=== PATIENT | male | born 1930 | race Caucasian/White ===

== ENCOUNTER 2018-09-08 15:08 | Inpatient (IN) | payer MEDICARE ==
[~2018-09-08] VITALS: Ht 170.2 cm; Wt 74.7 kg
[~2018-09-08 15:08] MED LIST: AC500T PO; BACL10TA PO; CALC-682 PO; DIPH25TA82 PO; DOXY100C2 PO; FLUT12AE4 IH; FLUT1AER IH; GABA100C PO; GLUC500C2 PO; HYDR1CAP2 PO; INDA1.25 PO; LEVO137T6 PO; NAPR-243 PO; OMEP20CA6 PO; RANI150T90 PO; TAMS0.4C98 PO; [UNRECOGNIZED DRUG - CODE] PO
[2018-09-10] MEDS ORDERED: LOPERAMIDE 2 MG (IMODIUM) CAP PO PRN (08:45)
[2018-09-10] MEDS ORDERED: MELATONIN 3 MG TABLET PO PRN (08:45)
[2018-09-10] MEDS ORDERED: diphenhydrAMINE 25 MG TAB (BENADRYL) PO PRN (08:45)
[2018-09-10] MEDS ORDERED: DOCUSATE SODIUM 100 MG (COLACE) CAP PO PRN (08:45)
[2018-09-10] MEDS ORDERED: POLYETHYLENE GLYCOL 17 GM (MIRALAX) PACK PO PRN (08:45)
[2018-09-10] MEDS ORDERED: CALCIUM CARBONATE 500 MG (TUMS) TAB.CHEW PO PRN (08:45)
[2018-09-10] MEDS ORDERED: ONDANSETRON 4 MG (ZOFRAN) ORAL DISSOLVE TAB PO PRN (08:45)
[2018-09-10] MEDS ORDERED: ACETAMINOPHEN 500 MG TAB (TYLENOL) PO PRN (08:45)
--- NOTE | 2018-09-10 18:49 | NUR ---
Pt admitted to room 222, with an admitting diagnosis of S/P Rt Total shoulder revision from [facility] via w/c, accompanied by , & friend. Nitish LUCIA III introduced to surroundings, call light, bed controls, phone, TV, temperature control, lights, meal times, smoking policy, visitor policy, side rail policy, bathrooms and showers. Patient Rights given to patient in the handbook. Nitish LUCIA III verbalizes understanding that [facility] is not responsible for the loss or damage to any personal effects or valuables that are kept in the patients posession during their hospitalization. The following Patient Care Plans were discussed with the pt: Discharge Planning, Self Care Deficit, Impaired Mobility, Potential for fall/injury. Nitish LUCIA III verbalizes understanding of Interdisciplinary Patient Education. Patient and/or family were informed about the Rapid Response Team and its purpose. Patient received Patient Rights Booklet, which includes Privacy Act Statement and Data Collection Information Summary.
--- OUTSIDE RECORDS SUMMARY | 2018-09-10 18:54 | XMS REPORT | Continuity of Care Document ---
Author Organization Unknown Address Unknown Allergies Active Description Code Type Severity Reaction Onset Reported/Identified Relationship to Patient Clinical Status Yes Cephalosporins [id number] Drug Allergy Severe RASH, DYSPNEA 11/16/2011 Yes HYDROCARBON HYDROCARBON Moderate RASH 11/16/2011 Yes Pentazocine Lactate [id number] Drug Allergy Moderate PSYCH 11/16/2011 Yes atorvastatin calcium [id number] Drug Allergy Mild MUSCLE SPASMS 11/16/2011 Yes ciprofloxacin [id number] Drug Allergy Severe HALLUCINATIONS. 06/15/2015 Medications There is no data. Problems Date Dx Coded Attending Type Code Diagnosis Diagnosed By 11/16/2011 Ot 682.3 11/16/2011 Ot 709.9 06/15/2015 MASTER GRACIA MD Ot R00.1 BRADYCARDIA, UNSPECIFIED 06/15/2015 MASTER GRACIA MD Ot R55 SYNCOPE AND COLLAPSE 06/15/2015 DEEPTHI ARMENDARIZ, MARIAA Alvarez Ot 786.2 08/14/2017 DEEPTHI ARMENDARIZ, MARIAA Alvarez Ot 786.2 COUGH 08/15/2017 CORAL MUNOZ DO Ot E03.9 HYPOTHYROIDISM, UNSPECIFIED 08/15/2017 FATOU MUNOZ DOA K Ot I10 ESSENTIAL (PRIMARY) HYPERTENSION 08/15/2017 CORAL MUNOZ DO Ot K21.9 GASTRO-ESOPHAGEAL REFLUX DISEASE WITHOUT 08/15/2017 CORAL MUNOZ DO Ot K59.00 CONSTIPATION, UNSPECIFIED 08/15/2017 CORAL MUNOZ DO Ot R10.9 UNSPECIFIED ABDOMINAL PAIN 08/15/2017 CORAL MUNOZ DO Ot Z79.51 HALFWAY (CURRENT) USE OF INHALED STERO 08/15/2017 CORAL MUNOZ DO Ot Z85.828 PERSONAL HISTORY OF OTHER MALIGNANT NEOP 08/15/2017 CORAL MUNOZ DO Ot Z88.1 ALLERGY STATUS TO OTHER ANTIBIOTIC AGENT 08/15/2017 CORAL MUNOZ DO Ot Z88.8 ALLERGY STATUS TO OTH DRUG/MEDS/BIOL SUB 08/15/2017 DEEPTHI ARMENDARIZ, MARIAA Alvarez Ot 786.2 COUGH 08/16/2017 CORAL MUNOZ DO Ot E03.9 HYPOTHYROIDISM, UNSPECIFIED 08/16/2017 CORAL MNUOZ DO Ot I10 ESSENTIAL (PRIMARY) HYPERTENSION 08/16/2017 CORAL MUNOZ DO Ot K21.9 GASTRO-ESOPHAGEAL REFLUX DISEASE WITHOUT 08/16/2017 CORAL MUNOZ DO Ot K59.00 CONSTIPATION, UNSPECIFIED 08/16/2017 CORAL MUNOZ DO Ot R10.9 UNSPECIFIED ABDOMINAL PAIN 08/16/2017 CORAL MUNOZ DO Ot Z79.51 HALFWAY (CURRENT) USE OF INHALED STERO 08/16/2017 CORAL MUNOZ DO Ot Z85.828 PERSONAL HISTORY OF OTHER MALIGNANT NEOP 08/16/2017 CORAL MUNOZ DO Ot Z88.1 ALLERGY STATUS TO OTHER ANTIBIOTIC AGENT 08/16/2017 CORAL MUNOZ DO Ot Z88.8 ALLERGY STATUS TO OT DRUG/MEDS/BIOL SUB Procedures There is no data. Results Test Result Range Complete blood count (CBC) with automated white blood cell (WBC) differential - 08/14/17 22:55 Blood leukocytes automated count (number/volume) 6.1 10*3/uL 4.3-11.0 Blood erythrocytes automated count (number/volume) 3.70 10*6/uL 4.35-5.85 Venous blood hemoglobin measurement (mass/volume) 11.7 g/dL 13.3-17.7 Blood hematocrit (volume fraction) 35 % 40-54 Automated erythrocyte mean corpuscular volume 94 [foz_us] 80-99 Automated erythrocyte mean corpuscular hemoglobin (mass per erythrocyte) 32 pg 25-34 Automated erythrocyte mean corpuscular hemoglobin concentration measurement (mass/volume) 34 g/dL 32-36 Automated erythrocyte distribution width ratio 13.3 % 10.0- 14.5 Automated blood platelet count (count/volume) 196 10*3/uL 130-400 Automated blood platelet mean volume measurement 8.4 [foz_us] 7.4-10.4 Automated blood neutrophils/100 leukocytes 54 % 42-75 Automated blood lymphocytes/100 leukocytes 26 % 12-44 Blood monocytes/100 leukocytes 17 % 0-12 Automated blood eosinophils/100 leukocytes 3 % 0-10 Automated blood basophils/100 leukocytes 0 % 0-10 Blood neutrophils automated count (number/volume) 3.3 10*3 1.8-7.8 Blood lymphocytes automated count (number/volume) 1.6 10*3 1.0-4.0 Blood monocytes automated count (number/volume) 1.1 10*3 0.0- 1.0 Automated eosinophil count 0.2 10*3/uL 0.0-0.3 Automated blood basophil count (count/volume) 0.0 10*3/uL 0.0-0.1 PT panel in platelet poor plasma by coagulation assay - 08/14/17 22:55 Prothrombin time (PT) in platelet poor plasma by coagulation assay 13.0 s 12.2-14.7 INR in platelet poor plasma or blood by coagulation assay 1.0 0.8-1.4 Activated partial thromboplastin time (aPTT) in platelet poor plasma bycoagulation assay - 08/14/17 22:55 Activated partial thromboplastin time (aPTT) in platelet poor plasma bycoagulation assay 36 s 24-35 Comprehensive metabolic panel - 08/14/17 22:55 Serum or plasma sodium measurement (moles/volume) 137 mmol/L 135-145 Serum or plasma potassium measurement (moles/volume) 4.4 mmol/L 3.6-5.0 Serum or plasma chloride measurement (moles/volume) 101 mmol/L 98-107 Carbon dioxide 26 mmol/L 21-32 Serum or plasma anion gap determination (moles/volume) 10 mmol/L 5-14 Serum or plasma urea nitrogen measurement (mass/volume) 21 mg/dL 7-18 Serum or plasma creatinine measurement (mass/volume) 1.09 mg/dL 0.60-1.30 Serum or plasma urea nitrogen/creatinine mass ratio 19 NRG Serum or plasma creatinine measurement with calculation of estimated glomerular filtration rate > NRG Serum or plasma glucose measurement (mass/volume) 119 mg/dL 70-105 Serum or plasma calcium measurement (mass/volume) 9.8 mg/dL 8.5-10.1 Serum or plasma total bilirubin measurement (mass/volume) 0.5 mg/dL 0.1-1.0 Serum or plasma alkaline phosphatase measurement (enzymatic activity/volume) 128 U/L 40-136 Serum or plasma aspartate aminotransferase measurement (enzymatic activity/volume) 54 U/L 5-34 Serum or plasma alanine aminotransferase measurement (enzymatic activity/volume) 35 U/L 0-55 Serum or plasma protein measurement (mass/volume) 6.3 g/dL 6.4-8.2 Serum or plasma albumin measurement (mass/volume) 4.0 g/dL 3.2-4.5 Magnesium - 08/14/17 22:55 Magnesium 2.1 mg/dL 1.8-2.4 Serum or plasma troponin i.cardiac measurement (mass/volume) - 08/14/17 22:55 Serum or plasma troponin i.cardiac measurement (mass/volume) < ng/mL <0.30 Serum or plasma amylase measurement (enzymatic activity/volume) - 08/14/17 22:55 Serum or plasma amylase measurement (enzymatic activity/volume) 22 U/L 25-125 Lipase - 08/14/17 22:55 Lipase 20 U/L 8-78 Complete urinalysis with reflex to culture - 08/14/17 23:45 Urine color determination YELLOW NRG Urine clarity determination VERY CLOUDY NRG Urine pH measurement by test strip 7 5-9 Specific gravity of urine by test strip 1.010 1.016-1.022 Urine protein assay by test strip, semi-quantitative NEGATIVE NEGATIVE Urine glucose detection by automated test strip NEGATIVE NEGATIVE Erythrocytes detection in urine sediment by light microscopy NEGATIVE NEGATIVE Urine ketones detection by automated test strip NEGATIVE NEGATIVE Urine nitrite detection by test strip NEGATIVE NEGATIVE Urine total bilirubin detection by test strip NEGATIVE NEGATIVE Urine urobilinogen measurement by automated test strip (mass/volume) NORMAL NORMAL Urine leukocyte esterase detection by dipstick NEGATIVE NEGATIVE Automated urine sediment erythrocyte count by microscopy (number/high power field) NONE NRG Automated urine sediment leukocyte count by microscopy (number/high power field) NONE NRG Bacteria detection in urine sediment by light microscopy NEGATIVE NRG Squamous epithelial cells detection in urine sediment by light microscopy 0-2 NRG Crystals detection in urine sediment by light microscopy PRESENT NRG Casts detection in urine sediment by light microscopy NONE NRG Mucus detection in urine sediment by light microscopy NEGATIVE NRG Complete urinalysis with reflex to culture NO NRG Amorphous sediment detection in urine sediment by light microscopy LARGE SCOTT URATES NRG Encounters ACCT No. Visit Date/Time Discharge Status Pt. Type Provider Facility Loc./Unit Complaint [id number] 08/14/2017 22:46:00 08/15/2017 01:20:00 DIS Emergency CORAL MUNOZ DO [facility] ER SIDE PAIN [id number] 06/15/2015 11:11:00 06/15/2015 12:58:00 DIS Emergency MASTER GRACIA MD [facility] ER DIZZINESS/WEAKNESS [id number] 05/01/2014 11:39:00 05/01/2014 23:59:59 CLS Outpatient DEEPTHI ARMENDARIZ, MARIAA Alvarez [facility] RAD COUGH [id number] 09/10/2018 18:50:00 ACT Inpatient RICO LANCE DO [facility] IRF R TOTAL SHOULDER REPLACEMENT [id number] 11/16/2011 20:26:00 Document Registration
[2018-09-10 18:55] VITALS: BP 123/62
--- NOTE | 2018-09-10 19:49 | NUR ---
Pt states that he had a baker catheter when at [facility]; was removed yesterday morning. Pt states that he has been voiding ok; but, "not a lot at a time." Denied burning or pain w voiding. states that pt wears diapers at night. Pt has not voided since he arrived on unit. Pt sat up in bed, ate sandwich & chocolate milk shake. Pt required max assist of 2 to transfer from w/c to bed upon arrival. Pt had Lt TKR done years ago, which pt was not able to bend his Lt knee after that, limiting ROM greatly. Pt arrived to unit w immobilizer on Rt arm.
[2018-09-10] MEDS ORDERED: Biotin PO (20:33)
[2018-09-10] MEDS ORDERED: SENN-40 PO (20:33)
[2018-09-10] MEDS ORDERED: LEVO125T6 PO (20:33)
[2018-09-10] MEDS ORDERED: MULT-1061 PO (20:33)
[2018-09-10] MEDS ORDERED: ASCO10006 PO (20:33)
[2018-09-10] MEDS ORDERED: DILT60TA PO (20:33)
[2018-09-10] MEDS ORDERED: INDA1.25 PO (20:33)
[2018-09-10] MEDS: HYDROcodone/APAP 5 MG/325 MG (LORTAB) TAB PO PRN (22:11)
[2018-09-10] MEDS: GABAPENTIN 100 MG (NEURONTIN) CAP PO SCH (22:11)
[2018-09-11 05:03] VITALS: BP 124/74
[2018-09-11 05:12] LABS: BASOPHILS % (AUTO) 0 % (0-10); EOSINOPHILS # (AUTO) 0.2 10^3/uL (0.0-0.3); EOSINOPHILS % (AUTO) 4 % (0-10); HEMATOCRIT 29 % (40-54); HEMOGLOBIN 10.1 G/DL (13.3-17.7); LYMPHOCYTES # (AUTO) 0.9 X 10^3 (1.0-4.0); LYMPHOCYTES % (AUTO) 17 % (12-44); MEAN CORPUSCULAR HEMOGLOBIN 32 PG (25-34); MEAN CORPUSCULAR HGB CONC 35 G/DL (32-36); MEAN CORPUSCULAR VOLUME 92 FL (80-99); MEAN PLATELET VOLUME 9.6 FL (7.4-10.4); MONOCYTES # (AUTO) 0.9 X 10^3 (0.0-1.0); MONOCYTES % (AUTO) 16 % (0-12); NEUTROPHILS # (AUTO) 3.5 X 10^3 (1.8-7.8); NEUTROPHILS % (AUTO) 63 % (42-75); PLATELET COUNT 124 10^3/uL (130-400); RED CELL DISTRIBUTION WIDTH 12.8 % (10.0-14.5); WHITE BLOOD COUNT 5.5 10^3/uL (4.3-11.0)
[2018-09-11 05:37] LABS: ALANINE AMINOTRANSFERASE 37 U/L (0-55); ALBUMIN 2.7 GM/DL (3.2-4.5); ALKALINE PHOSPHATASE 88 U/L (40-136); BILIRUBIN,TOTAL 0.9 MG/DL (0.1-1.0); BUN/CREATININE RATIO 20; CALCIUM 8.6 MG/DL (8.5-10.1); CARBON DIOXIDE 25 MMOL/L (21-32); CHLORIDE 101 MMOL/L (98-107); CREATININE SERUM 0.71 MG/DL (0.60-1.30); GFR ESTIMATED > 60; GLUCOSE 131 MG/DL (70-105); SODIUM 134 MMOL/L (135-145); TOTAL PROTEIN 4.7 GM/DL (6.4-8.2)
--- NOTE | 2018-09-11 08:37 | PM&R H&P / Post Admit Assess ---
History of Present Illness HPI/Chief Complaint CC: Right shoulder replacement with severe limitation of activities with debility HPI: This is an 88yoWM clinic patient of Dr Pimentel who presents to IRF after an uncomplicated right shoulder replacement by Dr Tobar at [facility] Tuesday but required IRF stay due to advanced age and frailty requiring 2 person assist in addition to left knee fusion due to replacements that have failed x 2 in the past further limiting his ability to ambulate and take care of himself at home. Patient finally arrived at 700pm last night and has settled in and doing well. BM this morning after laxatives given at [facility]. Pain is well controlled currently. Dr Pimentel has been notified of the consultation for his PCP needs. Right sling will stay in place during activity. His is at home in frail health also. I have reviewed his home meds and restarted all. PLOF was independent with ADL's. Source: patient, old records Exam Limitations: no limitations Date Seen 09/11/18 Time Seen by a Provider: 08:45 Attending Physician Mary Lance DO PCP Quincy Pimentel MD Referring Physician Date of Admission September 10, 2018 at 18:50 Home Medications & Allergies Home Medications Reviewed patient Home Medication Reconciliation performed by pharmacy medication reconciliations injection maintenance technician and/or nursing. Patients Allergies have been reviewed. Allergies Allergies Coded Allergies ciprofloxacin (Verified Allergy, Severe, HALLUCINATIONS. , 06/15/15) Cephalosporins (Verified Adverse Reaction, Severe, RASH, DYSPNEA, 11/16/11) Pentazocine Lactate (Unverified Adverse Reaction, Intermediate, PSYCH, 11/16/11) atorvastatin calcium (Unverified Adverse Reaction, Mild, MUSCLE SPASMS, 11/16/11) Uncoded Allergies HYDROCARBON ( Adverse Reaction, Intermediate, RASH, 11/16/11) Past Kaxbnpo-Khytbw-Bcuutt Hx Past Med/Social Hx: Reviewed Nursing Past Med/Soc Hx, Reviewed and Corrections made Patient Social History Marrital Status: Employed/Student: retired ([employer]) Alcohol Use: Denies Use Recreational Drug Use: No Smoking Status: Never a Smoker 2nd Hand Smoke Exposure: No Physical Abuse Screen: No Sexual Abuse: No Recent Foreign Travel: No Contact w/other who traveled: No Recent Hopitalizations: No Recent Infectious Disease Expo: No Immunizations Up To Date Date of Pneumonia Vaccine: Oct 23, 2009 Date of Influenza Vaccine: Mar 25, 2015 Seasonal Allergies Seasonal Allergies: Yes Past Medical History Surgeries: Orthopedic Currently Using CPAP: No Currently Using BIPAP: No Cardiac: Hypertension Genitourinary: Benign Prostatic Hyperpl Gastrointestinal: Gastroesophageal Reflux Musculoskeletal: Degenerate Disk Disease, Arthritis, Back Injury, Chronic Back Pain Endocrine: Hypothyroidsim Cancer: Skin Did You Recieve Any Treatments: Yes What Type of Treatment Did You: Surgical Intervention History of Blood Disorders: No Adverse Reaction to Blood Alex: No Family History Cardiovascular disease 19 MOTHER Completed stroke 19 MOTHER Diabetes mellitus 19 FATHER Hypertension 19 FATHER 19 MOTHER Review of Systems Constitutional: see HPI, malaise, weakness EENTM: no symptoms reported Respiratory: no symptoms reported Cardiovascular: no symptoms reported Gastrointestinal: no symptoms reported Genitourinary: no symptoms reported Musculoskeletal: joint pain, other (right shoulder pain) Skin: no symptoms reported Psychiatric/Neurological: No Symptoms Reported All Other Systems Reviewed Negative Unless Noted: Yes Physical Exam Exam Vital Signs Vital Signs Date Time Temp Pulse Resp B/P (MAP) Pulse Ox O2 Delivery O2 Flow Rate FiO2 09/11/18 05:03 98.9 81 20 124/74 (91) 97 Room Air Capillary Refill : General Appearance: No Apparent Distress, WD/WN, Chronically ill, Thin HEENT: PERRL/EOMI, TMs Normal, Normal ENT Inspection, Pharynx Normal, Moist Muc ous Membranes Neck: Full Range of Motion, Normal Inspection, Non Tender, Supple Respiratory: Chest Non Tender, Lungs Clear, Normal Breath Sounds, No Accessory Muscle Use, No Respiratory Distress Cardiovascular: Regular Rate, Rhythm, No Edema, No Gallop, No JVD, No Murmur Gastrointestinal: Normal Bowel Sounds, No Organomegaly, No Pulsatile Mass, Non Tender, Soft Back: Normal Inspection, No CVA Tenderness, No Vertebral Tenderness Extremity: Normal Capillary Refill, Normal Inspection, Normal Range of Motion (except right shoulder and chronic fusion left knee), Non Tender, No Calf Tenderness, No Pedal Edema Neurologic/Psychiatric: Alert, Oriented x3, No Motor/Sensory Deficits, Normal Mood/Affect Skin: Normal Color, Warm/Dry Lymphatic: No Adenopathy Results Results/Procedures Labs Laboratory Tests 09/11/18 04:35 Patient resulted labs reviewed. Assessment/Plan Assessment and Plan Assess & Plan/Chief Complaint Assessment: s/p right shoulder replacement uncomplicated POD # 5 at [facility] Post op urinary retention requiring Ferrell cath but now resolved since cath removed Chronic left knee fusion HTN Allergic rhinitis Anemia Hypothyroidism Neuropathy BPH GERD Plan: Pain control IRF protocols Fall risk PCP consulted (1) Urinary retention (2) Constipation (3) BPH (benign prostatic hyperplasia) (4) Anemia (5) Hypertension (6) Allergic rhinitis (7) GERD (gastroesophageal reflux disease) (8) Hypothyroidism (9) Limitation of joint motion of left knee (10) Status post replacement of right shoulder joint Post Admission Physician Asses Date seen by provider: September 11, 2018 Time seen by provider: 08:45 Admisison Dx: (1) Status post replacement of right shoulder joint The preadmission screen agrees with the post admission assessment that the patient is a good candidate for inpatient rehabilitation. The patient will have a comprehensive program of inpatient rehabilitation with a goal of maximizing level of functional independence prior to discharge home with . The patient will have PT/OT ninety minutes per day, each discipline, five days a week for gait, strengthening, conditioning, balance, ADLs, any patient/family/caregiver training as necessary. Speech therapy to do cognitive assessment and treat as indicated. Rehabilitation nursing to assist with bowel, bladder, skin, wound care, medication administration, pain management. Pocket Assembler to assist with discharge planning, community reentry. SCD's for DVT prophylaxis. He appears to be well motivated to participate in three hours of therapy a day. He should be able to tolerate three hours of therapy a day from a medical standpoint. He should benefit from the three hours of therapy a day. He has a reasonable discharge plan, reasonable discharge rehabilitation goals and a supportive family. He has various comorbidities that need to be closely monitored with medications and treatments adjusted on a daily basis as needed. These include: see list Barriers to discharge for this patient who had been independent prior to this are for him to be modified independent to supervision for ADLs and mobility skil ls prior to discharge home with , so as to lessen the burden of the caregivers. Risks for this patient include: 1. Fall 2. Fracture 3. DVT 4. Pulmonary embolism 5. Wound infection 6. Skin breakdown 7. Contractures 8. Poorly controlled pain 9. Urinary retention 10. UTI 11. Respiratory infection 12. Aspiration Estimated Length of Stay: 10 days Prognosis: Rehab prognosis appears good for goal of discharge home with modified independent to supervision for ADLs and mobility skills. MARY LANCE DO September 11, 2018 08:37
--- NOTE | 2018-09-11 09:30 | Occupational Therapy Eval ---
OT Evaluation-General/PLF Medical Diagnosis Admission Date September 10, 2018 at 18:50 Medical Diagnosis: right total shoulder Onset Date: September 11, 2018 Therapy Diagnosis Therapy Diagnosis: impaired ADLs and mobilty Height/Weight Height (Feet): 5 Height (Inches): 7.00 Weight (Pounds): 167 Weight (Ounces): 1.0 Precautions Precautions/Isolations: Fall Prevention, Standard Precautions Weight Bear Status Weight Bearing Restriction: Non Weight Bearing Location Restriction: R UE Referral Referral Reason: Activity Tolerance, Self Care, Evaluation/Treatment, Strengthening/ROM Medical History Additional Medical History Hypertension, benign Prostatic Hyperpl, Gastroesophageal Reflux, Degenerate Disk Disease, Arthritis, Back Injury, Chronic Back Pain, hypothyroidsim Cancer: Skin Reviewed History: Yes Social History Home: Single Level (underground home ) Current Living Status: Spouse Entry Into Home: Stairs Without Railing Steps Into Home: 1 ADL-Prior Level of Function Therapy Code Descriptions/Definitions Functional [place] Measure: 0=Not Assessed/NA 4=Minimal Assistance 1=Total Assistance 5=Supervision or Setup 2=Maximal Assistance 6=Modified [place] 3=Moderate Assistance 7=Complete [place] Therapy Quality Codes: 6 Independent with activity with or without an assistive device 5 Patient requires set up or clean up by helper. Patient completes activity by themselves 4 Supervision or touching assist (CGA). [place] provide cues , steadying assist 3 The helper provides less than half the effort to complete the activity 2 The helper provides more than half the effort to complete the activity 1 Dependent. The helper does all the effort to complete an activity 7 Patient refused to complete or attempt activity 9 The patient did not perform the activity before the current illness or injury 88 Not attempted due to Medical conditions or safety concerns Functional Abilities and Goals: Independent: Patient completed the activities by him/herself, with or without an assistive device, with no assistance from a helper. Needed Some Help: Patient needed partial assistance from another person to complete activities. Dependent: A helper completed the activities for the patient. Unknown: Not Applicable: Self Care: Independent (independent with ADLS use of rollater for functional t ransfers) Functional Cognition: Independent DME/Equipment: Bath Chair, Bedside Commode, Grab Bars, Shower, Tall Toilet, Toilet/Riser Drive Self: Yes OT Current Status Subjective pt layign supine in bed upon OT arrival in no apparent distress. pt complaints of no pain. pt agreed to OT evaluation/ treatment session. 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 Mental Status/Objective Patient Orientation: Person, Place, Time, Eyes Open, Situation, Normal For Age Attachments: Other-See Comments Current Glasses/Contacts: Yes Hearing Aids: Yes Dentures/Partials: No Hand Dominance: Right Upper Extremity ROM R shoulder/ elbow NT secondary to precautions. L UE WFL Upper Extremity Coordination R shoulder/ elbow NT secondary to precautions. noted decrease FMC L UE WFL Upper Extremity Sensation WFL. pt c/o of slight tingle in R UE Upper Extremity Strength R shoulder/ elbow NT secondary to precautions. L UE WFL Edema: noted edema in R UE ADL-Treatment Eating (FIM): 4 (required assist to stir food items and required assist with set up) Eating (QC): 3 Grooming (FIM): 4 (CGA fro safety/ balance while brushing teeth at sink) Oral Hygiene (QC): 4 Bathing (FIM): 3 Bathing Location: R Arm, L Upper Leg, R Upper Leg, Chest, Abdomen, Perineal Area Shower/Bathe Self (QC): 3 Upper Body Dressing (FIM): 1 (button up shirt. pt reqwuired assist with all of UB dressing ) Upper Body Dressing (QC): 1 Lower Body Dressing (FIM): 1 (pt required TA for underpants, pants, and [place]. socks) Lower Body Dressing (QC): 1 On/Off Footwear (QC): 1 Toileting (FIM): 1 (pt required assist with 3/3 toileting tasks ) Toileting Hygiene (QC): 1 Transfers (B, C, W/C) (FIM): 2 (MAX A from bed to w/c ) Toilet/Commode Transfer (FIM): 1 (2 person assist MOD A X 2 person w/c to high raised toilet) Toilet Transfer (QC): 1 Shower Transfer (FIM): 0 (NT secondary to safety) pt education on one handed dressing techniques for increase independence. pt attempt to demo but required TA. additional education to follow. pt education on role Of OT/ purpose, goals and rehab process. pt verbalized understanding. Other Treatments pt education on donning/ doffing sling. pt required TA,.additional education required. Education OT Patient Education: Energy conservation, Modified ADL techniques, Progress toward Goal/Update tx plan, Purpose of tx/functional activities, Reviewed precautions, Rehab process, Safety issues, Transfer techniques Teaching Recipient: Patient Teaching Methods: Demonstration, Discussion Response to Teaching: Verbalize Understanding, Return Demonstration, Reinforcement Needed OT Short Term Goals Short Term Goals Eating(FIM): 5 Grooming(FIM): 5 Bathing(FIM): 5 Bathing Location: L Arm, R Arm, L Upper Leg, R Upper Leg, L Lower Leg (including foot), R Lower Leg (including foot), Chest, Abdomen, Buttocks, Perineal Area Upper Body Dressing(FIM): 5 Lower Body Dressing(FIM): 5 Toileting(FIM): 5 Transfers (B,C,W/C) (FIM): 5 Toilet/Commode Transfer(FIM): 5 Shower Transfer(FIM): 5 (5) Additional Short Term Goals: 1-Demonstrate ADL Tasks, 2-Verbalize Understanding, 3-ImproveStrength/Joel 1=Demonstrate adherence to instructed precautions during ADL tasks. 2=Patient will verbalize/demonstrate understanding of assistive devices/modifications for ADL. 3=Patient will improve strength/tolerance for activity to enable patient to perform ADL's. OT Personnel Counselor Goals Residential Goals Eating (FIM): 7 Eating (QC): 6 Groomin Oral Hygiene (QC): 6 Bathing(FIM): 6 Bathing Location: L Arm, R Arm, L Upper Leg, R Upper Leg, L Lower Leg (including foot), R Lower Leg (including foot), Chest, Abdomen, Buttocks, Perineal Area Shower/Bathe Self (QC): 6 Upper Body Dressing(FIM): 6 Upper Body Dressing (QC): 6 Lower Body Dressing(FIM): 6 Lower Body Dressing (QC): 6 On/Off Footwear (QC): 6 Toileting(FIM): 6 Toileting Hygiene (QC): 6 Transfers (B,C,W/C) (FIM): 6 Toilet/Commode Transfer(FIM): 6 Toilet/Commode Transfer (QC): 6 Shower Transfer(FIM): 6 1=Demonstrate adherence to instructed precautions during ADL tasks. 2=Patient will verbalize/demonstrate understanding of assistive devices/modifications for ADL. 3=Patient will improve strength/tolerance for activity to enable patient to perform ADL's. OT Education/Plan Problem List/Assessment Assessment: Decreased Activ Tolerance, Decreased Safety Aware, Decreased UE Strength, Dependent Transfers, Impaired Bed Mobility, Impaired Cognition, Impaired Coordination, Impaired Funct Balance, Impaired I ADL's, Impaired Self- Care Skills, Restricted Funct UE ROM pt presents with functional limitations affecting areas of ADLS/ functional transfers. pt protocol for R shoulder can be found in chart. pt would benefit from OT services to increase independence with ADLS/ functional transfers and for safe transition to home. Discharge Recommendations Plan/Recommendations: Continue POC Target Placement home with family Treatment Plan/Plan of Care Treatment,Training & Education: Yes Patient would benefit from OT for education, treatment and training to promote independence in ADL's, mobility, safety and/or upper extremity function for ADL's. Plan of Care: ADL Retraining, Caregiver Training, Concurrent Therapy, Functional Mobility, Group Exercise/Act as Ind, Orthotic Fitting/Training, UE Funct Exercise/Act Treatment Duration: Oct 09, 2018 Frequency: At least 5 of 7 days/Wk (IRF) Estimated Hrs Per Day: 1.5 hours per day (60-90 minutes per day) Rehab Potential: Fair Time/GCodes Start Time: 08:05 Stop Time: 09:20 Billed Treatment Time EVM 15 minutes ADL 60 minutes, 4 units JETHRO POLLACK OT September 11, 2018 09:29
[2018-09-11] MEDS ORDERED: IRBE150T26 PO (10:04)
[2018-09-11] MEDS ORDERED: GABA-486 PO (10:04)
[2018-09-11] MEDS ORDERED: BACL10TA PO (10:04)
[2018-09-11] MEDS ORDERED: ACET-168 PO (10:04)
[2018-09-11] MEDS ORDERED: CALC-927 PO (10:04)
[2018-09-11] MEDS ORDERED: FLUT16SP22 NS (10:04)
[2018-09-11] MEDS ORDERED: NFBIOT1000 PO (10:04)
[2018-09-11] MEDS ORDERED: HYDR-3812 PO (10:09)
--- NOTE | 2018-09-11 10:10 | NUR ---
HAD A LIST OF 15 MEDICATIONS FROM BRITTNEY TO CONTINUE TAKING, IT APPEARS NO CHANGES WERE MADE FROM HIS HOME MED LIST. I CALLED [facility] FOR A LIST OF RECENTLY FILLED MEDICATIONS. [facility] FILLED: 08-26-18 FLOMAX 0.4MG HS #90 08-05-18 DILTIAZEM 60MG DAILY 07-29-18 HYDROCODONE 5-325MG 1-2 Q6H PRN 07-20-18 LEVOTHYROXINE 125MCG DAILY #90 07-07-18 IRBESARTAN 150MG #90 07-05-18 GABAPENTIN 100MG TAKE 2 HS #180 06-20-18 FLONASE 2 SPRAYS HS #3 06-16-18 LOSARTAN 100MG DAILY #90 (CHANGED TO IRBESARTAN) BRITTNEY HAD INDAPAMIDE 1.25MG DAILY HOWEVER [facility] HAS NOT FILLED THIS, AFTER SPEAKING WITH THE PATIENT HE STATES HE IS NO CURRENTLY TAKING IT, HE IS NOW TAKING DILTIAZEM AND IRBESARTAN. NOT ON FILE WITH [facility] IS BACLOFEN, PATIENT STATES HE TAKES THIS RARELY AND ONLY WHEN HES GOING ON A LONG CAR RIDE, HE HAS NOT FILLED IT RECENTLY BECAUSE HE DOES NOT USE IT OFTEN. I LEFT IT ON THE MED REC. OTC MEDS: SENNA BID TYLENOL 1-2 PRN RANITIDINE 150MG BID BIOTIN DAILY CALCIUM MAGNESIUM ZINC DAILY VITAMIN C 1800 MTV DAILY
--- NOTE | 2018-09-11 10:41 | Physical Therapy Evaluation ---
PT Evaluation-General Medical Diagnosis Admission Date September 10, 2018 at 18:50 Medical Diagnosis: right total shoulder Onset Date: September 07, 2018 Therapy Diagnosis Therapy Diagnosis: impaired mobility, strength, endurance, balance, ROM Height/Weight Height (Feet): 5 Height (Inches): 7.00 Weight (Pounds): 167 Weight (Ounces): 1.0 Precautions Precautions/Isolations: Fall Prevention, Standard Precautions Weight Bear Status total shoulder protocol on right side Referral Physician: Mary Francis DO Reason for Referral: Evaluation/Treatment Medical History Additional Medical History Past Medical History Surgeries: Orthopedic Currently Using CPAP: No Currently Using BIPAP: No Cardiac: Hypertension Genitourinary: Benign Prostatic Hyperpl Gastrointestinal: Gastroesophageal Reflux Musculoskeletal: Degenerate Disk Disease, Arthritis, Back Injury, Chronic Back Pain Endocrine: Hypothyroidsim Cancer: Skin Did You Recieve Any Treatments: Yes What Type of Treatment Did You: Surgical Intervention History of Blood Disorders: No Adverse Reaction to Blood Alex: No Reviewed History: Yes Social History Home: Single Level (underground home ) Current Living Status: Spouse Entry Into Home: Stairs Without Railing PT Steps Into Home: 1 Prior/Core FIM Prior Level of Function Therapy Code Descriptions/Definitions Functional [place] Measure: 0=Not Assessed/NA 4=Minimal Assistance 1=Total Assistance 5=Supervision or Setup 2=Maximal Assistance 6=Modified [place] 3=Moderate Assistance 7=Complete [place] Therapy Quality Codes: 6 Independent with activity with or without an assistive device 5 Patient requires set up or clean up by helper. Patient completes activity by themselves 4 Supervision or touching assist (CGA). [place] provide cues , steadying assist 3 The helper provides less than half the effort to complete the activity 2 The helper provides more than half the effort to complete the activity 1 Dependent. The helper does all the effort to complete an activity 7 Patient refused to complete or attempt activity 9 The patient did not perform the activity before the current illness or injury 88 Not attempted due to Medical conditions or safety concerns Functional Abilities and Goals: Independent: Patient completed the activities by him/herself, with or without an assistive device, with no assistance from a helper. Needed Some Help: Patient needed partial assistance from another person to complete activities. Dependent: A helper completed the activities for the patient. Unknown: Not Applicable: Bed Mobility: 6 Transfers (B,C,W/C) (FIM): 6 Gait: 6 Indoor Mobility (Ambulation): Independent Patient was using a 4-wheeled walker previously. PT Evaluation-Current Subjective Patient in wheelchair at bedside pre tx, agrees to PT, has no complaints of pain at rest. Patient has an arm immobilizer on the right side and states that he has had issues with a left total knee and only has about 20 degrees of flexion in it. Pt/Family Goals to be independent at home Objective Patient Orientation: Person, Place, Situation arm immobilizer ROM/Strength ROM Lower Extremities left knee flexion 35 degrees, patient has decreased dorsiflexion bilaterally and cannot achieve neutral Strenght Lower Extremities 4+/5 gross bilateral lower extremities except for dorsiflexion which is 3/5 bilaterally Neuromuscular (Tone, Coordination, Reflexes) NT Sensory Hearing: Functional Hand Dominance: Right Sensation Right Lower Extremit: Intact Sensation Left Lower Extremity: Intact Transfers Therapy Code Descriptions/Definitions Functional [place] Measure: 0=Not Assessed/NA 4=Minimal Assistance 1=Total Assistance 5=Supervision or Setup 2=Maximal Assistance 6=Modified [place] 3=Moderate Assistance 7=Complete [place] Therapy Quality Codes: 6 Independent with activity with or without an assistive device 5 Patient requires set up or clean up by helper. Patient completes activity by themselves 4 Supervision or touching assist (CGA). [place] provide cues , steadying assist 3 The helper provides less than half the effort to complete the activity 2 The helper provides more than half the effort to complete the activity 1 Dependent. The helper does all the effort to complete an activity 7 Patient refused to complete or attempt activity 9 The patient did not perform the activity before the current illness or injury 88 Not attempted due to Medical conditions or safety concerns Transfers (B, C, W/C) (FIM): 3 Scootin Rollin Roll Left to Right (QC): 4 Supine to/from Sit: 4 Sit to/from Stand: 3 Sit to Lying (QC): 3 Lying to Sitting/Side of Bed(Q: 3 Sit to Stand (QC): 2 Chair/Pep-bi-Htmoc Xfer(QC): 2 Car Transfer (QC): 2 Patient performs bed mobility with SBA, supine <-> sit with min assist, sit <-> stand with mod assist, transfers with mod assist, car transfer max assist. Patient is retropulsive after standing until he has a few moments to adjust, he tends to lean forward at the waist to compensate for having decreased ankle ROM. He can perform a stand pivot transfer with mod assist or a sliding board transfer with min assist. Gait Does the Patient Walk?: Yes Mode of Locomotion: Walk Anticipated Mode of Locomotion: Walk Gait (FIM): 4 Walk 10 feet (QC): 3 Walk 50 ft with 2 Turns(QC): 3 Walking 10ft/uneven surface-QC: 3 Distance: 70'x2 Gait Level of Assist: 4 Gait Persons Needed: 1 Gait Assistive Device: Handheld Assist Comments/Gait Description Patient can ambulate 70' with PLATE STACKER and min assist (including 50' with at least 2 turns of 90 degrees and 10' over an uneven surface). Patient has difficulty with ambulation due to decreased ankle ROM bilaterally. He cannot use a walker or platform walker due to right total shoulder and is not steady enough to use a cane on the left side. Patient needs min assist to ambulate but it is a hard min assist and almost mod assist. Stairs If not tested on admit;explain Patient is not safe to perform stairs at this time due to level of assist needed just to ambulate. Balance Sitting Static: Good Sitting Dynamic: Good Standing Static: Poor Standing Dynamic: Poor Treatment LAQ alternating for 5 min Assessment/Needs Patient has impaired mobility, strength, endurance, balance, ROM. He cannot ambulate with an assistive device at this time and needs PLATE STACKER. Total shoulder protocol on the right side. Rehab Potential: Fair PT Short Term Goals Short Term Goals Time Frame: September 18, 2018 Transfers (B,C,W/C) (FIM): 4 Gait (FIM): 2 Gait Distance Comment: 100' Gait Level of Assist: 4 Gait Assistive Device: Handheld Assist PT Prison Goals Prison Goals PT Automation Qa Tester Goals Time Frame: Oct 02, 2018 Transfers (B,C,W/C) (FIM): 5 Sit to Lying (QC): 6 Lying-Sitting on Side/Bed(QC): 6 Sit to Stand (QC): 4 Rollin Roll Left to Right (QC): 6 Chair/Hpd-dj-Uacfq Xfer(QC): 4 Car Transfer (QC): 4 Gait (FIM): 4 Distance: 150' Walk 10 feet (QC): 4 Walk 10ft-Uneven Surface(QC): 4 Walk 50ft with 2 Turns (QC): 4 Walk 150 ft (QC): 4 Gait Level of Assist: 4 (CGA) Gait Assistive Device: Handheld Assist Stairs (FIM): 1 # of Steps: 1 1 Step (curb) (QC): 3 Stairs Level Of Assist: 4 PT Plan Problem List Problem List: Activity Tolerance, Functional Strength, Safety, Balance, Gait, Transfer, Bed Mobility, ROM Treatment/Plan Treatment Plan: Continue Plan of Care Treatment Plan: Bed Mobility, Concurrent Therapy, Education, Functional Activity Joel, Functional Strength, Group Therapy, Gait, Safety, Therapeutic Exercise, Transfers Treatment Duration: Oct 02, 2018 Frequency: At least 5 of 7 days/Wk (IRF) Estimated Hrs Per Day: 1.5 hours per day Patient and/or Family Agrees t: Yes Safety Risks/Education Patient Education: Gait Training, Transfer Techniques, Reviewed Precautions, Correct Positioning, Safety Issues Teaching Recipient: Patient Teaching Methods: Demonstration, Discussion Response to Teaching: Reinforcement Needed Discharge Recommendations Plan Patient will perform bed mobility and transfer training, balance and endurance training, functional strengthening, stair training, gait training, and education, to improve functional mobility and independence at home. Therapy D/C Recommendations: Home w/ Family Support, [facility] (TCU/NH) Time/GCodes Time In: 0930 Time Out: 1030 Total Billed Treatment Time: 60 Total Billed Treatment 1 visit EVM 30' GT 20' FA 10' NAGA JACOBS PT September 11, 2018 10:41
[2018-09-11] MEDS ORDERED: BACLOFEN 10 MG (LIORESAL) TAB PO PRN (11:00)
[2018-09-11] MEDS: ENOXAPARIN 40 MG/0.4 ML (LOVENOX) SYR SC SCH (11:58)
[2018-09-11] MEDS ORDERED: ACETAMINOPHEN 500 MG TAB (TYLENOL) PO PRN (12:00)
[2018-09-11] MEDS ORDERED: HYDROcodone/APAP 5 MG/325 MG (LORTAB) TAB PO PRN (12:00)
--- NOTE | 2018-09-11 12:13 | NUR ---
SUBSTATION SUPERINTENDENT met with patient and family to come complete initial assessment. Patient was alert and oriented and agreeable to assessment. Patient admitted to ARU from [place] following a right total shoulder replacement by Dr. Tobar . Prior to surgery patient and spouse reside in a one level, entry level programmer home in [place], [place]. The home is handicap accessible. He was very active prior to surgery including woodworking hobby. Patient reports independence with ADLs and ambulation with use of Rollator walker. Patient also possesses a lift chair and newly obtained luxury upright walker. Primary contact identified as spouse, Scarlet at [phone] and grandson, Siddhartha at [phone]. Secondary contact identified as patient's son-in-law Daniel at [phone]. PCP identified as Dr. Quincy Pimentel. Insurance verified as Medicare and [employer] [place] with [employer] prescription coverage and preferred pharmacy as [facility]. SUBSTATION SUPERINTENDENT reviewed typical ARU length of stay and weekly team conferences, patient expresses no concerns at this time. SUBSTATION SUPERINTENDENT continue to follow for additional needs.
--- NOTE | 2018-09-11 13:08 | ST Cognitive Linguistic Eval ---
Speech Evaluation-General Medical Diagnosis right total shoulder Onset Date: September 07, 2018 Therapy Diagnosis Therapy Diagnosis: Cognitive communication Precautions Precautions/Isolations: Fall Prevention, Standard Precautions Medical History Reviewed History: Yes Social History Current Living Status: Spouse Speech PLF-Current Status Prior Level of Function The patient lives at home with his . Prior to surgery he was independent with most of his daily needs. Subjective The patient was very pleasant and cooperative with the cognitive evaluation. Language Eval: Auditory Comprehends Simple Yes/No Ques: Functional Indent/Objects Multiple Paige: Functional Ident/Pics in Multiple Paige: Functional Follows 1-Step Commands: Functional Follows Complex Directions: Functional Follows General Conversations: Functional Language Eval: Verbal Language Completes Spontaneous Greeting: Functional Produces Auto, Serial Info: Functional Imitates Simple Words/Phrases: Functional Word Finding: Functional Requests Basic Needs: Functional States Basic Personal Info: Functional Expresses Complex Ideas: Functional Objective Cognitive Domain Attention: WNL Memory: WNL Problem Solving: Functional Executive Functions: WNL Visuospatial Skills: WNL Composite Severity Rating: WNL Objective Formal/Standardized Tests [facility] Status ([facility]) Results The patient scored 30/30, with no noted deficits in the areas assessed. Oral Motor/Speech Production Within Functional Limits Impression The patient is a very pleasant 88 year old gentleman who was admitted to the ARU s/p total shoulder surgery. He was referred to ST for completion of a cognitive assessment to determine if a need for skilled services was recommended. He completed the SLUMS without any areas of weakness noted that would require skilled ST services. He will not be receiving skilled ST at this time. Communication/Social Cognition Comprehension: 7 Expression: 7 Social Interaction: 7 Problem Solvin Memory: 7 Speech Patient Assess Expression of Ideas/Wants: Expression (4) Understanding Verbal Content: Understands (4) Brief Interview-Mental Status: Yes Repetition of Three Words: Three (3) Temporal Orientation: Year: Correct (3) Temporal Orientation: Month: Accurate within 5 days(2) Temporal Orientation: Day: Correct (1) Recall : Wear to say "Sock": Yes, no cue required (2) Recall : Color: Yes, no cue required (2) Recall : Bed: Yes, no cue required (2) Memory/Recall Ability: Current season, Location of own room, Staff names and faces, That he or she is in a hsp/hsp unit Speech-Plan Patient/Family Goals Patient/Family Goals: The patient plans on returning home with his status post rehab. Treatment Plan Speech Therapy Treatment Plan: Discontinue ST The patient does not require ST at this time. Treatment Duration: September 11, 2018 Frequency: 1 time per week Estimated Hrs Per Day: .25 hour per day Rehab Potential: Fair Barriers to Learning: Age, s/p surgery Pt/Family Agrees to Plan: Yes Safety Risks/Education Teaching Recipient: Patient Teaching Methods: Discussion Response to Teaching: Verbalize Understanding Education Topics Provided: Safety within his room and utilization of the call light as needed Time Speech Therapy Time In: 10:30 Speech Therapy Time Out: 11:00 Total Billed Time: 30 Billed Treatment Time 1, SPSNDCOMP No AHSAN PURCELL September 11, 2018 13:08
--- NOTE | 2018-09-11 15:00 | Therapy Group Daily Note ---
Therapy Daily Group Note Patient Education Topic Other List Below (Pain, ARU description/expectations) Exercises Stretching Session Ratio (pt:therapist): 4:1 Goal of Session: Education on ARU Expectations, Other (list) (Pain management) Goal Met for this Session: Yes Pt Benefit of Group: Contributions to Others, F/U Use of Strategies @Home, Improved Cognition, Recognition of Peers, Socialization Other/Notes Pt transported via w/c to [facility] for OT/PT group. Group consisted of introductions (name, place living, storm memories), socialization, ARU description/expectations, stretching and pain management education. Pt introduced self appropriately and actively listened to peers. Pt demonstrated understanding of using stretch for pain management by using gait belt as stretching device. Pt then verbalized own strategies for pain management and understanding of drug-free options for management. Pt acknowledged understanding of ARU description/expectations and asked pertinent questions. After group, pt in room with visitors present. All needs met in room. Call light/phone in reach. Start Time: 13:00 Stop Time: 14:30 Total Billed Treatment Time: 90 Total Billed Treatment 1-GRP PAZ SHIPAMN September 11, 2018 15:00
[2018-09-11] MEDS: HYDROcodone/APAP 5 MG/325 MG (LORTAB) TAB PO PRN (17:45)
[2018-09-11] MEDS: ASCORBIC ACID (VIT C) 500 MG TABLET PO SCH (17:46)
[2018-09-11 18:00] VITALS: BP 114/72
--- NOTE | 2018-09-11 19:08 | NUR ---
bedside report received from ARYA BOWDEN, assume care of pt
[2018-09-11] MEDS: GABAPENTIN 100 MG (NEURONTIN) CAP PO SCH ×2 (20:51→20:54)
[2018-09-11] MEDS: FLUTICASONE NASAL SPRAY (FLONASE) 16 GM BTL NS SCH (20:53)
[2018-09-11] MEDS: TAMSULOSIN 0.4 MG (FLOMAX) CAP PO SCH (20:53)
[2018-09-11] MEDS: IRBESARTAN 150 MG (AVAPRO) TAB PO SCH (20:53)
[2018-09-11] MEDS: SENNA W/DOCUSATE (SENOKOT S) TABLET PO SCH (20:54)
--- NOTE | 2018-09-11 21:00 | NUR ---
assessments & interventions completed, see assessments & interventions, pt uses urinal at night, up with 2 people assist to commode for stools, rt shoulder in sling & elevated on pillows, able to move fingers & warm to touch
[2018-09-12 05:30] VITALS: BP 119/78
[2018-09-12] MEDS: MULTIVIT W/MINERALS TAB (THERAGRAN M) PO SCH (06:56)
[2018-09-12] MEDS: LEVOTHYROXINE 125 MCG (LEVOTHROID) TABLET PO SCH (06:56)
--- NOTE | 2018-09-12 07:12 | NUR ---
bedside report given to ARYA BOWDEN
--- NOTE | 2018-09-12 08:10 | Individualized Plan of Care ---
Individualized Plan of Care Rehab Nursing IPOC Order Admission Date September 10, 2018 at 18:50 Current Orders Orders Admission Order(Inpt,Obs,Sdc) (09/10/18 08:44) Vital Signs: Per Unit Policy ( 08,16,00 (09/10/18 08:44) Shift Engineer-Inpt Rehab Con (09/10/18 08:44) Rehab Nursing Orders-Ipoc (09/10/18 08:44) Physical Therapy Rehab Orders (09/10/18 08:44) Occupational Therapy Rehab Ord (09/10/18 08:44) Speech Therapy Rehab Orders (09/10/18 08:44) General/Regular (09/10/18 Lunch) Intake & Output 06,14,22 (09/10/18 08:44) Precautions (Aru) (09/10/18 08:44) Weekly Weight (Lbs) WEEK (09/10/18 08:44) Rehab-Intensity Of Therapy (09/10/18 08:44) Initiate Admission Nursing Pro .admission (09/10/18 08:44) Nursing Communication (Order) (09/10/18 08:44) Acetaminophen Tablet (Tylenol Tablet) (09/10/18 08:45) Calcium Carbonate Chew Tablet (Antacid C (09/10/18 08:45) Diphenhydramine Tablet (Benadryl Tablet) (09/10/18 08:45) Docusate Sodium Capsule (Colace Capsule) (09/10/18 08:45) Loperamide Capsule (Imodium Capsule) (09/10/18 08:45) Melatonin Tablet (Melatonin Tablet) (09/10/18 08:45) Polyethylene Glycol Powder Pkt (Miralax (09/10/18 08:45) Ondansetron Oral Dissolve Tab (Zofran (09/10/18 08:45) Cbc With Automated Diff (09/11/18 06:00) Comprehensive Metabolic Panel (09/11/18 06:00) Admission Arrival Bed Request (09/10/18 18:47) Hydrocodone/Apap 5/325 Tablet (Lortab 5 (09/10/18 22:00) Gabapentin Capsule/Tablet (Neurontin Cap (09/10/18 21:00) Ambulate 08,12,20 (09/11/18 08:00) Sequential Compression Device 08, (09/11/18 08:00) Dvt/Vte Risk - Notifiy Physici 08 (09/11/18 08:00) Code/Resuscitation (09/10/18 23:35) Enoxaparin Injection (Lovenox Injection) (09/11/18 09:45) Consult Physician (09/11/18 10:46) Baclofen Tablet (Lioresal Tablet) (09/11/18 11:00) Diltiazem Tablet (Cardizem Tablet) (09/12/18 09:00) Fluticasone Nasal [place] (Flonase Nasal S (09/11/18 21:00) Gabapentin Capsule/Tablet (Neurontin Cap (09/11/18 21:00) Levothyroxine Tablet (Synthroid Tablet) (09/12/18 06:30) Tamsulosin Capsule (Flomax Capsule) (09/11/18 21:00) Acetaminophen Tablet (Tylenol Tablet) (09/11/18 12:00) Ascorbic Acid Tablet (Vitamin C Tablet) (09/11/18 18:00) (Nf) Biotin (09/12/18 09:00) (Nf) Calcium Carb/Mag Ox/Zinc Sulf (Calc (09/12/18 09:00) Hydrocodone/Apap 5/325 Tablet (Lortab 5 (09/11/18 12:00) Irbesartan Tablet (Avapro Tablet) (09/11/18 21:00) Therapeutic Multivitamin Tab (Vitamins, (09/12/18 07:00) Senna S Tablet (Senokot S Tablet) (09/11/18 21:00) Famotidine Tablet (Pepcid Tablet) (09/12/18 09:00) Patient Visit (09/11/18 ) Pt Eval Moderate Complexity (09/11/18 ) Gait Training, Ea 15 Min (09/11/18 ) Functional Activities, Ea 15 (09/11/18 ) Patient Visit (09/11/18 ) Patient Visit (09/11/18 ) Speech Sound Lang Comp (09/11/18 ) Patient Visit (09/12/18 ) Gait Training, Ea 15 Min (09/12/18 ) Exercise Therap, Ea 15 Min (09/12/18 ) Functional Activities, Ea 15 (09/12/18 ) Ua Culture If Indicated (09/12/18 13:40) Cbc And Manual Diff (09/13/18 07:00) Rehab Nursing Orders: Ongoing Assess. of Function Status, Bladder Management, Bladder Scan, Bladder Training, Bowel Management, Disease Management & Educaiton, DVT Prophylaxis, Fall Prevention, Fluid/Electrolyte/Nutrition Mgmt, Medication Management & Education, Management of Risks & Complications, Management of Skin Intergrity, Nutrition Management, Pain Management, Patient/Family Support, Safety Management Intensity of Therapy to be met Patient to be seen: Min.3h per day/5 of 7d PT IPOC Problem List: Activity Tolerance, Functional Strength, Safety, Balance, Gait, Transfer, Bed Mobility, ROM Treatment Plan: Continue Plan of Care Bed Mobility, Concurrent Therapy, Education, Functional Activity Joel, Functional Strength, Group Therapy, Gait, Safety, Therapeutic Exercise, Transfers Treatment Duration: Oct 02, 2018 Frequency: At least 5 of 7 days/Wk (IRF) Estimated Hrs Per Day: 1.5 hours per day OT IPOC Problems: Decreased Activ Tolerance, Decreased Safety Aware, Decreased UE Strength, Dependent Transfers, Impaired Bed Mobility, Impaired Cognition, Impaired Coordination, Impaired Funct Balance, Impaired I ADL's, Impaired Self- Care Skills, Restricted Funct UE ROM OT Treatment, Training and Edu: Yes OT Problems pt presents with functional limitations affecting areas of ADLS/ functional transfers. pt protocol for R shoulder can be found in chart. pt would benefit from OT services to increase independence with ADLS/ functional transfers and for safe transition to home. Plan of Care: ADL Retraining, Caregiver Training, Concurrent Therapy, Functional Mobility, Group Exercise/Act as Ind, Orthotic Fitting/Training, UE Funct Exercise/Act Treatment Duration: Oct 09, 2018 Frequency: At least 5 of 7 days/Wk (IRF) Estimated Hrs Per Day: 1.5 hours per day (60-90 minutes per day) ST IPOC Speech Therapy Treatment Plan: Discontinue ST Treatment Duration: September 11, 2018 Frequency: 1 time per week Estimated Hrs Per Day: .25 hour per day Shift Engineer/Case Mgmt Shift Engineer/Case Managemen: Discharge Planning Dietitian/Regulatory Assistant Dietitian/Regulatory Assistant to monitor nutritional status and make changes and/or recommendations as needed and work with speech pathology on dietary upgrades as the occur. Physician IPOC Medical Issues being managed closely and that require the 24 hour availability of a physician: Limitation of right arm and chronic left knee fusion requires close monitoring for falls and safety and pain management in advanced age patient Brief Synthesis of Preadmission Screen, Post-Admission Evaluation, and Therapy Evaluations: PT will work on transfers and safety precautions for fall prevention OT will focus on ADL's independence Medical Prognosis: Good Anticipated Length of Stay: 10 days RICO LANCE DO September 12, 2018 08:10
--- NOTE | 2018-09-12 08:10 | PM&R Progress Note ---
Subjective HPI/CC On Admission Date Seen by Provider: September 12, 2018 Time Seen by Provider: 08:15 CC: Right shoulder replacement with severe limitation of activities with debility HPI: This is an 88yoWM clinic patient of Dr Pimentel who presents to IRF after an uncomplicated right shoulder replacement by Dr Tobar at [facility] Tuesday but required IRF stay due to advanced age and frailty requiring 2 person assist in addition to left knee fusion due to replacements that have failed x 2 in the past further limiting his ability to ambulate and take care of himself at home. Patient finally arrived at 700pm last night and has settled in and doing well. BM this morning after laxatives given at [facility]. Pain is well controlled currently. Dr Pimentel has been notified of the consultation for his PCP needs. Right sling will stay in place during activity. His is at home in frail health also. I have reviewed his home meds and restarted all. PLOF was independent with ADL's. Subjective/Events-last exam Transfers are a challenge and takes a great deal of effort Lovenox on board for DVt PPx Dr Pimentel PCP is consulted Pain is controlled BM regimen maintained and last was 09/10 so given Senna this morning Participating in all therapies as required Conferred with RN Reviewed therapy notes Review of Systems General: Fatigue Gastrointestinal: Constipation Musculoskeletal: arm pain Objective Exam Vital Signs Vital Signs Date Time Temp Pulse Resp B/P (MAP) Pulse Ox O2 Delivery O2 Flow Rate FiO2 09/12/18 18:26 98.8 78 18 114/67 (83) 98 Room Air Capillary Refill : Less Than 3 Seconds General Appearance: No Apparent Distress, WD/WN, Chronically ill, Thin HEENT: PERRL/EOMI, TMs Normal, Normal ENT Inspection, Pharynx Normal, Moist Mucous Membranes Neck: Full Range of Motion, Normal Inspection, Non Tender, Supple Respiratory: Chest Non Tender, Lungs Clear, Normal Breath Sounds, No Accessory Muscle Use, No Respiratory Distress Cardiovascular: Regular Rate, Rhythm, No Edema, No Gallop, No JVD, No Murmur Gastrointestinal: Normal Bowel Sounds, No Organomegaly, No Pulsatile Mass, Non Tender, Soft Back: Normal Inspection, No CVA Tenderness, No Vertebral Tenderness Extremity: Normal Capillary Refill, Normal Inspection, Normal Range of Motion (except right shoulder and chronic fusion left knee), Non Tender, No Calf Tenderness, No Pedal Edema Neurologic/Psychiatric: Alert, Oriented x3, No Motor/Sensory Deficits, Normal Mood/Affect Skin: Normal Color, Warm/Dry Lymphatic: No Adenopathy Results/Procedures Lab Patient resulted labs reviewed. FIM Transfers Therapy Code Descriptions/Definitions Functional [place] Measure: 0=Not Assessed/NA 4=Minimal Assistance 1=Total Assistance 5=Supervision or Setup 2=Maximal Assistance 6=Modified [place] 3=Moderate Assistance 7=Complete [place] Therapy Quality Codes: 6 Independent with activity with or without an assistive device 5 Patient requires set up or clean up by helper. Patient completes activity by themselves 4 Supervision or touching assist (CGA). [place] provide cues , steadying assist 3 The helper provides less than half the effort to complete the activity 2 The helper provides more than half the effort to complete the activity 1 Dependent. The helper does all the effort to complete an activity 7 Patient refused to complete or attempt activity 9 The patient did not perform the activity before the current illness or injury 88 Not attempted due to Medical conditions or safety concerns Transfers (B, C, W/C) (FIM): 3 Scootin Rollin Roll Left to Right (QC): 4 Supine to/from Sit: 4 Sit to/from Stand: 3 Sit to Lying (QC): 3 Sit to Stand (QC): 2 Chair/Ikc-xo-Sgzyv Xfer(QC): 2 Car Transfer (QC): 2 Gait Training Does the Patient Walk?: Yes Gait (FIM): 4 Walk 10 feet (QC): 3 Walk 50 ft with 2 Turns(QC): 3 Walking 10ft/uneven surface-QC: 3 Gait Level of Assist: 4 Gait Persons Needed: 1 Gait Assistive Device: Handheld Assist Mental Status/Objective Comprehension: 7 Expression: 7 Social Interaction: 7 Problem Solvin Memory: 7 ADL-Treatment Feedin (required assist to stir food items and required assist with set up) Eating (QC): 3 Groomin (CGA fro safety/ balance while brushing teeth at sink) Oral Hygiene (QC): 4 Bathin Bathing Location: R Arm, L Upper Leg, R Upper Leg, Chest, Abdomen, Perineal Area Shower/Bathe Self (QC): 3 Upper Extremity Dressin (button up shirt. pt reqwuired assist with all of UB dressing ) Upper Body Dressing (QC): 1 Lower Extremity Dressin (pt required TA for underpants, pants, and [place]. socks) Lower Body Dressing (QC): 1 On/Off Footwear (QC): 1 Toiletin (pt required assist with 3/3 toileting tasks ) Toileting Hygiene (QC): 1 Toilet/Commode Transfer: 1 (2 person assist MOD A X 2 person w/c to high raised toilet) Toilet Transfer (QC): 1 Shower: 0 (NT secondary to safety) Assessment/Plan Assessment and Plan Assess & Plan/Chief Complaint Assessment: s/p right shoulder replacement uncomplicated POD # 6 at [facility] Post op urinary retention requiring Ferrell cath but now resolved since cath removed Chronic left knee fusion HTN Allergic rhinitis Anemia Hypothyroidism Neuropathy BPH GERD Plan: Pain control IRF protocols Fall risk PCP consulted BM regimen Lovenox PPx (1) Status post replacement of right shoulder joint (2) Constipation (3) Urinary retention (4) Anemia (5) Hypothyroidism (6) GERD (gastroesophageal reflux disease) (7) Allergic rhinitis (8) Hypertension (9) BPH (benign prostatic hyperplasia) (10) Limitation of joint motion of left knee RICO LNACE DO September 12, 2018 08:10
[2018-09-12 08:47] VITALS: BP 94/64
[2018-09-12] MEDS: ENOXAPARIN 40 MG/0.4 ML (LOVENOX) SYR SC SCH (08:50)
[2018-09-12] MEDS: FAMOTIDINE 20 MG (PEPCID) TABLET PO SCH (08:50)
[2018-09-12] MEDS: SENNA W/DOCUSATE (SENOKOT S) TABLET PO SCH ×2 (08:50→21:22)
[2018-09-12] MEDS: HYDROcodone/APAP 5 MG/325 MG (LORTAB) TAB PO PRN ×2 (08:50→21:25)
[2018-09-12] MEDS: DILTIAZEM 60 MG (CARDIZEM) TAB PO SCH (08:51)
[2018-09-12] MEDS ORDERED: NON-FORMULARY MEDICATION 1 EA EA (Biotin 1,000 MCG) PO SCH (09:00)
--- NOTE | 2018-09-12 11:13 | Occupational Ther Daily Note ---
OT Current Status-Daily Note Subjective pt agreed to skilled OT TX session with focus on increasing independence with ADLS./ functional transfers and increase activity tolerance for Daily activities. Pain Numeric Pain Scale: 0-No Pain Mental Status/Objective Patient Orientation: Normal For Age Therapy Code Descriptions/Definitions Functional [place] Measure: 0=Not Assessed/NA 4=Minimal Assistance 1=Total Assistance 5=Supervision or Setup 2=Maximal Assistance 6=Modified [place] 3=Moderate Assistance 7=Complete [place] ADL-Treatment Therapy Code Descriptions/Definitions Functional [place] Measure: 0=Not Assessed/NA 4=Minimal Assistance 1=Total Assistance 5=Supervision or Setup 2=Maximal Assistance 6=Modified [place] 3=Moderate Assistance 7=Complete [place] Therapy Quality Codes: 6 Independent with activity with or without an assistive device 5 Patient requires set up or clean up by helper. Patient completes activity by themselves 4 Supervision or touching assist (CGA). [place] provide cues , steadying assist 3 The helper provides less than half the effort to complete the activity 2 The helper provides more than half the effort to complete the activity 1 Dependent. The helper does all the effort to complete an activity 7 Patient refused to complete or attempt activity 9 The patient did not perform the activity before the current illness or injury 88 Not attempted due to Medical conditions or safety concerns Grooming (FIM): 5 (set up sitting in w/c. unable to complete standing secondary to decrease static standing balance. ) Oral Hygiene (QC): 4 Bathing (FIM): 3 Bathing Location: R Arm, L Upper Leg, R Upper Leg, Chest, Abdomen, Perineal Area Shower/Bathe Self (QC): 2 Upper Body (FIM): 2 (pt educaiton on proper one handed dressing techniques while obeying shoulder precuations. pt demo abilty to thread R UE but required sandrine tto complete task) Upper Body Dressing (QC): 2 Lower Body Dressing (FIM): 1 (requried assist with all LB dressing. pt education on use of it telecom technician/ dressing stick, and sock aid to increase independnece with ADLs. pt demo ability to issac/ doff zay socks using equipment one handedly 5 times with set up of sock on aid. additional education will be required ) Lower Body Dressing (QC): 1 On/Off Footwear (QC): 1 Toileting (FIM): 1 (pt requred assist to complete 3/3 toilet task s) Toileting Hygiene (QC): 1 Transfers (B, C, W/C) (FIM): 1 (2 person assist required. pt required MOD A X2 person) Toilet/Commode Transfer (FIM): 1 (pt required MOD A X2 person) Toilet Transfer (QC): 1 (pt required MOD A X2 person) Shower Transfer(FIM): 1 (pt required MOD A X2 person with use of GB ) Other Treatment post ADLS pt completed UBE 5minutes forward with MOD resistance using Left UE only to increase activity tolerance/ LUE strength for daily activities. post OT session pt transported back to room. pt sitting in w/c. aura light within reach. all needs met. Education OT Patient Education: Energy conservation, Modified ADL techniques, Progress toward Goal/Update tx plan, Purpose of tx/functional activities, Reviewed precautions, Rehab process, Safety issues, Transfer techniques, Use of adapted equipment Teaching Recipient: Patient Teaching Methods: Demonstration, Discussion Response to Teaching: Verbalize Understanding, Return Demonstration OT Short Term Goals Short Term Goals Eating(FIM): 5 Grooming(FIM): 5 Bathing(FIM): 5 Bathing Location: L Arm, R Arm, L Upper Leg, R Upper Leg, L Lower Leg (including foot), R Lower Leg (including foot), Chest, Abdomen, Buttocks, Perineal Area Upper Body Dressing(FIM): 5 Lower Body Dressing(FIM): 5 Toileting(FIM): 5 Transfers (B,C,W/C) (FIM): 4 Toilet/Commode Transfer(FIM): 5 Shower Transfer(FIM): 5 (5) Additional Short Term Goals: 1-Demonstrate ADL Tasks, 2-Verbalize Understanding, 3-ImproveStrength/Joel 1=Demonstrate adherence to instructed precautions during ADL tasks. 2=Patient will verbalize/demonstrate understanding of assistive devices/modifications for ADL. 3=Patient will improve strength/tolerance for activity to enable patient to perform ADL's. OT Direct Support Staff Goals Direct Support Staff Goals Eating (FIM): 7 Eating (QC): 6 Groomin Oral Hygiene (QC): 6 Bathing(FIM): 6 Bathing Location: L Arm, R Arm, L Upper Leg, R Upper Leg, L Lower Leg (including foot), R Lower Leg (including foot), Chest, Abdomen, Buttocks, Perineal Area Shower/Bathe Self (QC): 6 Upper Body Dressing(FIM): 6 Upper Body Dressing (QC): 6 Lower Body Dressing(FIM): 6 Lower Body Dressing (QC): 6 On/Off Footwear (QC): 6 Toileting(FIM): 6 Toileting Hygiene (QC): 6 Transfers (B,C,W/C) (FIM): 6 Toilet/Commode Transfer(FIM): 6 Toilet/Commode Transfer (QC): 6 Shower Transfer(FIM): 6 1=Demonstrate adherence to instructed precautions during ADL tasks. 2=Patient will verbalize/demonstrate understanding of assistive devices/modifications for ADL. 3=Patient will improve strength/tolerance for activity to enable patient to perform ADL's. OT Education/Plan Problem List/Assessment pt presents with functional limitations affecting areas of ADLS/ functional transfers. pt protocol for R shoulder can be found in chart. pt would benefit from OT services to increase independence with ADLS/ functional transfers and for safe transition to home. Discharge Recommendations Plan/Recommendations: Continue POC Treatment Plan/Plan of Care Treatment,Training & Education: Yes Patient would benefit from OT for education, treatment and training to promote independence in ADL's, mobility, safety and/or upper extremity function for ADL's. Plan of Care: ADL Retraining, Caregiver Training, Concurrent Therapy, Functional Mobility, Group Exercise/Act as Ind, Orthotic Fitting/Training, UE Funct Exercise/Act Treatment Duration: Oct 09, 2018 Frequency: At least 5 of 7 days/Wk (IRF) Estimated Hrs Per Day: 1.5 hours per day (60-90 minutes per day) Rehab Potential: Fair Time/GCodes Start Time: 09:15 Stop Time: 10:55 Billed Treatment Time ADL 90 minutes, 6 units FA 10 minutes, 1 unit JETHRO POLLACK OT September 12, 2018 11:13
--- NOTE | 2018-09-12 12:29 | Physical Therapy Daily Note ---
PT Daily Note-Current Subjective Pt sitting in W/C in room upon arrival. Pt agrees to PT and Sp asks to watch to learn how she can help at home after D/C. Pain Numeric Pain Scale: 3 Location: Right Location Body Site: Shoulder Pain Description: Ache Mental Status Patient Orientation: Person, Place, Time, Situation Attachments: Other-See Comments (Immobilizer for R UE) Transfers Therapy Code Descriptions/Definitions Functional [place] Measure: 0=Not Assessed/NA 4=Minimal Assistance 1=Total Assistance 5=Supervision or Setup 2=Maximal Assistance 6=Modified [place] 3=Moderate Assistance 7=Complete [place] Therapy Quality Codes: 6 Independent with activity with or without an assistive device 5 Patient requires set up or clean up by helper. Patient completes activity by themselves 4 Supervision or touching assist (CGA). [place] provide cues , steadying assist 3 The helper provides less than half the effort to complete the activity 2 The helper provides more than half the effort to complete the activity 1 Dependent. The helper does all the effort to complete an activity 7 Patient refused to complete or attempt activity 9 The patient did not perform the activity before the current illness or injury 88 Not attempted due to Medical conditions or safety concerns Scootin Sit to/from Stand: 2 Sit to Stand (QC): 2 Pt has difficulty transferring with NWB on R UE. Weight Bearing Weight Bearing/Tolerated Weight Bearing/Tolerated total shoulder protocol on right side Gait Training Does the Patient Walk?: Yes Gait (FIM): 3 Distance: 75', 75' Walk 10 feet (QC): 3 Walk 50 ft with 2 Turns(QC): 3 Gait Level of Assist: 3 Gait Persons Needed: 1 Gait Assistive Device: Handheld Assist Pt is retropulsive and requires assistance to ambulate. Exercises Seated Therapy Exercises: Ankle pumps, Long arc quads, Hip flexion, Kicking activity Seated Reps: 20 Treatments Pt practices sit to stand transfers with education to Sp about how to make it easier at home for Sp. Pt then ambulates to Therapy Gym with assistance from AUTHORIZATION NURSE. Pt completes Seated EX with training to Sp. Pt ambulates back to room then rests in recliner at end of tx. Pt has all needs met. Assessment Current Status: Good Progress Pt is improving with transfers with instruction from AUTHORIZATION NURSE. PT Short Term Goals Short Term Goals Time Frame: September 18, 2018 Transfers (B,C,W/C) (FIM): 4 Gait (FIM): 2 Gait Distance Comment: 100' Gait Level of Assist: 4 Gait Assistive Device: Handheld Assist PT Mcc Goals Fleet Service Clerk Goals PT Fleet Service Clerk Goals Time Frame: Oct 02, 2018 Transfers (B,C,W/C) (FIM): 5 Sit to Lying (QC): 6 Lying-Sitting on Side/Bed(QC): 6 Sit to Stand (QC): 4 Rollin Roll Left to Right (QC): 6 Chair/Ave-gq-Hyyyt Xfer(QC): 4 Car Transfer (QC): 4 Gait (FIM): 4 Distance: 150' Walk 10 feet (QC): 4 Walk 10ft-Uneven Surface(QC): 4 Walk 50ft with 2 Turns (QC): 4 Walk 150 ft (QC): 4 Gait Level of Assist: 4 (CGA) Gait Assistive Device: Handheld Assist Stairs (FIM): 1 # of Steps: 1 1 Step (curb) (QC): 3 Stairs Level Of Assist: 4 PT Plan Problem List Problem List: Activity Tolerance, Functional Strength, Safety, Balance, Gait, Transfer, Bed Mobility, ROM Treatment/Plan Treatment Plan: Continue Plan of Care Treatment Plan: Bed Mobility, Concurrent Therapy, Education, Functional Activity Joel, Functional Strength, Group Therapy, Gait, Safety, Therapeutic Exercise, Transfers Treatment Duration: Oct 02, 2018 Frequency: At least 5 of 7 days/Wk (IRF) Estimated Hrs Per Day: 1.5 hours per day Patient and/or Family Agrees t: Yes Safety Risks/Education Patient Education: Gait Training, Transfer Techniques, Correct Positioning, Safety Issues Teaching Recipient: Patient, Significant Other Teaching Methods: Discussion Response to Teaching: Verbalize Understanding Time/GCodes Time In: 1100 Time Out: 1220 Total Billed Treatment Time: 80 Total Billed Treatment 1, GT x2 (30m), EX x2 (30m) & FA (20m) G Codes Necessary: LAURA Aguiar AUTHORIZATION NURSE September 12, 2018 12:29
--- NOTE | 2018-09-12 13:37 | Consultation-Hospitalist ---
HPI History of Present Illness: HPI/Chief Complaint CC: Right shoulder replacement with severe limitation of activities with debility HPI: This is an 88yoWM clinic patient of Dr Lacey who presents to IRF after an uncomplicated right shoulder replacement by Dr Tobar at [facility] Tuesday but required IRF stay due to advanced age and frailty requiring 2 person assist in addition to left knee fusion due to replacements that have failed x 2 in the past further limiting his ability to ambulate and take care of himself at home. Patient finally arrived at 700pm last night and has settled in and doing well. BM this morning after laxatives given at [facility]. Pain is well controlled currently. Dr Lacey has been notified of the consultation for his PCP needs. Right sling will stay in place during activity. His is at home in frail health also. I have reviewed his home meds and restarted all. PLOF was independent with ADL's. Patient seen for evaluation of chronic hypertension as well as new onset thrombocytopenia mild after the above. He is still on prophylactic Lovenox reporting no bleeding problems. He states that he has felt well in the shoulder pain is been under good control. He's had no evidence for bright red blood per rectum or melena in his appetite is back to normal. He had some postop constipation as well as urinary retention requiring short-term catheter placement. Catheter was removed before discharge and he reports urination is been smaller volume but he does feel as though he is emptying. His usual nocturia is 1 here in the hospital he reports nocturia 2 it is been darker in color without dysuria he's not aware of any change in odor and denies flank pain chills or fever. Date Seen 09/12/18 Attending Physician Mariaa Lacey DO PCP Mariaa Lacey MD Referring Physician Date of Admission September 10, 2018 at 18:50 Home Medications & Allergies Home Medications Reviewed patient Home Medication Reconciliation performed by pharmacy medication reconciliations aviation technician and/or nursing. Patients Allergies have been reviewed. Allergies Allergies Coded Allergies ciprofloxacin (Verified Allergy, Severe, HALLUCINATIONS. , 06/15/15) Cephalosporins (Verified Adverse Reaction, Severe, RASH, DYSPNEA, 11/16/11) Pentazocine Lactate (Unverified Adverse Reaction, Intermediate, PSYCH, 11/16/11) atorvastatin calcium (Unverified Adverse Reaction, Mild, MUSCLE SPASMS, 11/16/11) Uncoded Allergies HYDROCARBON ( Adverse Reaction, Intermediate, RASH, 11/16/11) Past Prlykhk-Lzspmv-Aoaczi Hx Past Med/Social Hx: Reviewed Nursing Past Med/Soc Hx, Reviewed and Corrections made Patient Social History Marrital Status: Employed/Student: retired ([employer]) Alcohol Use: Denies Use Recreational Drug Use: No Smoking Status: Never a Smoker 2nd Hand Smoke Exposure: No Physical Abuse Screen: No Sexual Abuse: No Recent Foreign Travel: No Contact w/other who traveled: No Recent Hopitalizations: No Recent Infectious Disease Expo: No Immunizations Up To Date Date of Pneumonia Vaccine: Oct 23, 2009 Date of Influenza Vaccine: Mar 25, 2015 Seasonal Allergies Seasonal Allergies: Yes Past Medical History Surgeries: Orthopedic Currently Using CPAP: No Currently Using BIPAP: No Cardiac: Hypertension Genitourinary: Benign Prostatic Hyperpl Gastrointestinal: Gastroesophageal Reflux Musculoskeletal: Degenerate Disk Disease, Arthritis, Back Injury, Chronic Back Pain Endocrine: Hypothyroidsim Cancer: Skin Did You Recieve Any Treatments: Yes What Type of Treatment Did You: Surgical Intervention History of Blood Disorders: No Adverse Reaction to Blood Alex: No Family History Cardiovascular disease 19 MOTHER Completed stroke 19 MOTHER Diabetes mellitus 19 FATHER Hypertension 19 FATHER 19 MOTHER Review of Systems Constitutional: no symptoms reported, see HPI Respiratory: cough (Chronic and mild he normally takes 1 hydrocodone daily for this reason only if he doesn't he reports he has return of cough and he has done this for the past several years. Outpatient workup has been negative) Cardiovascular: see HPI; No chest pain, No edema, No Hx of Intervention, No palpitations, No syncope, No vascular heart diseas, No other Genitourinary: see HPI Physical Exam Physical Exam Vital Signs Vital Signs - First Documented 09/10/18 18:55 Temp 98.1 Pulse 88 Resp 20 B/P (MAP) 123/62 (82) Pulse Ox 97 O2 Delivery Room Air Capillary Refill : Less Than 3 Seconds Height, Weight, BMI Height: 5'7.00" Weight: 167lbs. 1.0oz. [id number]; 26.2 BMI Method:Stated General Appearance: No Apparent Distress, WD/WN, Chronically ill, Thin HEENT: PERRL/EOMI, TMs Normal, Normal ENT Inspection, Pharynx Normal, Moist M ucous Membranes Neck: Full Range of Motion, Normal Inspection, Non Tender, Supple Respiratory: Chest Non Tender, Lungs Clear, Normal Breath Sounds, No Accessory Muscle Use, No Respiratory Distress Cardiovascular: Regular Rate, Rhythm, No Gallop, No JVD, No Murmur, Other ('s edema of the lower extremities to the mid tibia with chronic venous insufficiency change no ulceration noted.) Gastrointestinal: Normal Bowel Sounds, No Organomegaly, No Pulsatile Mass, Non Tender, Soft Back: Normal Inspection, No CVA Tenderness, No Vertebral Tenderness Extremity: Normal Capillary Refill, Normal Inspection, Normal Range of Motion (except right shoulder and chronic fusion left knee), Non Tender, No Calf Tenderness, No Pedal Edema Neurologic/Psychiatric: Alert, Oriented x3, No Motor/Sensory Deficits, Normal Mood/Affect Skin: Normal Color, Warm/Dry Lymphatic: No Adenopathy Results Results/Procedures Labs Laboratory Tests 09/11/18 04:35 Patient resulted labs reviewed. Assessment/Plan Assessment and Plan Assess & Plan/Chief Complaint A/P 1. 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 2. Chronic hypertension under good control. 3. Mild thrombocytopenia we will repeat CBC in the morning if count is lower will discontinue prophylactic Lovenox. 4. Some increase in urinary frequency likely BPH related with recent cayla terization will obtain repeat UA. Clinical Quality Measures DVT/VTE Risk/Contraindication: Risk Factor Score Per Nursin RFS Level Per Nursing on Admit: 4+=Very High MARIAA LACEY MD September 12, 2018 13:37
[2018-09-12] MEDS: ASCORBIC ACID (VIT C) 500 MG TABLET PO SCH (18:07)
[2018-09-12 18:26] VITALS: BP 114/67
--- NOTE | 2018-09-12 19:04 | NUR ---
bedside report received from ARYA BOWDEN, assume care of pt
--- NOTE | 2018-09-12 21:00 | NUR ---
assessments & interventions completed, see assessments & interventions up in chair visiting with family with rt arm sling on
--- NOTE | 2018-09-12 21:15 | NUR ---
back to bed with 2 person assist requested sling off while in bed, rt arm elevated on 2 pillows
[2018-09-12] MEDS: GABAPENTIN 100 MG (NEURONTIN) CAP PO SCH ×2 (21:22→21:26)
[2018-09-12] MEDS: IRBESARTAN 150 MG (AVAPRO) TAB PO SCH (21:22)
[2018-09-12] MEDS: TAMSULOSIN 0.4 MG (FLOMAX) CAP PO SCH (21:22)
[2018-09-12] MEDS: FLUTICASONE NASAL SPRAY (FLONASE) 16 GM BTL NS SCH (21:23)
--- NOTE | 2018-09-12 21:25 | NUR ---
requested pain pill pain level 4/10 on numeric scale to rt shoulder given Lortab 5 1 tab po given
--- NOTE | 2018-09-12 22:06 | NUR ---
pain level 2/10 on numeric scale
[2018-09-13 05:39] VITALS: BP 107/64
[2018-09-13 06:11] LABS: BILIRUBIN,URINE NEGATIVE (NEGATIVE); CLARITY,URINE CLEAR; COLOR,URINE YELLOW; GLUCOSE, URINE (UA) NEGATIVE (NEGATIVE); KETONES,URINE NEGATIVE (NEGATIVE); LEUKOCYTE ESTERASE ,URINE NEGATIVE (NEGATIVE); NITRITE,URINE NEGATIVE (NEGATIVE); PH,URINE 6.5 (5-9); PROTEIN,URINE NEGATIVE (NEGATIVE); UROBILINOGEN,URINE NORMAL (NORMAL)
[2018-09-13 06:34] LABS: BACTERIA,URINE NEGATIVE /HPF; SQUAMOUS EPITHELIAL CELL,UR 0-2 /HPF
[2018-09-13] MEDS: LEVOTHYROXINE 125 MCG (LEVOTHROID) TABLET PO SCH (06:43)
[2018-09-13] MEDS: MULTIVIT W/MINERALS TAB (THERAGRAN M) PO SCH (06:43)
--- NOTE | 2018-09-13 07:08 | NUR ---
bedside report given to BELINDA BOWDEN
[2018-09-13 07:09] LABS: BASOPHILS % (AUTO) 0 % (0-10); EOSINOPHILS # (AUTO) 0.3 10^3/uL (0.0-0.3); EOSINOPHILS % (AUTO) 5 % (0-10); HEMATOCRIT 32 % (40-54); HEMOGLOBIN 10.9 G/DL (13.3-17.7); LYMPHOCYTES # (AUTO) 0.8 X 10^3 (1.0-4.0); LYMPHOCYTES % (AUTO) 15 % (12-44); MEAN CORPUSCULAR HEMOGLOBIN 32 PG (25-34); MEAN CORPUSCULAR HGB CONC 34 G/DL (32-36); MEAN CORPUSCULAR VOLUME 93 FL (80-99); MEAN PLATELET VOLUME 8.8 FL (7.4-10.4); MONOCYTES # (AUTO) 0.8 X 10^3 (0.0-1.0); MONOCYTES % (AUTO) 15 % (0-12); NEUTROPHILS # (AUTO) 3.5 X 10^3 (1.8-7.8); NEUTROPHILS % (AUTO) 65 % (42-75); PLATELET COUNT 182 10^3/uL (130-400); RED CELL DISTRIBUTION WIDTH 12.8 % (10.0-14.5); WHITE BLOOD COUNT 5.4 10^3/uL (4.3-11.0)
[2018-09-13 07:48] LABS: BASOPHILS % (MANUAL) 1 %; ELLIPT/OVALOCYTES SLIGHT; EOSINOPHILS % (MANUAL) 7 %; LYMPHOCYTES % (MANUAL) 14 %; MONOCYTES % (MANUAL) 15 %; NEUTROPHILS % (MANUAL) 63 %
--- NOTE | 2018-09-13 08:28 | PM&R Progress Note ---
Subjective HPI/CC On Admission Date Seen by Provider: September 13, 2018 Time Seen by Provider: 08:30 CC: Right shoulder replacement with severe limitation of activities with debility HPI: This is an 88yoWM clinic patient of Dr Pimentel who presents to IRF after an uncomplicated right shoulder replacement by Dr Tobar at [facility] Tuesday but required IRF stay due to advanced age and frailty requiring 2 person assist in addition to left knee fusion due to replacements that have failed x 2 in the past further limiting his ability to ambulate and take care of himself at home. Patient finally arrived at 700pm last night and has settled in and doing well. BM this morning after laxatives given at [facility]. Pain is well controlled currently. Dr Pimentel has been notified of the consultation for his PCP needs. Right sling will stay in place during activity. His is at home in frail health also. I have reviewed his home meds and restarted all. PLOF was independent with ADL's. Patient seen for evaluation of chronic hypertension as well as new onset thrombocytopenia mild after the above. He is still on prophylactic Lovenox reporting no bleeding problems. He states that he has felt well in the shoulder pain is been under good control. He's had no evidence for bright red blood per rectum or melena in his appetite is back to normal. He had some postop constipation as well as urinary retention requiring short-term catheter placement. Catheter was removed before discharge and he reports urination is been smaller volume but he does feel as though he is emptying. His usual nocturia is 1 here in the hospital he reports nocturia 2 it is been darker in color without dysuria he's not aware of any change in odor and denies flank pain chills or fever. Subjective/Events-last exam Pt doing well. BM yesterday. Two person assist. UA and CBC okay. Lovenox maintained after approval by PCP Dr. Pimentel due to platelet count. Low blood pressure, holding Cardizem per Dr. Pimentel's recommendation. Swelling in the right arm from surgery. Remains max assist and transfers in lower body. He was able to ambulate 75 feet with moderate assist. He is retropulsive in movements sometimes. Conferred with RN. Reviewed therapy notes. Review of Systems Musculoskeletal: arm pain, leg pain Objective Exam Vital Signs Vital Signs Date Time Temp Pulse Resp B/P (MAP) Pulse Ox O2 Delivery O2 Flow Rate FiO2 09/13/18 17:00 99.0 85 18 114/72 (86) 97 Room Air Capillary Refill : Less Than 3 Seconds General Appearance: No Apparent Distress, WD/WN, Chronically ill, Thin HEENT: PERRL/EOMI, TMs Normal, Normal ENT Inspection, Pharynx Normal, Moist Mucous Membranes Neck: Full Range of Motion, Normal Inspection, Non Tender, Supple Respiratory: Chest Non Tender, Lungs Clear, Normal Breath Sounds, No Accessory Muscle Use, No Respiratory Distress Cardiovascular: Regular Rate, Rhythm, No Edema, No Gallop, No JVD, No Murmur Gastrointestinal: Normal Bowel Sounds, No Organomegaly, No Pulsatile Mass, Non Tender, Soft Back: Normal Inspection, No CVA Tenderness, No Vertebral Tenderness Extremity: Normal Capillary Refill, Normal Inspection, Normal Range of Motion (except right shoulder and chronic fusion left knee), Non Tender, No Calf Tenderness, No Pedal Edema Neurologic/Psychiatric: Alert, Oriented x3, No Motor/Sensory Deficits, Normal Mood/Affect Skin: Normal Color, Warm/Dry Lymphatic: No Adenopathy Results/Procedures Lab Laboratory Tests 09/13/18 07:01 Patient resulted labs reviewed. FIM Transfers Therapy Code Descriptions/Definitions Functional [place] Measure: 0=Not Assessed/NA 4=Minimal Assistance 1=Total Assistance 5=Supervision or Setup 2=Maximal Assistance 6=Modified [place] 3=Moderate Assistance 7=Complete [place] Therapy Quality Codes: 6 Independent with activity with or without an assistive device 5 Patient requires set up or clean up by helper. Patient completes activity by themselves 4 Supervision or touching assist (CGA). [place] provide cues , steadying assist 3 The helper provides less than half the effort to complete the activity 2 The helper provides more than half the effort to complete the activity 1 Dependent. The helper does all the effort to complete an activity 7 Patient refused to complete or attempt activity 9 The patient did not perform the activity before the current illness or inj ury 88 Not attempted due to Medical conditions or safety concerns Transfers (B, C, W/C) (FIM): 1 (2 person assist required. pt required MOD A X2 person) Scootin Rollin Roll Left to Right (QC): 4 Supine to/from Sit: 4 Sit to/from Stand: 2 Sit to Lying (QC): 3 Sit to Stand (QC): 2 Chair/Lld-bk-Iozhn Xfer(QC): 2 Car Transfer (QC): 2 Gait Training Does the Patient Walk?: Yes Gait (FIM): 3 Distance: 75', 75' Walk 10 feet (QC): 3 Walk 50 ft with 2 Turns(QC): 3 Walking 10ft/uneven surface-QC: 3 Gait Level of Assist: 3 Gait Persons Needed: 1 Gait Assistive Device: Handheld Assist Wheelchair Training Does the Pt Use a Wheelchair?: No Mental Status/Objective Comprehension: 7 Expression: 7 Social Interaction: 7 Problem Solvin Memory: 7 ADL-Treatment Feedin (required assist to stir food items and required assist with set up) Eating (QC): 3 Groomin (set up sitting in w/c. unable to complete standing secondary to de crease static standing balance. ) Oral Hygiene (QC): 4 Bathin Bathing Location: R Arm, L Upper Leg, R Upper Leg, Chest, Abdomen, Perineal Area Shower/Bathe Self (QC): 2 Upper Extremity Dressin (pt educaiton on proper one handed dressing techniques while obeying shoulder precuations. pt demo abilty to thread R UE but required sandrine tto complete task) Upper Body Dressing (QC): 2 Lower Extremity Dressin (requried assist with all LB dressing. pt education on use of landscape architecture teacher/ dressing stick, and sock aid to increase independnece with ADLs. pt demo ability to issac/ doff zay socks using equipment one handedly 5 times with set up of sock on aid. additional education will be required ) Lower Body Dressing (QC): 1 On/Off Footwear (QC): 1 Toiletin (pt requred assist to complete 3/3 toilet task s) Toileting Hygiene (QC): 1 Toilet/Commode Transfer: 1 (pt required MOD A X2 person) Toilet Transfer (QC): 1 (pt required MOD A X2 person) Shower: 1 (pt required MOD A X2 person with use of GB ) Assessment/Plan Assessment and Plan Assess & Plan/Chief Complaint Assessment: s/p right shoulder replacement uncomplicated POD # 7 at [facility] Post op urinary retention requiring Ferrell cath but now resolved since cath removed Chronic left knee fusion HTN Allergic rhinitis Anemia Hypothyroidism Neuropathy BPH GERD Plan: Pain control IRF protocols Fall risk PCP consulted BM regimen Lovenox PPx (1) Status post replacement of right shoulder joint (2) Constipation (3) Urinary retention (4) Anemia (5) Hypothyroidism (6) GERD (gastroesophageal reflux disease) (7) Allergic rhinitis (8) Hypertension (9) BPH (benign prostatic hyperplasia) (10) Limitation of joint motion of left knee RICO LANCE DO September 13, 2018 08:28
--- NOTE | 2018-09-13 08:46 | Occupational Ther Daily Note ---
OT Current Status-Daily Note Subjective Pt alert, lying in bed. Pt agrees to therapy. No c/o pain at this time. Mental Status/Objective Patient Orientation: Person, Place, Time, Situation Therapy Code Descriptions/Definitions Functional [place] Measure: 0=Not Assessed/NA 4=Minimal Assistance 1=Total Assistance 5=Supervision or Setup 2=Maximal Assistance 6=Modified [place] 3=Moderate Assistance 7=Complete [place] Attachments: Other-See Comments (shldr brace/splint) ADL-Treatment Pt takes increased time to complete tasks due to using one handing techniques f or all ADLs and pt processing each step needed. Pt completed иван area cleansing lying in bed. Pt able to go from supine to EOB with HOB raised, SBA. Sitting EOB pt able to don pants over feet with reach with min A then assist x2 to stand and hike pants over hips. Assist x2 to SPT from w/c to toilet and manipulate clothing. Pt sitting in front of sink to complete grooming and upper body bathing/dressing. Mod A to don/doff shirt due to R shldr precautions. After therapy, pt sitting in recliner with call light/phone in reach. All needs met in room. Therapy Code Descriptions/Definitions Functional [place] Measure: 0=Not Assessed/NA 4=Minimal Assistance 1=Total Assistance 5=Supervision or Setup 2=Maximal Assistance 6=Modified [place] 3=Moderate Assistance 7=Complete [place] Therapy Quality Codes: 6 Independent with activity with or without an assistive device 5 Patient requires set up or clean up by helper. Patient completes activity by themselves 4 Supervision or touching assist (CGA). [place] provide cues , steadying assist 3 The helper provides less than half the effort to complete the activity 2 The helper provides more than half the effort to complete the activity 1 Dependent. The helper does all the effort to complete an activity 7 Patient refused to complete or attempt activity 9 The patient did not perform the activity before the current illness or injury 88 Not attempted due to Medical conditions or safety concerns Grooming (FIM): 6 Oral Hygiene (QC): 6 Upper Body (FIM): 3 Upper Body Dressing (QC): 3 Lower Body Dressing (FIM): 1 Lower Body Dressing (QC): 1 Toileting (FIM): 1 Toileting Hygiene (QC): 1 Transfers (B, C, W/C) (FIM): 1 Toilet/Commode Transfer (FIM): 1 Toilet Transfer (QC): 1 OT Short Term Goals Short Term Goals Eating(FIM): 5 Grooming(FIM): 5 Bathing(FIM): 5 Bathing Location: L Arm, R Arm, L Upper Leg, R Upper Leg, L Lower Leg (including foot), R Lower Leg (including foot), Chest, Abdomen, Buttocks, Perineal Area Upper Body Dressing(FIM): 5 Lower Body Dressing(FIM): 5 Toileting(FIM): 5 Transfers (B,C,W/C) (FIM): 4 Toilet/Commode Transfer(FIM): 5 Shower Transfer(FIM): 5 (5) Additional Short Term Goals: 1-Demonstrate ADL Tasks, 2-Verbalize Understanding, 3-ImproveStrength/Joel 1=Demonstrate adherence to instructed precautions during ADL tasks. 2=Patient will verbalize/demonstrate understanding of assistive devices/modifications for ADL. 3=Patient will improve strength/tolerance for activity to enable patient to perform ADL's. OT Detention Goals Detention Goals Eating (FIM): 7 Eating (QC): 6 Groomin Oral Hygiene (QC): 6 Bathing(FIM): 6 Bathing Location: L Arm, R Arm, L Upper Leg, R Upper Leg, L Lower Leg (including foot), R Lower Leg (including foot), Chest, Abdomen, Buttocks, P erineal Area Shower/Bathe Self (QC): 6 Upper Body Dressing(FIM): 6 Upper Body Dressing (QC): 6 Lower Body Dressing(FIM): 6 Lower Body Dressing (QC): 6 On/Off Footwear (QC): 6 Toileting(FIM): 6 Toileting Hygiene (QC): 6 Transfers (B,C,W/C) (FIM): 6 Toilet/Commode Transfer(FIM): 6 Toilet/Commode Transfer (QC): 6 Shower Transfer(FIM): 6 1=Demonstrate adherence to instructed precautions during ADL tasks. 2=Patient will verbalize/demonstrate understanding of assistive devices/modifications for ADL. 3=Patient will improve strength/tolerance for activity to enable patient to perform ADL's. OT Education/Plan Problem List/Assessment Assessment: Impaired Self-Care Skills, Restricted Funct UE ROM pt presents with functional limitations affecting areas of ADLS/ functional transfers. pt protocol for R shoulder can be found in chart. pt would benefit from OT services to increase independence with ADLS/ functional transfers and for safe transition to home. Discharge Recommendations Plan/Recommendations: Continue POC Treatment Plan/Plan of Care Patient would benefit from OT for education, treatment and training to promote independence in ADL's, mobility, safety and/or upper extremity function for ADL's. Plan of Care: ADL Retraining, Caregiver Training, Concurrent Therapy, Functional Mobility, Group Exercise/Act as Ind, Orthotic Fitting/Training, UE Funct Exercise/Act Treatment Duration: Oct 09, 2018 Frequency: At least 5 of 7 days/Wk (IRF) Estimated Hrs Per Day: 1.5 hours per day (60-90 minutes per day) Rehab Potential: Fair Time/GCodes Start Time: 08:00 Stop Time: 09:25 Total Time Billed (hr/min): 85 Billed Treatment Time 1 visit-ADL 6 (85 min) PAZ SHIPMAN September 13, 2018 08:46
[2018-09-13] MEDS: FAMOTIDINE 20 MG (PEPCID) TABLET PO SCH (08:58)
[2018-09-13] MEDS: SENNA W/DOCUSATE (SENOKOT S) TABLET PO SCH ×2 (08:59→20:38)
[2018-09-13] MEDS: HYDROcodone/APAP 5 MG/325 MG (LORTAB) TAB PO PRN (08:59)
[2018-09-13] MEDS: ENOXAPARIN 40 MG/0.4 ML (LOVENOX) SYR SC SCH ×2 (09:00→09:28)
[2018-09-13] MEDS: DILTIAZEM 60 MG (CARDIZEM) TAB PO SCH (09:24)
--- NOTE | 2018-09-13 09:24 | NUR ---
BP is 104/63, HR 98. Dr. Pimentel notified. Orders to hold Cardizem for SBP less than 110.
--- NOTE | 2018-09-13 10:34 | NUR ---
Platelets up from 124 (09/11/18) to 182 (09/13/18). Dr. Pimentel notified. Orders to continue Lovenox- 40 MG SC daily.
--- NOTE | 2018-09-13 10:38 | NUR ---
Patient states that he has not been taking Biotin at home. Did not have bring from home.
[2018-09-13] MEDS: MAGNESIUM PO SCH (10:53)
[2018-09-13] MEDS: CALCIUM PO SCH (10:53)
[2018-09-13] MEDS: ZINC PO SCH (10:53)
--- NOTE | 2018-09-13 11:04 | Physical Therapy Daily Note ---
PT Daily Note-Current Subjective Pt sitting in recliner upon arrival. Pt agrees to PT. Pt reports knowing he needs to trust staff more with transfers but still finds it difficult and he is anxious. Pain Numeric Pain Scale: 5-Moderate Pain Location: Right Location Body Site: Shoulder Pain Description: Ache Mental Status Patient Orientation: Person, Place, Time, Situation Attachments: Other-See Comments (Immobilizer for R shoulder) Transfers Therapy Code Descriptions/Definitions Functional [place] Measure: 0=Not Assessed/NA 4=Minimal Assistance 1=Total Assistance 5=Supervision or Setup 2=Maximal Assistance 6=Modified [place] 3=Moderate Assistance 7=Complete [place] Therapy Quality Codes: 6 Independent with activity with or without an assistive device 5 Patient requires set up or clean up by helper. Patient completes activity by themselves 4 Supervision or touching assist (CGA). [place] provide cues , steadying assist 3 The helper provides less than half the effort to complete the activity 2 The helper provides more than half the effort to complete the activity 1 Dependent. The helper does all the effort to complete an activity 7 Patient refused to complete or attempt activity 9 The patient did not perform the activity before the current illness or injury 88 Not attempted due to Medical conditions or safety concerns Scootin Sit to/from Stand: 2 Sit to Stand (QC): 2 Weight Bearing Weight Bearing/Tolerated Weight Bearing/Tolerated total shoulder protocol on right side Gait Training Does the Patient Walk?: Yes Gait (FIM): 3 Distance (FIM): 3=150 ft Distance: 75', 75' Walk 10 feet (QC): 3 Walk 50 ft with 2 Turns(QC): 3 Walk 150 ft (QC): 3 Gait Level of Assist: 3 Gait Persons Needed: 1 Gait Assistive Device: Handheld Assist Pt is retropulsive and is encouraged to stand up taller, guided forward with [facility]. Exercises Seated Therapy Exercises: Ankle pumps, Long arc quads, Hip flexion, Kicking activity, Hip abd/add Seated Reps: 20 Treatments Pt transfers from recliner to standing with AIRPORT UTILITY WORKER's assistance. Pt ambulates with AIRPORT UTILITY WORKER at [facility] in hallway before taking RB. Pt completes Seated Ex before transferring back to Standing. Pt ambulates back to room and rests in recliner. Pt has all needs met at end of tx. Assessment Current Status: Fair Progress Pt is retropulsive during transfers, somewhat for lack of trust with staff per pt. Pt is encouraged that AIRPORT UTILITY WORKER will support pt and it is harder for pt & AIRPORT UTILITY WORKER when pt leans back for transfers and ambulation. Pt moves very slowly, taking extended time to complete tasks. PT Short Term Goals Short Term Goals Time Frame: September 18, 2018 Transfers (B,C,W/C) (FIM): 4 Gait (FIM): 2 Gait Distance Comment: 100' Gait Level of Assist: 4 Gait Assistive Device: Handheld Assist PT Lead Game Designer Goals Lead Game Designer Goals PT Lead Game Designer Goals Time Frame: Oct 02, 2018 Transfers (B,C,W/C) (FIM): 5 Sit to Lying (QC): 6 Lying-Sitting on Side/Bed(QC): 6 Sit to Stand (QC): 4 Rollin Roll Left to Right (QC): 6 Chair/Sts-mx-Nfxsn Xfer(QC): 4 Car Transfer (QC): 4 Gait (FIM): 4 Distance: 150' Walk 10 feet (QC): 4 Walk 10ft-Uneven Surface(QC): 4 Walk 50ft with 2 Turns (QC): 4 Walk 150 ft (QC): 4 Gait Level of Assist: 4 (CGA) Gait Assistive Device: Handheld Assist Stairs (FIM): 1 # of Steps: 1 1 Step (curb) (QC): 3 Stairs Level Of Assist: 4 PT Plan Problem List Problem List: Activity Tolerance, Functional Strength, Safety, Balance, Gait, Transfer, Bed Mobility, ROM Treatment/Plan Treatment Plan: Continue Plan of Care Treatment Plan: Bed Mobility, Concurrent Therapy, Education, Functional Activ ity Joel, Functional Strength, Group Therapy, Gait, Safety, Therapeutic Exercise, Transfers Treatment Duration: Oct 02, 2018 Frequency: At least 5 of 7 days/Wk (IRF) Estimated Hrs Per Day: 1.5 hours per day Patient and/or Family Agrees t: Yes Safety Risks/Education Patient Education: Gait Training, Transfer Techniques, Correct Positioning, Safety Issues Teaching Recipient: Patient Teaching Methods: Discussion Response to Teaching: Verbalize Understanding, Reinforcement Needed Time/GCodes Time In: 1000 Time Out: 1100 Total Billed Treatment Time: 60 Total Billed Treatment 1, GT x2 (25m), FA (15m) & EX (20m) G Codes Necessary: LAURA Aguiar AIRPORT UTILITY WORKER September 13, 2018 11:04
--- NOTE | 2018-09-13 14:42 | Therapy Group Daily Note ---
Therapy Daily Group Note Patient Education Topic Other List Below (TRF skills: bed, chair, car, tub) Session Ratio (pt:therapist): 3:1 Goal of Session: Safety with Transfers Goal Met for this Session: Yes Pt Benefit of Group: Contributions to Others, F/U Use of Strategies @Home, Increased Functional Safety, Recognition of Peers, Socialization Other/Notes Pt. participated group PT OT session. Pt. came went utilizing w/c and assist. Pt. shared his name and home town and what he is most proud of ( group magic question). Education and demonstration of bed TRFs: pushing up in bed, rolling, supine to side to sit to stand to SPT to chair all demonstrated step by step. TRF disc as well as slide board were demonstrated as well. CAR simulator was used to demonstrate car TRFs with safe technique . TUB bench TRFs also demonstrated and all bathing safety techniques discussed. Pts were all friendly,open and shared their personal experiences on all topics. Pt. to room after, assisted to bed with assist of 2 and call cota insitu. Start Time: 13:00 Stop Time: 14:10 Total Billed Treatment Time: 70 Total Billed Treatment 1,GRP LATASHA MERCADO SECURITY SYSTEMS ADMINISTRATOR September 13, 2018 14:42
--- NOTE | 2018-09-13 15:35 | NUR ---
THERMOFORMING MACHINE OPERATOR met with patient and to review team conference summary. As patient just recently admitted, requires max assist 2 for transfers and lower body ADLs, mod assist for upper body dressing and for ambulation and retropulsive tendencies, team has recommended patient be reevaluated at next team conference on 529. Patient and spouse are agreeable to this.
[2018-09-13] MEDS: ASCORBIC ACID (VIT C) 500 MG TABLET PO SCH (16:53)
[2018-09-13 17:00] VITALS: BP 114/72
--- NOTE | 2018-09-13 19:05 | NUR ---
bedside report received from BELINDA BOWDEN
--- NOTE | 2018-09-13 20:15 | NUR ---
back to bed from sherwindo warning cleared, 2 people assist back to bed, gowm on & request rt arm sling off, rt arm elevated on pillows
[2018-09-13] MEDS: GABAPENTIN 100 MG (NEURONTIN) CAP PO SCH (20:38)
[2018-09-13] MEDS: IRBESARTAN 150 MG (AVAPRO) TAB PO SCH (20:38)
[2018-09-13] MEDS: TAMSULOSIN 0.4 MG (FLOMAX) CAP PO SCH (20:38)
[2018-09-13] MEDS: FLUTICASONE NASAL SPRAY (FLONASE) 16 GM BTL NS SCH (20:39)
--- NOTE | 2018-09-13 21:00 | NUR ---
assessments & interventions completed, see assessments & interventions
[2018-09-14 06:27] VITALS: BP 103/59
[2018-09-14] MEDS: LEVOTHYROXINE 125 MCG (LEVOTHROID) TABLET PO SCH (06:47)
[2018-09-14] MEDS: MULTIVIT W/MINERALS TAB (THERAGRAN M) PO SCH (06:47)
[2018-09-14] MEDS: MAGNESIUM PO SCH (06:48)
[2018-09-14] MEDS: CALCIUM PO SCH (06:48)
[2018-09-14] MEDS: ZINC PO SCH (06:48)
--- NOTE | 2018-09-14 07:04 | NUR ---
bedside report given to ARYA BOWDEN
--- NOTE | 2018-09-14 08:14 | PM&R Progress Note ---
Subjective HPI/CC On Admission Date Seen by Provider: September 14, 2018 Time Seen by Provider: 08:00 CC: Right shoulder replacement with severe limitation of activities with debility HPI: This is an 88yoWM clinic patient of Dr Pimentel who presents to IRF after an uncomplicated right shoulder replacement by Dr Tobar at [facility] Tuesday but required IRF stay due to advanced age and frailty requiring 2 person assist in addition to left knee fusion due to replacements that have failed x 2 in the past further limiting his ability to ambulate and take care of himself at home. Patient finally arrived at 700pm last night and has settled in and doing well. BM this morning after laxatives given at [facility]. Pain is well controlled currently. Dr Pimentel has been notified of the consultation for his PCP needs. Right sling will stay in place during activity. His is at home in frail health also. I have reviewed his home meds and restarted all. PLOF was independent with ADL's. Patient seen for evaluation of chronic hypertension as well as new onset thrombocytopenia mild after the above. He is still on prophylactic Lovenox reporting no bleeding problems. He states that he has felt well in the shoulder pain is been under good control. He's had no evidence for bright red blood per rectum or melena in his appetite is back to normal. He had some postop constipation as well as urinary retention requiring short-term catheter placement. Catheter was removed before discharge and he reports urination is been smaller volume but he does feel as though he is emptying. His usual nocturia is 1 here in the hospital he reports nocturia 2 it is been darker in color without dysuria he's not aware of any change in odor and denies flank pain chills or fever. Subjective/Events-last exam Cardizem parameters are being followed. Pain is controlled with the use of minimal narcotic medication. Transfers still require intensive help with two person assist. Feels better today and wants to work with therapy. Bowels are moving Conferred with RN. Reviewed therapy notes. Appreciate Dr. Pimentel's input. Review of Systems General: Fatigue Musculoskeletal: leg pain Objective Exam Vital Signs Vital Signs Date Time Temp Pulse Resp B/P (MAP) Pulse Ox O2 Delivery O2 Flow Rate FiO2 09/14/18 17:28 99.0 73 18 104/63 (77) 99 Room Air Capillary Refill : Less Than 3 Seconds General Appearance: No Apparent Distress, WD/WN, Chronically ill, Thin HEENT: PERRL/EOMI, TMs Normal, Normal ENT Inspection, Pharynx Normal, Moist Mucous Membranes Neck: Full Range of Motion, Normal Inspection, Non Tender, Supple Respiratory: Chest Non Tender, Lungs Clear, Normal Breath Sounds, No Accessory Muscle Use, No Respiratory Distress Cardiovascular: Regular Rate, Rhythm, No Edema, No Gallop, No JVD, No Murmur Gastrointestinal: Normal Bowel Sounds, No Organomegaly, No Pulsatile Mass, Non Tender, Soft Back: Normal Inspection, No CVA Tenderness, No Vertebral Tenderness Extremity: Normal Capillary Refill, Normal Inspection, Normal Range of Motion (except right shoulder and chronic fusion left knee), Non Tender, No Calf Tenderness, No Pedal Edema Neurologic/Psychiatric: Alert, Oriented x3, No Motor/Sensory Deficits, Normal Mood/Affect Skin: Normal Color, Warm/Dry Lymphatic: No Adenopathy Results/Procedures Lab Patient resulted labs reviewed. FIM Transfers Therapy Code Descriptions/Definitions Functional [place] Measure: 0=Not Assessed/NA 4=Minimal Assistance 1=Total Assistance 5=Supervision or Setup 2=Maximal Assistance 6=Modified [place] 3=Moderate Assistance 7=Complete [place] Therapy Quality Codes: 6 Independent with activity with or without an assistive device 5 Patient requires set up or clean up by helper. Patient completes activity by themselves 4 Supervision or touching assist (CGA). [place] provide cues , steadying assist 3 The helper provides less than half the effort to complete the activity 2 The helper provides more than half the effort to complete the activity 1 Dependent. The helper does all the effort to complete an activity 7 Patient refused to complete or attempt activity 9 The patient did not perform the activity before the current illness or injury 88 Not attempted due to Medical conditions or safety concerns Transfers (B, C, W/C) (FIM): 1 Scootin Rollin Roll Left to Right (QC): 4 Supine to/from Sit: 4 Sit to/from Stand: 2 Sit to Lying (QC): 3 Sit to Stand (QC): 2 Chair/Brg-kt-Nuywl Xfer(QC): 2 Car Transfer (QC): 2 Gait Training Does the Patient Walk?: Yes Gait (FIM): 3 Distance (FIM): 3=150 ft Distance: 75', 75' Walk 10 feet (QC): 3 Walk 50 ft with 2 Turns(QC): 3 Walk 150 ft (QC): 3 Walking 10ft/uneven surface-QC: 3 Gait Level of Assist: 3 Gait Persons Needed: 1 Gait Assistive Device: Handheld Assist Wheelchair Training Does the Pt Use a Wheelchair?: No Mental Status/Objective Comprehension: 7 Expression: 7 Social Interaction: 7 Problem Solvin Memory: 7 ADL-Treatment Feedin (required assist to stir food items and required assist with set up) Eating (QC): 3 Groomin Oral Hygiene (QC): 6 Bathin Bathing Location: R Arm, L Upper Leg, R Upper Leg, Chest, Abdomen, Perineal Area Shower/Bathe Self (QC): 2 Upper Extremity Dressin Upper Body Dressing (QC): 3 Lower Extremity Dressin Lower Body Dressing (QC): 1 On/Off Footwear (QC): 1 Toiletin Toileting Hygiene (QC): 1 Toilet/Commode Transfer: 1 Toilet Transfer (QC): 1 Shower: 1 (pt required MOD A X2 person with use of GB ) Assessment/Plan Assessment and Plan Assess & Plan/Chief Complaint Assessment: s/p right shoulder replacement uncomplicated POD # 8 at [facility] Post op urinary retention requiring Ferrell cath but now resolved since cath r emoved Chronic left knee fusion HTN Allergic rhinitis Anemia Hypothyroidism Neuropathy BPH GERD Plan: Pain control IRF protocols Fall risk PCP consulted BM regimen Lovenox PPx (1) Status post replacement of right shoulder joint (2) Constipation (3) Urinary retention (4) Anemia (5) Hypothyroidism (6) GERD (gastroesophageal reflux disease) (7) Allergic rhinitis (8) Hypertension (9) BPH (benign prostatic hyperplasia) (10) 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
[2018-09-14 08:46] VITALS: BP 108/68
[2018-09-14] MEDS: PATIENT MAY USE OWN MED,SINGLE MED PO SCH (08:47)
[2018-09-14] MEDS: FAMOTIDINE 20 MG (PEPCID) TABLET PO SCH (08:48)
[2018-09-14] MEDS: SENNA W/DOCUSATE (SENOKOT S) TABLET PO SCH ×2 (08:48→21:52)
[2018-09-14] MEDS: HYDROcodone/APAP 5 MG/325 MG (LORTAB) TAB PO PRN ×2 (08:48→21:52)
[2018-09-14] MEDS: ENOXAPARIN 40 MG/0.4 ML (LOVENOX) SYR SC SCH (08:49)
[2018-09-14] MEDS: DILTIAZEM 60 MG (CARDIZEM) TAB PO SCH (09:00)
--- NOTE | 2018-09-14 09:27 | Occupational Ther Daily Note ---
OT Current Status-Daily Note Subjective Pt alert, lying in bed. Pt agrees to therapy. No c/o pain at this time. Mental Status/Objective Patient Orientation: Person, Place, Time, Situation Therapy Code Descriptions/Definitions Functional [place] Measure: 0=Not Assessed/NA 4=Minimal Assistance 1=Total Assistance 5=Supervision or Setup 2=Maximal Assistance 6=Modified [place] 3=Moderate Assistance 7=Complete [place] ADL-Treatment Pt declines shower. SBA with HOB raised for pt to go from supine to EOB. Max A x1 for SPT from EOB to w/c. Pt did not have briefs/underwear on to manipulate when completing toilet transfer, max A x1. Pt able to cleanse self sitting on toilet after BM. Mod I sitting at sink to complete own grooming. Pt used bank runner to don lower body over feet with min A then max A x2 to hike pants over hips. Pt took increased time to complete tasks due to slow movement and decreased R UE ROM. After therapy, pt sitting in recliner with call light/phone in reach. All needs met in room. Therapy Code Descriptions/Definitions Functional [place] Measure: 0=Not Assessed/NA 4=Minimal Assistance 1=Total Assistance 5=Supervision or Setup 2=Maximal Assistance 6=Modified [place] 3=Moderate Assistance 7=Complete [place] Therapy Quality Codes: 6 Independent with activity with or without an assistive device 5 Patient requires set up or clean up by helper. Patient completes activity by themselves 4 Supervision or touching assist (CGA). [place] provide cues , steadying assist 3 The helper provides less than half the effort to complete the activity 2 The helper provides more than half the effort to complete the activity 1 Dependent. The helper does all the effort to complete an activity 7 Patient refused to complete or attempt activity 9 The patient did not perform the activity before the current illness or injury 88 Not attempted due to Medical conditions or safety concerns Grooming (FIM): 6 Oral Hygiene (QC): 6 Upper Body (FIM): 4 (Min A. Pt able to thread R UE through sleeve assist to thread head then pt able to thread L UE.) Upper Body Dressing (QC): 3 Lower Body Dressing (FIM): 1 Lower Body Dressing (QC): 1 OT Short Term Goals Short Term Goals Eating(FIM): 5 Grooming(FIM): 5 Bathing(FIM): 5 Bathing Location: L Arm, R Arm, L Upper Leg, R Upper Leg, L Lower Leg (including foot), R Lower Leg (including foot), Chest, Abdomen, Buttocks, Perineal Area Upper Body Dressing(FIM): 5 Lower Body Dressing(FIM): 5 Toileting(FIM): 5 Transfers (B,C,W/C) (FIM): 4 Toilet/Commode Transfer(FIM): 5 Shower Transfer(FIM): 5 (5) Additional Short Term Goals: 1-Demonstrate ADL Tasks, 2-Verbalize Understanding, 3-ImproveStrength/Joel 1=Demonstrate adherence to instructed precautions during ADL tasks. 2=Patient will verbalize/demonstrate understanding of assistive devices/modifications for ADL. 3=Patient will improve strength/tolerance for activity to enable patient to perform ADL's. OT Long-Term Goals Hat Brim And Crown Laminating Operator Goals Eating (FIM): 7 Eating (QC): 6 Groomin Oral Hygiene (QC): 6 Bathing(FIM): 6 Bathing Location: L Arm, R Arm, L Upper Leg, R Upper Leg, L Lower Leg (including foot), R Lower Leg (including foot), Chest, Abdomen, Buttocks, Perineal Area Shower/Bathe Self (QC): 6 Upper Body Dressing(FIM): 6 Upper Body Dressing (QC): 6 Lower Body Dressing(FIM): 6 Lower Body Dressing (QC): 6 On/Off Footwear (QC): 6 Toileting(FIM): 6 Toileting Hygiene (QC): 6 Transfers (B,C,W/C) (FIM): 6 Toilet/Commode Transfer(FIM): 6 Toilet/Commode Transfer (QC): 6 Shower Transfer(FIM): 6 1=Demonstrate adherence to instructed precautions during ADL tasks. 2=Patient will verbalize/demonstrate understanding of assistive devices/modifications for ADL. 3=Patient will improve strength/tolerance for activity to enable patient to perform ADL's. OT Education/Plan Problem List/Assessment Assessment: Decreased UE Strength, Dependent Transfers, Impaired Coordination, Impaired Funct Balance, Impaired Self-Care Skills, Restricted Funct UE ROM pt presents with functional limitations affecting areas of ADLS/ functional t ransfers. pt protocol for R shoulder can be found in chart. pt would benefit from OT services to increase independence with ADLS/ functional transfers and for safe transition to home. Discharge Recommendations Plan/Recommendations: Continue POC Treatment Plan/Plan of Care Patient would benefit from OT for education, treatment and training to promote independence in ADL's, mobility, safety and/or upper extremity function for ADL's. Plan of Care: ADL Retraining, Caregiver Training, Concurrent Therapy, Functional Mobility, Group Exercise/Act as Ind, Orthotic Fitting/Training, UE Funct Exercise/Act Treatment Duration: Oct 09, 2018 Frequency: At least 5 of 7 days/Wk (IRF) Estimated Hrs Per Day: 1.5 hours per day (60-90 minutes per day) Rehab Potential: Fair Time/GCodes Start Time: 08:00 Stop Time: 09:30 Total Time Billed (hr/min): 90 Billed Treatment Time 1 visit-ADL 6 (90 min) PAZ SHIPMAN September 14, 2018 09:27
--- NOTE | 2018-09-14 11:02 | Physical Therapy Daily Note ---
PT Daily Note-Current Subjective Pt sitting in recliner upon arrival. Pt agrees to PT, report a little less anxiety today. Pain Numeric Pain Scale: 4 Location: Right Location Body Site: Shoulder Pain Description: Ache Mental Status Patient Orientation: Person, Place, Time, Situation Attachments: Other-See Comments (Immobilizer for R shoulder) Transfers Therapy Code Descriptions/Definitions Functional [place] Measure: 0=Not Assessed/NA 4=Minimal Assistance 1=Total Assistance 5=Supervision or Setup 2=Maximal Assistance 6=Modified [place] 3=Moderate Assistance 7=Complete [place] Therapy Quality Codes: 6 Independent with activity with or without an assistive device 5 Patient requires set up or clean up by helper. Patient completes activity by themselves 4 Supervision or touching assist (CGA). [place] provide cues , steadying assist 3 The helper provides less than half the effort to complete the activity 2 The helper provides more than half the effort to complete the activity 1 Dependent. The helper does all the effort to complete an activity 7 Patient refused to complete or attempt activity 9 The patient did not perform the activity before the current illness or injury 88 Not attempted due to Medical conditions or safety concerns Scootin Sit to/from Stand: 2 Sit to Stand (QC): 2 Weight Bearing Weight Bearing/Tolerated Weight Bearing/Tolerated total shoulder protocol on right side Gait Training Does the Patient Walk?: Yes Gait (FIM): 2 Distance (FIM): 0=995-58 ft Distance: 75', 75' Walk 10 feet (QC): 2 Walk 50 ft with 2 Turns(QC): 2 Gait Level of Assist: 2 Gait Persons Needed: 1 Gait Assistive Device: Handheld Assist Pt continues to ambulate retropulsively. TENON MACHINE OPERATOR encourages pt to stand up taller although pt is limited by previous bk surgeries. Exercises Seated Therapy Exercises: Ankle pumps, Long arc quads, Hip flexion, Kicking activity Seated Reps: 20 Treatments Nurse puts ERIKA hoses on pt and pt gives description of home set up for hoisting devices to aid Sp with transfers at home. Pt completes Seated EX in recliner. Pt transfers from recliner to standing at Mod A with VC for sequencing. Pt ambulates in hallway at Mod A using DRUM CLEANER. Pt practices sit to stand transfers before ambulating back to room. Pt rests in recliner at end of tx with all needs met. Assessment Current Status: Fair Progress Pt continues to demonstrate anxiety during tx & likes reassurance and VC for sequencing for less anxiety. PT Short Term Goals Short Term Goals Time Frame: September 18, 2018 Transfers (B,C,W/C) (FIM): 4 Gait (FIM): 2 Gait Distance Comment: 100' Gait Level of Assist: 4 Gait Assistive Device: Handheld Assist PT Alf Goals Alf Goals PT Day Care Teacher Goals Time Frame: Oct 02, 2018 Transfers (B,C,W/C) (FIM): 5 Sit to Lying (QC): 6 Lying-Sitting on Side/Bed(QC): 6 Sit to Stand (QC): 4 Rollin Roll Left to Right (QC): 6 Chair/Jgy-sx-Pqizm Xfer(QC): 4 Car Transfer (QC): 4 Gait (FIM): 4 Distance: 150' Walk 10 feet (QC): 4 Walk 10ft-Uneven Surface(QC): 4 Walk 50ft with 2 Turns (QC): 4 Walk 150 ft (QC): 4 Gait Level of Assist: 4 (CGA) Gait Assistive Device: Handheld Assist Stairs (FIM): 1 # of Steps: 1 1 Step (curb) (QC): 3 Stairs Level Of Assist: 4 PT Plan Problem List Problem List: Activity Tolerance, Functional Strength, Safety, Balance, Gait, Transfer, Bed Mobility, ROM Treatment/Plan Treatment Plan: Continue Plan of Care Treatment Plan: Bed Mobility, Concurrent Therapy, Education, Functional Act ivity Joel, Functional Strength, Group Therapy, Gait, Safety, Therapeutic Exercise, Transfers Treatment Duration: Oct 02, 2018 Frequency: At least 5 of 7 days/Wk (IRF) Estimated Hrs Per Day: 1.5 hours per day Patient and/or Family Agrees t: Yes Safety Risks/Education Patient Education: Gait Training, Transfer Techniques, Correct Positioning, Safety Issues Teaching Recipient: Patient Teaching Methods: Discussion Response to Teaching: Verbalize Understanding, Reinforcement Needed Time/GCodes Time In: 1000 Time Out: 1100 Total Billed Treatment Time: 60 Total Billed Treatment 1, FA x2 (35m) & GT x2 (25m) G Codes Necessary: LAURA Aguiar TENON MACHINE OPERATOR September 14, 2018 11:02
--- NOTE | 2018-09-14 15:44 | Physical Therapy Daily Note ---
PT Daily Note-Current Subjective Pt sitting in recliner upon arrival. Pt agrees to PT. Pain Numeric Pain Scale: 4 Location: Right Location Body Site: Shoulder Pain Description: Ache Mental Status Patient Orientation: Person, Place, Time, Situation Attachments: Other-See Comments (Immobilizer for R shoulder) Transfers Therapy Code Descriptions/Definitions Functional [place] Measure: 0=Not Assessed/NA 4=Minimal Assistance 1=Total Assistance 5=Supervision or Setup 2=Maximal Assistance 6=Modified [place] 3=Moderate Assistance 7=Complete [place] Therapy Quality Codes: 6 Independent with activity with or without an assistive device 5 Patient requires set up or clean up by helper. Patient completes activity by themselves 4 Supervision or touching assist (CGA). [place] provide cues , steadying assist 3 The helper provides less than half the effort to complete the activity 2 The helper provides more than half the effort to complete the activity 1 Dependent. The helper does all the effort to complete an activity 7 Patient refused to complete or attempt activity 9 The patient did not perform the activity before the current illness or injury 88 Not attempted due to Medical conditions or safety concerns Scootin Weight Bearing Weight Bearing/Tolerated Weight Bearing/Tolerated total shoulder protocol on right side Exercises Seated Therapy Exercises: Ankle pumps, Long arc quads, Hip flexion, Kicking activity, Glut set Seated Reps: 20 Treatments Pt completes Seated Ex in chair as well as scooting for mobility purposes. FLOW SPECIALIST assisted pt with donning lymphedema glove to help with R hand swelling. Assessment Current Status: Good Progress Pt tolerated tx well. PT Short Term Goals Short Term Goals Time Frame: September 18, 2018 Transfers (B,C,W/C) (FIM): 4 Gait (FIM): 2 Gait Distance Comment: 100' Gait Level of Assist: 4 Gait Assistive Device: Handheld Assist PT Pizza Baker Goals Pizza Baker Goals PT Pizza Baker Goals Time Frame: Oct 02, 2018 Transfers (B,C,W/C) (FIM): 5 Sit to Lying (QC): 6 Lying-Sitting on Side/Bed(QC): 6 Sit to Stand (QC): 4 Rollin Roll Left to Right (QC): 6 Chair/Xyk-mq-Rpurx Xfer(QC): 4 Car Transfer (QC): 4 Gait (FIM): 4 Distance: 150' Walk 10 feet (QC): 4 Walk 10ft-Uneven Surface(QC): 4 Walk 50ft with 2 Turns (QC): 4 Walk 150 ft (QC): 4 Gait Level of Assist: 4 (CGA) Gait Assistive Device: Handheld Assist Stairs (FIM): 1 # of Steps: 1 1 Step (curb) (QC): 3 Stairs Level Of Assist: 4 PT Plan Problem List Problem List: Activity Tolerance, Functional Strength, Safety, ROM Treatment/Plan Treatment Plan: Continue Plan of Care Treatment Plan: Bed Mobility, Concurrent Therapy, Education, Functional Activity Joel, Functional Strength, Group Therapy, Gait, Safety, Therapeutic Exercise, Transfers Treatment Duration: Oct 02, 2018 Frequency: At least 5 of 7 days/Wk (IRF) Estimated Hrs Per Day: 1.5 hours per day Patient and/or Family Agrees t: Yes Safety Risks/Education Patient Education: Transfer Techniques, Correct Positioning, Safety Issues Teaching Recipient: Patient Teaching Methods: Discussion Response to Teaching: Verbalize Understanding Time/GCodes Time In: 1415 Time Out: 1445 Total Billed Treatment Time: 30 Total Billed Treatment 1, FA (10m) & EX (20m) G Codes Necessary: LAURA Aguiar FLOW SPECIALIST September 14, 2018 15:44
[2018-09-14 17:28] VITALS: BP 104/63
[2018-09-14] MEDS: ASCORBIC ACID (VIT C) 500 MG TABLET PO SCH (17:57)
[2018-09-14] MEDS: FLUTICASONE NASAL SPRAY (FLONASE) 16 GM BTL NS SCH (21:52)
[2018-09-14] MEDS: TAMSULOSIN 0.4 MG (FLOMAX) CAP PO SCH (21:52)
[2018-09-14] MEDS: IRBESARTAN 150 MG (AVAPRO) TAB PO SCH (21:52)
[2018-09-14] MEDS: GABAPENTIN 100 MG (NEURONTIN) CAP PO SCH (21:52)
[2018-09-15 05:33] VITALS: BP 119/72
[2018-09-15] MEDS: LEVOTHYROXINE 125 MCG (LEVOTHROID) TABLET PO SCH (06:49)
[2018-09-15] MEDS: MULTIVIT W/MINERALS TAB (THERAGRAN M) PO SCH (06:50)
[2018-09-15] MEDS: ZINC PO SCH (06:50)
[2018-09-15] MEDS: MAGNESIUM PO SCH (06:50)
[2018-09-15] MEDS: CALCIUM PO SCH (06:50)
--- NOTE | 2018-09-15 08:17 | PM&R Progress Note ---
Subjective HPI/CC On Admission Date Seen by Provider: September 15, 2018 Time Seen by Provider: 08:15 CC: Right shoulder replacement with severe limitation of activities with debility HPI: This is an 88yoWM clinic patient of Dr Pimentel who presents to IRF after an uncomplicated right shoulder replacement by Dr Tobar at [facility] Tuesday but required IRF stay due to advanced age and frailty requiring 2 person assist in addition to left knee fusion due to replacements that have failed x 2 in the past further limiting his ability to ambulate and take care of himself at home. Patient finally arrived at 700pm last night and has settled in and doing well. BM this morning after laxatives given at [facility]. Pain is well controlled currently. Dr Pimentel has been notified of the consultation for his PCP needs. Right sling will stay in place during activity. His is at home in frail health also. I have reviewed his home meds and restarted all. PLOF was independent with ADL's. Patient seen for evaluation of chronic hypertension as well as new onset thrombocytopenia mild after the above. He is still on prophylactic Lovenox reporting no bleeding problems. He states that he has felt well in the shoulder pain is been under good control. He's had no evidence for bright red blood per rectum or melena in his appetite is back to normal. He had some postop constipation as well as urinary retention requiring short-term catheter placement. Catheter was removed before discharge and he reports urination is been smaller volume but he does feel as though he is emptying. His usual nocturia is 1 here in the hospital he reports nocturia 2 it is been darker in color without dysuria he's not aware of any change in odor and denies flank pain chills or fever. Subjective/Events-last exam Pt wondering why PT will not give him ROM exercises so we are checking in to that. BMs are regular. No bleeding problems. No urinary problems. Overall pain is well controlled. Slept well lastnight. Conferred with RN. Reviewed therapy notes. Review of Systems General: Fatigue Musculoskeletal: arm pain Objective Exam Vital Signs Vital Signs Date Time Temp Pulse Resp B/P (MAP) Pulse Ox O2 Delivery O2 Flow Rate FiO2 09/15/18 21:08 Room Air 09/15/18 20:40 83 125/66 (85) 09/15/18 18:00 99.6 18 96 Capillary Refill : Less Than 3 Seconds General Appearance: No Apparent Distress, WD/WN, Chronically ill, Thin HEENT: PERRL/EOMI, TMs Normal, Normal ENT Inspection, Pharynx Normal, Moist Mucous Membranes Neck: Full Range of Motion, Normal Inspection, Non Tender, Supple Respiratory: Chest Non Tender, Lungs Clear, Normal Breath Sounds, No Accessory Muscle Use, No Respiratory Distress Cardiovascular: Regular Rate, Rhythm, No Edema, No Gallop, No JVD, No Murmur Gastrointestinal: Normal Bowel Sounds, No Organomegaly, No Pulsatile Mass, Non Tender, Soft Back: Normal Inspection, No CVA Tenderness, No Vertebral Tenderness Extremity: Normal Capillary Refill, Normal Inspection, Normal Range of Motion (except right shoulder and chronic fusion left knee), Non Tender, No Calf Tenderness, No Pedal Edema Neurologic/Psychiatric: Alert, Oriented x3, No Motor/Sensory Deficits, Normal Mood/Affect Skin: Normal Color, Warm/Dry Lymphatic: No Adenopathy Results/Procedures Lab Patient resulted labs reviewed. FIM Transfers Therapy Code Descriptions/Definitions Functional [place] Measure: 0=Not Assessed/NA 4=Minimal Assistance 1=Total Assistance 5=Supervision or Setup 2=Maximal Assistance 6=Modified [place] 3=Moderate Assistance 7=Complete [place] Therapy Quality Codes: 6 Independent with activity with or without an assistive device 5 Patient requires set up or clean up by helper. Patient completes activity by themselves 4 Supervision or touching assist (CGA). [place] provide cues , steadying ass ist 3 The helper provides less than half the effort to complete the activity 2 The helper provides more than half the effort to complete the activity 1 Dependent. The helper does all the effort to complete an activity 7 Patient refused to complete or attempt activity 9 The patient did not perform the activity before the current illness or injury 88 Not attempted due to Medical conditions or safety concerns Transfers (B, C, W/C) (FIM): 1 Scootin Rollin Roll Left to Right (QC): 4 Supine to/from Sit: 4 Sit to/from Stand: 2 Sit to Lying (QC): 3 Sit to Stand (QC): 2 Chair/Iwt-oc-Fmgsi Xfer(QC): 2 Car Transfer (QC): 2 Gait Training Does the Patient Walk?: Yes Gait (FIM): 2 Distance (FIM): 3=818-63 ft Distance: 75', 75' Walk 10 feet (QC): 2 Walk 50 ft with 2 Turns(QC): 2 Walk 150 ft (QC): 3 Walking 10ft/uneven surface-QC: 3 Gait Level of Assist: 2 Gait Persons Needed: 1 Gait Assistive Device: Handheld Assist Wheelchair Training Does the Pt Use a Wheelchair?: No Mental Status/Objective Comprehension: 7 Expression: 7 Social Interaction: 7 Problem Solvin Memory: 7 ADL-Treatment Feedin (required assist to stir food items and required assist with set up) Eating (QC): 3 Groomin Oral Hygiene (QC): 6 Bathin Bathing Location: R Arm, L Upper Leg, R Upper Leg, Chest, Abdomen, Perineal Area Shower/Bathe Self (QC): 2 Upper Extremity Dressin (Min A. Pt able to thread R UE through sleeve assist to thread head then pt able to thread L UE.) Upper Body Dressing (QC): 3 Lower Extremity Dressin Lower Body Dressing (QC): 1 On/Off Footwear (QC): 1 Toiletin Toileting Hygiene (QC): 1 Toilet/Commode Transfer: 1 Toilet Transfer (QC): 1 Shower: 1 (pt required MOD A X2 person with use of GB ) Assessment/Plan Assessment and Plan Assess & Plan/Chief Complaint Assessment: s/p right shoulder replacement uncomplicated POD # 9 at [facility] Post op urinary retention requiring Ferrell cath but now resolved since cath removed Chronic left knee fusion HTN Allergic rhinitis Anemia Hypothyroidism Neuropathy BPH GERD Plan: Pain control IRF protocols Fall risk PCP consulted and input is appreciated BM regimen Lovenox PPx (1) Status post replacement of right shoulder joint (2) Constipation (3) Urinary retention (4) Anemia (5) Hypothyroidism (6) GERD (gastroesophageal reflux disease) (7) Allergic rhinitis (8) Hypertension (9) BPH (benign prostatic hyperplasia) (10) Limitation of joint motion of left knee RICO LANCE DO September 15, 2018 08:17
[2018-09-15] MEDS: FAMOTIDINE 20 MG (PEPCID) TABLET PO SCH (09:25)
[2018-09-15] MEDS: SENNA W/DOCUSATE (SENOKOT S) TABLET PO SCH ×2 (09:25→20:35)
[2018-09-15] MEDS: DILTIAZEM 60 MG (CARDIZEM) TAB PO SCH (09:25)
[2018-09-15] MEDS: ENOXAPARIN 40 MG/0.4 ML (LOVENOX) SYR SC SCH (09:25)
[2018-09-15] MEDS: PATIENT MAY USE OWN MED,SINGLE MED PO SCH (09:26)
--- NOTE | 2018-09-15 09:34 | Occupational Ther Daily Note ---
OT Current Status-Daily Note Subjective Pt alert, lying in bed. Pt agrees to therapy. Pt asking about his R UE, no protocol in chart, nrsg/physician is reaching out to surgeon. No c/o pain. Mental Status/Objective Patient Orientation: Person, Place, Time, Situation Therapy Code Descriptions/Definitions Functional [place] Measure: 0=Not Assessed/NA 4=Minimal Assistance 1=Total Assistance 5=Supervision or Setup 2=Maximal Assistance 6=Modified [place] 3=Moderate Assistance 7=Complete [place] ADL-Treatment Pt agrees to shower. Supine to EOB using HOB elevated and bed rails. Mod A with SPT with bed elevated for easier sit to stand. Mod A using grabbar and BSC for toilet transfer. Pt does better with pull to stand instead of push to stand. Transfer to rolling shower chair mod A, using so that surface is elevated for easier transfers. Pt completed bathing using grabbar, hand held shower, long handle sponge and shower chair with cutout so that pt doesn't have to stand to cleanse buttocks. Mod A for lower body dressing-pt used metal furniture glazier to don clothing over feet and CGA to manipulate clothing to correct location to thread R foot in then pt pulled to stand with grabbar and was able to stand while assist to hike pants over hips. Mod I for grooming sitting at sink. Assist to don ERIKA hose and shoes. After therapy, pt sitting in recliner with call light/phone in reach. Nrsg in room. All needs met in room. Therapy Code Descriptions/Definitions Functional [place] Measure: 0=Not Assessed/NA 4=Minimal Assistance 1=Total Assistance 5=Supervision or Setup 2=Maximal Assistance 6=Modified [place] 3=Moderate Assistance 7=Complete [place] Therapy Quality Codes: 6 Independent with activity with or without an assistive device 5 Patient requires set up or clean up by helper. Patient completes activity by themselves 4 Supervision or touching assist (CGA). [place] provide cues , steadying assist 3 The helper provides less than half the effort to complete the activity 2 The helper provides more than half the effort to complete the activity 1 Dependent. The helper does all the effort to complete an activity 7 Patient refused to complete or attempt activity 9 The patient did not perform the activity before the current illness or injury 88 Not attempted due to Medical conditions or safety concerns Grooming (FIM): 6 Oral Hygiene (QC): 6 Bathing (FIM): 5 (SBA for safety.) Bathing Location: L Arm, R Arm, L Upper Leg, R Upper Leg, L Lower Leg (including foot), R Lower Leg (including foot), Chest, Abdomen, Buttocks, Perineal Area Shower/Bathe Self (QC): 4 Upper Body (FIM): 3 (Mod A to manipulate clothing to thread arms and head into correct holes.) Upper Body Dressing (QC): 3 Lower Body Dressing (FIM): 3 Lower Body Dressing (QC): 3 On/Off Footwear (QC): 2 Toileting (FIM): 2 (Assist for clothing manipulation, pt cleansed while sitting on toilet.) Toileting Hygiene (QC): 2 Transfers (B, C, W/C) (FIM): 3 Toilet/Commode Transfer (FIM): 3 Toilet Transfer (QC): 3 OT Short Term Goals Short Term Goals Eating(FIM): 5 Grooming(FIM): 5 Bathing(FIM): 5 Bathing Location: L Arm, R Arm, L Upper Leg, R Upper Leg, L Lower Leg (including foot), R Lower Leg (including foot), Chest, Abdomen, Buttocks, Perineal Area Upper Body Dressing(FIM): 5 Lower Body Dressing(FIM): 5 Toileting(FIM): 5 Transfers (B,C,W/C) (FIM): 4 Toilet/Commode Transfer(FIM): 5 Shower Transfer(FIM): 5 (5) Additional Short Term Goals: 1-Demonstrate ADL Tasks, 2-Verbalize Understanding, 3-ImproveStrength/Joel 1=Demonstrate adherence to instructed precautions during ADL tasks. 2=Patient will verbalize/demonstrate understanding of assistive devices/modifications for ADL. 3=Patient will improve strength/tolerance for activity to enable patient to perform ADL's. OT Dynamicist Goals Dynamicist Goals Eating (FIM): 7 Eating (QC): 6 Groomin Oral Hygiene (QC): 6 Bathing(FIM): 6 Bathing Location: L Arm, R Arm, L Upper Leg, R Upper Leg, L Lower Leg (including foot), R Lower Leg (including foot), Chest, Abdomen, Buttocks, Perineal Area Shower/Bathe Self (QC): 6 Upper Body Dressing(FIM): 6 Upper Body Dressing (QC): 6 Lower Body Dressing(FIM): 6 Lower Body Dressing (QC): 6 On/Off Footwear (QC): 6 Toileting(FIM): 6 Toileting Hygiene (QC): 6 Transfers (B,C,W/C) (FIM): 6 Toilet/Commode Transfer(FIM): 6 Toilet/Commode Transfer (QC): 6 Shower Transfer(FIM): 6 1=Demonstrate adherence to instructed precautions during ADL tasks. 2=Patient will verbalize/demonstrate understanding of assistive devices/modifications for ADL. 3=Patient will improve strength/tolerance for activity to enable patient to perform ADL's. OT Education/Plan Problem List/Assessment Assessment: Decreased Activ Tolerance, Dependent Transfers, Impaired Funct Balance, Impaired Self-Care Skills, Restricted Funct UE ROM pt presents with functional limitations affecting areas of ADLS/ functional transfers. pt protocol for R shoulder can be found in chart. pt would benefit from OT services to increase independence with ADLS/ functional transfers and for safe transition to home. Discharge Recommendations Plan/Recommendations: Continue POC Treatment Plan/Plan of Care Patient would benefit from OT for education, treatment and training to promote independence in ADL's, mobility, safety and/or upper extremity function for ADL's. Plan of Care: ADL Retraining, Caregiver Training, Concurrent Therapy, Functional Mobility, Group Exercise/Act as Ind, Orthotic Fitting/Training, UE Funct Exercise/Act Treatment Duration: Oct 09, 2018 Frequency: At least 5 of 7 days/Wk (IRF) Estimated Hrs Per Day: 1.5 hours per day (60-90 minutes per day) Rehab Potential: Fair Time/GCodes Start Time: 08:00 Stop Time: 09:30 Total Time Billed (hr/min): 90 Billed Treatment Time 1 visit-ADL 6 (90 min) PAZ SHIPMAN September 15, 2018 09:34
--- NOTE | 2018-09-15 11:03 | Physical Therapy Daily Note ---
PT Daily Note-Current Subjective Pt. states he has ordered a type of walking device he thought he could use in his shop at home that would not require him to have his hands on it but has a seat and he could sit if he lost balance etc. states she will have this device brought to the hospital tomorrow. Pt. sleeps in bed at home but utilizes a lift recline chair at home. Pt. and both state she will not be able to lift him for TRFs at home Pain Location: No Pain Reported Mental Status Patient Orientation: Person, Place, Time, Situation Attachments: Other-See Comments (RUE sling abd) Transfers Therapy Code Descriptions/Definitions Functional [place] Measure: 0=Not Assessed/NA 4=Minimal Assistance 1=Total Assistance 5=Supervision or Setup 2=Maximal Assistance 6=Modified [place] 3=Moderate Assistance 7=Complete [place] Therapy Quality Codes: 6 Independent with activity with or without an assistive device 5 Patient requires set up or clean up by helper. Patient completes activity by themselves 4 Supervision or touching assist (CGA). [place] provide cues , steadying assist 3 The helper provides less than half the effort to complete the activity 2 The helper provides more than half the effort to complete the activity 1 Dependent. The helper does all the effort to complete an activity 7 Patient refused to complete or attempt activity 9 The patient did not perform the activity before the current illness or injury 88 Not attempted due to Medical conditions or safety concerns Transfers (B, C, W/C) (FIM): 3 Scootin Rollin Supine to/from Sit: 5 Sit to/from Stand: 3 standard recliner was removed from pts room and replaced with lift recliner as this is what pt. uses at home. Pt. 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 Pt. needs to protect joints and is good candidate for use of lift chair. This as well as pillows or cushions in sitting surface improves sit to stand TRF to min to mod and occas CGA assist Weight Bearing Weight Bearing/Tolerated Weight Bearing/Tolerated total shoulder protocol on right side Gait Training Does the Patient Walk?: Yes Gait (FIM): 2 Distance (FIM): 7=722-12 ft (60ftx2,40ft) Gait Level of Assist: 3 Gait Persons Needed: 1 Gait Assistive Device: Walker [place] pt. educated in use and sequence of leodan walker for gait. Pt. ambulated 60 ft x 2 40 ft x 1 with min to mod assist and w/c to f/u as well as much education and demonstration for use of leodan walker. This seemed to provide pt. some stability and good wt bearing through LUE Exercises Supine Ex: Ankle pumps, Quad Set, Rolling, Glut sets, Heel Slides (R only), Short Arc Quads (R only), Straight leg raise, Hip abd/add Supine Reps: 15 Assessment Current Status: Good Progress improved sit to stand via raised heights, improved gait with leodan walker PT Short Term Goals Short Term Goals Time Frame: September 18, 2018 Transfers (B,C,W/C) (FIM): 4 Gait (FIM): 2 Gait Distance Comment: 100' Gait Level of Assist: 4 Gait Assistive Device: Handheld Assist PT Assisted Goals Assisted Goals PT Assisted Goals Time Frame: Oct 02, 2018 Transfers (B,C,W/C) (FIM): 5 Sit to Lying (QC): 6 Lying-Sitting on Side/Bed(QC): 6 Sit to Stand (QC): 4 Rollin Roll Left to Right (QC): 6 Chair/Pgt-xp-Rgwce Xfer(QC): 4 Car Transfer (QC): 4 Gait (FIM): 4 Distance: 150' Walk 10 feet (QC): 4 Walk 10ft-Uneven Surface(QC): 4 Walk 50ft with 2 Turns (QC): 4 Walk 150 ft (QC): 4 Gait Level of Assist: 4 (CGA) Gait Assistive Device: Handheld Assist Stairs (FIM): 1 # of Steps: 1 1 Step (curb) (QC): 3 Stairs Level Of Assist: 4 PT Plan Treatment/Plan Treatment Plan: Continue Plan of Care Treatment Plan: Bed Mobility, Concurrent Therapy, Education, Functional Activity Joel, Functional Strength, Group Therapy, Gait, Safety, Therapeutic Exercise, Transfers Treatment Duration: Oct 02, 2018 Frequency: At least 5 of 7 days/Wk (IRF) Estimated Hrs Per Day: 1.5 hours per day Patient and/or Family Agrees t: Yes Safety Risks/Education Patient Education: Gait Training, Transfer Techniques, Correct Positioning, Disease Process, Safety Issues Teaching Recipient: Patient Teaching Methods: Demonstration, Discussion Response to Teaching: Verbalize Understanding, Return Demonstration, Reinforcement Needed Time/GCodes Time In: 1000 Time Out: 1100 Total Billed Treatment Time: 60 Total Billed Treatment 1,FA20m,EX15m,GT25m G Codes Necessary: LATASHA Coyle SKIAGRAPHER September 15, 2018 11:03
--- NOTE | 2018-09-15 14:16 | NUR ---
Initial visit: Engaged in rapport building. Pt is [place].
--- NOTE | 2018-09-15 14:55 | Therapy Group Daily Note ---
Therapy Daily Group Note Patient Education Topic Other List Below (memory/ARU description) Exercises LE Seated Exercise, Balance, UE Exercise Session Ratio (pt:therapist): 4:1 Goal of Session: Education on ARU Expectations, Memory Strategies Goal Met for this Session: Yes Pt Benefit of Group: Contributions to Others, Increased Functional Strength, Improved Cognition, Recognition of Peers, Socialization Other/Notes Pt transported using via w/c to [facility] area for OT/PT group. Group consisted of introductions (name, place born, if life was a movie what genre would it be and who would play you), socialization, ARU description, UE/LE strengthening, dynamic sitting, core stability, memory strategies and activi ties. Pt introduced self appropriately and actively listened to peers. Pt acknowledged understanding of ARU description. Pt was able to give description of personal memory strategies and contribute to discussion. Pt demonstrated good balance, UE/LE AROM and strength, core stability during balloon activity. After therapy, pt sitting in recliner with call light/phone in reach. All needs met in room. Start Time: 13:00 Stop Time: 14:40 Total Billed Treatment Time: 100 Total Billed Treatment 1-GRP PAZ SHIPMAN September 15, 2018 14:55
[2018-09-15] MEDS: ASCORBIC ACID (VIT C) 500 MG TABLET PO SCH (17:12)
[2018-09-15 18:00] VITALS: BP 104/62
[2018-09-15] MEDS: IRBESARTAN 150 MG (AVAPRO) TAB PO SCH (20:34)
[2018-09-15] MEDS: TAMSULOSIN 0.4 MG (FLOMAX) CAP PO SCH (20:34)
[2018-09-15] MEDS: GABAPENTIN 100 MG (NEURONTIN) CAP PO SCH (20:35)
[2018-09-15] MEDS: FLUTICASONE NASAL SPRAY (FLONASE) 16 GM BTL NS SCH (20:36)
[2018-09-15 20:40] VITALS: BP 125/66
[2018-09-15] MEDS: HYDROcodone/APAP 5 MG/325 MG (LORTAB) TAB PO PRN (22:54)
[2018-09-16] MEDS: LEVOTHYROXINE 125 MCG (LEVOTHROID) TABLET PO SCH (05:40)
[2018-09-16 06:00] VITALS: BP 112/65
[2018-09-16] MEDS: ZINC PO SCH (06:16)
[2018-09-16] MEDS: MAGNESIUM PO SCH (06:16)
[2018-09-16] MEDS: CALCIUM PO SCH (06:16)
[2018-09-16] MEDS: MULTIVIT W/MINERALS TAB (THERAGRAN M) PO SCH (06:16)
[2018-09-16 09:12] VITALS: BP 128/49
[2018-09-16] MEDS: FAMOTIDINE 20 MG (PEPCID) TABLET PO SCH (09:13)
[2018-09-16] MEDS: ENOXAPARIN 40 MG/0.4 ML (LOVENOX) SYR SC SCH (09:13)
[2018-09-16] MEDS: HYDROcodone/APAP 5 MG/325 MG (LORTAB) TAB PO PRN ×2 (09:14→21:47)
--- NOTE | 2018-09-16 09:36 | Physical Therapy Daily Note ---
PT Daily Note-Current Subjective Agreeable to PT session. Requests to get dressed before walking. Pain Numeric Pain Scale: 0-No Pain Appearance Pt in bed upon arrival, awake and alert Pt requesting and assisted in dressing, donning and adjusting shoulder immobilizer and use of urinal Tech present during part of session At end of session, pt sitting up in recliner, call light, phone and bedside table within reach Mental Status Patient Orientation: Person, Place, Time, Eyes Open, Situation shoulder immobilizer Transfers Therapy Code Descriptions/Definitions Functional [place] Measure: 0=Not Assessed/NA 4=Minimal Assistance 1=Total Assistance 5=Supervision or Setup 2=Maximal Assistance 6=Modified [place] 3=Moderate Assistance 7=Complete [place] Therapy Quality Codes: 6 Independent with activity with or without an assistive device 5 Patient requires set up or clean up by helper. Patient completes activity by themselves 4 Supervision or touching assist (CGA). [place] provide cues , steadying assist 3 The helper provides less than half the effort to complete the activity 2 The helper provides more than half the effort to complete the activity 1 Dependent. The helper does all the effort to complete an activity 7 Patient refused to complete or attempt activity 9 The patient did not perform the activity before the current illness or inju ry 88 Not attempted due to Medical conditions or safety concerns Transfers (B, C, W/C) (FIM): 4 Scootin Rollin Supine to/from Sit: 5 (supine to sit HOB elevated) Sit to/from Stand: 4 (sit to and from stand EOB, bed height elevated, min A required to initiate. Sit to and from stand recliner, min A required to initiate and regain balance) Pt performs all transitions without use of RUE and R shoulder immobilizer in place Weight Bearing Weight Bearing/Tolerated Weight Bearing/Tolerated total shoulder protocol on right side Gait Training Does the Patient Walk?: Yes Gait (FIM): 4 Distance (FIM): 3=150 ft Distance: 160 x2 Gait Level of Assist: 4 (LOB x3, unsteady) Gait Persons Needed: 1 (plus 1 to follow with w/c due to LOB and unsteadiness) Gait Assistive Device: Walker Leodan forward flex and kyphotic, decreased step length and height, decreased knee flex, unsteady, LOB x3 requiring physical assist to correct and regain balance, assist of extra person to follow with w/c Treatments bed mobility, dressing, donning R shoulder immobilizer, bathroom, transfers, safety, gait, activity tolerance, functional mobility, balance, education Assessment Current Status: Good Progress increased gait distance although with unsteadiness and LOB x3 PT Short Term Goals Short Term Goals Time Frame: September 18, 2018 Transfers (B,C,W/C) (FIM): 4 Gait (FIM): 2 Gait Distance Comment: 100' Gait Level of Assist: 4 Gait Assistive Device: Handheld Assist PT Chcf Goals Chcf Goals PT Chcf Goals Time Frame: Oct 02, 2018 Transfers (B,C,W/C) (FIM): 5 Sit to Lying (QC): 6 Lying-Sitting on Side/Bed(QC): 6 Sit to Stand (QC): 4 Rollin Roll Left to Right (QC): 6 Chair/Ukg-vu-Bkcfa Xfer(QC): 4 Car Transfer (QC): 4 Gait (FIM): 4 Distance: 150' Walk 10 feet (QC): 4 Walk 10ft-Uneven Surface(QC): 4 Walk 50ft with 2 Turns (QC): 4 Walk 150 ft (QC): 4 Gait Level of Assist: 4 (CGA) Gait Assistive Device: Handheld Assist Stairs (FIM): 1 # of Steps: 1 1 Step (curb) (QC): 3 Stairs Level Of Assist: 4 PT Plan Treatment/Plan Treatment Plan: Continue Plan of Care Treatment Plan: Bed Mobility, Concurrent Therapy, Education, Functional A ctivity Joel, Functional Strength, Group Therapy, Gait, Safety, Therapeutic Exercise, Transfers Treatment Duration: Oct 02, 2018 Frequency: At least 5 of 7 days/Wk (IRF) Estimated Hrs Per Day: 1.5 hours per day Patient and/or Family Agrees t: Yes Safety Risks/Education Patient Education: Gait Training, Transfer Techniques, Reviewed Precautions, Reviewed Don/Doff Brace, Safety Issues Teaching Recipient: Patient Teaching Methods: Demonstration, Discussion Response to Teaching: Verbalize Understanding, Return Demonstration, Reinforcement Needed Time/GCodes Time In: 820 Time Out: 858 Total Billed Treatment Time: 38 Total Billed Treatment 1 visit, FA x 2 units, GT x 1 unit FRANCISCO TRINH PTA September 16, 2018 09:36
--- NOTE | 2018-09-16 11:40 | PM&R Progress Note ---
Subjective HPI/CC On Admission Date Seen by Provider: September 16, 2018 Time Seen by Provider: 11:45 CC: Right shoulder replacement with severe limitation of activities with debility HPI: This is an 88yoWM clinic patient of Dr Pimentel who presents to IRF after an uncomplicated right shoulder replacement by Dr Tobar at [facility] Tuesday but required IRF stay due to advanced age and frailty requiring 2 person assist in addition to left knee fusion due to replacements that have failed x 2 in the past further limiting his ability to ambulate and take care of himself at home. Patient finally arrived at 700pm last night and has settled in and doing well. BM this morning after laxatives given at [facility]. Pain is well controlled currently. Dr Pimentel has been notified of the consultation for his PCP needs. Right sling will stay in place during activity. His is at home in frail health also. I have reviewed his home meds and restarted all. PLOF was independent with ADL's. Patient seen for evaluation of chronic hypertension as well as new onset thrombocytopenia mild after the above. He is still on prophylactic Lovenox reporting no bleeding problems. He states that he has felt well in the shoulder pain is been under good control. He's had no evidence for bright red blood per rectum or melena in his appetite is back to normal. He had some postop constipation as well as urinary retention requiring short-term catheter placement. Catheter was removed before discharge and he reports urination is been smaller volume but he does feel as though he is emptying. His usual nocturia is 1 here in the hospital he reports nocturia 2 it is been darker in color without dysuria he's not aware of any change in odor and denies flank pain chills or fever. Subjective/Events-last exam at bedside and I met her and she has no concerns. 20 years. Slightly low DBP so Cardizem was held Walked was bought for $700 so will see if PT thinks it is an ok walker or not BM+ Urinating well Using IS Slept well last night. Conferred with RN. Reviewed therapy notes. Review of Systems General: Fatigue Musculoskeletal: arm pain Objective Exam Vital Signs Vital Signs Date Time Temp Pulse Resp B/P (MAP) Pulse Ox O2 Delivery O2 Flow Rate FiO2 09/16/18 09:12 82 128/49 (75) 09/16/18 09:00 Room Air 09/16/18 06:00 97.3 16 95 Capillary Refill : Less Than 3 Seconds General Appearance: No Apparent Distress, WD/WN, Chronically ill, Thin HEENT: PERRL/EOMI, TMs Normal, Normal ENT Inspection, Pharynx Normal, Moist Mucous Membranes Neck: Full Range of Motion, Normal Inspection, Non Tender, Supple Respiratory: Chest Non Tender, Lungs Clear, Normal Breath Sounds, No Accessory Muscle Use, No Respiratory Distress Cardiovascular: Regular Rate, Rhythm, No Edema, No Gallop, No JVD, No Murmur Gastrointestinal: Normal Bowel Sounds, No Organomegaly, No Pulsatile Mass, Non Tender, Soft Back: Normal Inspection, No CVA Tenderness, No Vertebral Tenderness Extremity: Normal Capillary Refill, Normal Inspection, Normal Range of Motion (except right shoulder and chronic fusion left knee), Non Tender, No Calf Tenderness, No Pedal Edema Neurologic/Psychiatric: Alert, Oriented x3, No Motor/Sensory Deficits, Normal Mood/Affect Skin: Normal Color, Warm/Dry Lymphatic: No Adenopathy Results/Procedures Lab Patient resulted labs reviewed. FIM Transfers Therapy Code Descriptions/Definitions Functional [place] Measure: 0=Not Assessed/NA 4=Minimal Assistance 1=Total Assistance 5=Supervision or Setup 2=Maximal Assistance 6=Modified [place] 3=Moderate Assistance 7=Complete [place] Therapy Quality Codes: 6 Independent with activity with or without an assistive device 5 Patient requires set up or clean up by helper. Patient completes activity by themselves 4 Supervision or touching assist (CGA). [place] provide cues , steadying assist 3 The helper provides less than half the effort to complete the activity 2 The helper provides more than half the effort to complete the activity 1 Dependent. The helper does all the effort to complete an activity 7 Patient refused to complete or attempt activity 9 The patient did not perform the activity before the current illness or injury 88 Not attempted due to Medical conditions or safety concerns Transfers (B, C, W/C) (FIM): 3 Scootin Rollin Roll Left to Right (QC): 4 Supine to/from Sit: 5 Sit to/from Stand: 3 Sit to Lying (QC): 3 Sit to Stand (QC): 2 Chair/Jvf-um-Ciyum Xfer(QC): 2 Car Transfer (QC): 2 Gait Training Does the Patient Walk?: Yes Gait (FIM): 2 Distance (FIM): 6=108-10 ft (60ftx2,40ft) Distance: 75', 75' Walk 10 feet (QC): 2 Walk 50 ft with 2 Turns(QC): 2 Walk 150 ft (QC): 3 Walking 10ft/uneven surface-QC: 3 Gait Level of Assist: 3 Gait Persons Needed: 1 Gait Assistive Device: Walker Leodan Wheelchair Training Does the Pt Use a Wheelchair?: No Mental Status/Objective Comprehension: 7 Expression: 7 Social Interaction: 7 Problem Solvin Memory: 7 ADL-Treatment Feedin (required assist to stir food items and required assist with set up) Eating (QC): 3 Groomin Oral Hygiene (QC): 6 Bathin (SBA for safety.) Bathing Location: L Arm, R Arm, L Upper Leg, R Upper Leg, L Lower Leg (including foot), R Lower Leg (including foot), Chest, Abdomen, Buttocks, Perineal Area Shower/Bathe Self (QC): 4 Upper Extremity Dressin (Mod A to manipulate clothing to thread arms and head into correct holes.) Upper Body Dressing (QC): 3 Lower Extremity Dressin Lower Body Dressing (QC): 3 On/Off Footwear (QC): 2 Toiletin (Assist for clothing manipulation, pt cleansed while sitting on toilet.) Toileting Hygiene (QC): 2 Toilet/Commode Transfer: 3 Toilet Transfer (QC): 3 Shower: 1 (pt required MOD A X2 person with use of GB ) Assessment/Plan Assessment and Plan Assess & Plan/Chief Complaint Assessment: s/p right shoulder replacement uncomplicated POD # 10 at [facility] Post op urinary retention requiring Ferrell cath but now resolved since cath removed Chronic left knee fusion HTN Allergic rhinitis Anemia Hypothyroidism Neuropathy BPH GERD Plan: Pain control IRF protocols Fall risk PCP consulted and input is appreciated BM regimen Lovenox PPx Monitor BP and abide by parameters (1) Status post replacement of right shoulder joint (2) Constipation (3) Urinary retention (4) Anemia (5) Hypothyroidism (6) GERD (gastroesophageal reflux disease) (7) Allergic rhinitis (8) Hypertension (9) BPH (benign prostatic hyperplasia) (10) 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
[2018-09-16] MEDS: ASCORBIC ACID (VIT C) 500 MG TABLET PO SCH (16:30)
[2018-09-16 17:39] VITALS: BP 103/60
[2018-09-16 20:34] VITALS: BP 98/57
[2018-09-16] MEDS: GABAPENTIN 100 MG (NEURONTIN) CAP PO SCH (20:46)
[2018-09-16] MEDS: SENNA W/DOCUSATE (SENOKOT S) TABLET PO SCH (20:46)
[2018-09-16] MEDS: TAMSULOSIN 0.4 MG (FLOMAX) CAP PO SCH (20:46)
[2018-09-16] MEDS: FLUTICASONE NASAL SPRAY (FLONASE) 16 GM BTL NS SCH (20:47)
[2018-09-16] MEDS: IRBESARTAN 150 MG (AVAPRO) TAB PO SCH (20:47)
[2018-09-17 05:02] VITALS: BP 113/68
[2018-09-17] MEDS: MAGNESIUM PO SCH (05:59)
[2018-09-17] MEDS: ZINC PO SCH (05:59)
[2018-09-17] MEDS: MULTIVIT W/MINERALS TAB (THERAGRAN M) PO SCH (05:59)
[2018-09-17] MEDS: LEVOTHYROXINE 125 MCG (LEVOTHROID) TABLET PO SCH (05:59)
[2018-09-17] MEDS: CALCIUM PO SCH (05:59)
[2018-09-17 06:22] LABS: BASOPHILS % (AUTO) 1 % (0-10); EOSINOPHILS # (AUTO) 0.2 10^3/uL (0.0-0.3); EOSINOPHILS % (AUTO) 6 % (0-10); HEMATOCRIT 28 % (40-54); HEMOGLOBIN 9.4 G/DL (13.3-17.7); LYMPHOCYTES # (AUTO) 0.9 X 10^3 (1.0-4.0); LYMPHOCYTES % (AUTO) 22 % (12-44); MEAN CORPUSCULAR HEMOGLOBIN 32 PG (25-34); MEAN CORPUSCULAR HGB CONC 34 G/DL (32-36); MEAN CORPUSCULAR VOLUME 94 FL (80-99); MEAN PLATELET VOLUME 8.2 FL (7.4-10.4); MONOCYTES # (AUTO) 0.6 X 10^3 (0.0-1.0); MONOCYTES % (AUTO) 13 % (0-12); NEUTROPHILS # (AUTO) 2.5 X 10^3 (1.8-7.8); NEUTROPHILS % (AUTO) 59 % (42-75); PLATELET COUNT 285 10^3/uL (130-400); WHITE BLOOD COUNT 4.2 10^3/uL (4.3-11.0)
[2018-09-17 06:48] LABS: ALANINE AMINOTRANSFERASE 49 U/L (0-55); ALBUMIN 2.8 GM/DL (3.2-4.5); ALKALINE PHOSPHATASE 102 U/L (40-136); BILIRUBIN,TOTAL 0.8 MG/DL (0.1-1.0); BUN/CREATININE RATIO 15; CALCIUM 8.5 MG/DL (8.5-10.1); CARBON DIOXIDE 26 MMOL/L (21-32); CHLORIDE 98 MMOL/L (98-107); CREATININE SERUM 0.68 MG/DL (0.60-1.30); GFR ESTIMATED > 60; GLUCOSE 101 MG/DL (70-105); POTASSIUM 4.4 MMOL/L (3.6-5.0); SODIUM 130 MMOL/L (135-145)
[2018-09-17] MEDS: PATIENT MAY USE OWN MED,SINGLE MED PO SCH ×2 (08:48→09:00)
[2018-09-17] MEDS: FAMOTIDINE 20 MG (PEPCID) TABLET PO SCH (08:48)
[2018-09-17] MEDS: HYDROcodone/APAP 5 MG/325 MG (LORTAB) TAB PO PRN ×2 (08:48→23:45)
[2018-09-17] MEDS: ENOXAPARIN 40 MG/0.4 ML (LOVENOX) SYR SC SCH (08:48)
[2018-09-17] MEDS: SENNA W/DOCUSATE (SENOKOT S) TABLET PO SCH ×2 (09:00→20:06)
[2018-09-17] MEDS: DILTIAZEM 60 MG (CARDIZEM) TAB PO SCH (09:00)
--- NOTE | 2018-09-17 10:45 | PM&R Progress Note ---
Subjective HPI/CC On Admission Date Seen by Provider: September 17, 2018 Time Seen by Provider: 10:45 CC: Right shoulder replacement with severe limitation of activities with debility HPI: This is an 88yoWM clinic patient of Dr Pimentel who presents to IRF after an uncomplicated right shoulder replacement by Dr Tobar at [facility] Tuesday but required IRF stay due to advanced age and frailty requiring 2 person assist in addition to left knee fusion due to replacements that have failed x 2 in the past further limiting his ability to ambulate and take care of himself at home. Patient finally arrived at 700pm last night and has settled in and doing well. BM this morning after laxatives given at [facility]. Pain is well controlled currently. Dr Pimentel has been notified of the consultation for his PCP needs. Right sling will stay in place during activity. His is at home in [facility] also. I have reviewed his home meds and restarted all. PLOF was independent with ADL's. Patient seen for evaluation of chronic hypertension as well as new onset thrombocytopenia mild after the above. He is still on prophylactic Lovenox reporting no bleeding problems. He states that he has felt well in the shoulder pain is been under good control. He's had no evidence for bright red blood per rectum or melena in his appetite is back to normal. He had some postop constipation as well as urinary retention requiring short-term catheter placement. Catheter was removed before discharge and he reports urination is been smaller volume but he does feel as though he is emptying. His usual nocturia is 1 here in the hospital he reports nocturia 2 it is been darker in color without dysuria he's not aware of any change in odor and denies flank pain chills or fever. Subjective/Events-last exam Monitoring for low BP and holding Cardizem per PCP parameters Walked was bought for $700 so will see if PT thinks it is an ok walker or not and they will be in tomorrow to evaluate if that will work BM+ Urinating well Using IS Slept well last night. Checked meds and labs Wearing right glove for edema Conferred with RN. Reviewed therapy notes. Review of Systems Musculoskeletal: arm pain, leg pain Objective Exam Vital Signs Vital Signs Date Time Temp Pulse Resp B/P (MAP) Pulse Ox O2 Delivery O2 Flow Rate FiO2 09/17/18 09:00 Room Air 09/17/18 05:02 97.5 83 16 113/68 (92) 94 Capillary Refill : Less Than 3 Seconds General Appearance: No Apparent Distress, WD/WN, Chronically ill, Thin HEENT: PERRL/EOMI, TMs Normal, Normal ENT Inspection, Pharynx Normal, Moist Mucous Membranes Neck: Full Range of Motion, Normal Inspection, Non Tender, Supple Respiratory: Chest Non Tender, Lungs Clear, Normal Breath Sounds, No Accessory Muscle Use, No Respiratory Distress Cardiovascular: Regular Rate, Rhythm, No Edema, No Gallop, No JVD, No Murmur Gastrointestinal: Normal Bowel Sounds, No Organomegaly, No Pulsatile Mass, Non Tender, Soft Back: Normal Inspection, No CVA Tenderness, No Vertebral Tenderness Extremity: Normal Capillary Refill, Normal Inspection, Normal Range of Motion (except right shoulder and chronic fusion left knee), Non Tender, No Calf Tenderness, No Pedal Edema Neurologic/Psychiatric: Alert, Oriented x3, No Motor/Sensory Deficits, Normal Mood/Affect Skin: Normal Color, Warm/Dry Lymphatic: No Adenopathy Results/Procedures Lab Laboratory Tests 09/17/18 05:47 Patient resulted labs reviewed. FIM Transfers Therapy Code Descriptions/Definitions Functional [place] Measure: 0=Not Assessed/NA 4=Minimal Assistance 1=Total Assistance 5=Supervision or Setup 2=Maximal Assistance 6=Modified [place] 3=Moderate Assistance 7=Complete [place] Therapy Quality Codes: 6 Independent with activity with or without an assistive device 5 Patient requires set up or clean up by helper. Patient completes activity by themselves 4 Supervision or touching assist (CGA). [place] provide cues , steadying assist 3 The helper provides less than half the effort to complete the activity 2 The helper provides more than half the effort to complete the activity 1 Dependent. The helper does all the effort to complete an activity 7 Patient refused to complete or attempt activity 9 The patient did not perform the activity before the current illness or injury 88 Not attempted due to Medical conditions or safety concerns Transfers (B, C, W/C) (FIM): 4 Scootin Rollin Roll Left to Right (QC): 4 Supine to/from Sit: 5 (supine to sit HOB elevated) Sit to/from Stand: 4 (sit to and from stand EOB, bed height elevated, min A required to initiate. Sit to and from stand recliner, min A required to initiate and regain balance) Sit to Lying (QC): 3 Sit to Stand (QC): 2 Chair/Heg-oe-Inotr Xfer(QC): 2 Car Transfer (QC): 2 Gait Training Does the Patient Walk?: Yes Gait (FIM): 4 Distance (FIM): 3=150 ft Distance: 160 x2 Walk 10 feet (QC): 2 Walk 50 ft with 2 Turns(QC): 2 Walk 150 ft (QC): 3 Walking 10ft/uneven surface-QC: 3 Gait Level of Assist: 4 (LOB x3, unsteady) Gait Persons Needed: 1 (plus 1 to follow with w/c due to LOB and unsteadiness) Gait Assistive Device: Walker Leodan Wheelchair Training Does the Pt Use a Wheelchair?: No Mental Status/Objective Comprehension: 7 Expression: 7 Social Interaction: 7 Problem Solvin Memory: 7 ADL-Treatment Feedin (required assist to stir food items and required assist with set up) Eating (QC): 3 Groomin Oral Hygiene (QC): 6 Bathin (SBA for safety.) Bathing Location: L Arm, R Arm, L Upper Leg, R Upper Leg, L Lower Leg (including foot), R Lower Leg (including foot), Chest, Abdomen, Buttocks, Perineal Area Shower/Bathe Self (QC): 4 Upper Extremity Dressin (Mod A to manipulate clothing to thread arms and head into correct holes.) Upper Body Dressing (QC): 3 Lower Extremity Dressin Lower Body Dressing (QC): 3 On/Off Footwear (QC): 2 Toiletin (Assist for clothing manipulation, pt cleansed while sitting on toilet.) Toileting Hygiene (QC): 2 Toilet/Commode Transfer: 3 Toilet Transfer (QC): 3 Shower: 1 (pt required MOD A X2 person with use of GB ) Assessment/Plan Assessment and Plan Assess & Plan/Chief Complaint Assessment: s/p right shoulder replacement uncomplicated POD # 11 at [facility] Post op urinary retention requiring Ferrell cath but now resolved since cath removed Chronic left knee fusion HTN Allergic rhinitis Anemia Hypothyroidism Neuropathy BPH GERD Anemia Hyponatremia Low albumin Plan: Pain control IRF protocols Fall risk PCP consulted and input is appreciated BM regimen Lovenox PPx Monitor BP and abide by parameters Monitor sodium level (1) Status post replacement of right shoulder joint (2) Constipation (3) Urinary retention (4) Anemia (5) Hypothyroidism (6) GERD (gastroesophageal reflux disease) (7) Allergic rhinitis (8) Hypertension (9) BPH (benign prostatic hyperplasia) (10) 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
[2018-09-17] MEDS: ASCORBIC ACID (VIT C) 500 MG TABLET PO SCH (17:53)
[2018-09-17 17:59] VITALS: BP 115/68
[2018-09-17] MEDS: TAMSULOSIN 0.4 MG (FLOMAX) CAP PO SCH (20:06)
[2018-09-17] MEDS: IRBESARTAN 150 MG (AVAPRO) TAB PO SCH (20:06)
[2018-09-17] MEDS: FLUTICASONE NASAL SPRAY (FLONASE) 16 GM BTL NS SCH (20:06)
[2018-09-17] MEDS: GABAPENTIN 100 MG (NEURONTIN) CAP PO SCH (20:06)
[2018-09-17 20:30] VITALS: BP 114/63
[2018-09-18 05:48] VITALS: BP 122/64
[2018-09-18] MEDS: MULTIVIT W/MINERALS TAB (THERAGRAN M) PO SCH (06:20)
[2018-09-18] MEDS: LEVOTHYROXINE 125 MCG (LEVOTHROID) TABLET PO SCH (06:20)
[2018-09-18] MEDS: CALCIUM PO SCH (06:21)
[2018-09-18] MEDS: ZINC PO SCH (06:21)
[2018-09-18] MEDS: MAGNESIUM PO SCH (06:21)
[2018-09-18 08:00] VITALS: BP 110/66
--- NOTE | 2018-09-18 08:00 | NUR ---
PLEASANT AND COOPERATIVE. HAS BEEN REFUSING BP MEDS FREQUENTLY. WILL LET DR. LANCE KNOW. STATES IS USING RIGHT ARM MORE AND FEELS PAIN IS CONTROLLED. SLING ON RIGHT ARM.
[2018-09-18] MEDS: DILTIAZEM 60 MG (CARDIZEM) TAB PO SCH (09:00)
[2018-09-18] MEDS: FAMOTIDINE 20 MG (PEPCID) TABLET PO SCH (09:29)
[2018-09-18 09:30] VITALS: BP 124/66
[2018-09-18] MEDS: ENOXAPARIN 40 MG/0.4 ML (LOVENOX) SYR SC SCH (09:32)
[2018-09-18] MEDS: SENNA W/DOCUSATE (SENOKOT S) TABLET PO SCH ×2 (09:32→20:42)
[2018-09-18] MEDS: PATIENT MAY USE OWN MED,SINGLE MED PO SCH (09:33)
--- NOTE | 2018-09-18 11:17 | PM&R Progress Note ---
Subjective HPI/CC On Admission Date Seen by Provider: September 18, 2018 Time Seen by Provider: 11:30 CC: Right shoulder replacement with severe limitation of activities with debility HPI: This is an 88yoWM clinic patient of Dr Pimentel who presents to IRF after an uncomplicated right shoulder replacement by Dr Tobar at [facility] Tuesday but required IRF stay due to advanced age and frailty requiring 2 person assist in addition to left knee fusion due to replacements that have failed x 2 in the past further limiting his ability to ambulate and take care of himself at home. Patient finally arrived at 700pm last night and has settled in and doing well. BM this morning after laxatives given at [facility]. Pain is well controlled currently. Dr Pimentel has been notified of the consultation for his PCP needs. Right sling will stay in place during activity. His is at home in frail health also. I have reviewed his home meds and restarted all. PLOF was independent with ADL's. Patient seen for evaluation of chronic hypertension as well as new onset thrombocytopenia mild after the above. He is still on prophylactic Lovenox reporting no bleeding problems. He states that he has felt well in the shoulder pain is been under good control. He's had no evidence for bright red blood per rectum or melena in his appetite is back to normal. He had some postop constipation as well as urinary retention requiring short-term catheter placement. Catheter was removed before discharge and he reports urination is been smaller volume but he does feel as though he is emptying. His usual nocturia is 1 here in the hospital he reports nocturia 2 it is been darker in color without dysuria he's not aware of any change in odor and denies flank pain chills or fever. Subjective/Events-last exam Monitoring for low BP and holding Cardizem per PCP parameters and I spoke to Dr Pimentel and subtly labile BP levels are fine with him Walked was bought for $700 so will see if PT thinks it is an ok walker or not and will await their opinion BM+ Urinating well Pain is controlled on Hydrocodone Using IS Slept well last night. Checked meds and labs Wearing right glove for edema Conferred with RN. Reviewed therapy notes. Review of Systems Musculoskeletal: arm pain Objective Exam Vital Signs Vital Signs Date Time Temp Pulse Resp B/P (MAP) Pulse Ox O2 Delivery O2 Flow Rate FiO2 09/18/18 17:06 97.8 75 18 116/63 (80) 95 Room Air Capillary Refill : Less Than 3 Seconds General Appearance: No Apparent Distress, WD/WN, Chronically ill, Thin HEENT: PERRL/EOMI, TMs Normal, Normal ENT Inspection, Pharynx Normal, Moist Mucous Membranes Neck: Full Range of Motion, Normal Inspection, Non Tender, Supple Respiratory: Chest Non Tender, Lungs Clear, Normal Breath Sounds, No Accessory Muscle Use, No Respiratory Distress Cardiovascular: Regular Rate, Rhythm, No Edema, No Gallop, No JVD, No Murmur Gastrointestinal: Normal Bowel Sounds, No Organomegaly, No Pulsatile Mass, Non Tender, Soft Back: Normal Inspection, No CVA Tenderness, No Vertebral Tenderness Extremity: Normal Capillary Refill, Normal Inspection, Normal Range of Motion (except right shoulder and chronic fusion left knee), Non Tender, No Calf Tenderness, No Pedal Edema Neurologic/Psychiatric: Alert, Oriented x3, No Motor/Sensory Deficits, Normal Mood/Affect Skin: Normal Color, Warm/Dry Lymphatic: No Adenopathy Results/Procedures Lab Patient resulted labs reviewed. FIM Transfers Therapy Code Descriptions/Definitions Functional [place] Measure: 0=Not Assessed/NA 4=Minimal Assistance 1=Total Assistance 5=Supervision or Setup 2=Maximal Assistance 6=Modified [place] 3=Moderate Assistance 7=Complete [place] Therapy Quality Codes: 6 Independent with activity with or without an assistive device 5 Patient requires set up or clean up by helper. Patient completes activity by themselves 4 Supervision or touching assist (CGA). [place] provide cues , steadying assist 3 The helper provides less than half the effort to complete the activity 2 The helper provides more than half the effort to complete the activity 1 Dependent. The helper does all the effort to complete an activity 7 Patient refused to complete or attempt activity 9 The patient did not perform the activity before the current illness or injury 88 Not attempted due to Medical conditions or safety concerns Transfers (B, C, W/C) (FIM): 4 Scootin Rollin Roll Left to Right (QC): 4 Supine to/from Sit: 5 (supine to sit HOB elevated) Sit to/from Stand: 4 (sit to and from stand EOB, bed height elevated, min A required to initiate. Sit to and from stand recliner, min A required to initiate and regain balance) Sit to Lying (QC): 3 Sit to Stand (QC): 2 Chair/Vpk-ts-Ptalz Xfer(QC): 2 Car Transfer (QC): 2 Gait Training Does the Patient Walk?: Yes Gait (FIM): 4 Distance (FIM): 3=150 ft Distance: 160 x2 Walk 10 feet (QC): 2 Walk 50 ft with 2 Turns(QC): 2 Walk 150 ft (QC): 3 Walking 10ft/uneven surface-QC: 3 Gait Level of Assist: 4 (LOB x3, unsteady) Gait Persons Needed: 1 (plus 1 to follow with w/c due to LOB and unsteadiness) Gait Assistive Device: Walker Leodan Wheelchair Training Does the Pt Use a Wheelchair?: No Mental Status/Objective Comprehension: 7 Expression: 7 Social Interaction: 7 Problem Solvin Memory: 7 ADL-Treatment Feedin (required assist to stir food items and required assist with set up) Eating (QC): 3 Groomin Oral Hygiene (QC): 6 Bathin (SBA for safety.) Bathing Location: L Arm, R Arm, L Upper Leg, R Upper Leg, L Lower Leg (including foot), R Lower Leg (including foot), Chest, Abdomen, Buttocks, Perineal Area Shower/Bathe Self (QC): 4 Upper Extremity Dressin (Mod A to manipulate clothing to thread arms and head into correct holes.) Upper Body Dressing (QC): 3 Lower Extremity Dressin Lower Body Dressing (QC): 3 On/Off Footwear (QC): 2 Toiletin (Assist for clothing manipulation, pt cleansed while sitting on toilet.) Toileting Hygiene (QC): 2 Toilet/Commode Transfer: 3 Toilet Transfer (QC): 3 Shower: 1 (pt required MOD A X2 person with use of GB ) Assessment/Plan Assessment and Plan Assess & Plan/Chief Complaint Assessment: s/p right shoulder replacement uncomplicated POD # 12 at [facility] Post op urinary retention requiring Ferrell cath but now resolved since cath removed Chronic left knee fusion HTN Allergic rhinitis Anemia Hypothyroidism Neuropathy BPH GERD Anemia Hyponatremia Low albumin Plan: Pain control IRF protocols Fall risk PCP consulted and input is appreciated BM regimen Lovenox PPx Monitor BP and abide by parameters Monitor sodium level Work on transfers since they are full assistance required (1) Status post replacement of right shoulder joint (2) Constipation (3) Urinary retention (4) Anemia (5) Hypothyroidism (6) GERD (gastroesophageal reflux disease) (7) Allergic rhinitis (8) Hypertension (9) BPH (benign prostatic hyperplasia) (10) 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
--- NOTE | 2018-09-18 11:45 | NUR ---
DR. LACEY NOTIFIED THAT PATIENT IS FREQUENTLY REFUSING CARDIZEM AND AVAPRO. ORDER RECEIVED THAT IT IS OKAY FOR PATIENT TO REFUSE THEM LONG VITAL SIGNS ARE STABLE.
--- NOTE | 2018-09-18 11:58 | Physical Therapy Daily Note ---
PT Daily Note-Current Subjective Patient in recliner pre tx, agrees to PT, has no complaints of pain. Appearance Patient in recliner post tx with nurse call, phone, tray, all needs met. Mental Status Patient Orientation: Person, Place, Situation right arm immobilizer Transfers Therapy Code Descriptions/Definitions Functional [place] Measure: 0=Not Assessed/NA 4=Minimal Assistance 1=Total Assistance 5=Supervision or Setup 2=Maximal Assistance 6=Modified [place] 3=Moderate Assistance 7=Complete [place] Therapy Quality Codes: 6 Independent with activity with or without an assistive device 5 Patient requires set up or clean up by helper. Patient completes activity by themselves 4 Supervision or touching assist (CGA). [place] provide cues , steadying assist 3 The helper provides less than half the effort to complete the activity 2 The helper provides more than half the effort to complete the activity 1 Dependent. The helper does all the effort to complete an activity 7 Patient refused to complete or attempt activity 9 The patient did not perform the activity before the current illness or injury 88 Not attempted due to Medical conditions or safety concerns Transfers (B, C, W/C) (FIM): 3 Sit to/from Stand: 3 Bed to/from Chair: 4 Patient needs mod assist to stand from a lot chair. He cannot bend his left knee enough to use his left leg to stand. Weight Bearing Weight Bearing/Tolerated Weight Bearing/Tolerated total shoulder protocol on right side Gait Training Gait (FIM): 2 Distance: 80'x2 Gait Level of Assist: 4 Gait Persons Needed: 1 Gait Assistive Device: Walker Leodan CGA, patient had moments of unsteadiness but no LOB, no assist needed from therapist to help him regain his balance. Steps are uncoordinated , poor clearance. Exercises Standing: Hip Abduction, Heel/toe raises, Marching, Mini squats Standing Reps: 15 LAQ alternating for 5 min NuStep Minutes: 15 NuStep Workload: 5 Treatments transfers, ambulation, LE strengthening Assessment Current Status: Fair Progress improving ambulation, better balance during ambulation PT Short Term Goals Short Term Goals Time Frame: September 18, 2018 Transfers (B,C,W/C) (FIM): 4 Gait (FIM): 2 Gait Distance Comment: 100' Gait Level of Assist: 4 Gait Assistive Device: Handheld Assist PT Medical Billing Supervisor Goals Medical Billing Supervisor Goals PT Long-Term Goals Time Frame: Oct 02, 2018 Transfers (B,C,W/C) (FIM): 5 Sit to Lying (QC): 6 Lying-Sitting on Side/Bed(QC): 6 Sit to Stand (QC): 4 Rollin Roll Left to Right (QC): 6 Chair/Xzr-wu-Lishr Xfer(QC): 4 Car Transfer (QC): 4 Gait (FIM): 4 Distance: 150' Walk 10 feet (QC): 4 Walk 10ft-Uneven Surface(QC): 4 Walk 50ft with 2 Turns (QC): 4 Walk 150 ft (QC): 4 Gait Level of Assist: 4 (CGA) Gait Assistive Device: Handheld Assist Stairs (FIM): 1 # of Steps: 1 1 Step (curb) (QC): 3 Stairs Level Of Assist: 4 PT Plan Problem List Problem List: Activity Tolerance, Functional Strength, Safety, Balance, Gait, Transfer, Bed Mobility, ROM Treatment/Plan Treatment Plan: Continue Plan of Care Treatment Plan: Bed Mobility, Concurrent Therapy, Education, Functional Activity Joel, Functional Strength, Group Therapy, Gait, Safety, Therapeutic Exercise, Transfers Treatment Duration: Oct 02, 2018 Frequency: At least 5 of 7 days/Wk (IRF) Estimated Hrs Per Day: 1.5 hours per day Patient and/or Family Agrees t: Yes Safety Risks/Education Patient Education: Gait Training, Transfer Techniques, Reviewed Precautions, Correct Positioning, Safety Issues Teaching Recipient: Patient Teaching Methods: Demonstration, Discussion Response to Teaching: Reinforcement Needed Time/GCodes Time In: 1015 Time Out: 1115 Total Billed Treatment Time: 60 Total Billed Treatment 1 visit GT 25' EX 35' NAGA JACOBS PT September 18, 2018 11:58
--- NOTE | 2018-09-18 12:00 | Occupational Ther Daily Note ---
OT Current Status-Daily Note Subjective No pain reported. Appearance Pt. is in bed. Agrees to work with OT. Mental Status/Objective Patient Orientation: Person, Place, Time, Situation Therapy Code Descriptions/Definitions Functional [place] Measure: 0=Not Assessed/NA 4=Minimal Assistance 1=Total Assistance 5=Supervision or Setup 2=Maximal Assistance 6=Modified [place] 3=Moderate Assistance 7=Complete [place] ADL-Treatment Therapy Code Descriptions/Definitions Functional [place] Measure: 0=Not Assessed/NA 4=Minimal Assistance 1=Total Assistance 5=Supervision or Setup 2=Maximal Assistance 6=Modified [place] 3=Moderate Assistance 7=Complete [place] Therapy Quality Codes: 6 Independent with activity with or without an assistive device 5 Patient requires set up or clean up by helper. Patient completes activity by themselves 4 Supervision or touching assist (CGA). [place] provide cues , steadying assist 3 The helper provides less than half the effort to complete the activity 2 The helper provides more than half the effort to complete the activity 1 Dependent. The helper does all the effort to complete an activity 7 Patient refused to complete or attempt activity 9 The patient did not perform the activity before the current illness or injury 88 Not attempted due to Medical conditions or safety concerns Bathing (FIM): 5 (SBA in shower seated on rolling shower chair. Pt. uses LH sponge to wash LE and back.) Shower/Bathe Self (QC): 4 Upper Body (FIM): 4 (Pt. is able to doff t-shirt, but requires min assist to thread over head for clean t-shirt.) Upper Body Dressing (QC): 4 Lower Body Dressing (FIM): 1 (pt. required max assist overall today with LE clothing. Pt. able to thread brief with min assist over feet using physician representative, but required assist to thread pants and don slipper socks/shoes/TEDs due to time constraint. Max assist x 2 in stance to pull pants up over hips.) Lower Body Dressing (QC): 1 On/Off Footwear (QC): 2 Toileting (FIM): 5 (Set up on rolling shower chair over toilet.) Toileting Hygiene (QC): 5 Transfers (B, C, W/C) (FIM): 2 (Max assist ins stanc to pivot to other s urfaces.) Toilet/Commode Transfer (FIM): 2 Toilet Transfer (QC): 2 Shower Transfer(FIM): 1 Other Treatment OT assisted pt. with shoulder brace after ADL tasks. Pt transferred to reclining chair after ADLs. All needs met. Education OT Patient Education: Correct positioning, Modified ADL techniques, Progress toward Goal/Update tx plan, Purpose of tx/functional activities, Reviewed precau tions, Rehab process, Transfer techniques, Use of adapted equipment Teaching Recipient: Patient Teaching Methods: Demonstration, Discussion Response to Teaching: Verbalize Understanding, Return Demonstration OT Short Term Goals Short Term Goals Eating(FIM): 5 Grooming(FIM): 5 Bathing(FIM): 5 Bathing Location: L Arm, R Arm, L Upper Leg, R Upper Leg, L Lower Leg (including foot), R Lower Leg (including foot), Chest, Abdomen, Buttocks, Perineal Area Upper Body Dressing(FIM): 5 Lower Body Dressing(FIM): 5 Toileting(FIM): 5 Transfers (B,C,W/C) (FIM): 4 Toilet/Commode Transfer(FIM): 5 Shower Transfer(FIM): 5 (5) Additional Short Term Goals: 1-Demonstrate ADL Tasks, 2-Verbalize Understandin g, 3-ImproveStrength/Joel 1=Demonstrate adherence to instructed precautions during ADL tasks. 2=Patient will verbalize/demonstrate understanding of assistive devices/modifications for ADL. 3=Patient will improve strength/tolerance for activity to enable patient to perform ADL's. OT Director Search Goals Director Search Goals Eating (FIM): 7 Eating (QC): 6 Groomin Oral Hygiene (QC): 6 Bathing(FIM): 6 Bathing Location: L Arm, R Arm, L Upper Leg, R Upper Leg, L Lower Leg (including foot), R Lower Leg (including foot), Chest, Abdomen, Buttocks, Perineal Area Shower/Bathe Self (QC): 6 Upper Body Dressing(FIM): 6 Upper Body Dressing (QC): 6 Lower Body Dressing(FIM): 6 Lower Body Dressing (QC): 6 On/Off Footwear (QC): 6 Toileting(FIM): 6 Toileting Hygiene (QC): 6 Transfers (B,C,W/C) (FIM): 6 Toilet/Commode Transfer(FIM): 6 Toilet/Commode Transfer (QC): 6 Shower Transfer(FIM): 6 1=Demonstrate adherence to instructed precautions during ADL tasks. 2=Patient will verbalize/demonstrate understanding of assistive devices/modifications for ADL. 3=Patient will improve strength/tolerance for activity to enable patient to perform ADL's. OT Education/Plan Problem List/Assessment Assessment: Decreased Activ Tolerance, Decreased UE Strength, Dependent Transfers, Impaired Bed Mobility, Impaired Funct Balance, Impaired I ADL's, Impaired Self-Care Skills, Restricted Funct UE ROM pt presents with functional limitations affecting areas of ADLS/ functional transfers. pt protocol for R shoulder can be found in chart. pt would benefit from OT services to increase independence with ADLS/ functional transfers and for safe transition to home. Discharge Recommendations Plan/Recommendations: Continue POC Treatment Plan/Plan of Care Treatment,Training & Education: Yes Patient would benefit from OT for education, treatment and training to promote independence in ADL's, mobility, safety and/or upper extremity function for ADL's. Plan of Care: ADL Retraining, Caregiver Training, Concurrent Therapy, Functional Mobility, Group Exercise/Act as Ind, Orthotic Fitting/Training, UE Funct Exercise/Act Treatment Duration: Oct 09, 2018 Frequency: At least 5 of 7 days/Wk (IRF) Estimated Hrs Per Day: 1.5 hours per day (60-90 minutes per day) Agreement: Yes Rehab Potential: Fair Time/GCodes Start Time: 08:20 Stop Time: 09:25 Total Time Billed (hr/min): 65 Billed Treatment Time 1, ADL x 4 SAHRA HOLBROOK OT September 18, 2018 12:00
--- NOTE | 2018-09-18 14:00 | Therapy Group Daily Note ---
Therapy Daily Group Note Patient Education Topic Home Safety, Home Safety, Energy Cons, Exercises Exercises LE Seated Exercise, LE Standing Exercise, ROM, Stretching, UE Exercise Session Ratio (pt:therapist): 4:1 Goal of Session: Education on ARU Expectations, Energy Conservation Tech., UE/LE Strengthing Goal Met for this Session: Yes Pt Benefit of Group: Contributions to Others, Increased Functional Safety, Increased Functional Strength, Recognition of Peers, Socialization Other/Notes Pt transported via w/c to [facility] for OT/PT group. Group consisted of introductions (name, what traditions do you do for Memorable day), socialization, ARU description, energy conservation techniques, and UE/ LE strengthening ex. Pt introduced self appropriately and actively listened to peers. Pt acknowledged understanding of ARU description. Pt was able to give description of personal memory and contribute to discussion. pt given 2 handouts on energy conservation. One handout consist of the "4P's" of energy conservation, and second handout is examples of energy conservation within ADLs. pt was able to give examples of how to use these learn techniques within his everyday life. pt then demo ability to roll dice and complete exercises to increase activity tolerance and UE/ LE strength with peer. pt perform against gravity: Hip ADD/ABD, toe raises, elbow flex/ EXT, wrist Flex/ ext, hip flex/ EXt, shoulder flex/ ext, and cervical rotation. pt demo ability to utilized trained energy conservation techniques within task. After therapy, pt request to use rest room. pt transfer onto toilet. pt instructed to pull nursing pull nursing light when finish. pt verbalized understanding. Start Time: 12:30 Stop Time: 13:45 Total Billed Treatment GRP 75 minutes JETHRO POLLACK OT September 18, 2018 14:00 PAZ PRUITT PT September 18, 2018 14:05
[2018-09-18 17:06] VITALS: BP 116/63
[2018-09-18] MEDS: ASCORBIC ACID (VIT C) 500 MG TABLET PO SCH (18:04)
--- NOTE | 2018-09-18 19:08 | NUR ---
bedside report received from KORY BOWDEN, assume care of pt
[2018-09-18] MEDS: FLUTICASONE NASAL SPRAY (FLONASE) 16 GM BTL NS SCH (20:38)
--- NOTE | 2018-09-18 20:38 | NUR ---
pt refused Avapro & Senokot, remains up in the chair
[2018-09-18] MEDS: GABAPENTIN 100 MG (NEURONTIN) CAP PO SCH (20:39)
[2018-09-18] MEDS: TAMSULOSIN 0.4 MG (FLOMAX) CAP PO SCH (20:39)
[2018-09-18] MEDS: IRBESARTAN 150 MG (AVAPRO) TAB PO SCH (20:42)
--- NOTE | 2018-09-18 21:00 | NUR ---
assessments & interventions completed, see assessments & interventions
[2018-09-19 05:20] VITALS: BP 122/72
[2018-09-19] MEDS: MULTIVIT W/MINERALS TAB (THERAGRAN M) PO SCH (06:32)
[2018-09-19] MEDS: LEVOTHYROXINE 125 MCG (LEVOTHROID) TABLET PO SCH (06:32)
[2018-09-19] MEDS: ZINC PO SCH (06:33)
[2018-09-19] MEDS: CALCIUM PO SCH (06:33)
[2018-09-19] MEDS: MAGNESIUM PO SCH (06:33)
--- NOTE | 2018-09-19 07:22 | NUR ---
bedside report given to SILAS BOWDEN
--- NOTE | 2018-09-19 07:33 | Occupational Ther Daily Note ---
OT Current Status-Daily Note Subjective Pt alert, lying in bed. Pt agrees to therapy. No c/o pain. Edema of R hand significantly decreased. Mental Status/Objective Patient Orientation: Person, Place, Time, Situation Therapy Code Descriptions/Definitions Functional [place] Measure: 0=Not Assessed/NA 4=Minimal Assistance 1=Total Assistance 5=Supervision or Setup 2=Maximal Assistance 6=Modified [place] 3=Moderate Assistance 7=Complete [place] ADL-Treatment Pt declined showering today. With HOB raised pt able to go from supine to EOB. Mod A x1 with bed surface elevated for SPT. Completed toilet transfer with mod A, pulling to stand with grabbars Pt able to cleanse self on toilet, did not have lower body clothing on to manipulate. Therapy Code Descriptions/Definitions Functional [place] Measure: 0=Not Assessed/NA 4=Minimal Assistance 1=Total Assistance 5=Supervision or Setup 2=Maximal Assistance 6=Modified [place] 3=Moderate Assistance 7=Complete [place] Therapy Quality Codes: 6 Independent with activity with or without an assistive device 5 Patient requires set up or clean up by helper. Patient completes activity by themselves 4 Supervision or touching assist (CGA). Humphreys provide cues , steadying assist 3 The helper provides less than half the effort to complete the activity 2 The helper provides more than half the effort to complete the activity 1 Dependent. The helper does all the effort to complete an activity 7 Patient refused to complete or attempt activity 9 The patient did not perform the activity before the current illness or injury 88 Not attempted due to Medical conditions or safety concerns Eating (FIM): 5 (Pt does demonstrate ability to open packages though requests assist with difficult items. Uses regular utensils to eat.) Eating (QC): 5 Grooming (FIM): 6 (Sitting in w/c, pt able to complete by self.) Oral Hygiene (QC): 6 Upper Body (FIM): 5 (After setup, pt completed upper body dressing. Assist to don/doff brace.) Upper Body Dressing (QC): 5 Lower Body Dressing (FIM): 3 (Using AE for dressing, pt is able to don/doff pants over feet. Pull to stand then assist to hike over hips. Assist to don/doff ERIKA hose and shoes.) Lower Body Dressing (QC): 3 On/Off Footwear (QC): 2 Transfers (B, C, W/C) (FIM): 3 (Mod to min A depending on height of surface for transfer.) Toilet/Commode Transfer (FIM): 3 (Min A using grabbar for pull to stand then SPT using BSC and grabbars.) Toilet Transfer (QC): 3 Other Treatment Per protocol from surgeon completed R shldr flexion (PROM) 10x, int/ext shldr rotation (AAROM) 10x, finger walks up wall 15* 5x. Pt requires physical and verbal cue to keep elbow at side while completing ROM exercises. Medium resistance therapy foam given to strengthen groover runner/pinch to work with in room. After therapy, pt sitting in recliner with call light/phone in reach. All needs met in room. Education OT Patient Education: Exercise program Teaching Recipient: Patient Teaching Methods: Demonstration, Handout Response to Teaching: Verbalize Understanding, Reinforcement Needed OT Short Term Goals Short Term Goals Eating(FIM): 5 Grooming(FIM): 5 Bathing(FIM): 5 Bathing Location: L Arm, R Arm, L Upper Leg, R Upper Leg, L Lower Leg (including foot), R Lower Leg (including foot), Chest, Abdomen, Buttocks, Perineal Area Upper Body Dressing(FIM): 5 Lower Body Dressing(FIM): 5 Toileting(FIM): 5 Transfers (B,C,W/C) (FIM): 4 Toilet/Commode Transfer(FIM): 5 Shower Transfer(FIM): 5 (5) Additional Short Term Goals: 1-Demonstrate ADL Tasks, 2-Verbalize Understanding, 3-ImproveStrength/Joel 1=Demonstrate adherence to instructed precautions during ADL tasks. 2=Patient will verbalize/demonstrate understanding of assistive devices/modifications for ADL. 3=Patient will improve strength/tolerance for activity to enable patient to perform ADL's. OT Defense Analyst Goals Defense Analyst Goals Eating (FIM): 7 Eating (QC): 6 Groomin Oral Hygiene (QC): 6 Bathing(FIM): 6 Bathing Location: L Arm, R Arm, L Upper Leg, R Upper Leg, L Lower Leg (including foot), R Lower Leg (including foot), Chest, Abdomen, Buttocks, Perineal Area Shower/Bathe Self (QC): 6 Upper Body Dressing(FIM): 6 Upper Body Dressing (QC): 6 Lower Body Dressing(FIM): 6 Lower Body Dressing (QC): 6 On/Off Footwear (QC): 6 Toileting(FIM): 6 Toileting Hygiene (QC): 6 Transfers (B,C,W/C) (FIM): 6 Toilet/Commode Transfer(FIM): 6 Toilet/Commode Transfer (QC): 6 Shower Transfer(FIM): 6 1=Demonstrate adherence to instructed precautions during ADL tasks. 2=Patient will verbalize/demonstrate understanding of assistive devices/modifications for ADL. 3=Patient will improve strength/tolerance for activity to enable patient to perform ADL's. OT Education/Plan Problem List/Assessment Assessment: Impaired Funct Balance, Impaired Self-Care Skills, Restricted Funct UE ROM pt presents with functional limitations affecting areas of ADLS/ functional transfers. pt protocol for R shoulder can be found in chart. pt would benefit from OT services to increase independence with ADLS/ functional transfers and for safe transition to home. Discharge Recommendations Plan/Recommendations: Continue POC Treatment Plan/Plan of Care Patient would benefit from OT for education, treatment and training to promote independence in ADL's, mobility, safety and/or upper extremity function for ADL's. Plan of Care: ADL Retraining, Caregiver Training, Concurrent Therapy, Functional Mobility, Group Exercise/Act as Ind, Orthotic Fitting/Training, UE Funct Exercise/Act Treatment Duration: Oct 09, 2018 Frequency: At least 5 of 7 days/Wk (IRF) Estimated Hrs Per Day: 1.5 hours per day (60-90 minutes per day) Agreement: Yes Rehab Potential: Fair Time/GCodes Start Time: 07:20 Stop Time: 09:00 Total Time Billed (hr/min): 100 Billed Treatment Time 1 visit-ADL 6 (80 min) EX 1 (20 min) PAZ SHIPMAN September 19, 2018 07:33
[2018-09-19] MEDS: FAMOTIDINE 20 MG (PEPCID) TABLET PO SCH (08:32)
[2018-09-19] MEDS: SENNA W/DOCUSATE (SENOKOT S) TABLET PO SCH ×2 (08:32→20:12)
[2018-09-19] MEDS: ENOXAPARIN 40 MG/0.4 ML (LOVENOX) SYR SC SCH (08:33)
[2018-09-19] MEDS: DILTIAZEM 60 MG (CARDIZEM) TAB PO SCH (08:33)
[2018-09-19] MEDS: HYDROcodone/APAP 5 MG/325 MG (LORTAB) TAB PO PRN ×2 (08:35→22:31)
--- NOTE | 2018-09-19 08:57 | PM&R Progress Note ---
Subjective HPI/CC On Admission Date Seen by Provider: September 19, 2018 Time Seen by Provider: 09:00 CC: Right shoulder replacement with severe limitation of activities with debility HPI: This is an 88yoWM clinic patient of Dr Pimentel who presents to IRF after an uncomplicated right shoulder replacement by Dr Tobar at [facility] Tuesday but required IRF stay due to advanced age and frailty requiring 2 person assist in addition to left knee fusion due to replacements that have failed x 2 in the past further limiting his ability to ambulate and take care of himself at home. Patient finally arrived at 700pm last night and has settled in and doing well. BM this morning after laxatives given at [facility]. Pain is well controlled currently. Dr Pimentel has been notified of the consultation for his PCP needs. Right sling will stay in place during activity. His is at home in frail health also. I have reviewed his home meds and restarted all. PLOF was independent with ADL's. Patient seen for evaluation of chronic hypertension as well as new onset thrombocytopenia mild after the above. He is still on prophylactic Lovenox reporting no bleeding problems. He states that he has felt well in the shoulder pain is been under good control. He's had no evidence for bright red blood per rectum or melena in his appetite is back to normal. He had some postop constipation as well as urinary retention requiring short-term catheter placement. Catheter was removed before discharge and he reports urination is been smaller volume but he does feel as though he is emptying. His usual nocturia is 1 here in the hospital he reports nocturia 2 it is been darker in color without dysuria he's not aware of any change in odor and denies flank pain chills or fever. Subjective/Events-last exam Pt having no new issues today. Hydrocodone given for chronic cough and the right arm pain. Bowels are moving. Denied any significant problems. Erika hose on for slight lower extremity edema. Checking labs periodically. Lovenox is tolerated. Conferred with RN. Reviewed therapy notes. Review of Systems Musculoskeletal: arm pain Objective Exam Vital Signs Vital Signs Date Time Temp Pulse Resp B/P (MAP) Pulse Ox O2 Delivery O2 Flow Rate FiO2 09/19/18 15:37 97.7 57 14 93/46 (62) 94 Room Air Capillary Refill : Less Than 3 Seconds General Appearance: No Apparent Distress, WD/WN, Chronically ill, Thin HEENT: PERRL/EOMI, TMs Normal, Normal ENT Inspection, Pharynx Normal, Moist Mucous Membranes Neck: Full Range of Motion, Normal Inspection, Non Tender, Supple Respiratory: Chest Non Tender, Lungs Clear, Normal Breath Sounds, No Accessory Muscle Use, No Respiratory Distress Cardiovascular: Regular Rate, Rhythm, No Gallop, No JVD, No Murmur Gastrointestinal: Normal Bowel Sounds, No Organomegaly, No Pulsatile Mass, Non Tender, Soft Back: Normal Inspection, No CVA Tenderness, No Vertebral Tenderness Extremity: Normal Capillary Refill, Normal Inspection, Normal Range of Motion (except right shoulder and chronic fusion left knee), Non Tender, No Calf Tenderness, Pedal Edema (ERIKA hose intact) Neurologic/Psychiatric: Alert, Oriented x3, No Motor/Sensory Deficits, Normal Mood/Affect Skin: Normal Color, Warm/Dry Lymphatic: No Adenopathy Results/Procedures Lab Patient resulted labs reviewed. FIM Transfers Therapy Code Descriptions/Definitions Functional [place] Measure: 0=Not Assessed/NA 4=Minimal Assistance 1=Total Assistance 5=Supervision or Setup 2=Maximal Assistance 6=Modified [place] 3=Moderate Assistance 7=Complete [place] Therapy Quality Codes: 6 Independent with activity with or without an assistive device 5 Patient requires set up or clean up by helper. Patient completes activity by themselves 4 Supervision or touching assist (CGA). Christiana provide cues , steadying assist 3 The helper provides less than half the effort to complete the activity 2 The helper provides more than half the effort to complete the activity 1 Dependent. The helper does all the effort to complete an activity 7 Patient refused to complete or attempt activity 9 The patient did not perform the activity before the current illness or injury 88 Not attempted due to Medical conditions or safety concerns Transfers (B, C, W/C) (FIM): 2 (Max assist ins stanc to pivot to other surfaces.) Scootin Rollin Roll Left to Right (QC): 4 Supine to/from Sit: 5 (supine to sit HOB elevated) Sit to/from Stand: 3 Sit to Lying (QC): 3 Sit to Stand (QC): 2 Chair/Hcn-lf-Uemxx Xfer(QC): 2 Bed to/from Chair: 4 Car Transfer (QC): 2 Gait Training Does the Patient Walk?: Yes Gait (FIM): 2 Distance (FIM): 3=150 ft Distance: 80'x2 Walk 10 feet (QC): 2 Walk 50 ft with 2 Turns(QC): 2 Walk 150 ft (QC): 3 Walking 10ft/uneven surface-QC: 3 Gait Level of Assist: 4 Gait Persons Needed: 1 Gait Assistive Device: Walker Leod[place] Wheelchair Training Does the Pt Use a Wheelchair?: No Mental Status/Objective Comprehension: 7 Expression: 7 Social Interaction: 7 Problem Solvin Memory: 7 ADL-Treatment Feedin (Pt does demonstrate ability to open packages though requests assist with difficult items. Uses regular utensils to eat.) Eating (QC): 5 Groomin (Sitting in w/c, pt able to complete by self.) Oral Hygiene (QC): 6 Bathin (SBA in shower seated on rolling shower chair. Pt. uses LH sponge to wash LE and back.) Bathing Location: L Arm, R Arm, L Upper Leg, R Upper Leg, L Lower Leg (including foot), R Lower Leg (including foot), Chest, Abdomen, Buttocks, Perineal Area Shower/Bathe Self (QC): 4 Upper Extremity Dressin (Pt. is able to doff t-shirt, but requires min assist to thread over head for clean t-shirt.) Upper Body Dressing (QC): 4 Lower Extremity Dressin (pt. required max assist overall today with LE clothing. Pt. able to thread brief with min assist over feet using top cleaner, but required assist to thread pants and don slipper socks/shoes/TEDs due to time constraint. Max assist x 2 in stance to pull pants up over hips.) Lower Body Dressing (QC): 1 On/Off Footwear (QC): 2 Toiletin (Set up on rolling shower chair over toilet.) Toileting Hygiene (QC): 5 Toilet/Commode Transfer: 2 Toilet Transfer (QC): 2 Shower: 1 Assessment/Plan Assessment and Plan Assess & Plan/Chief Complaint Assessment: s/p right shoulder replacement uncomplicated POD # 13 at [facility] Post op urinary retention requiring Ferrell cath but now resolved since cath removed Chronic left knee fusion HTN Allergic rhinitis Anemia Hypothyroidism Neuropathy BPH GERD Anemia Hyponatremia Low albumin Plan: Pain control IRF protocols Fall risk PCP consulted and input is appreciated BM regimen Lovenox PPx Monitor BP and abide by parameters Monitor sodium level Work on transfers since they are full assistance required ERIKA hose intact (1) Status post replacement of right shoulder joint (2) Constipation (3) Urinary retention (4) Anemia (5) Hypothyroidism (6) GERD (gastroesophageal reflux disease) (7) Allergic rhinitis (8) Hypertension (9) BPH (benign prostatic hyperplasia) (10) Limitation of joint motion of left knee (11) Hyponatremia (12) Serum albumin decreased RICO LANCE DO September 19, 2018 08:57
[2018-09-19] MEDS: PATIENT MAY USE OWN MED,SINGLE MED PO SCH (09:46)
--- NOTE | 2018-09-19 11:18 | Physical Therapy Daily Note ---
PT Daily Note-Current Subjective Pt sitting in recliner upon arrival. Pt agrees to PT. Pain Location: No Pain Reported Mental Status Patient Orientation: Person, Place, Situation Attachments: Other-See Comments (Immobilizer for R UE) Transfers Therapy Code Descriptions/Definitions Functional [place] Measure: 0=Not Assessed/NA 4=Minimal Assistance 1=Total Assistance 5=Supervision or Setup 2=Maximal Assistance 6=Modified [place] 3=Moderate Assistance 7=Complete [place] Therapy Quality Codes: 6 Independent with activity with or without an assistive device 5 Patient requires set up or clean up by helper. Patient completes activity by themselves 4 Supervision or touching assist (CGA). Carrier provide cues , steadying assi st 3 The helper provides less than half the effort to complete the activity 2 The helper provides more than half the effort to complete the activity 1 Dependent. The helper does all the effort to complete an activity 7 Patient refused to complete or attempt activity 9 The patient did not perform the activity before the current illness or injury 88 Not attempted due to Medical conditions or safety concerns Scootin Supine to/from Sit: 5 Sit to/from Stand: 3 Sit to Lying (QC): 5 Sit to Stand (QC): 3 Weight Bearing Weight Bearing/Tolerated Weight Bearing/Tolerated total shoulder protocol on right side Gait Training Does the Patient Walk?: Yes Gait (FIM): 2 Distance (FIM): 3=150 ft Distance: 75', 75' Walk 10 feet (QC): 2 Walk 50 ft with 2 Turns(QC): 2 Walk 150 ft (QC): 2 Gait Level of Assist: 2 Gait Persons Needed: 1 Gait Assistive Device: Handheld Assist Pt continues to walk in retropulsive manner although picking up BLE to advance has become easier for pt due to increase in strength. Wheelchair Training Does the Pt Use a Wheelchair?: No Exercises Supine Ex: Ankle pumps, Short Arc Quads, Straight leg raise, Hip abd/add Supine Reps: 15 Seated Therapy Exercises: Ankle pumps, Long arc quads, Hip flexion, Kicking activity Seated Reps: 15 (2 sets) Treatments Pt completes Seated Ex in recliner to regain ROM since seated for extended time. Pt uses urinal before leaving room for tx. Pt transfers from recliner and ambulates in hallway at [facility]. Pt completes second round of Seated Ex then leon sfers to EOM and lays Supine. Pt completes Supine Ex before transferring and ambulating back to room. Pt rests in recliner with all needs met. Assessment Current Status: Good Progress Pt's balance limits ambulation. PT Short Term Goals Short Term Goals Time Frame: September 18, 2018 Transfers (B,C,W/C) (FIM): 4 Gait (FIM): 2 Gait Distance Comment: 100' Gait Level of Assist: 4 Gait Assistive Device: Handheld Assist PT Scrub Woman Goals Scrub Woman Goals PT Scrub Woman Goals Time Frame: Oct 02, 2018 Transfers (B,C,W/C) (FIM): 5 Sit to Lying (QC): 6 Lying-Sitting on Side/Bed(QC): 6 Sit to Stand (QC): 4 Rollin Roll Left to Right (QC): 6 Chair/Qvw-ox-Fomgg Xfer(QC): 4 Car Transfer (QC): 4 Gait (FIM): 4 Distance: 150' Walk 10 feet (QC): 4 Walk 10ft-Uneven Surface(QC): 4 Walk 50ft with 2 Turns (QC): 4 Walk 150 ft (QC): 4 Gait Level of Assist: 4 (CGA) Gait Assistive Device: Handheld Assist Stairs (FIM): 1 # of Steps: 1 1 Step (curb) (QC): 3 Stairs Level Of Assist: 4 PT Plan Problem List Problem List: Activity Tolerance, Functional Strength, Safety, Balance, Gait, Transfer Treatment/Plan Treatment Plan: Continue Plan of Care Treatment Plan: Bed Mobility, Concurrent Therapy, Education, Functional Activity Joel, Functional Strength, Group Therapy, Gait, Safety, Therapeutic Exercise, Transfers Treatment Duration: Oct 02, 2018 Frequency: At least 5 of 7 days/Wk (IRF) Estimated Hrs Per Day: 1.5 hours per day Patient and/or Family Agrees t: Yes Safety Risks/Education Patient Education: Gait Training, Transfer Techniques, Correct Positioning, Safety Issues Teaching Recipient: Patient Teaching Methods: Discussion Response to Teaching: Verbalize Understanding Time/GCodes Time In: 900 Time Out: 1000 Total Billed Treatment Time: 60 Total Billed Treatment 1, GT (15m), FA (15m) & EX x2 (30m) G Codes Necessary: LAURA Aguiar INCINERATOR ATTENDANT September 19, 2018 11:18
--- NOTE | 2018-09-19 13:28 | NUR ---
LAMP DECORATOR received notification from patient and spouse of scheduled follow up with Dr. Amadou jones for tomorrow at 9am. LAMP DECORATOR contacted office to inquire about the urgency of this appt vs the ability to reschedule post discharge. Office in agreement with rescheduling. New appt will be on 10/03 at 10am. Discharge instructions, patient and spouse updated. If tentative discharge date is determined tomorrow in team conference, LAMP DECORATOR will make modifications to appt as needed.
--- NOTE | 2018-09-19 14:24 | Physical Therapy Daily Note ---
PT Daily Note-Current Subjective Pt sitting in recliner visiting with SP upon arrival. Pt agrees to PT. Pain Location: No Pain Reported Mental Status Patient Orientation: Person, Place, Situation Attachments: Other-See Comments (Immobilizer for R UE) Transfers Therapy Code Descriptions/Definitions Functional [place] Measure: 0=Not Assessed/NA 4=Minimal Assistance 1=Total Assistance 5=Supervision or Setup 2=Maximal Assistance 6=Modified [place] 3=Moderate Assistance 7=Complete [place] Therapy Quality Codes: 6 Independent with activity with or without an assistive device 5 Patient requires set up or clean up by helper. Patient completes activity by themselves 4 Supervision or touching assist (CGA). [place] provide cues , steadying assist 3 The helper provides less than half the effort to complete the activity 2 The helper provides more than half the effort to complete the activity 1 Dependent. The helper does all the effort to complete an activity 7 Patient refused to complete or attempt activity 9 The patient did not perform the activity before the current illness or injury 88 Not attempted due to Medical conditions or safety concerns Scootin Sit to/from Stand: 2 Sit to Stand (QC): 2 Car Transfer (QC): 2 Weight Bearing Weight Bearing/Tolerated Weight Bearing/Tolerated total shoulder protocol on right side Gait Training Does the Patient Walk?: Yes Gait (FIM): 2 Distance (FIM): 3=091-68 ft Distance: 100' Walk 10 feet (QC): 2 Walk 50 ft with 2 Turns(QC): 2 Gait Level of Assist: 2 Gait Persons Needed: 1 Gait Assistive Device: Handheld Assist Exercises Seated Therapy Exercises: Ankle pumps, Long arc quads, Hip flexion, Kicking activity, Glut set Seated Reps: 15 Treatments Pt uses urinal at beginning of tx. Pt practices transfer from recliner with SP viewing. After a couple of transfers, pt ambulates in hallway to car simulation. Pt attempts car transfer but unable to get L LE into car due to inability to bend L knee enough to get it into the car. This has been a chronic issue. Pt returns to room to rest in recliner then completes Seated EX. Pt has all needs met at end of tx. Assessment Current Status: Good Progress Pt is limited by his bending of L knee as well as activity tolerance and retropulsion with upright activities. PT Short Term Goals Short Term Goals Time Frame: September 18, 2018 Transfers (B,C,W/C) (FIM): 4 Gait (FIM): 2 Gait Distance Comment: 100' Gait Level of Assist: 4 Gait Assistive Device: Handheld Assist PT Mill Roll Operator Goals Mill Roll Operator Goals PT Mill Roll Operator Goals Time Frame: Oct 02, 2018 Transfers (B,C,W/C) (FIM): 5 Sit to Lying (QC): 6 Lying-Sitting on Side/Bed(QC): 6 Sit to Stand (QC): 4 Rollin Roll Left to Right (QC): 6 Chair/Jbp-xu-Adbqm Xfer(QC): 4 Car Transfer (QC): 4 Gait (FIM): 4 Distance: 150' Walk 10 feet (QC): 4 Walk 10ft-Uneven Surface(QC): 4 Walk 50ft with 2 Turns (QC): 4 Walk 150 ft (QC): 4 Gait Level of Assist: 4 (CGA) Gait Assistive Device: Handheld Assist Stairs (FIM): 1 # of Steps: 1 1 Step (curb) (QC): 3 Stairs Level Of Assist: 4 PT Plan Problem List Problem List: Activity Tolerance, Functional Strength, Safety, Balance, Gait, Transfer Treatment/Plan Treatment Plan: Continue Plan of Care Treatment Plan: Bed Mobility, Concurrent Therapy, Education, Functional Activity Joel, Functional Strength, Group Therapy, Gait, Safety, Therapeutic Exercise, Transfers Treatment Duration: Oct 02, 2018 Frequency: At least 5 of 7 days/Wk (IRF) Estimated Hrs Per Day: 1.5 hours per day Patient and/or Family Agrees t: Yes Safety Risks/Education Patient Education: Gait Training, Transfer Techniques, Correct Positioning, Safety Issues Teaching Recipient: Patient Teaching Methods: Discussion Response to Teaching: Verbalize Understanding Time/GCodes Time In: 1300 Time Out: 1330 Total Billed Treatment Time: 30 Total Billed Treatment 1, FA (15m) & EX (15m) G Codes Necessary: LAURA Aguiar BROADLOOM WEAVER September 19, 2018 14:24
[2018-09-19 15:37] VITALS: BP 93/46
[2018-09-19] MEDS: ASCORBIC ACID (VIT C) 500 MG TABLET PO SCH (17:55)
[2018-09-19] MEDS: IRBESARTAN 150 MG (AVAPRO) TAB PO SCH (20:10)
--- NOTE | 2018-09-19 20:11 | NUR ---
patient refused irbesartan, bp 93/46, hr 57. patient asymptomatic. up in chair at this time. denies neds or c/o. cont to monitor.
[2018-09-19] MEDS: GABAPENTIN 100 MG (NEURONTIN) CAP PO SCH (20:12)
[2018-09-19] MEDS: FLUTICASONE NASAL SPRAY (FLONASE) 16 GM BTL NS SCH (20:13)
[2018-09-19] MEDS: TAMSULOSIN 0.4 MG (FLOMAX) CAP PO SCH (20:30)
[2018-09-20] MEDS: MULTIVIT W/MINERALS TAB (THERAGRAN M) PO SCH (05:33)
[2018-09-20] MEDS: LEVOTHYROXINE 125 MCG (LEVOTHROID) TABLET PO SCH (05:33)
[2018-09-20] MEDS: MAGNESIUM PO SCH (05:34)
[2018-09-20] MEDS: CALCIUM PO SCH (05:34)
[2018-09-20] MEDS: ZINC PO SCH (05:34)
[2018-09-20 05:38] VITALS: BP 146/62
--- NOTE | 2018-09-20 07:14 | Occupational Ther Daily Note ---
OT Current Status-Daily Note Subjective Pt alert, lying in bed. Pt agrees to therapy. No c/o pain at this time. Mental Status/Objective Patient Orientation: Person, Place, Time, Situation Therapy Code Descriptions/Definitions Functional [place] Measure: 0=Not Assessed/NA 4=Minimal Assistance 1=Total Assistance 5=Supervision or Setup 2=Maximal Assistance 6=Modified [place] 3=Moderate Assistance 7=Complete [place] ADL-Treatment Pt declined shower. Therapy Code Descriptions/Definitions Functional [place] Measure: 0=Not Assessed/NA 4=Minimal Assistance 1=Total Assistance 5=Supervision or Setup 2=Maximal Assistance 6=Modified [place] 3=Moderate Assistance 7=Complete [place] Therapy Quality Codes: 6 Independent with activity with or without an assistive device 5 Patient requires set up or clean up by helper. Patient completes activity by themselves 4 Supervision or touching assist (CGA). [place] provide cues , steadying assist 3 The helper provides less than half the effort to complete the activity 2 The helper provides more than half the effort to complete the activity 1 Dependent. The helper does all the effort to complete an activity 7 Patient refused to complete or attempt activity 9 The patient did not perform the activity before the current illness or injury 88 Not attempted due to Medical conditions or safety concerns Grooming (FIM): 6 (Sitting at sink, pt able to complete by self.) Oral Hygiene (QC): 6 Upper Body (FIM): 5 (After set up, pt able to complete by self.) Upper Body Dressing (QC): 5 Lower Body Dressing (FIM): 3 (Using x ray service technician and dressing stick to don/doff lower body clothing over feet. Pt pulls to stand then assist to hike pants over hips. Assist to don/doff ERIKA hose. Pt donned/doffed shoes assist to tie shoes.) Lower Body Dressing (QC): 3 On/Off Footwear (QC): 3 Toileting (FIM): 4 (Assist to manipulate clothing, cleansing self sitting on toilet.) Toileting Hygiene (QC): 3 Transfers (B, C, W/C) (FIM): 3 (Depending on height of surface, min A-mod A) Toilet/Commode Transfer (FIM): 4 (Pull to stand with grabbars, min A.) Toilet Transfer (QC): 3 Other Treatment Pt takes increased time to complete tasks due to slow movements and increased communications throughout therapy. Completed protocol exercises per surgeon. Pt required verbal and physical cues for correct techniques and to decrease compensatory movements. Pt tolerates well. Tightness at end ROM's. After therapy, pt sitting in recliner with call light/phone in reach. All needs met in room. OT Short Term Goals Short Term Goals Eating(FIM): 5 Grooming(FIM): 5 Bathing(FIM): 5 Bathing Location: L Arm, R Arm, L Upper Leg, R Upper Leg, L Lower Leg (including foot), R Lower Leg (including foot), Chest, Abdomen, Buttocks, Perineal Area Upper Body Dressing(FIM): 5 Lower Body Dressing(FIM): 5 Toileting(FIM): 5 Transfers (B,C,W/C) (FIM): 4 Toilet/Commode Transfer(FIM): 5 Shower Transfer(FIM): 5 (5) Additional Short Term Goals: 1-Demonstrate ADL Tasks, 2-Verbalize Understanding, 3-ImproveStrength/Joel 1=Demonstrate adherence to instructed precautions during ADL tasks. 2=Patient will verbalize/demonstrate understanding of assistive devices/modifications for ADL. 3=Patient will improve strength/tolerance for activity to enable patient to perform ADL's. OT Fdc Goals Private Duty Lpn Goals Eating (FIM): 7 Eating (QC): 6 Groomin Oral Hygiene (QC): 6 Bathing(FIM): 6 Bathing Location: L Arm, R Arm, L Upper Leg, R Upper Leg, L Lower Leg (including foot), R Lower Leg (including foot), Chest, Abdomen, Buttocks, Perineal Area Shower/Bathe Self (QC): 6 Upper Body Dressing(FIM): 6 Upper Body Dressing (QC): 6 Lower Body Dressing(FIM): 6 Lower Body Dressing (QC): 6 On/Off Footwear (QC): 6 Toileting(FIM): 6 Toileting Hygiene (QC): 6 Transfers (B,C,W/C) (FIM): 6 Toilet/Commode Transfer(FIM): 6 Toilet/Commode Transfer (QC): 6 Shower Transfer(FIM): 6 1=Demonstrate adherence to instructed precautions during ADL tasks. 2=Patient will verbalize/demonstrate understanding of assistive devices/modifications for ADL. 3=Patient will improve strength/tolerance for activity to enable patient to perform ADL's. OT Education/Plan Problem List/Assessment Assessment: Impaired Funct Balance, Impaired Self-Care Skills, Restricted Funct UE ROM pt presents with functional limitations affecting areas of ADLS/ functional transfers. pt protocol for R shoulder can be found in chart. pt would benefit from OT services to increase independence with ADLS/ functional transfers and for safe transition to home. Discharge Recommendations Plan/Recommendations: Continue POC Treatment Plan/Plan of Care Patient would benefit from OT for education, treatment and training to promote independence in ADL's, mobility, safety and/or upper extremity function for ADL's. Plan of Care: ADL Retraining, Caregiver Training, Concurrent Therapy, Functional Mobility, Group Exercise/Act as Ind, Orthotic Fitting/Training, UE Funct Exercise/Act Treatment Duration: Oct 09, 2018 Frequency: At least 5 of 7 days/Wk (IRF) Estimated Hrs Per Day: 1.5 hours per day (60-90 minutes per day) Agreement: Yes Rehab Potential: Fair Time/GCodes Start Time: 07:00 Stop Time: 08:30 Total Time Billed (hr/min): 90 Billed Treatment Time 1 visit-ADL 5 (70 min) EX 1 (20 min) PAZ SHIPMAN September 20, 2018 07:14
[2018-09-20] MEDS: DILTIAZEM 60 MG (CARDIZEM) TAB PO SCH (08:48)
[2018-09-20] MEDS: FAMOTIDINE 20 MG (PEPCID) TABLET PO SCH (08:48)
[2018-09-20] MEDS: ENOXAPARIN 40 MG/0.4 ML (LOVENOX) SYR SC SCH (08:49)
[2018-09-20] MEDS: SENNA W/DOCUSATE (SENOKOT S) TABLET PO SCH ×2 (08:49→20:15)
--- NOTE | 2018-09-20 08:52 | PM&R Progress Note ---
Subjective HPI/CC On Admission Date Seen by Provider: September 20, 2018 Time Seen by Provider: 08:45 CC: Right shoulder replacement with severe limitation of activities with debility HPI: This is an 88yoWM clinic patient of Dr Pimentel who presents to IRF after an uncomplicated right shoulder replacement by Dr Tobar at [facility] Tuesday but required IRF stay due to advanced age and frailty requiring 2 person assist in addition to left knee fusion due to replacements that have failed x 2 in the past further limiting his ability to ambulate and take care of himself at home. Patient finally arrived at 700pm last night and has settled in and doing well. BM this morning after laxatives given at [facility]. Pain is well controlled currently. Dr Pimentel has been notified of the consultation for his PCP needs. Right sling will stay in place during activity. His is at home in frail health also. I have reviewed his home meds and restarted all. PLOF was independent with ADL's. Patient seen for evaluation of chronic hypertension as well as new onset thrombocytopenia mild after the above. He is still on prophylactic Lovenox reporting no bleeding problems. He states that he has felt well in the shoulder pain is been under good control. He's had no evidence for bright red blood per rectum or melena in his appetite is back to normal. He had some postop constipation as well as urinary retention requiring short-term catheter placement. Catheter was removed before discharge and he reports urination is been smaller volume but he does feel as though he is emptying. His usual nocturia is 1 here in the hospital he reports nocturia 2 it is been darker in color without dysuria he's not aware of any change in odor and denies flank pain chills or fever. Subjective/Events-last exam We rescheduled his orthopedic appointment for following DC. Overall pt doing well Requested Senna to be taken at night rather than the morning Buttocks slightly red so will watch that closely and apply carmen for protection and consulting Dr Kike Gold discussed and he just holds it when the BP is low which is fine with Dr. Pimentel PT reports moderate assistance but balance is very off and high risk for falls OT reported minimal ADL assistance and he does well overall They do have a homemaker assistance that comes in to help with the house keeping Lovenox is tolerated. Conferred with RN. Reviewed therapy notes. Review of Systems Musculoskeletal: arm pain, leg pain Objective Exam Vital Signs Vital Signs Date Time Temp Pulse Resp B/P (MAP) Pulse Ox O2 Delivery O2 Flow Rate FiO2 09/20/18 17:11 99.6 74 18 126/65 (85) 94 Room Air Capillary Refill : Less Than 3 Seconds General Appearance: No Apparent Distress, WD/WN, Chronically ill, Thin HEENT: PERRL/EOMI, TMs Normal, Normal ENT Inspection, Pharynx Normal, Moist M ucous Membranes Neck: Full Range of Motion, Normal Inspection, Non Tender, Supple Respiratory: Chest Non Tender, Lungs Clear, Normal Breath Sounds, No Accessory Muscle Use, No Respiratory Distress Cardiovascular: Regular Rate, Rhythm, No Gallop, No JVD, No Murmur Gastrointestinal: Normal Bowel Sounds, No Organomegaly, No Pulsatile Mass, Non Tender, Soft Back: Normal Inspection, No CVA Tenderness, No Vertebral Tenderness Extremity: Normal Capillary Refill, Normal Inspection, Normal Range of Motion (except right shoulder and chronic fusion left knee), Non Tender, No Calf Tenderness, Pedal Edema (ERIKA hose intact) Neurologic/Psychiatric: Alert, Oriented x3, No Motor/Sensory Deficits, Normal Mood/Affect Skin: Normal Color, Warm/Dry Lymphatic: No Adenopathy Results/Procedures Lab Patient resulted labs reviewed. FIM Transfers Therapy Code Descriptions/Definitions Functional [place] Measure: 0=Not Assessed/NA 4=Minimal Assistance 1=Total Assistance 5=Supervision or Setup 2=Maximal Assistance 6=Modified [place] 3=Moderate Assistance 7=Complete [place] Therapy Quality Codes: 6 Independent with activity with or without an assistive device 5 Patient requires set up or clean up by helper. Patient completes activity by themselves 4 Supervision or touching assist (CGA). [place] provide cues , steadying assist 3 The helper provides less than half the effort to complete the activity 2 The helper provides more than half the effort to complete the activity 1 Dependent. The helper does all the effort to complete an activity 7 Patient refused to complete or attempt activity 9 The patient did not perform the activity before the current illness or injury 88 Not attempted due to Medical conditions or safety concerns Transfers (B, C, W/C) (FIM): 3 (Mod to min A depending on height of surface for transfer.) Scootin Rollin Roll Left to Right (QC): 4 Supine to/from Sit: 5 Sit to/from Stand: 2 Sit to Lying (QC): 5 Sit to Stand (QC): 2 Chair/Vbs-sm-Oqrfm Xfer(QC): 2 Bed to/from Chair: 4 Car Transfer (QC): 2 Gait Training Does the Patient Walk?: Yes Gait (FIM): 2 Distance (FIM): 6=987-52 ft Distance: 100' Walk 10 feet (QC): 2 Walk 50 ft with 2 Turns(QC): 2 Walk 150 ft (QC): 2 Walking 10ft/uneven surface-QC: 3 Gait Level of Assist: 2 Gait Persons Needed: 1 Gait Assistive Device: Handheld Assist Wheelchair Training Does the Pt Use a Wheelchair?: No Mental Status/Objective Comprehension: 7 Expression: 7 Social Interaction: 7 Problem Solvin Memory: 7 ADL-Treatment Feedin (Pt does demonstrate ability to open packages though requests assist with difficult items. Uses regular utensils to eat.) Eating (QC): 5 Groomin Oral Hygiene (QC): 6 Bathin (SBA in shower seated on rolling shower chair. Pt. uses LH sponge to wash LE and back.) Bathing Location: L Arm, R Arm, L Upper Leg, R Upper Leg, L Lower Leg (including foot), R Lower Leg (including foot), Chest, Abdomen, Buttocks, Perineal Area Shower/Bathe Self (QC): 4 Upper Extremity Dressin (After setup, pt completed upper body dressing. Assist to don/doff brace.) Upper Body Dressing (QC): 5 Lower Extremity Dressin (Using AE for dressing, pt is able to don/doff pants over feet. Pull to stand then assist to hike over hips. Assist to don/doff ERIKA hose and shoes.) Lower Body Dressing (QC): 3 On/Off Footwear (QC): 2 Toiletin (Set up on rolling shower chair over toilet.) Toileting Hygiene (QC): 5 Toilet/Commode Transfer: 3 (Min A using grabbar for pull to stand then SPT using BSC and grabbars.) Toilet Transfer (QC): 3 Shower: 1 Assessment/Plan Assessment and Plan Assess & Plan/Chief Complaint Assessment: s/p right shoulder replacement uncomplicated POD # 14 at [facility] Post op urinary retention requiring Ferrell cath but now resolved since cath removed Chronic left knee fusion HTN Allergic rhinitis Anemia Hypothyroidism Neuropathy BPH GERD Anemia Hyponatremia Low albumin Plan: Pain control IRF protocols Fall risk PCP consulted and input is appreciated BM regimen Lovenox PPx Monitor BP and abide by parameters Monitor sodium level Work on transfers since they are full assistance required ERIKA hose intact (1) Status post replacement of right shoulder joint (2) Constipation (3) Urinary retention (4) Anemia (5) Hypothyroidism (6) GERD (gastroesophageal reflux disease) (7) Allergic rhinitis (8) Hypertension (9) BPH (benign prostatic hyperplasia) (10) Limitation of joint motion of left knee (11) Hyponatremia (12) Serum albumin decreased RICO LANCE DO September 20, 2018 08:52
--- NOTE | 2018-09-20 11:02 | Physical Therapy Daily Note ---
PT Daily Note-Current Subjective Pt sitting in recliner upon arrival. Pt agrees to PT. Pain Location: No Pain Reported Mental Status Patient Orientation: Person, Place, Time, Situation Attachments: Other-See Comments (Immobilizer for R UE) Transfers Therapy Code Descriptions/Definitions Functional [place] Measure: 0=Not Assessed/NA 4=Minimal Assistance 1=Total Assistance 5=Supervision or Setup 2=Maximal Assistance 6=Modified [place] 3=Moderate Assistance 7=Complete [place] Therapy Quality Codes: 6 Independent with activity with or without an assistive device 5 Patient requires set up or clean up by helper. Patient completes activity by themselves 4 Supervision or touching assist (CGA). [place] provide cues , steadying assist 3 The helper provides less than half the effort to complete the activity 2 The helper provides more than half the effort to complete the activity 1 Dependent. The helper does all the effort to complete an activity 7 Patient refused to complete or attempt activity 9 The patient did not perform the activity before the current illness or injury 88 Not attempted due to Medical conditions or safety concerns Scootin Supine to/from Sit: 5 Sit to/from Stand: 3 Sit to Lying (QC): 5 Sit to Stand (QC): 3 Weight Bearing Weight Bearing/Tolerated Weight Bearing/Tolerated total shoulder protocol on right side Gait Training Does the Patient Walk?: Yes Gait (FIM): 3 Distance (FIM): 3=150 ft Distance: 80', 80' Walk 10 feet (QC): 3 Walk 50 ft with 2 Turns(QC): 3 Walk 150 ft (QC): 3 Gait Level of Assist: 3 Gait Persons Needed: 1 Gait Assistive Device: Handheld Assist Exercises Supine Ex: Ankle pumps, Quad Set, Glut sets, Short Arc Quads, Straight leg raise, Hip abd/add Supine Reps: 20 Seated Therapy Exercises: Ankle pumps, Long arc quads, Hip flexion, Kicking activity, Hip abd/add Seated Reps: 20 NuStep Minutes: 15 NuStep Workload: 3 Treatments Pt transfers from recliner to standing to use restroom. Pt returns to recliner so Dr Francis can check pt. Pt completes Seated Ex in recliner. Pt transfers from recliner at Mod A and ambulates in hallway. Pt uses NuStep for 15m at WL 3 followed by short rest. Pt ambulates to EOM then transfers to Supine for Supine EX with bolster under knees. Pt returns to room to rest at end of tx with all needs met. Assessment Current Status: Good Progress Pt continues to remain retropulsive but has gained strength in transfers and mobility. Pt is gaining speed with activities. PT Short Term Goals Short Term Goals Time Frame: September 18, 2018 Transfers (B,C,W/C) (FIM): 4 Gait (FIM): 2 Gait Distance Comment: 100' Gait Level of Assist: 4 Gait Assistive Device: Handheld Assist PT Clinical Resource Coordinator Goals Clinical Resource Coordinator Goals PT Clinical Resource Coordinator Goals Time Frame: Oct 02, 2018 Transfers (B,C,W/C) (FIM): 5 Sit to Lying (QC): 6 Lying-Sitting on Side/Bed(QC): 6 Sit to Stand (QC): 4 Rollin Roll Left to Right (QC): 6 Chair/Xdm-wt-Hxowo Xfer(QC): 4 Car Transfer (QC): 4 Gait (FIM): 4 Distance: 150' Walk 10 feet (QC): 4 Walk 10ft-Uneven Surface(QC): 4 Walk 50ft with 2 Turns (QC): 4 Walk 150 ft (QC): 4 Gait Level of Assist: 4 (CGA) Gait Assistive Device: Handheld Assist Stairs (FIM): 1 # of Steps: 1 1 Step (curb) (QC): 3 Stairs Level Of Assist: 4 PT Plan Problem List Problem List: Activity Tolerance, Functional Strength, Safety, Balance, Gait, Transfer Treatment/Plan Treatment Plan: Continue Plan of Care Treatment Plan: Bed Mobility, Concurrent Therapy, Education, Functional Activity Joel, Functional Strength, Group Therapy, Gait, Safety, Therapeutic Exercise, Transfers Treatment Duration: Oct 02, 2018 Frequency: At least 5 of 7 days/Wk (IRF) Estimated Hrs Per Day: 1.5 hours per day Patient and/or Family Agrees t: Yes Safety Risks/Education Patient Education: Gait Training, Transfer Techniques, Correct Positioning, Safety Issues Teaching Recipient: Patient Teaching Methods: Discussion Response to Teaching: Verbalize Understanding Time/GCodes Time In: 915 Time Out: 1015 Total Billed Treatment Time: 60 Total Billed Treatment 1, FA (10m), GT (15m) & EX x2 (35m) G Codes Necessary: LAURA Aguiar PIT AND AUXILIARIES SUPERVISOR September 20, 2018 11:02
--- NOTE | 2018-09-20 14:56 | Occupational Ther Daily Note ---
OT Current Status-Daily Note Subjective Pt alert, sitting in recliner. Pt agrees to therapy. No c/o pain. Mental Status/Objective Patient Orientation: Person, Place, Time, Situation Therapy Code Descriptions/Definitions Functional [place] Measure: 0=Not Assessed/NA 4=Minimal Assistance 1=Total Assistance 5=Supervision or Setup 2=Maximal Assistance 6=Modified [place] 3=Moderate Assistance 7=Complete [place] ADL-Treatment Therapy Code Descriptions/Definitions Functional [place] Measure: 0=Not Assessed/NA 4=Minimal Assistance 1=Total Assistance 5=Supervision or Setup 2=Maximal Assistance 6=Modified [place] 3=Moderate Assistance 7=Complete [place] Therapy Quality Codes: 6 Independent with activity with or without an assistive device 5 Patient requires set up or clean up by helper. Patient completes activity by themselves 4 Supervision or touching assist (CGA). [place] provide cues , steadying assist 3 The helper provides less than half the effort to complete the activity 2 The helper provides more than half the effort to complete the activity 1 Dependent. The helper does all the effort to complete an activity 7 Patient refused to complete or attempt activity 9 The patient did not perform the activity before the current illness or injury 88 Not attempted due to Medical conditions or safety concerns Other Treatment Completed PROM and AAROM per rotator cuff protocol given by surgeon. Pt requires skilled instruction for correct techniques. Pt tends to abduct elbow prior to R arm movement. Pt is progressing with ROM of R shldr. Pt requested to use toilet. Pt ambulated to toilet and stood to urinate with CGA-min A. Pt able to manipulate clothing. After therapy, pt sitting in recliner with call light/phone in reach. All needs met in room. OT Short Term Goals Short Term Goals Eating(FIM): 5 Grooming(FIM): 5 Bathing(FIM): 5 Bathing Location: L Arm, R Arm, L Upper Leg, R Upper Leg, L Lower Leg (including foot), R Lower Leg (including foot), Chest, Abdomen, Buttocks, Perineal Area Upper Body Dressing(FIM): 5 Lower Body Dressing(FIM): 5 Toileting(FIM): 5 Transfers (B,C,W/C) (FIM): 4 Toilet/Commode Transfer(FIM): 5 Shower Transfer(FIM): 5 (5) Additional Short Term Goals: 1-Demonstrate ADL Tasks, 2-Verbalize Understanding, 3-ImproveStrength/Joel 1=Demonstrate adherence to instructed precautions during ADL tasks. 2=Patient will verbalize/demonstrate understanding of assistive devices/modifications for ADL. 3=Patient will improve strength/tolerance for activity to enable patient to perform ADL's. OT Preforming Machine Operator Goals Preforming Machine Operator Goals Eating (FIM): 7 Eating (QC): 6 Groomin Oral Hygiene (QC): 6 Bathing(FIM): 6 Bathing Location: L Arm, R Arm, L Upper Leg, R Upper Leg, L Lower Leg (including foot), R Lower Leg (including foot), Chest, Abdomen, Buttocks, Perineal Area Shower/Bathe Self (QC): 6 Upper Body Dressing(FIM): 6 Upper Body Dressing (QC): 6 Lower Body Dressing(FIM): 6 Lower Body Dressing (QC): 6 On/Off Footwear (QC): 6 Toileting(FIM): 6 Toileting Hygiene (QC): 6 Transfers (B,C,W/C) (FIM): 6 Toilet/Commode Transfer(FIM): 6 Toilet/Commode Transfer (QC): 6 Shower Transfer(FIM): 6 1=Demonstrate adherence to instructed precautions during ADL tasks. 2=Patient will verbalize/demonstrate understanding of assistive devices/modifications for ADL. 3=Patient will improve strength/tolerance for activity to enable patient to perform ADL's. OT Education/Plan Problem List/Assessment pt presents with functional limitations affecting areas of ADLS/ functional transfers. pt protocol for R shoulder can be found in chart. pt would benefit from OT services to increase independence with ADLS/ functional transfers and for safe transition to home. Discharge Recommendations Plan/Recommendations: Continue POC Treatment Plan/Plan of Care Patient would benefit from OT for education, treatment and training to promote independence in ADL's, mobility, safety and/or upper extremity function for ADL's. Plan of Care: ADL Retraining, Caregiver Training, Concurrent Therapy, Functional Mobility, Group Exercise/Act as Ind, Orthotic Fitting/Training, UE Funct Exercise/Act Treatment Duration: Oct 09, 2018 Frequency: At least 5 of 7 days/Wk (IRF) Estimated Hrs Per Day: 1.5 hours per day (60-90 minutes per day) Agreement: Yes Rehab Potential: Fair Time/GCodes Start Time: 11:30 Stop Time: 12:00 Total Time Billed (hr/min): 30 Billed Treatment Time 1 visit-FA 1 (10 min) EX 1 (20 min) PAZ SHIPMAN September 20, 2018 14:56
--- NOTE | 2018-09-20 15:00 | NUR ---
Per Dr. Francis, wound care consult ordered. Spoke with Dr. Stokes, he will evaluate pt this evening. Patient has allevyn on coccyx covering reddened, blanchable area. Pillows used to keep pt off coccyx.
--- NOTE | 2018-09-20 15:15 | NUR ---
DRILL RIG OPERATOR met with patient and to review team conference summary. As patient continues to require mod assist for gait, min assist for transfers and mod assist for lower body ADLs team is recommended patient be reevaluated at next team conference on 09/27. Patient and spouse are agreeable to this, as neither feel capable of caring for patient at home, at this point. Spouse is hopeful the patient will be independent with transfers as she is restricted on her physical abilities. DRILL RIG OPERATOR will continue to follow for additional needs.
[2018-09-20] MEDS ORDERED: IRBESARTAN 150 MG (AVAPRO) TAB PO PRN (16:15)
[2018-09-20 17:11] VITALS: BP 126/65
[2018-09-20] MEDS: ASCORBIC ACID (VIT C) 500 MG TABLET PO SCH (17:57)
--- NOTE | 2018-09-20 18:46 | NUR ---
Dr. Stokes evaluated pt. Coccyx to be open to air, no tissue injury noted. Pt advised by physician to sit upright in chair, no reclining chair or pillows under bottom unless used to position off coccyx while lying in bed.
--- NOTE | 2018-09-20 19:58 | Wound Care Assessment ---
Wound Care Assessment Date Seen by Provider: September 20, 2018 Time Seen by Provider: 18:30 Chief Complaint Reddened area of sacral area. HPI The patient is an 88 year old male, with diminished mobility due to recent R shoulder operation, limited flexion of L knee (long-standing), and pre-existing unsteadiness of gait. The alert nursing staff noted an area of discoloration overlying the coccyx, began him on improved mobility, and the area appears to be in large part resolving. there are no areas of unblanchable erythema at this time. The area of concern remains, and the patient is instructed to lie only on his side in bed, and when sitting to sit up straight, avoiding slaunching. Hypertension, Degenerative joint disease, Benign prostatic hypertrophy. Smoking Status: Never a Smoker Recreational Drug Use: No Alcohol Use: Denies Use Review of Systems General: No Chills HEENT: No Head Aches, No Visual Changes Pulmonary: No Dyspnea Cardiovascular: No: Chest Pain Gastrointestinal: No: Nausea, Abdominal Pain Genitourinary: No Hematuria Musculoskeletal: shoulder pain, arm pain Neurological: Weakness, Incoordination Other systems Endocrine - No history of diabetes. Integumentary - Denies other skin lesions. Exam Vital Signs Date Time Temp Pulse Resp B/P (MAP) Pulse Ox O2 Delivery O2 Flow Rate FiO2 09/20/18 17:11 99.6 74 18 126/65 (85) 94 Room Air Capillary Refill : Less Than 3 Seconds General Appearance: WD/WN, no apparent distress HEENT: normal ENT inspection Neck: normal inspection Cardiovascular: regular rate, rhythm, no murmur Respiratory: lungs clear, no accessory muscle use Gastrointestinal: normal bowel sounds, non tender Back: normal inspection, other (Small area of discoloration at coccyx, which is blanchable.) Extremities: No normal range of motion (L knee flexes only to 20 degrees.) Neurologic/Psychiatric: parking line painter II-XII nml as tested, normal mood/affect, oriented x 3 Skin: normal color Skin Problem Location: other (cpoccyx area -- No evidence of significant pressure injury at this time.) Assessment/Plan/Dx 1. Diminished mobility, with area of concern at coccyx. 2. Weakness. 3. Unsteady gait. 4. Recent R shoulder operation, with compromise of mobility. Plan: Heightened awareness of pressure risk as we are doing, and increased mobility, as the patient is able. RADHA SEARS MD September 20, 2018 19:58
[2018-09-20] MEDS: TAMSULOSIN 0.4 MG (FLOMAX) CAP PO SCH (20:15)
[2018-09-20] MEDS: GABAPENTIN 100 MG (NEURONTIN) CAP PO SCH (20:15)
[2018-09-20] MEDS: HYDROcodone/APAP 5 MG/325 MG (LORTAB) TAB PO PRN (20:17)
[2018-09-20] MEDS: FLUTICASONE NASAL SPRAY (FLONASE) 16 GM BTL NS SCH (20:17)
[2018-09-21 06:00] VITALS: BP 114/63
[2018-09-21] MEDS: ZINC PO SCH (06:35)
[2018-09-21] MEDS: MULTIVIT W/MINERALS TAB (THERAGRAN M) PO SCH (06:35)
[2018-09-21] MEDS: MAGNESIUM PO SCH (06:35)
[2018-09-21] MEDS: CALCIUM PO SCH (06:35)
[2018-09-21] MEDS: HYDROcodone/APAP 5 MG/325 MG (LORTAB) TAB PO PRN (06:35)
[2018-09-21] MEDS: LEVOTHYROXINE 125 MCG (LEVOTHROID) TABLET PO SCH (06:35)
--- NOTE | 2018-09-21 08:06 | PM&R Progress Note ---
Subjective HPI/CC On Admission Date Seen by Provider: September 21, 2018 Time Seen by Provider: 08:15 CC: Right shoulder replacement with severe limitation of activities with debility HPI: This is an 88yoWM clinic patient of Dr Pimentel who presents to IRF after an uncomplicated right shoulder replacement by Dr Tobar at [facility] Tuesday but required IRF stay due to advanced age and frailty requiring 2 person assist in addition to left knee fusion due to replacements that have failed x 2 in the past further limiting his ability to ambulate and take care of himself at home. Patient finally arrived at 700pm last night and has settled in and doing well. BM this morning after laxatives given at [facility]. Pain is well controlled currently. Dr Pimentel has been notified of the consultation for his PCP needs. Right sling will stay in place during activity. His is at home in [facility] also. I have reviewed his home meds and restarted all. PLOF was independent with ADL's. Patient seen for evaluation of chronic hypertension as well as new onset thrombocytopenia mild after the above. He is still on prophylactic Lovenox reporting no bleeding problems. He states that he has felt well in the shoulder pain is been under good control. He's had no evidence for bright red blood per rectum or melena in his appetite is back to normal. He had some postop constipation as well as urinary retention requiring short-term catheter placement. Catheter was removed before discharge and he reports urination is been smaller volume but he does feel as though he is emptying. His usual nocturia is 1 here in the hospital he reports nocturia 2 it is been darker in color without dysuria he's not aware of any change in odor and denies flank pain chills or fever. Subjective/Events-last exam Dr. Stokes saw the pt for his coccyx and removed the bandage and opened to air to help heal Hydrocodone is used for cough and right shoulder replacement pain Bowels are moving Urinating well Overall feels like he is progressing nicely Transfers are still intensive Lovenox is tolerated. Conferred with RN. Reviewed therapy notes. Review of Systems Musculoskeletal: arm pain Objective Exam Vital Signs Vital Signs Date Time Temp Pulse Resp B/P (MAP) Pulse Ox O2 Delivery O2 Flow Rate FiO2 09/21/18 20:37 Room Air 09/21/18 15:25 96.6 63 14 116/67 (83) 98 Capillary Refill : Less Than 3 Seconds General Appearance: No Apparent Distress, WD/WN, Chronically ill, Thin HEENT: PERRL/EOMI, TMs Normal, Normal ENT Inspection, Pharynx Normal, Moist Mucous Membranes Neck: Full Range of Motion, Normal Inspection, Non Tender, Supple Respiratory: Chest Non Tender, Lungs Clear, Normal Breath Sounds, No Accessory Muscle Use, No Respiratory Distress Cardiovascular: Regular Rate, Rhythm, No Gallop, No JVD, No Murmur Gastrointestinal: Normal Bowel Sounds, No Organomegaly, No Pulsatile Mass, Non Tender, Soft Back: Normal Inspection, No CVA Tenderness, No Vertebral Tenderness Extremity: Normal Capillary Refill, Normal Inspection, Normal Range of Motion (except right shoulder and chronic fusion left knee), Non Tender, No Calf Tenderness, Pedal Edema (ERIKA hose intact) Neurologic/Psychiatric: Alert, Oriented x3, No Motor/Sensory Deficits, Normal Mood/Affect Skin: Normal Color, Warm/Dry Lymphatic: No Adenopathy Results/Procedures Lab Laboratory Tests 09/21/18 08:43 Patient resulted labs reviewed. FIM Transfers Therapy Code Descriptions/Definitions Functional [place] Measure: 0=Not Assessed/NA 4=Minimal Assistance 1=Total Assistance 5=Supervision or Setup 2=Maximal Assistance 6=Modified [place] 3=Moderate Assistance 7=Complete [place] Therapy Quality Codes: 6 Independent with activity with or without an assistive device 5 Patient requires set up or clean up by helper. Patient completes activity by themselves 4 Supervision or touching assist (CGA). [place] provide cues , steadying assist 3 The helper provides less than half the effort to complete the activity 2 The helper provides more than half the effort to complete the activity 1 Dependent. The helper does all the effort to complete an activity 7 Patient refused to complete or attempt activity 9 The patient did not perform the activity before the current illness or injury 88 Not attempted due to Medical conditions or safety concerns Transfers (B, C, W/C) (FIM): 3 (Depending on height of surface, min A-mod A) Scootin Rollin Roll Left to Right (QC): 4 Supine to/from Sit: 5 Sit to/from Stand: 3 Sit to Lying (QC): 5 Sit to Stand (QC): 3 Chair/Var-gq-Qdbfc Xfer(QC): 2 Bed to/from Chair: 4 Car Transfer (QC): 2 Gait Training Does the Patient Walk?: Yes Gait (FIM): 3 Distance (FIM): 3=150 ft Distance: 80', 80' Walk 10 feet (QC): 3 Walk 50 ft with 2 Turns(QC): 3 Walk 150 ft (QC): 3 Walking 10ft/uneven surface-QC: 3 Gait Level of Assist: 3 Gait Persons Needed: 1 Gait Assistive Device: Handheld Assist Wheelchair Training Does the Pt Use a Wheelchair?: No Mental Status/Objective Comprehension: 7 Expression: 7 Social Interaction: 7 Problem Solvin Memory: 7 ADL-Treatment Feedin (Pt does demonstrate ability to open packages though requests assist with difficult items. Uses regular utensils to eat.) Eating (QC): 5 Groomin (Sitting at sink, pt able to complete by self.) Oral Hygiene (QC): 6 Bathin (SBA in shower seated on rolling shower chair. Pt. uses LH sponge to wash LE and back.) Bathing Location: L Arm, R Arm, L Upper Leg, R Upper Leg, L Lower Leg (including foot), R Lower Leg (including foot), Chest, Abdomen, Buttocks, Perineal Area Shower/Bathe Self (QC): 4 Upper Extremity Dressin (After set up, pt able to complete by self.) Upper Body Dressing (QC): 5 Lower Extremity Dressin (Using trimmer loader and dressing stick to don/doff lower body clothing over feet. Pt pulls to stand then assist to hike pants over hips. Assist to don/doff ERIKA hose. Pt donned/doffed shoes assist to tie shoes.) Lower Body Dressing (QC): 3 On/Off Footwear (QC): 3 Toiletin (Assist to manipulate clothing, cleansing self sitting on toilet.) Toileting Hygiene (QC): 3 Toilet/Commode Transfer: 4 (Pull to stand with grabbars, min A.) Toilet Transfer (QC): 3 Shower: 1 Assessment/Plan Assessment and Plan Assess & Plan/Chief Complaint Assessment: s/p right shoulder replacement uncomplicated POD # 15 at [facility] Post op urinary retention requiring Ferrell cath but now resolved since cath removed Chronic left knee fusion HTN Allergic rhinitis Anemia Hypothyroidism Neuropathy BPH GERD Anemia Hyponatremia Low albumin Plan: Pain control IRF protocols Fall risk PCP consulted and input is appreciated BM regimen Lovenox PPx Monitor BP and abide by parameters Monitor sodium level Work on transfers since they are full assistance required ERIKA hose intact (1) Status post replacement of right shoulder joint (2) Constipation (3) Urinary retention (4) Anemia (5) Hypothyroidism (6) GERD (gastroesophageal reflux disease) (7) Allergic rhinitis (8) Hypertension (9) BPH (benign prostatic hyperplasia) (10) Limitation of joint motion of left knee (11) Hyponatremia (12) Serum albumin decreased RICO LANCE DO September 21, 2018 08:06
[2018-09-21 08:47] VITALS: BP 121/66
[2018-09-21] MEDS: FAMOTIDINE 20 MG (PEPCID) TABLET PO SCH (08:53)
[2018-09-21] MEDS: DILTIAZEM 60 MG (CARDIZEM) TAB PO SCH ×2 (08:53→08:54)
[2018-09-21] MEDS: ENOXAPARIN 40 MG/0.4 ML (LOVENOX) SYR SC SCH (08:56)
[2018-09-21 09:20] LABS: BUN/CREATININE RATIO 12; CALCIUM 9.2 MG/DL (8.5-10.1); CARBON DIOXIDE 26 MMOL/L (21-32); CHLORIDE 97 MMOL/L (98-107); CREATININE SERUM 0.73 MG/DL (0.60-1.30); GFR ESTIMATED > 60; GLUCOSE 138 MG/DL (70-105); POTASSIUM 4.3 MMOL/L (3.6-5.0); SODIUM 131 MMOL/L (135-145)
--- NOTE | 2018-09-21 10:29 | Physical Therapy Daily Note ---
PT Daily Note-Current Subjective Pt is using restroom at beginning of tx. Pt agrees to PT. Mental Status Patient Orientation: Person, Place, Time, Situation Attachments: Other-See Comments (Immobilizer for R UE) Transfers Therapy Code Descriptions/Definitions Functional [place] Measure: 0=Not Assessed/NA 4=Minimal Assistance 1=Total Assistance 5=Supervision or Setup 2=Maximal Assistance 6=Modified [place] 3=Moderate Assistance 7=Complete [place] Therapy Quality Codes: 6 Independent with activity with or without an assistive device 5 Patient requires set up or clean up by helper. Patient completes activity by themselves 4 Supervision or touching assist (CGA). [place] provide cues , steadying assist 3 The helper provides less than half the effort to complete the activity 2 The helper provides more than half the effort to complete the activity 1 Dependent. The helper does all the effort to complete an activity 7 Patient refused to complete or attempt activity 9 The patient did not perform the activity before the current illness or injury 88 Not attempted due to Medical conditions or safety concerns Weight Bearing Weight Bearing/Tolerated Weight Bearing/Tolerated total shoulder protocol on right side Gait Training Does the Patient Walk?: Yes Gait (FIM): 3 Distance (FIM): 3=150 ft Distance: 90', 90' Walk 10 feet (QC): 3 Walk 50 ft with 2 Turns(QC): 3 Walk 150 ft (QC): 3 Gait Level of Assist: 3 Gait Persons Needed: 1 Gait Assistive Device: Cane Large Base Quad Pt is less retropulsive and able to walk more normalized with LBQC. Pt has one of these at home and is more comfortable with it as an AD. Pt continues to demonstrate lack of flexion in L knee but this is baseline from previous surgery. Exercises Supine Ex: Ankle pumps, Quad Set, Glut sets, Short Arc Quads, Straight leg raise, Hip abd/add Supine Reps: 20 Seated Therapy Exercises: Ankle pumps, Long arc quads, Hip flexion, Kicking activity Seated Reps: 20 NuStep Minutes: 15 NuStep Workload: 4 Treatments Pt finishes using restroom before resting in recliner at beginning of tx. PRODUCTION CONSULTANT & pt discuss safer options for AD so pt can become more independent for Sp at home. Pt completes Seated EX then transfers from recliner to standing at Mod A and uses LBQC to ambulate in hallway. Pt uses NuStep for 15m at WL 4 then short RB before completing Supine EX. Pt returns to room to rest with all needs met. Assessment Current Status: Good Progress Pt is more independent during ambulation due to change in AD from MEDICAL BILLER/CODER to LBQC. This will assist Sp at home. PT Short Term Goals Short Term Goals Time Frame: September 18, 2018 Transfers (B,C,W/C) (FIM): 4 Gait (FIM): 2 Gait Distance Comment: 100' Gait Level of Assist: 4 Gait Assistive Device: Handheld Assist PT Custodial Goals Book Sewing Machine Operator Goals PT Custodial Goals Time Frame: Oct 02, 2018 Transfers (B,C,W/C) (FIM): 5 Sit to Lying (QC): 6 Lying-Sitting on Side/Bed(QC): 6 Sit to Stand (QC): 4 Rollin Roll Left to Right (QC): 6 Chair/Blv-it-Fylkl Xfer(QC): 4 Car Transfer (QC): 4 Gait (FIM): 4 Distance: 150' Walk 10 feet (QC): 4 Walk 10ft-Uneven Surface(QC): 4 Walk 50ft with 2 Turns (QC): 4 Walk 150 ft (QC): 4 Gait Level of Assist: 4 (CGA) Gait Assistive Device: Handheld Assist Stairs (FIM): 1 # of Steps: 1 1 Step (curb) (QC): 3 Stairs Level Of Assist: 4 PT Plan Problem List Problem List: Activity Tolerance, Functional Strength, Safety, Balance, Gait, Transfer Treatment/Plan Treatment Plan: Continue Plan of Care Treatment Plan: Bed Mobility, Concurrent Therapy, Education, Functional Activi ty Joel, Functional Strength, Group Therapy, Gait, Safety, Therapeutic Exercise, Transfers Treatment Duration: Oct 02, 2018 Frequency: At least 5 of 7 days/Wk (IRF) Estimated Hrs Per Day: 1.5 hours per day Patient and/or Family Agrees t: Yes Safety Risks/Education Patient Education: Gait Training, Transfer Techniques, Correct Positioning, Safety Issues Teaching Recipient: Patient Teaching Methods: Discussion Response to Teaching: Verbalize Understanding Time/GCodes Time In: 915 Time Out: 1015 Total Billed Treatment Time: 60 Total Billed Treatment 1, GT (15m), EX x2 (35m) & FA (10m) G Codes Necessary: No LAURA JORDAN PRODUCTION CONSULTANT September 21, 2018 10:29
--- NOTE | 2018-09-21 11:13 | Occupational Ther Daily Note ---
OT Current Status-Daily Note Subjective Pt alert, lying in bed. Pt agrees to therapy. No c/o pain at this time. Mental Status/Objective Patient Orientation: Person, Place, Time, Situation Therapy Code Descriptions/Definitions Functional [place] Measure: 0=Not Assessed/NA 4=Minimal Assistance 1=Total Assistance 5=Supervision or Setup 2=Maximal Assistance 6=Modified [place] 3=Moderate Assistance 7=Complete [place] ADL-Treatment Pt agrees to shower. With HOB raised and bedrails, pt able go supine <--> EOB by self. With elevated surfaces, pt able to complete sit to stand with min A, mod A with low surfaces. Pt ambulated to toilet and transferred with min A. Completed own hygiene and min A to manipulate clothing. Transferred to shower with min A then SBA for safety when completing shower. Pt leans side to side to cleanse buttocks. Mod I for grooming sitting at sink. Set up upper body dressing. Using manager personnel selection, pt dons/doffs clothing over feet and pulls up LE's. Assist to hike pants while pt stabilizes self in standing. Therapy Code Descriptions/Definitions Functional [place] Measure: 0=Not Assessed/NA 4=Minimal Assistance 1=Total Assistance 5=Supervision or Setup 2=Maximal Assistance 6=Modified [place] 3=Moderate Assistance 7=Complete [place] Therapy Quality Codes: 6 Independent with activity with or without an assistive device 5 Patient requires set up or clean up by helper. Patient completes activity by themselves 4 Supervision or touching assist (CGA). [place] provide cues , steadying assist 3 The helper provides less than half the effort to complete the activity 2 The helper provides more than half the effort to complete the activity 1 Dependent. The helper does all the effort to complete an activity 7 Patient refused to complete or attempt activity 9 The patient did not perform the activity before the current illness or injury 88 Not attempted due to Medical conditions or safety concerns Grooming (FIM): 6 Oral Hygiene (QC): 6 Bathing (FIM): 5 Shower/Bathe Self (QC): 4 Upper Body (FIM): 5 Upper Body Dressing (QC): 5 Lower Body Dressing (FIM): 4 Lower Body Dressing (QC): 3 On/Off Footwear (QC): 4 Toileting (FIM): 4 Toileting Hygiene (QC): 3 Transfers (B, C, W/C) (FIM): 4 Toilet/Commode Transfer (FIM): 4 Toilet Transfer (QC): 3 Shower Transfer(FIM): 4 Other Treatment Completed R rotator cuff protocol exercises per surgeon in sitting. Pt tolerates well. Increase in ROM noted. Pt still continues to need skilled instruction to complete correct technique with R UE movement. After therapy, pt sitting in recliner with call light/phone in reach. All needs met in room. OT Short Term Goals Short Term Goals Eating(FIM): 5 Grooming(FIM): 5 Bathing(FIM): 5 Bathing Location: L Arm, R Arm, L Upper Leg, R Upper Leg, L Lower Leg (including foot), R Lower Leg (including foot), Chest, Abdomen, Buttocks, Perineal Area Upper Body Dressing(FIM): 5 Lower Body Dressing(FIM): 5 Toileting(FIM): 5 Transfers (B,C,W/C) (FIM): 4 Toilet/Commode Transfer(FIM): 5 Shower Transfer(FIM): 5 (5) Additional Short Term Goals: 1-Demonstrate ADL Tasks, 2-Verbalize Understanding, 3-ImproveStrength/Joel 1=Demonstrate adherence to instructed precautions during ADL tasks. 2=Patient will verbalize/demonstrate understanding of assistive devices/modifications for ADL. 3=Patient will improve strength/tolerance for activity to enable patient to perform ADL's. OT Correction Goals Correction Goals Eating (FIM): 7 Eating (QC): 6 Groomin Oral Hygiene (QC): 6 Bathing(FIM): 6 Bathing Location: L Arm, R Arm, L Upper Leg, R Upper Leg, L Lower Leg (including foot), R Lower Leg (including foot), Chest, Abdomen, Buttocks, Perineal Area Shower/Bathe Self (QC): 6 Upper Body Dressing(FIM): 6 Upper Body Dressing (QC): 6 Lower Body Dressing(FIM): 6 Lower Body Dressing (QC): 6 On/Off Footwear (QC): 6 Toileting(FIM): 6 Toileting Hygiene (QC): 6 Transfers (B,C,W/C) (FIM): 6 Toilet/Commode Transfer(FIM): 6 Toilet/Commode Transfer (QC): 6 Shower Transfer(FIM): 6 1=Demonstrate adherence to instructed precautions during ADL tasks. 2=Patient will verbalize/demonstrate understanding of assistive devic es/modifications for ADL. 3=Patient will improve strength/tolerance for activity to enable patient to perform ADL's. OT Education/Plan Problem List/Assessment Assessment: Impaired Funct Balance, Impaired Self-Care Skills, Restricted Funct UE ROM pt presents with functional limitations affecting areas of ADLS/ functional transfers. pt protocol for R shoulder can be found in chart. pt would benefit from OT services to increase independence with ADLS/ functional transfers and for safe transition to home. Discharge Recommendations Plan/Recommendations: Continue POC Treatment Plan/Plan of Care Patient would benefit from OT for education, treatment and training to promote independence in ADL's, mobility, safety and/or upper extremity function for ADL's. Plan of Care: ADL Retraining, Caregiver Training, Concurrent Therapy, Functional Mobility, Group Exercise/Act as Ind, Orthotic Fitting/Training, UE Funct Exercise/Act Treatment Duration: Oct 09, 2018 Frequency: At least 5 of 7 days/Wk (IRF) Estimated Hrs Per Day: 1.5 hours per day (60-90 minutes per day) Agreement: Yes Rehab Potential: Fair Time/GCodes Start Time: 07:00 Stop Time: 08:30 Total Time Billed (hr/min): 90 Billed Treatment Time 1 visit-ADL 5 (75 min) EX 1 (15 min) PAZ SHIPMAN September 21, 2018 11:12
--- NOTE | 2018-09-21 13:35 | Physical Therapy Daily Note ---
PT Daily Note-Current Subjective Pt sitting in recliner visiting with Sp upon arrival. Pt agrees to PT. Mental Status Patient Orientation: Person, Place, Time, Situation Attachments: Other-See Comments (Immobilizer for R UE) Transfers Therapy Code Descriptions/Definitions Functional [place] Measure: 0=Not Assessed/NA 4=Minimal Assistance 1=Total Assistance 5=Supervision or Setup 2=Maximal Assistance 6=Modified [place] 3=Moderate Assistance 7=Complete [place] Therapy Quality Codes: 6 Independent with activity with or without an assistive device 5 Patient requires set up or clean up by helper. Patient completes activity by themselves 4 Supervision or touching assist (CGA). [place] provide cues , steadying assist 3 The helper provides less than half the effort to complete the activity 2 The helper provides more than half the effort to complete the activity 1 Dependent. The helper does all the effort to complete an activity 7 Patient refused to complete or attempt activity 9 The patient did not perform the activity before the current illness or injury 88 Not attempted due to Medical conditions or safety concerns Scootin Sit to/from Stand: 3 Weight Bearing Weight Bearing/Tolerated Weight Bearing/Tolerated total shoulder protocol on right side Gait Training Does the Patient Walk?: Yes Gait (FIM): 4 Distance (FIM): 3=150 ft Distance: 75', 75' Walk 10 feet (QC): 4 Walk 50 ft with 2 Turns(QC): 4 Walk 150 ft (QC): 4 Gait Level of Assist: 4 Gait Persons Needed: 1 Gait Assistive Device: Cane Large Base Quad Wheelchair Training Does the Pt Use a Wheelchair?: No Treatments Pt & Sp wanted to discuss HH PT for D/C and how that works. PROGRAM MANAGEMENT PROFESSIONAL discusses HEP and gives this pt as requested. Pt transfers from recliner to standing using LBQC to show Sp progress then ambulates in hallway before returning to room to rest in recliner. Pt has all needs met. Assessment Current Status: Good Progress Pt continues to make progress with ambulation using LBQC. Pt's transfers are improving with more practice although still requiring Min A at this time. PT Short Term Goals Short Term Goals Time Frame: September 18, 2018 Transfers (B,C,W/C) (FIM): 4 Gait (FIM): 2 Gait Distance Comment: 100' Gait Level of Assist: 4 Gait Assistive Device: Handheld Assist PT [place] Goals Long-Term Goals PT Long-Term Goals Time Frame: Oct 02, 2018 Transfers (B,C,W/C) (FIM): 5 Sit to Lying (QC): 6 Lying-Sitting on Side/Bed(QC): 6 Sit to Stand (QC): 4 Rollin Roll Left to Right (QC): 6 Chair/Tej-xl-Qiolb Xfer(QC): 4 Car Transfer (QC): 4 Gait (FIM): 4 Distance: 150' Walk 10 feet (QC): 4 Walk 10ft-Uneven Surface(QC): 4 Walk 50ft with 2 Turns (QC): 4 Walk 150 ft (QC): 4 Gait Level of Assist: 4 (CGA) Gait Assistive Device: Handheld Assist Stairs (FIM): 1 # of Steps: 1 1 Step (curb) (QC): 3 Stairs Level Of Assist: 4 PT Plan Problem List Problem List: Activity Tolerance, Functional Strength, Balance, Transfer Treatment/Plan Treatment Plan: Continue Plan of Care Treatment Plan: Bed Mobility, Concurrent Therapy, Education, Functional Activity Joel, Functional Strength, Group Therapy, Gait, Safety, Therapeutic Exercise, Transfers Treatment Duration: Oct 02, 2018 Frequency: At least 5 of 7 days/Wk (IRF) Estimated Hrs Per Day: 1.5 hours per day Patient and/or Family Agrees t: Yes Safety Risks/Education Patient Education: Transfer Techniques, Correct Positioning, Safety Issues Teaching Recipient: Patient, Significant Other Teaching Methods: Discussion Response to Teaching: Verbalize Understanding Time/GCodes Time In: 1300 Time Out: 1330 Total Billed Treatment Time: 30 Total Billed Treatment 1, FA (15m) & GT (15m) G Codes Necessary: LAURA Aguiar PROGRAM MANAGEMENT PROFESSIONAL September 21, 2018 13:35
[2018-09-21 15:25] VITALS: BP 116/67
--- NOTE | 2018-09-21 16:10 | NUR ---
genetic counselor applied ALkare to reddened area on bottom prior to pt transferring to toilet
[2018-09-21] MEDS: ASCORBIC ACID (VIT C) 500 MG TABLET PO SCH (18:07)
[2018-09-21] MEDS: GABAPENTIN 100 MG (NEURONTIN) CAP PO SCH (20:34)
[2018-09-21] MEDS: TAMSULOSIN 0.4 MG (FLOMAX) CAP PO SCH (20:35)
[2018-09-21] MEDS: SENNA W/DOCUSATE (SENOKOT S) TABLET PO SCH (20:35)
[2018-09-21] MEDS: FLUTICASONE NASAL SPRAY (FLONASE) 16 GM BTL NS SCH (20:35)
--- NOTE | 2018-09-22 01:15 | NUR ---
THIS RN TO ASSUME PATIENT CARE.
[2018-09-22 06:00] VITALS: BP 109/62
[2018-09-22] MEDS: MULTIVIT W/MINERALS TAB (THERAGRAN M) PO SCH (06:50)
[2018-09-22] MEDS: LEVOTHYROXINE 125 MCG (LEVOTHROID) TABLET PO SCH (06:50)
[2018-09-22] MEDS: ZINC PO SCH (06:51)
[2018-09-22] MEDS: MAGNESIUM PO SCH (06:51)
[2018-09-22] MEDS: CALCIUM PO SCH (06:51)
--- NOTE | 2018-09-22 07:46 | Occupational Ther Daily Note ---
OT Current Status-Daily Note Subjective Pt alert, lying in bed. Pt agrees to therapy. States " I feel better every day." Mental Status/Objective Patient Orientation: Person, Place, Time, Situation Therapy Code Descriptions/Definitions Functional [place] Measure: 0=Not Assessed/NA 4=Minimal Assistance 1=Total Assistance 5=Supervision or Setup 2=Maximal Assistance 6=Modified [place] 3=Moderate Assistance 7=Complete [place] ADL-Treatment Therapy Code Descriptions/Definitions Functional [place] Measure: 0=Not Assessed/NA 4=Minimal Assistance 1=Total Assistance 5=Supervision or Setup 2=Maximal Assistance 6=Modified [place] 3=Moderate Assistance 7=Complete [place] Therapy Quality Codes: 6 Independent with activity with or without an assistive device 5 Patient requires set up or clean up by helper. Patient completes activity by themselves 4 Supervision or touching assist (CGA). [place] provide cues , steadying assist 3 The helper provides less than half the effort to complete the activity 2 The helper provides more than half the effort to complete the activity 1 Dependent. The helper does all the effort to complete an activity 7 Patient refused to complete or attempt activity 9 The patient did not perform the activity before the current illness or injury 88 Not attempted due to Medical conditions or safety concerns Grooming (FIM): 6 (Sitting at sink, pt completes by self.) Oral Hygiene (QC): 6 Bathing (FIM): 6 (Sponge bath. Sitting at sink, pt completes by self.) Bathing Location: L Arm, R Arm, L Upper Leg, R Upper Leg, L Lower Leg (including foot), R Lower Leg (including foot), Chest, Abdomen, Buttocks (Completes with toileting), Perineal Area Shower/Bathe Self (QC): 6 (Sponge bathe) Upper Body (FIM): 5 (After set up, pt completes by self.) Upper Body Dressing (QC): 5 Lower Body Dressing (FIM): 4 (Using AE, pt able to don pants over feet. Assist while pt stabilizes self in standing to hike pants over hips. Assist to don/doff ERIKA hose. Pt dons/doffs shoes by self with AE then assist to tie.) Lower Body Dressing (QC): 3 On/Off Footwear (QC): 3 Toileting (FIM): 4 (Assist to hike over hips, hikes down over hips with CGA. Cleanses self on toilet.) Toileting Hygiene (QC): 3 Transfers (B, C, W/C) (FIM): 4 (Min A from elevated surfaces) Toilet/Commode Transfer (FIM): 4 (Using grabbar, w/c and BSC for transfer.) Toilet Transfer (QC): 3 After therapy, pt sitting in recliner with call light/phone in reach. All needs met in room. OT Short Term Goals Short Term Goals Eating(FIM): 5 Grooming(FIM): 5 Bathing(FIM): 5 Bathing Location: L Arm, R Arm, L Upper Leg, R Upper Leg, L Lower Leg (including foot), R Lower Leg (including foot), Chest, Abdomen, Buttocks, Perineal Area Upper Body Dressing(FIM): 5 Lower Body Dressing(FIM): 5 Toileting(FIM): 5 Transfers (B,C,W/C) (FIM): 4 Toilet/Commode Transfer(FIM): 5 Shower Transfer(FIM): 5 (5) Additional Short Term Goals: 1-Demonstrate ADL Tasks, 2-Verbalize Understanding, 3-ImproveStrength/Joel 1=Demonstrate adherence to instructed precautions during ADL tasks. 2=Patient will verbalize/demonstrate understanding of assistive devices/modifications for ADL. 3=Patient will improve strength/tolerance for activity to enable patient to perform ADL's. OT [place] Goals Farmer [employer] [place] Goals Eating (FIM): 7 Eating (QC): 6 Groomin Oral Hygiene (QC): 6 Bathing(FIM): 6 Bathing Location: L Arm, R Arm, L Upper Leg, R Upper Leg, L Lower Leg (including foot), R Lower Leg (including foot), Chest, Abdomen, Buttocks, Perineal Area Shower/Bathe Self (QC): 6 Upper Body Dressing(FIM): 6 Upper Body Dressing (QC): 6 Lower Body Dressing(FIM): 6 Lower Body Dressing (QC): 6 On/Off Footwear (QC): 6 Toileting(FIM): 6 Toileting Hygiene (QC): 6 Transfers (B,C,W/C) (FIM): 6 Toilet/Commode Transfer(FIM): 6 Toilet/Commode Transfer (QC): 6 Shower Transfer(FIM): 6 1=Demonstrate adherence to instructed precautions during ADL tasks. 2=Patient will verbalize/demonstrate understanding of assistive devices/modifications for ADL. 3=Patient will improve strength/tolerance for activity to enable patient to perform ADL's. OT Education/Plan Problem List/Assessment Assessment: Impaired Funct Balance, Impaired Self-Care Skills, Restricted Funct UE ROM pt presents with functional limitations affecting areas of ADLS/ functional transfers. pt protocol for R shoulder can be found in chart. pt would benefit from OT services to increase independence with ADLS/ functional transfers and for safe transition to home. Discharge Recommendations Plan/Recommendations: Continue POC Treatment Plan/Plan of Care Patient would benefit from OT for education, treatment and training to promote independence in ADL's, mobility, safety and/or upper extremity function for ADL's. Plan of Care: ADL Retraining, Caregiver Training, Concurrent Therapy, Func tional Mobility, Group Exercise/Act as Ind, Orthotic Fitting/Training, UE Funct Exercise/Act Treatment Duration: Oct 09, 2018 Frequency: At least 5 of 7 days/Wk (IRF) Estimated Hrs Per Day: 1.5 hours per day (60-90 minutes per day) Agreement: Yes Rehab Potential: Fair Time/GCodes Start Time: 07:00 Stop Time: 08:15 Total Time Billed (hr/min): 75 Billed Treatment Time 1 visit-ADL 5 (75 min) PAZ SHIPMAN September 22, 2018 07:46
--- NOTE | 2018-09-22 08:30 | PM&R Progress Note ---
Subjective HPI/CC On Admission Date Seen by Provider: September 22, 2018 Time Seen by Provider: 08:30 CC: Right shoulder replacement with severe limitation of activities with debility HPI: This is an 88yoWM clinic patient of Dr Pimentel who presents to IRF after an uncomplicated right shoulder replacement by Dr Tobar at [facility] Tuesday but required IRF stay due to advanced age and frailty requiring 2 person assist in addition to left knee fusion due to replacements that have failed x 2 in the past further limiting his ability to ambulate and take care of himself at home. Patient finally arrived at 700pm last night and has settled in and doing well. BM this morning after laxatives given at [facility]. Pain is well controlled currently. Dr Pimentel has been notified of the consultation for his PCP needs. Right sling will stay in place during activity. His is at home in frail health also. I have reviewed his home meds and restarted all. PLOF was independent with ADL's. Patient seen for evaluation of chronic hypertension as well as new onset thrombocytopenia mild after the above. He is still on prophylactic Lovenox reporting no bleeding problems. He states that he has felt well in the shoulder pain is been under good control. He's had no evidence for bright red blood per rectum or melena in his appetite is back to normal. He had some postop constipation as well as urinary retention requiring short-term catheter placement. Catheter was removed before discharge and he reports urination is been smaller volume but he does feel as though he is emptying. His usual nocturia is 1 here in the hospital he reports nocturia 2 it is been darker in color without dysuria he's not aware of any change in odor and denies flank pain chills or fever. Subjective/Events-last exam Coccyx early pressure ulcer is opened to air to help heal per Dr Stokes Hydrocodone is used for cough and right shoulder replacement pain and does not need to dose adjusted Bowels are moving well, twice yesterday Urinating well Overall feels like he is progressing nicely Transfers are still intensive but getting better each day Lovenox is tolerated. Conferred with RN. Reviewed therapy notes. Sodium level is 131 and stable Using IS Review of Systems General: Fatigue Musculoskeletal: arm pain, leg pain Objective Exam Vital Signs Vital Signs Date Time Temp Pulse Resp B/P (MAP) Pulse Ox O2 Delivery O2 Flow Rate FiO2 09/22/18 08:32 Room Air 09/22/18 06:00 97.8 72 18 109/62 (78) 95 Capillary Refill : Less Than 3 Seconds General Appearance: No Apparent Distress, WD/WN, Chronically ill, Thin HEENT: PERRL/EOMI, TMs Normal, Normal ENT Inspection, Pharynx Normal, Moist Mu cous Membranes Neck: Full Range of Motion, Normal Inspection, Non Tender, Supple Respiratory: Chest Non Tender, Lungs Clear, Normal Breath Sounds, No Accessory Muscle Use, No Respiratory Distress Cardiovascular: Regular Rate, Rhythm, No Gallop, No JVD, No Murmur Gastrointestinal: Normal Bowel Sounds, No Organomegaly, No Pulsatile Mass, Non Tender, Soft Back: Normal Inspection, No CVA Tenderness, No Vertebral Tenderness Extremity: Normal Capillary Refill, Normal Inspection, Normal Range of Motion (except right shoulder and chronic fusion left knee), Non Tender, No Calf Tenderness, Pedal Edema (ERIKA hose intact) Neurologic/Psychiatric: Alert, Oriented x3, No Motor/Sensory Deficits, Normal Mood/Affect Skin: Normal Color, Warm/Dry Lymphatic: No Adenopathy Results/Procedures Lab Patient resulted labs reviewed. FIM Transfers Therapy Code Descriptions/Definitions Functional [place] Measure: 0=Not Assessed/NA 4=Minimal Assistance 1=Total Assistance 5=Supervision or Setup 2=Maximal Assistance 6=Modified Flom 3=Moderate Assistance 7=Complete Flom Therapy Quality Codes: 6 Independent with activity with or without an assistive device 5 Patient requires set up or clean up by helper. Patient completes activity by themselves 4 Supervision or touching assist (CGA). [place] provide cues , steadying assist 3 The helper provides less than half the effort to complete the activity 2 The helper provides more than half the effort to complete the activity 1 Dependent. The helper does all the effort to complete an activity 7 Patient refused to complete or attempt activity 9 The patient did not perform the activity before the current illness or injury 88 Not attempted due to Medical conditions or safety concerns Transfers (B, C, W/C) (FIM): 4 Scootin Rollin Roll Left to Right (QC): 4 Supine to/from Sit: 5 Sit to/from Stand: 3 Sit to Lying (QC): 5 Sit to Stand (QC): 3 Chair/Dcq-vk-Ahemz Xfer(QC): 2 Bed to/from Chair: 4 Car Transfer (QC): 2 Gait Training Does the Patient Walk?: Yes Gait (FIM): 4 Distance (FIM): 3=150 ft Distance: 75', 75' Walk 10 feet (QC): 4 Walk 50 ft with 2 Turns(QC): 4 Walk 150 ft (QC): 4 Walking 10ft/uneven surface-QC: 3 Gait Level of Assist: 4 Gait Persons Needed: 1 Gait Assistive Device: Cane Large Base Quad Wheelchair Training Does the Pt Use a Wheelchair?: No Mental Status/Objective Comprehension: 7 Expression: 7 Social Interaction: 7 Problem Solvin Memory: 7 ADL-Treatment Feedin (Pt does demonstrate ability to open packages though requests assist with difficult items. Uses regular utensils to eat.) Eating (QC): 5 Groomin (Sitting at sink, pt completes by self.) Oral Hygiene (QC): 6 Bathin (Sponge bath. Sitting at sink, pt completes by self.) Bathing Location: L Arm, R Arm, L Upper Leg, R Upper Leg, L Lower Leg (including foot), R Lower Leg (including foot), Chest, Abdomen, Buttocks (Completes with toileting), Perineal Area Shower/Bathe Self (QC): 6 (Sponge bathe) Upper Extremity Dressin (After set up, pt completes by self.) Upper Body Dressing (QC): 5 Lower Extremity Dressin Lower Body Dressing (QC): 3 On/Off Footwear (QC): 4 Toiletin Toileting Hygiene (QC): 3 Toilet/Commode Transfer: 4 Toilet Transfer (QC): 3 Shower: 4 Assessment/Plan Assessment and Plan Assess & Plan/Chief Complaint Assessment: s/p right shoulder replacement uncomplicated POD # 16 at [facility] Post op urinary retention requiring Ferrell cath but now resolved since cath removed Chronic left knee fusion HTN Allergic rhinitis Anemia Hypothyroidism Neuropathy BPH GERD Anemia Hyponatremia Low albumin Plan: Pain control IRF protocols Fall risk PCP consulted and input is appreciated BM regimen Lovenox PPx Monitor BP and abide by parameters Monitor sodium level, 131 on recheck Work on transfers since they are full assistance required ERIAK hose intact (1) Status post replacement of right shoulder joint (2) Constipation (3) Urinary retention (4) Anemia (5) Hypothyroidism (6) GERD (gastroesophageal reflux disease) (7) Allergic rhinitis (8) Hypertension (9) BPH (benign prostatic hyperplasia) (10) Limitation of joint motion of left knee (11) Hyponatremia (12) Serum albumin decreased RICO LANCE DO September 22, 2018 08:30
[2018-09-22] MEDS: FAMOTIDINE 20 MG (PEPCID) TABLET PO SCH (09:59)
[2018-09-22] MEDS: DILTIAZEM 60 MG (CARDIZEM) TAB PO SCH (09:59)
[2018-09-22] MEDS: ENOXAPARIN 40 MG/0.4 ML (LOVENOX) SYR SC SCH (10:00)
--- NOTE | 2018-09-22 11:36 | Progress Note-Hospitalist ---
Subjective HPI/CC On Admission Date Seen by Provider: September 22, 2018 Time Seen by Provider: 11:00 CC: Right shoulder replacement with severe limitation of activities with debility HPI: This is an 88yoWM clinic patient of Dr Lacey who presents to IRF after an uncomplicated right shoulder replacement by Dr Tobar at [facility] Tuesday but required IRF stay due to advanced age and frailty requiring 2 person assist in addition to left knee fusion due to replacements that have failed x 2 in the past further limiting his ability to ambulate and take care of himself at home. Patient finally arrived at 700pm last night and has settled in and doing well. BM this morning after laxatives given at [facility]. Pain is well controlled currently. Dr Lacey has been notified of the consultation for his PCP needs. Right sling will stay in place during activity. His is at home in frail health also. I have reviewed his home meds and restarted all. PLOF was independent with ADL's. Patient seen for evaluation of chronic hypertension as well as new onset thrombocytopenia mild after the above. He is still on prophylactic Lovenox reporting no bleeding problems. He states that he has felt well in the shoulder pain is been under good control. He's had no evidence for bright red blood per rectum or melena in his appetite is back to normal. He had some postop constipation as well as urinary retention requiring short-term catheter placement. Catheter was removed before discharge and he reports urination is been smaller volume but he does feel as though he is emptying. His usual nocturia is 1 here in the hospital he reports nocturia 2 it is been darker in color without dysuria he's not aware of any change in odor and denies flank pain chills or fever. Subjective/Events-last exam Patient reports he is feeling well he did not take a hydrocodone yesterday or last night. At home he takes occasional hydrocodone for cough which is been chronic works well for him with no history of abuse. He has not had any significant coughing attacks in the past 48 hours per his report. He denies any significant discomfort and is happy with his progress with physical and occupational therapy. His blood pressures have been running low normal range and he has been refusing antihypertensive medication intermittently. He had no significant hypertensive readings. Objective Exam Vital Signs Vital Signs Date Time Temp Pulse Resp B/P (MAP) Pulse Ox O2 Delivery O2 Flow Rate FiO2 5/31/19 06:00 97.8 72 18 109/62 (78) 95 Room Air Capillary Refill : Less Than 3 Seconds General Appearance: No Apparent Distress, WD/WN, Chronically ill, Thin HEENT: PERRL/EOMI, TMs Normal, Normal ENT Inspection, Pharynx Normal, Moist Mucous Membranes Neck: Full Range of Motion, Normal Inspection, Non Tender, Supple Respiratory: Chest Non Tender, Lungs Clear, Normal Breath Sounds, No Accessory Muscle Use, No Respiratory Distress Cardiovascular: Regular Rate, Rhythm, No Gallop, No JVD, No Murmur Gastrointestinal: Normal Bowel Sounds, No Organomegaly, No Pulsatile Mass, Non Tender, Soft Back: Normal Inspection, No CVA Tenderness, No Vertebral Tenderness Extremity: Normal Capillary Refill, Normal Inspection, Normal Range of Motion (except right shoulder and chronic fusion left knee), Non Tender, No Calf Tenderness, Pedal Edema (ERIKA hose intact) Neurologic/Psychiatric: Alert, Oriented x3, No Motor/Sensory Deficits, Normal Mood/Affect Skin: Normal Color, Warm/Dry Lymphatic: No Adenopathy Results/Procedures Lab Patient resulted labs reviewed. Assessment/Plan Assessment and Plan Assess & Plan/Chief Complaint A/P 1. 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 2. Chronic hypertension under good control considering low normal blood pressure will DC his morning diltiazem so currently he will only be receiving irbesartan 150 mg if needed for systolic blood pressures 160 or higher Clinical Quality Measures DVT/VTE Risk/Contraindication: Risk Factor Score Per Nursin RFS Level Per Nursing on Admit: 4+=Very High MARIAA LACEY MD September 22, 2018 11:36
--- NOTE | 2018-09-22 12:04 | Physical Therapy Daily Note ---
PT Daily Note-Current Subjective Pt. and present and ready to go trial car TRF in their own vehicle. Pt. states he has gone to coffee at [employer] every morning since it opened it [facility] as well as all over the [place] all his life. Pt. states "they will come out and help me get in and out " I know they will" Pt. shares how he has been accustomed to getting in out his car prior to this with his L knee nearly fused in extension Pain Location: No Pain Reported Mental Status Patient Orientation: Normal For Age Attachments: Other-See Comments (abd immoblizer right UE) Transfers Therapy Code Descriptions/Definitions Functional Bailey Measure: 0=Not Assessed/NA 4=Minimal Assistance 1=Total Assistance 5=Supervision or Setup 2=Maximal Assistance 6=Modified Bailey 3=Moderate Assistance 7=Complete Bailey Therapy Quality Codes: 6 Independent with activity with or without an assistive device 5 Patient requires set up or clean up by helper. Patient completes activity by themselves 4 Supervision or touching assist (CGA). [place] provide cues , steadying assist 3 The helper provides less than half the effort to complete the activity 2 The helper provides more than half the effort to complete the activity 1 Dependent. The helper does all the effort to complete an activity 7 Patient refused to complete or attempt activity 9 The patient did not perform the activity before the current illness or injury 88 Not attempted due to Medical conditions or safety concerns Transfers (B, C, W/C) (FIM): 4 Scootin Sit to/from Stand: 4 sit to stand from w/c requires min assist and raised seat level is helpful, SPT w/c to car was focus this date. After some experimentation and adjusting car TRF went best with pt. brining w/ as close up to passenger side as possible, reaching for door with his left hand which was held and stablilized by this DOG CONTROL OFFICER . Pt. then turned carefully and sat in car . Passenger side seat was in full back and full recline position allowing pt to scoot himself back in far enough to clear LLE ( fused knee) in to the vehicle. This was trialed x 3 with rest breaks in car and w/c between. assisting and taking it all in . 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 , thinks it all through PT Short Term Goals Short Term Goals Time Frame: September 18, 2018 Transfers (B,C,W/C) (FIM): 4 Gait (FIM): 2 Gait Distance Comment: 100' Gait Level of Assist: 4 Gait Assistive Device: Handheld Assist PT Senior Living Goals Senior Living Goals PT Senior Living Goals Time Frame: Oct 02, 2018 Transfers (B,C,W/C) (FIM): 5 Sit to Lying (QC): 6 Lying-Sitting on Side/Bed(QC): 6 Sit to Stand (QC): 4 Rollin Roll Left to Right (QC): 6 Chair/Fdg-td-Yuluy Xfer(QC): 4 Car Transfer (QC): 4 Gait (FIM): 4 Distance: 150' Walk 10 feet (QC): 4 Walk 10ft-Uneven Surface(QC): 4 Walk 50ft with 2 Turns (QC): 4 Walk 150 ft (QC): 4 Gait Level of Assist: 4 (CGA) Gait Assistive Device: Handheld Assist Stairs (FIM): 1 # of Steps: 1 1 Step (curb) (QC): 3 Stairs Level Of Assist: 4 PT Plan Treatment/Plan Treatment Plan: Continue Plan of Care Treatment Plan: Bed Mobility, Concurrent Therapy, Education, Functional Activity Joel, Functional Strength, Group Therapy, Gait, Safety, Therapeutic Exercise, Transfers Treatment Duration: Oct 02, 2018 Frequency: At least 5 of 7 days/Wk (IRF) Estimated Hrs Per Day: 1.5 hours per day Patient and/or Family Agrees t: Yes Safety Risks/Education Patient Education: Gait Training, Transfer Techniques (car), Correct Positioning, Instructions to Caregiver, Safety Issues Teaching Recipient: Patient, Family, Significant Other Teaching Methods: Demonstration, Discussion Response to Teaching: Verbalize Understanding, Return Demonstration, Reinforcement Needed Time/GCodes Time In: 1100 Time Out: 1200 Total Billed Treatment Time: 60 Total Billed Treatment 1,FA40m,GT20m G Codes Necessary: LATASHA Coyle DOG CONTROL OFFICER September 22, 2018 12:04
--- NOTE | 2018-09-22 14:54 | Therapy Group Daily Note ---
Therapy Daily Group Note Patient Education Topic Exercises Exercises LE Seated Exercise, UE Exercise Session Ratio (pt:therapist): 3:1 Goal of Session: Education on ARU Expectations, UE/LE Strengthing Goal Met for this Session: Yes Pt Benefit of Group: Contributions to Others, Increased Functional Strength, Improved Cognition, Recognition of Peers, Socialization Other/Notes Pt transported via w/ to OT/PT group. Group consisted of introductions (name, place living, personal exercises), socialization, ARU description/expectations, pt lead UE/LE seated exercises and education benefits of exercise. Pt introduced self appropriately and actively listened to peers. Pt was able to roll large dice to select amount of reps for chosen exercise then lead group. Pt acknowledge understanding of educational topic by voicing personal exercises. After therapy, pt sitting in recliner with call light/phone in reach. All needs met in room. Start Time: 13:00 Stop Time: 14:05 Total Billed Treatment Time: 65 Total Billed Treatment 1-GRP PAZ SHIPMAN September 22, 2018 14:54
[2018-09-22 15:19] VITALS: BP 113/72
[2018-09-22] MEDS: ASCORBIC ACID (VIT C) 500 MG TABLET PO SCH (17:58)
--- NOTE | 2018-09-22 19:07 | NUR ---
bedside report received from VIOLETA BOWDEN, assume care of pt
[2018-09-22 20:10] VITALS: BP 105/68
[2018-09-22] MEDS: TAMSULOSIN 0.4 MG (FLOMAX) CAP PO SCH (20:47)
[2018-09-22] MEDS: FLUTICASONE NASAL SPRAY (FLONASE) 16 GM BTL NS SCH (20:47)
[2018-09-22] MEDS: GABAPENTIN 100 MG (NEURONTIN) CAP PO SCH (20:47)
--- NOTE | 2018-09-22 20:47 | NUR ---
gil Mcgee stated had 3 BM today, b/p 105/68
[2018-09-22] MEDS: SENNA W/DOCUSATE (SENOKOT S) TABLET PO SCH (20:50)
--- NOTE | 2018-09-22 21:00 | NUR ---
assessments & interventions completed, see assessments & interventions
[2018-09-23 06:05] VITALS: BP 109/62
[2018-09-23] MEDS: MAGNESIUM PO SCH (06:14)
[2018-09-23] MEDS: CALCIUM PO SCH (06:14)
[2018-09-23] MEDS: LEVOTHYROXINE 125 MCG (LEVOTHROID) TABLET PO SCH (06:14)
[2018-09-23] MEDS: ZINC PO SCH (06:14)
[2018-09-23] MEDS: MULTIVIT W/MINERALS TAB (THERAGRAN M) PO SCH (06:14)
--- NOTE | 2018-09-23 07:08 | NUR ---
bedside report given to KORY BOWDEN
[2018-09-23] MEDS: FAMOTIDINE 20 MG (PEPCID) TABLET PO SCH (08:51)
[2018-09-23] MEDS: ENOXAPARIN 40 MG/0.4 ML (LOVENOX) SYR SC SCH (08:53)
--- NOTE | 2018-09-23 10:30 | NUR ---
PLEASANT AND COOPERATIVE. NOTED REDNESS LEFT LOWER LEG. DR. LANCE INFORMED. HAS NOT BEEN NEEDING ANY PAIN MEDS.
--- NOTE | 2018-09-23 11:23 | Physical Therapy Daily Note ---
PT Daily Note-Current Subjective Pt up in chair, agreeable. Denies pain. "It feels good to get out and walk!" Mental Status Patient Orientation: Person, Place, Time, Situation (R) shoulder immobilizer Transfers Therapy Code Descriptions/Definitions Functional [place] Measure: 0=Not Assessed/NA 4=Minimal Assistance 1=Total Assistance 5=Supervision or Setup 2=Maximal Assistance 6=Modified [place] 3=Moderate Assistance 7=Complete [place] Therapy Quality Codes: 6 Independent with activity with or without an assistive device 5 Patient requires set up or clean up by helper. Patient completes activity by themselves 4 Supervision or touching assist (CGA). [place] provide cues , steadying assist 3 The helper provides less than half the effort to complete the activity 2 The helper provides more than half the effort to complete the activity 1 Dependent. The helper does all the effort to complete an activity 7 Patient refused to complete or attempt activity 9 The patient did not perform the activity before the current illness or inj ury 88 Not attempted due to Medical conditions or safety concerns Sit to/from Stand: 4 Sit to Stand (QC): 3 Weight Bearing Right Lower Extremity: Right Weight Bearing/Tolerated Left Lower Extremity: Left Weight Bearing/Tolerated total shoulder protocol on right side Gait Training Does the Patient Walk?: Yes Gait (FIM): 4 Distance (FIM): 7=853-92 ft Distance: 110 Walk 10 feet (QC): 4 Walk 50 ft with 2 Turns(QC): 4 Gait Level of Assist: 4 Gait Persons Needed: 1 Gait Assistive Device: Cane Large Base Quad Pt ambulated with CGA, no LOB, good safety awareness. Utilized toilet with CGA for balance. Treatments Gait training with QC. Pt returned to chair with needs met. Pt reports spouse h as been assisting with PROM (R) shoulder. Assessment Current Status: Good Progress Pt tolerated well. Sit->stand transfer precarious due to (L) knee locked in near full extension. No LOB with gait. PT Short Term Goals Short Term Goals Time Frame: September 18, 2018 Transfers (B,C,W/C) (FIM): 4 Gait (FIM): 2 Gait Distance Comment: 100' Gait Level of Assist: 4 Gait Assistive Device: Handheld Assist PT Snf Goals Snf Goals PT Snf Goals Time Frame: Oct 02, 2018 Transfers (B,C,W/C) (FIM): 5 Sit to Lying (QC): 6 Lying-Sitting on Side/Bed(QC): 6 Sit to Stand (QC): 4 Rollin Roll Left to Right (QC): 6 Chair/Yhb-ug-Tnngg Xfer(QC): 4 Car Transfer (QC): 4 Gait (FIM): 4 Distance: 150' Walk 10 feet (QC): 4 Walk 10ft-Uneven Surface(QC): 4 Walk 50ft with 2 Turns (QC): 4 Walk 150 ft (QC): 4 Gait Level of Assist: 4 (CGA) Gait Assistive Device: Handheld Assist Stairs (FIM): 1 # of Steps: 1 1 Step (curb) (QC): 3 Stairs Level Of Assist: 4 PT Plan Problem List Problem List: Activity Tolerance, Functional Strength, Safety, Balance, Gait, Transfer, Bed Mobility, ROM Treatment/Plan Treatment Plan: Continue Plan of Care Treatment Plan: Bed Mobility, Concurrent Therapy, Education, Functional Activity Joel, Functional Strength, Group Therapy, Gait, Safety, Therapeutic Exercise, Transfers Treatment Duration: Oct 02, 2018 Frequency: At least 5 of 7 days/Wk (IRF) Estimated Hrs Per Day: 1.5 hours per day Patient and/or Family Agrees t: Yes Safety Risks/Education Patient Education: Gait Training Teaching Recipient: Patient Teaching Methods: Discussion Response to Teaching: Verbalize Understanding, Return Demonstration Time/GCodes Time In: 1035 Time Out: 1053 Total Billed Treatment Time: 18 Total Billed Treatment 1, GT x 18' G Codes Necessary: No RAMEZ CASTILLO DPT Sep 23, 2018 11:23
--- NOTE | 2018-09-23 11:37 | PM&R Progress Note ---
Subjective HPI/CC On Admission Date Seen by Provider: Sep 23, 2018 Time Seen by Provider: 11:00 CC: Right shoulder replacement with severe limitation of activities with debility HPI: This is an 88yoWM clinic patient of Dr Pimentel who presents to IRF after an uncomplicated right shoulder replacement by Dr Tobar at [facility] Tuesday but required IRF stay due to advanced age and frailty requiring 2 person assist in addition to left knee fusion due to replacements that have failed x 2 in the past further limiting his ability to ambulate and take care of himself at home. Patient finally arrived at 700pm last night and has settled in and doing well. BM this morning after laxatives given at [facility]. Pain is well controlled currently. Dr Pimentel has been notified of the consultation for his PCP needs. Right sling will stay in place during activity. His is at home in frail health also. I have reviewed his home meds and restarted all. PLOF was independent with ADL's. Patient seen for evaluation of chronic hypertension as well as new onset thrombocytopenia mild after the above. He is still on prophylactic Lovenox reporting no bleeding problems. He states that he has felt well in the shoulder pain is been under good control. He's had no evidence for bright red blood per rectum or melena in his appetite is back to normal. He had some postop constipation as well as urinary retention requiring short-term catheter placement. Catheter was removed before discharge and he reports urination is been smaller volume but he does feel as though he is emptying. His usual nocturia is 1 here in the hospital he reports nocturia 2 it is been darker in color without dysuria he's not aware of any change in odor and denies flank pain chills or fever. Subjective/Events-last exam Left leg reportedly had some redness last evening but now resolved. ERIKA's on. 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 Conferred with RN. Reviewed therapy notes. Sodium level is 131 and stable Using IS Review of Systems General: Fatigue Cardiovascular: Edema Musculoskeletal: arm pain, leg pain Objective Exam Vital Signs Vital Signs Date Time Temp Pulse Resp B/P (MAP) Pulse Ox O2 Delivery O2 Flow Rate FiO2 09/23/18 09:00 Room Air 09/23/18 06:05 97.4 75 18 109/62 (78) 96 Capillary Refill : Less Than 3 Seconds General Appearance: No Apparent Distress, WD/WN, Chronically ill, Thin HEENT: PERRL/EOMI, TMs Normal, Normal ENT Inspection, Pharynx Normal, Moist Mucous Membranes Neck: Full Range of Motion, Normal Inspection, Non Tender, Supple Respiratory: Chest Non Tender, Lungs Clear, Normal Breath Sounds, No Accessory Muscle Use, No Respiratory Distress Cardiovascular: Regular Rate, Rhythm, No Gallop, No JVD, No Murmur Gastrointestinal: Normal Bowel Sounds, No Organomegaly, No Pulsatile Mass, Non Tender, Soft Back: Normal Inspection, No CVA Tenderness, No Vertebral Tenderness Extremity: Normal Capillary Refill, Normal Inspection, Normal Range of Motion (except right shoulder and chronic fusion left knee), Non Tender, No Calf Tenderness, Pedal Edema (ERIKA hose intact) Neurologic/Psychiatric: Alert, Oriented x3, No Motor/Sensory Deficits, Normal Mood/Affect Skin: Normal Color, Warm/Dry, Other (subtle erythema left leg appears venous stasis dermatitis) Lymphatic: No Adenopathy Results/Procedures Lab Patient resulted labs reviewed. FIM Transfers Therapy Code Descriptions/Definitions Functional [place] Measure: 0=Not Assessed/NA 4=Minimal Assistance 1=Total Assistance 5=Supervision or Setup 2=Maximal Assistance 6=Modified [place] 3=Moderate Assistance 7=Complete [place] Therapy Quality Codes: 6 Independent with activity with or without an assistive device 5 Patient requires set up or clean up by helper. Patient completes activity by themselves 4 Supervision or touching assist (CGA). [place] provide cues , steadying assist 3 The helper provides less than half the effort to complete the activity 2 The helper provides more than half the effort to complete the activity 1 Dependent. The helper does all the effort to complete an activity 7 Patient refused to complete or attempt activity 9 The patient did not perform the activity before the current illness or injury 88 Not attempted due to Medical conditions or safety concerns Transfers (B, C, W/C) (FIM): 4 Scootin Rollin Roll Left to Right (QC): 4 Supine to/from Sit: 5 Sit to/from Stand: 4 Sit to Lying (QC): 5 Sit to Stand (QC): 3 Chair/Twf-dx-Tesil Xfer(QC): 2 Bed to/from Chair: 4 Car Transfer (QC): 2 Gait Training Does the Patient Walk?: Yes Gait (FIM): 4 Distance (FIM): 7=923-01 ft Distance: 110 Walk 10 feet (QC): 4 Walk 50 ft with 2 Turns(QC): 4 Walk 150 ft (QC): 4 Walking 10ft/uneven surface-QC: 3 Gait Level of Assist: 4 Gait Persons Needed: 1 Gait Assistive Device: Cane Large Base Quad Wheelchair Training Does the Pt Use a Wheelchair?: No Mental Status/Objective Comprehension: 7 Expression: 7 Social Interaction: 7 Problem Solvin Memory: 7 ADL-Treatment Feedin (Pt does demonstrate ability to open packages though requests assist with difficult items. Uses regular utensils to eat.) Eating (QC): 5 Groomin (Sitting at sink, pt completes by self.) Oral Hygiene (QC): 6 Bathin (Sponge bath. Sitting at sink, pt completes by self.) Bathing Location: L Arm, R Arm, L Upper Leg, R Upper Leg, L Lower Leg (including foot), R Lower Leg (including foot), Chest, Abdomen, Buttocks (Completes with toileting), Perineal Area Shower/Bathe Self (QC): 6 (Sponge bathe) Upper Extremity Dressin (After set up, pt completes by self.) Upper Body Dressing (QC): 5 Lower Extremity Dressin (Using AE, pt able to don pants over feet. Assist while pt stabilizes self in standing to hike pants over hips. Assist to don/doff ERIKA hose. Pt dons/doffs shoes by self with AE then assist to tie.) Lower Body Dressing (QC): 3 On/Off Footwear (QC): 3 Toiletin (Assist to hike over hips, hikes down over hips with CGA. Cleanses self on toilet.) Toileting Hygiene (QC): 3 Toilet/Commode Transfer: 4 (Using grabbar, w/c and BSC for transfer.) Toilet Transfer (QC): 3 Shower: 4 Assessment/Plan Assessment and Plan Assess & Plan/Chief Complaint Assessment: s/p right shoulder replacement uncomplicated POD # 17 at [facility] Post op urinary retention requiring Ferrell cath but now resolved since cath removed Chronic left knee fusion HTN Allergic rhinitis Anemia Hypothyroidism Neuropathy BPH GERD Anemia Hyponatremia Low albumin Left leg subtle redness with h/o cellulitis in the past Edema wearing ERIKA's Plan: Pain control IRF protocols Fall risk PCP consulted and input is appreciated BM regimen Lovenox PPx Monitor BP and abide by parameters Monitor sodium level, 131 on recheck Work on transfers since it is much improved today with 1 person assist ERIKA hose intact Monitor left leg (1) Status post replacement of right shoulder joint (2) Constipation (3) Urinary retention (4) Anemia (5) Hypothyroidism (6) GERD (gastroesophageal reflux disease) (7) Allergic rhinitis (8) Hypertension (9) BPH (benign prostatic hyperplasia) (10) 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
[2018-09-23 17:07] VITALS: BP 123/80
[2018-09-23] MEDS: ASCORBIC ACID (VIT C) 500 MG TABLET PO SCH (18:02)
--- NOTE | 2018-09-23 19:06 | NUR ---
bedside report received from KORY BOWDEN, assume care of pt
[2018-09-23] MEDS: TAMSULOSIN 0.4 MG (FLOMAX) CAP PO SCH (20:05)
[2018-09-23] MEDS: GABAPENTIN 100 MG (NEURONTIN) CAP PO SCH (20:05)
[2018-09-23] MEDS: FLUTICASONE NASAL SPRAY (FLONASE) 16 GM BTL NS SCH (20:05)
--- NOTE | 2018-09-23 20:05 | NUR ---
refused Arely coronel, b/p 109/, remains up in the chair
[2018-09-23] MEDS: SENNA W/DOCUSATE (SENOKOT S) TABLET PO SCH (20:06)
--- NOTE | 2018-09-23 20:14 | NUR ---
assessments & interventions completed, see assessments & interventions.
--- NOTE | 2018-09-23 20:30 | NUR ---
back to bed with 1-2 person assist
[2018-09-23] MEDS: HYDROcodone/APAP 5 MG/325 MG (LORTAB) TAB PO PRN (22:42)
--- NOTE | 2018-09-23 22:42 | NUR ---
c/o neck pain level 4/10 on numeric scale, Lortab 5 1 tab po given
--- NOTE | 2018-09-23 23:20 | NUR ---
resting quietly in bed, pain level 0/10 on flacc scale
[2018-09-24 06:15] VITALS: BP 112/68
[2018-09-24] MEDS: CALCIUM PO SCH (06:34)
[2018-09-24] MEDS: MULTIVIT W/MINERALS TAB (THERAGRAN M) PO SCH (06:34)
[2018-09-24] MEDS: LEVOTHYROXINE 125 MCG (LEVOTHROID) TABLET PO SCH (06:34)
[2018-09-24] MEDS: MAGNESIUM PO SCH (06:34)
[2018-09-24] MEDS: ZINC PO SCH (06:34)
--- NOTE | 2018-09-24 07:10 | NUR ---
bedside report given to KORY BOWDEN
[2018-09-24] MEDS: FAMOTIDINE 20 MG (PEPCID) TABLET PO SCH (08:08)
[2018-09-24] MEDS: ENOXAPARIN 40 MG/0.4 ML (LOVENOX) SYR SC SCH (08:11)
--- NOTE | 2018-09-24 10:30 | NUR ---
REDNESS CONTINUES IN LEFT LOWER LEG AND PATIENT REQUESTED ERIKA HOSE BE LEFT OFF TODAY. DR. NATALIO PHAN'D THIS. STATES OVERDID EXERCISES ON OWN YESTERDAY AND RIGHT NECK SORE THIS AM.
--- NOTE | 2018-09-24 11:18 | PM&R Progress Note ---
Subjective HPI/CC On Admission Date Seen by Provider: Sep 24, 2018 Time Seen by Provider: 11:00 CC: Right shoulder replacement with severe limitation of activities with debility HPI: This is an 88yoWM clinic patient of Dr Pimentel who presents to IRF after an uncomplicated right shoulder replacement by Dr Tobar at [facility] Tuesday but required IRF stay due to advanced age and frailty requiring 2 person assist in addition to left knee fusion due to replacements that have failed x 2 in the past further limiting his ability to ambulate and take care of himself at home. Patient finally arrived at 700pm last night and has settled in and doing well. BM this morning after laxatives given at [facility]. Pain is well controlled currently. Dr Pimentel has been notified of the consultation for his PCP needs. Right sling will stay in place during activity. His is at home in frail health also. I have reviewed his home meds and restarted all. PLOF was independent with ADL's. Patient seen for evaluation of chronic hypertension as well as new onset thrombocytopenia mild after the above. He is still on prophylactic Lovenox reporting no bleeding problems. He states that he has felt well in the shoulder pain is been under good control. He's had no evidence for bright red blood per rectum or melena in his appetite is back to normal. He had some postop constipation as well as urinary retention requiring short-term catheter placement. Catheter was removed before discharge and he reports urination is been smaller volume but he does feel as though he is emptying. His usual nocturia is 1 here in the hospital he reports nocturia 2 it is been darker in color without dysuria he's not aware of any change in odor and denies flank pain chills or fever. 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 Conferred with RN. Reviewed therapy notes. Sodium level is 131 and stable Using IS Checking labs periodically Review of Systems Musculoskeletal: arm pain, leg pain Objective Exam Vital Signs Vital Signs Date Time Temp Pulse Resp B/P (MAP) Pulse Ox O2 Delivery O2 Flow Rate FiO2 09/24/18 17:05 99.2 83 16 128/73 (91) 96 Room Air Capillary Refill : Less Than 3 Seconds General Appearance: No Apparent Distress, WD/WN, Chronically ill, Thin HEENT: PERRL/EOMI, TMs Normal, Normal ENT Inspection, Pharynx Normal, Moist Mucous Membranes Neck: Full Range of Motion, Normal Inspection, Non Tender, Supple Respiratory: Chest Non Tender, Lungs Clear, Normal Breath Sounds, No Accessory Muscle Use, No Respiratory Distress Cardiovascular: Regular Rate, Rhythm, No Gallop, No JVD, No Murmur Gastrointestinal: Normal Bowel Sounds, No Organomegaly, No Pulsatile Mass, Non Tender, Soft Back: Normal Inspection, No CVA Tenderness, No Vertebral Tenderness Extremity: Normal Capillary Refill, Normal Inspection, Normal Range of Motion (except right shoulder and chronic fusion left knee), Non Tender, No Calf Tenderness, Pedal Edema (ERIKA hose intact) Neurologic/Psychiatric: Alert, Oriented x3, No Motor/Sensory Deficits, Normal Mood/Affect Skin: Normal Color, Warm/Dry, Other (subtle erythema left leg appears venous stasis dermatitis) Lymphatic: No Adenopathy Results/Procedures Lab Patient resulted labs reviewed. FIM Transfers Therapy Code Descriptions/Definitions Functional [place] Measure: 0=Not Assessed/NA 4=Minimal Assistance 1=Total Assistance 5=Supervision or Setup 2=Maximal Assistance 6=Modified [place] 3=Moderate Assistance 7=Complete [place] Therapy Quality Codes: 6 Independent with activity with or without an assistive device 5 Patient requires set up or clean up by helper. Patient completes activity by themselves 4 Supervision or touching assist (CGA). [place] provide cues , steadying assist 3 The helper provides less than half the effort to complete the activity 2 The helper provides more than half the effort to complete the activity 1 Dependent. The helper does all the effort to complete an activity 7 Patient refused to complete or attempt activity 9 The patient did not perform the activity before the current illness or injury 88 Not attempted due to Medical conditions or safety concerns Transfers (B, C, W/C) (FIM): 4 Scootin Rollin Roll Left to Right (QC): 4 Supine to/from Sit: 5 Sit to/from Stand: 4 Sit to Lying (QC): 5 Sit to Stand (QC): 3 Chair/Ltf-st-Vjixq Xfer(QC): 2 Bed to/from Chair: 4 Car Transfer (QC): 2 Gait Training Does the Patient Walk?: Yes Gait (FIM): 4 Distance (FIM): 1=566-89 ft Distance: 110 Walk 10 feet (QC): 4 Walk 50 ft with 2 Turns(QC): 4 Walk 150 ft (QC): 4 Walking 10ft/uneven surface-QC: 3 Gait Level of Assist: 4 Gait Persons Needed: 1 Gait Assistive Device: Cane Large Base Quad Wheelchair Training Does the Pt Use a Wheelchair?: No Mental Status/Objective Comprehension: 7 Expression: 7 Social Interaction: 7 Problem Solvin Memory: 7 ADL-Treatment Feedin (Pt does demonstrate ability to open packages though requests assist with difficult items. Uses regular utensils to eat.) Eating (QC): 5 Groomin (Sitting at sink, pt completes by self.) Oral Hygiene (QC): 6 Bathin (Sponge bath. Sitting at sink, pt completes by self.) Bathing Location: L Arm, R Arm, L Upper Leg, R Upper Leg, L Lower Leg (including foot), R Lower Leg (including foot), Chest, Abdomen, Buttocks (Completes with toileting), Perineal Area Shower/Bathe Self (QC): 6 (Sponge bathe) Upper Extremity Dressin (After set up, pt completes by self.) Upper Body Dressing (QC): 5 Lower Extremity Dressin (Using AE, pt able to don pants over feet. Assist while pt stabilizes self in standing to hike pants over hips. Assist to don/doff ERIKA hose. Pt dons/doffs shoes by self with AE then assist to tie.) Lower Body Dressing (QC): 3 On/Off Footwear (QC): 3 Toiletin (Assist to hike over hips, hikes down over hips with CGA. Cleanses self on toilet.) Toileting Hygiene (QC): 3 Toilet/Commode Transfer: 4 (Using grabbar, w/c and BSC for transfer.) Toilet Transfer (QC): 3 Shower: 4 Assessment/Plan Assessment and Plan Assess & Plan/Chief Complaint Assessment: s/p right shoulder replacement uncomplicated POD # 18 at [facility] Post op urinary retention requiring Ferrell cath but now resolved since cath removed Chronic left knee fusion HTN Allergic rhinitis Anemia Hypothyroidism Neuropathy BPH GERD Anemia Hyponatremia Low albumin Left leg subtle redness with h/o cellulitis in the past Edema wearing ERIKA's Plan: Pain control IRF protocols Fall risk PCP consulted and input is appreciated BM regimen Lovenox PPx Monitor BP and abide by parameters Monitor sodium level, 131 on recheck Work on transfers since it is much improved today with 1 person assist ERIKA hose intact Monitor left leg (1) Status post replacement of right shoulder joint (2) Constipation (3) Urinary retention (4) Anemia (5) Hypothyroidism (6) GERD (gastroesophageal reflux disease) (7) Allergic rhinitis (8) Hypertension (9) BPH (benign prostatic hyperplasia) (10) 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
[2018-09-24 17:05] VITALS: BP 128/73
[2018-09-24] MEDS: ASCORBIC ACID (VIT C) 500 MG TABLET PO SCH (17:18)
--- NOTE | 2018-09-24 19:05 | NUR ---
bedside report received from KORY BOWDEN, assume care of pt
--- NOTE | 2018-09-24 20:42 | NUR ---
assessments & interventions completed, see assessments & interventions
[2018-09-24] MEDS: FLUTICASONE NASAL SPRAY (FLONASE) 16 GM BTL NS SCH (20:43)
--- NOTE | 2018-09-24 20:43 | NUR ---
gil Mcgee, b/p 120/, remains up in the chair
[2018-09-24] MEDS: TAMSULOSIN 0.4 MG (FLOMAX) CAP PO SCH (20:44)
[2018-09-24] MEDS: GABAPENTIN 100 MG (NEURONTIN) CAP PO SCH (20:44)
[2018-09-24] MEDS: SENNA W/DOCUSATE (SENOKOT S) TABLET PO SCH (20:46)
--- NOTE | 2018-09-24 21:20 | NUR ---
back to bed with 1-2 person assist
--- NOTE | 2018-09-25 03:51 | NUR ---
c/o rt elbow pain level 5/10 on numeric scale, Tylenol 1000mg po given
--- NOTE | 2018-09-25 04:30 | NUR ---
resting quietly in bed, pain level 0/10 on flacc scale
[2018-09-25 05:37] LABS: BASOPHILS % (AUTO) 1 % (0-10); EOSINOPHILS # (AUTO) 0.1 10^3/uL (0.0-0.3); EOSINOPHILS % (AUTO) 4 % (0-10); HEMATOCRIT 31 % (40-54); HEMOGLOBIN 10.3 G/DL (13.3-17.7); LYMPHOCYTES % (AUTO) 28 % (12-44); MEAN CORPUSCULAR HEMOGLOBIN 32 PG (25-34); MEAN CORPUSCULAR HGB CONC 34 G/DL (32-36); MEAN CORPUSCULAR VOLUME 94 FL (80-99); MEAN PLATELET VOLUME 7.9 FL (7.4-10.4); MONOCYTES # (AUTO) 0.6 X 10^3 (0.0-1.0); MONOCYTES % (AUTO) 16 % (0-12); NEUTROPHILS # (AUTO) 1.9 X 10^3 (1.8-7.8); NEUTROPHILS % (AUTO) 52 % (42-75); PLATELET COUNT 380 10^3/uL (130-400); RED CELL DISTRIBUTION WIDTH 13.7 % (10.0-14.5); WHITE BLOOD COUNT 3.8 10^3/uL (4.3-11.0)
[2018-09-25 05:44] VITALS: BP 124/72
[2018-09-25 05:59] LABS: ALANINE AMINOTRANSFERASE 29 U/L (0-55); ALBUMIN 2.8 GM/DL (3.2-4.5); ALKALINE PHOSPHATASE 128 U/L (40-136); BILIRUBIN,TOTAL 0.5 MG/DL (0.1-1.0); BUN/CREATININE RATIO 18; CALCIUM 8.6 MG/DL (8.5-10.1); CARBON DIOXIDE 25 MMOL/L (21-32); CHLORIDE 101 MMOL/L (98-107); CREATININE SERUM 0.74 MG/DL (0.60-1.30); GFR ESTIMATED > 60; GLUCOSE 112 MG/DL (70-105); POTASSIUM 4.4 MMOL/L (3.6-5.0); SODIUM 132 MMOL/L (135-145); TOTAL PROTEIN 4.8 GM/DL (6.4-8.2)
[2018-09-25] MEDS: CALCIUM PO SCH (06:26)
[2018-09-25] MEDS: MAGNESIUM PO SCH (06:26)
[2018-09-25] MEDS: LEVOTHYROXINE 125 MCG (LEVOTHROID) TABLET PO SCH (06:26)
[2018-09-25] MEDS: ZINC PO SCH (06:26)
[2018-09-25] MEDS: MULTIVIT W/MINERALS TAB (THERAGRAN M) PO SCH (06:26)
--- NOTE | 2018-09-25 07:05 | NUR ---
bedside report given to VIOLETA BOWDEN
--- NOTE | 2018-09-25 07:56 | Occupational Ther Daily Note ---
OT Current Status-Daily Note Subjective Pt alert, lying in bed. Pt agrees to therapy. Pt stated that pain in R elbow, nrsg had given pain meds and pain easing up. Mental Status/Objective Patient Orientation: Person, Place, Time, Situation Therapy Code Descriptions/Definitions Functional [place] Measure: 0=Not Assessed/NA 4=Minimal Assistance 1=Total Assistance 5=Supervision or Setup 2=Maximal Assistance 6=Modified [place] 3=Moderate Assistance 7=Complete [place] ADL-Treatment Supine to EOB with HOB elevated, mod I. CGA with elevated surface for sit to stand, min A from low surface. Pt ambulated with min A to bathroom. Min A to transfer using quadcane, grabbars and elevated surface, toilet and shower. Assist to hike clothing up over hips, hygiene sitting on BSC by self. Bathing sitting on elevated shower seat using grabbars and hand held shower, supervision. Pt leans side to side to cleanse buttocks. After set up, pt able to complete upper body dressing (set up only). Using AE dons/doffs pants, underwear and shoes over feet after set up then min A in standing to hike pants over hips while pt stabilizes self in standing, assist to tie shoes. Mod I for grooming. Therapy Code Descriptions/Definitions Functional [place] Measure: 0=Not Assessed/NA 4=Minimal Assistance 1=Total Assistance 5=Supervision or Setup 2=Maximal Assistance 6=Modified [place] 3=Moderate Assistance 7=Complete [place] Therapy Quality Codes: 6 Independent with activity with or without an assistive device 5 Patient requires set up or clean up by helper. Patient completes activity by themselves 4 Supervision or touching assist (CGA). [place] provide cues , steadying assist 3 The helper provides less than half the effort to complete the activity 2 The helper provides more than half the effort to complete the activity 1 Dependent. The helper does all the effort to complete an activity 7 Patient refused to complete or attempt activity 9 The patient did not perform the activity before the current illness or injury 88 Not attempted due to Medical conditions or safety concerns Grooming (FIM): 6 Oral Hygiene (QC): 6 Bathing (FIM): 5 Bathing Location: L Arm, R Arm, L Upper Leg, R Upper Leg, L Lower Leg (including foot), R Lower Leg (including foot), Chest, Abdomen, Buttocks, Perineal Area Shower/Bathe Self (QC): 4 Upper Body (FIM): 5 Upper Body Dressing (QC): 5 Lower Body Dressing (FIM): 4 Lower Body Dressing (QC): 3 On/Off Footwear (QC): 5 Toileting (FIM): 4 Toileting Hygiene (QC): 3 Transfers (B, C, W/C) (FIM): 4 Toilet/Commode Transfer (FIM): 4 Toilet Transfer (QC): 3 Shower Transfer(FIM): 4 Other Treatment Pt resists PROM with R UE, tenses up UE and is difficult to range UE. Pt stated when elbow is adducted to body a stretch is felt upper posterior shldr. Pt tends to hold R UE abducted from body, GUILLEN repositions brace to keep R UE positioned properly then slides toward R side. After therapy, pt sitting in recliner with call light/phone in reach. All needs met in room. OT Short Term Goals Short Term Goals Eating(FIM): 5 Grooming(FIM): 5 Bathing(FIM): 5 Bathing Location: L Arm, R Arm, L Upper Leg, R Upper Leg, L Lower Leg (including foot), R Lower Leg (including foot), Chest, Abdomen, Buttocks, Perineal Area Upper Body Dressing(FIM): 5 Lower Body Dressing(FIM): 5 Toileting(FIM): 5 Transfers (B,C,W/C) (FIM): 4 Toilet/Commode Transfer(FIM): 5 Shower Transfer(FIM): 5 (5) Additional Short Term Goals: 1-Demonstrate ADL Tasks, 2-Verbalize Understanding, 3-ImproveStrength/Joel 1=Demonstrate adherence to instructed precautions during ADL tasks. 2=Patient will verbalize/demonstrate understanding of assistive devices/modifications for ADL. 3=Patient will improve strength/tolerance for activity to enable patient to pe rform ADL's. OT Custodial Goals Family Psychologist Goals Eating (FIM): 7 Eating (QC): 6 Groomin Oral Hygiene (QC): 6 Bathing(FIM): 6 Bathing Location: L Arm, R Arm, L Upper Leg, R Upper Leg, L Lower Leg (including foot), R Lower Leg (including foot), Chest, Abdomen, Buttocks, Perineal Area Shower/Bathe Self (QC): 6 Upper Body Dressing(FIM): 6 Upper Body Dressing (QC): 6 Lower Body Dressing(FIM): 6 Lower Body Dressing (QC): 6 On/Off Footwear (QC): 6 Toileting(FIM): 6 Toileting Hygiene (QC): 6 Transfers (B,C,W/C) (FIM): 6 Toilet/Commode Transfer(FIM): 6 Toilet/Commode Transfer (QC): 6 Shower Transfer(FIM): 6 1=Demonstrate adherence to instructed precautions during ADL tasks. 2=Patient will verbalize/demonstrate understanding of assistive devices/modifications for ADL. 3=Patient will improve strength/tolerance for activity to enable patient to perform ADL's. OT Education/Plan Problem List/Assessment Assessment: Decreased UE Strength, Impaired Funct Balance, Impaired Self-Care Skills, Restricted Funct UE ROM pt presents with functional limitations affecting areas of ADLS/ functional transfers. pt protocol for R shoulder can be found in chart. pt would benefit from OT services to increase independence with ADLS/ functional transfers and for safe transition to home. Discharge Recommendations Plan/Recommendations: Continue POC Treatment Plan/Plan of Care Patient would benefit from OT for education, treatment and training to promote independence in ADL's, mobility, safety and/or upper extremity function for ADL's. Plan of Care: ADL Retraining, Caregiver Training, Concurrent Therapy, Functional Mobility, Group Exercise/Act as Ind, Orthotic Fitting/Training, UE Funct Exercise/Act Treatment Duration: Oct 09, 2018 Frequency: At least 5 of 7 days/Wk (IRF) Estimated Hrs Per Day: 1.5 hours per day (60-90 minutes per day) Agreement: Yes Rehab Potential: Fair Time/GCodes Start Time: 07:00 Stop Time: 08:30 Total Time Billed (hr/min): 90 Billed Treatment Time 1 visit-ADL 6 (90 min) PAZ SHIPMAN Sep 25, 2018 07:56
--- NOTE | 2018-09-25 08:06 | PM&R Progress Note ---
Subjective HPI/CC On Admission Date Seen by Provider: Sep 25, 2018 Time Seen by Provider: 08:15 CC: Right shoulder replacement with severe limitation of activities with debility HPI: This is an 88yoWM clinic patient of Dr Pimentel who presents to IRF after an uncomplicated right shoulder replacement by Dr Tobar at [facility] but required IRF stay due to advanced age and frailty requiring 2 person assist in addition to left knee fusion due to replacements that have failed x 2 in the past further limiting his ability to ambulate and take care of himself at home. Patient finally arrived at 700pm last night and has settled in and doing well. BM this morning after laxatives given at [facility]. Pain is well controlled currently. Dr Pimentel has been notified of the consultation for his PCP needs. Right sling will stay in place during activity. His is at home in frail health also. I have reviewed his home meds and restarted all. PLOF was independent with ADL's. Patient seen for evaluation of chronic hypertension as well as new onset thrombocytopenia mild after the above. He is still on prophylactic Lovenox reporting no bleeding problems. He states that he has felt well in the shoulder pain is been under good control. He's had no evidence for bright red blood per rectum or melena in his appetite is back to normal. He had some postop constipation as well as urinary retention requiring short-term catheter placement. Catheter was removed before discharge and he reports urination is been smaller volume but he does feel as though he is emptying. His usual nocturia is 1 here in the hospital he reports nocturia 2 it is been darker in color without dysuria he's not aware of any change in odor and denies flank pain chills or fever. Subjective/Events-last exam Doing well today BM yesterday Usually uses a compression stocking on his left leg Redness of the leg is not any worse and appears to be chronic Labs were reviewed that were obtained this morning Working on transfers since he was a 2 person assist and now is a 1 person assist In preparation of going home Conferred with RN. Reviewed therapy notes. Review of Systems General: Fatigue Musculoskeletal: arm pain, leg pain Objective Exam Vital Signs Vital Signs Date Time Temp Pulse Resp B/P (MAP) Pulse Ox O2 Delivery O2 Flow Rate FiO2 09/25/18 15:19 97.4 77 16 108/64 (79) 97 Room Air Capillary Refill : Less Than 3 Seconds General Appearance: No Apparent Distress, WD/WN, Chronically ill, Thin HEENT: PERRL/EOMI, TMs Normal, Normal ENT Inspection, Pharynx Normal, Moist Mucous Membranes Neck: Full Range of Motion, Normal Inspection, Non Tender, Supple Respiratory: Chest Non Tender, Lungs Clear, Normal Breath Sounds, No Accessory Muscle Use, No Respiratory Distress Cardiovascular: Regular Rate, Rhythm, No Gallop, No JVD, No Murmur Gastrointestinal: Normal Bowel Sounds, No Organomegaly, No Pulsatile Mass, Non Tender, Soft Back: Normal Inspection, No CVA Tenderness, No Vertebral Tenderness Extremity: Normal Capillary Refill, Normal Inspection, Normal Range of Motion (except right shoulder and chronic fusion left knee), Non Tender, No Calf Tenderness, Pedal Edema (ERIKA hose intact) Neurologic/Psychiatric: Alert, Oriented x3, No Motor/Sensory Deficits, Normal Mood/Affect Skin: Normal Color, Warm/Dry, Other (subtle erythema left leg appears venous stasis dermatitis) Lymphatic: No Adenopathy Results/Procedures Lab Laboratory Tests 09/25/18 05:08 Patient resulted labs reviewed. FIM Transfers Therapy Code Descriptions/Definitions Functional [place] Measure: 0=Not Assessed/NA 4=Minimal Assistance 1=Total Assistance 5=Supervision or Setup 2=Maximal Assistance 6=Modified [place] 3=Moderate Assistance 7=Complete [place] Therapy Quality Codes: 6 Independent with activity with or without an assistive device 5 Patient requires set up or clean up by helper. Patient completes activity by themselves 4 Supervision or touching assist (CGA). [place] provide cues , steadying assist 3 The helper provides less than half the effort to complete the activity 2 The helper provides more than half the effort to complete the activity 1 Dependent. The helper does all the effort to complete an activity 7 Patient refused to complete or attempt activity 9 The patient did not perform the activity before the current illness or injury 88 Not attempted due to Medical conditions or safety concerns Transfers (B, C, W/C) (FIM): 4 Scootin Rollin Roll Left to Right (QC): 4 Supine to/from Sit: 5 Sit to/from Stand: 4 Sit to Lying (QC): 5 Sit to Stand (QC): 3 Chair/Lto-kn-[place] Xfer(QC): 2 Bed to/from Chair: 4 Car Transfer (QC): 2 Gait Training Does the Patient Walk?: Yes Gait (FIM): 4 Distance (FIM): 9=693-39 ft Distance: 110 Walk 10 feet (QC): 4 Walk 50 ft with 2 Turns(QC): 4 Walk 150 ft (QC): 4 Walking 10ft/uneven surface-QC: 3 Gait Level of Assist: 4 Gait Persons Needed: 1 Gait Assistive Device: Cane Large Base Quad Wheelchair Training Does the Pt Use a Wheelchair?: No Mental Status/Objective Comprehension: 7 Expression: 7 Social Interaction: 7 Problem Solvin Memory: 7 ADL-Treatment Feedin (Pt does demonstrate ability to open packages though requests assist with difficult items. Uses regular utensils to eat.) Eating (QC): 5 Groomin (Sitting at sink, pt completes by self.) Oral Hygiene (QC): 6 Bathin (Sponge bath. Sitting at sink, pt completes by self.) Bathing Location: L Arm, R Arm, L Upper Leg, R Upper Leg, L Lower Leg (including foot), R Lower Leg (including foot), Chest, Abdomen, Buttocks (Completes with toileting), Perineal Area Shower/Bathe Self (QC): 6 (Sponge bathe) Upper Extremity Dressin (After set up, pt completes by self.) Upper Body Dressing (QC): 5 Lower Extremity Dressin (Using AE, pt able to don pants over feet. Assist while pt stabilizes self in standing to hike pants over hips. Assist to don/doff ERIKA hose. Pt dons/doffs shoes by self with AE then assist to tie.) Lower Body Dressing (QC): 3 On/Off Footwear (QC): 3 Toiletin (Assist to hike over hips, hikes down over hips with CGA. C leanses self on toilet.) Toileting Hygiene (QC): 3 Toilet/Commode Transfer: 4 (Using grabbar, w/c and BSC for transfer.) Toilet Transfer (QC): 3 Shower: 4 Assessment/Plan Assessment and Plan Assess & Plan/Chief Complaint Assessment: s/p right shoulder replacement uncomplicated POD # 19 at [facility] Post op urinary retention requiring Ferrell cath but now resolved since cath removed Chronic left knee fusion HTN Allergic rhinitis Anemia Hypothyroidism Neuropathy BPH GERD Anemia Hyponatremia Low albumin Left leg subtle redness with h/o cellulitis in the past Edema wearing ERIKA's Plan: Pain control IRF protocols Fall risk PCP consulted and input is appreciated BM regimen Lovenox PPx Monitor BP and abide by parameters Monitor sodium level, 131 on recheck Work on transfers since it is much improved today with 1 person assist ERIKA hose intact Monitor left leg (1) Status post replacement of right shoulder joint (2) Constipation (3) Urinary retention (4) Anemia (5) Hypothyroidism (6) GERD (gastroesophageal reflux disease) (7) Allergic rhinitis (8) Hypertension (9) BPH (benign prostatic hyperplasia) (10) Limitation of joint motion of left knee (11) Hyponatremia (12) Serum albumin decreased RICO LANCE DO Sep 25, 2018 08:06
[2018-09-25] MEDS: FAMOTIDINE 20 MG (PEPCID) TABLET PO SCH (09:13)
[2018-09-25] MEDS: ENOXAPARIN 40 MG/0.4 ML (LOVENOX) SYR SC SCH (09:13)
--- NOTE | 2018-09-25 11:48 | Physical Therapy Daily Note ---
PT Daily Note-Current Subjective Patient in recliner pre tx, agrees to PT, has no complaints of pain. Appearance Patient in recliner post tx with nurse call, phone, tray, all needs met. Mental Status Patient Orientation: Person, Place, Situation arm immobilizer Transfers Therapy Code Descriptions/Definitions Functional [place] Measure: 0=Not Assessed/NA 4=Minimal Assistance 1=Total Assistance 5=Supervision or Setup 2=Maximal Assistance 6=Modified [place] 3=Moderate Assistance 7=Complete [place] Therapy Quality Codes: 6 Independent with activity with or without an assistive device 5 Patient requires set up or clean up by helper. Patient completes activity by themselves 4 Supervision or touching assist (CGA). [place] provide cues , steadying assist 3 The helper provides less than half the effort to complete the activity 2 The helper provides more than half the effort to complete the activity 1 Dependent. The helper does all the effort to complete an activity 7 Patient refused to complete or attempt activity 9 The patient did not perform the activity before the current illness or injury 88 Not attempted due to Medical conditions or safety concerns Transfers (B, C, W/C) (FIM): 4 Sit to/from Stand: 4 Bed to/from Chair: 4 Min assist to stand from lower surfaces, CGA for transfers, occasional cues for positioning and safety. Weight Bearing Right Lower Extremity: Right Weight Bearing/Tolerated Left Lower Extremity: Left Weight Bearing/Tolerated total shoulder protocol on right side Gait Training Gait (FIM): 4 Distance: 150'x2 Gait Level of Assist: 4 Gait Persons Needed: 1 Gait Assistive Device: Cane Large Base Quad Patient ambulated 150'x2 with a quad cane with min assist. He needs assist with balance on occasion, and had a total LOB once but recovered with therapist katie ssist. He needs occasional assist lightly with balance adjustments. Patient ambulates slowly, short, uncoordinated steps. Exercises Standing: Hip Abduction, Heel/toe raises, Marching, Mini squats Standing Reps: 15 LAQ alternating for 5 min, sit to stand from an elevated surface 3 sets of 10 with CGA. NuStep Minutes: 15 NuStep Workload: 4 Treatments transfers, ambulation, LE strengthening Assessment Current Status: Fair Progress improving endurance but continues to have balance issues PT Short Term Goals Short Term Goals Time Frame: September 18, 2018 Transfers (B,C,W/C) (FIM): 4 Gait (FIM): 2 Gait Distance Comment: 100' Gait Level of Assist: 4 Gait Assistive Device: Handheld Assist PT Clinical Care Leader Goals Clinical Care Leader Goals PT Prison Goals Time Frame: Oct 02, 2018 Transfers (B,C,W/C) (FIM): 5 Sit to Lying (QC): 6 Lying-Sitting on Side/Bed(QC): 6 Sit to Stand (QC): 4 Rollin Roll Left to Right (QC): 6 Chair/Ndq-wj-Tfpwc Xfer(QC): 4 Car Transfer (QC): 4 Gait (FIM): 4 Distance: 150' Walk 10 feet (QC): 4 Walk 10ft-Uneven Surface(QC): 4 Walk 50ft with 2 Turns (QC): 4 Walk 150 ft (QC): 4 Gait Level of Assist: 4 (CGA) Gait Assistive Device: Handheld Assist Stairs (FIM): 1 # of Steps: 1 1 Step (curb) (QC): 3 Stairs Level Of Assist: 4 PT Plan Problem List Problem List: Activity Tolerance, Functional Strength, Safety, Balance, Gait, Transfer, Bed Mobility, ROM Treatment/Plan Treatment Plan: Continue Plan of Care Treatment Plan: Bed Mobility, Concurrent Therapy, Education, Functional Activity Joel, Functional Strength, Group Therapy, Gait, Safety, Therapeutic Exercise, Transfers Treatment Duration: Oct 02, 2018 Frequency: At least 5 of 7 days/Wk (IRF) Estimated Hrs Per Day: 1.5 hours per day Patient and/or Family Agrees t: Yes Safety Risks/Education Patient Education: Gait Training, Transfer Techniques, Reviewed Precautions, Correct Positioning, Safety Issues Teaching Recipient: Patient Teaching Methods: Demonstration, Discussion Response to Teaching: Reinforcement Needed Time/GCodes Time In: 1020 Time Out: 1150 Total Billed Treatment Time: 90 Total Billed Treatment 1 visit GT 30' EX 60' NAGA JACOBS PT Sep 25, 2018 11:47
[2018-09-25 15:19] VITALS: BP 108/64
[2018-09-25] MEDS: ASCORBIC ACID (VIT C) 500 MG TABLET PO SCH (17:19)
--- NOTE | 2018-09-25 19:06 | NUR ---
bedside report received from VIOLETA BOWDEN, assume care of pt
--- NOTE | 2018-09-25 20:45 | NUR ---
assessments & interventions completed, see assessments & interventions, remains up in the chair
[2018-09-25] MEDS: FLUTICASONE NASAL SPRAY (FLONASE) 16 GM BTL NS SCH (20:52)
[2018-09-25] MEDS: GABAPENTIN 100 MG (NEURONTIN) CAP PO SCH (20:52)
[2018-09-25] MEDS: TAMSULOSIN 0.4 MG (FLOMAX) CAP PO SCH (20:52)
--- NOTE | 2018-09-25 20:52 | NUR ---
b/p 104/, refused [place] this pm
[2018-09-25] MEDS: SENNA W/DOCUSATE (SENOKOT S) TABLET PO SCH (20:55)
--- NOTE | 2018-09-25 22:30 | NUR ---
back to bed with 1 person assist & cane
[2018-09-26 05:35] VITALS: BP 108/67
[2018-09-26] MEDS: MULTIVIT W/MINERALS TAB (THERAGRAN M) PO SCH (06:12)
[2018-09-26] MEDS: ZINC PO SCH (06:12)
[2018-09-26] MEDS: MAGNESIUM PO SCH (06:12)
[2018-09-26] MEDS: LEVOTHYROXINE 125 MCG (LEVOTHROID) TABLET PO SCH (06:12)
[2018-09-26] MEDS: CALCIUM PO SCH (06:12)
--- NOTE | 2018-09-26 07:09 | NUR ---
bedside report given to JOSÉ BOWDEN
--- NOTE | 2018-09-26 07:31 | Occupational Ther Daily Note ---
OT Current Status-Daily Note Subjective Pt alert, lying in bed. Pt agrees to therapy. No c/o pain at this time. Mental Status/Objective Patient Orientation: Person, Place, Time, Situation Therapy Code Descriptions/Definitions Functional [place] Measure: 0=Not Assessed/NA 4=Minimal Assistance 1=Total Assistance 5=Supervision or Setup 2=Maximal Assistance 6=Modified [place] 3=Moderate Assistance 7=Complete [place] ADL-Treatment Pt declined shower. Completed sponge bath. Therapy Code Descriptions/Definitions Functional [place] Measure: 0=Not Assessed/NA 4=Minimal Assistance 1=Total Assistance 5=Supervision or Setup 2=Maximal Assistance 6=Modified [place] 3=Moderate Assistance 7=Complete [place] Therapy Quality Codes: 6 Independent with activity with or without an assistive device 5 Patient requires set up or clean up by helper. Patient completes activity by themselves 4 Supervision or touching assist (CGA). [place] provide cues , steadying assist 3 The helper provides less than half the effort to complete the activity 2 The helper provides more than half the effort to complete the activity 1 Dependent. The helper does all the effort to complete an activity 7 Patient refused to complete or attempt activity 9 The patient did not perform the activity before the current illness or injury 88 Not attempted due to Medical conditions or safety concerns Grooming (FIM): 6 (Sitting at sink, pt completes by self.) Oral Hygiene (QC): 6 Bathing (FIM): 5 (After set up for sponge bath, pt completes by self.) Bathing Location: L Arm, R Arm, L Upper Leg, R Upper Leg, L Lower Leg (including foot), R Lower Leg (including foot), Chest, Abdomen, Buttocks, Perineal Area Shower/Bathe Self (QC): 5 Upper Body (FIM): 5 (After set up, pt completes by self. Assist to don brace. Pt able to doff by self.) Upper Body Dressing (QC): 5 Lower Body Dressing (FIM): 4 (Using AE, pt able to complete donning/doffing clothing over feet then up LE's. Assist to tie shoes and CGA to hike pants over hips.) Lower Body Dressing (QC): 3 On/Off Footwear (QC): 3 (Assist to tie shoes. Don/doff by self using AE.) Toileting (FIM): 4 (Using grabbar and BSC, pt able to hike pants down over hips and complete hygiene. Assit to hike pants up over hips.) Toileting Hygiene (QC): 3 Transfers (B, C, W/C) (FIM): 4 (Min A with elevated surface.) Toilet/Commode Transfer (FIM): 4 (Min A using grabbar, quadcane and BSC.) Toilet Transfer (QC): 3 Other Treatment Completed PROM for shldr flexion, 85*-90*. Able to get R elbow WFL extension. Pt able to tolerate ROM for R UE. After therapy, pt sitting in recliner with call light/phone in reach. All needs met in room. OT Short Term Goals Short Term Goals Eating(FIM): 5 Grooming(FIM): 5 Bathing(FIM): 5 Bathing Location: L Arm, R Arm, L Upper Leg, R Upper Leg, L Lower Leg (including foot), R Lower Leg (including foot), Chest, Abdomen, Buttocks, Perineal Area Upper Body Dressing(FIM): 5 Lower Body Dressing(FIM): 5 Toileting(FIM): 5 Transfers (B,C,W/C) (FIM): 4 Toilet/Commode Transfer(FIM): 5 Shower Transfer(FIM): 5 (5) Additional Short Term Goals: 1-Demonstrate ADL Tasks, 2-Verbalize Underst anding, 3-ImproveStrength/Joel 1=Demonstrate adherence to instructed precautions during ADL tasks. 2=Patient will verbalize/demonstrate understanding of assistive devices/modifications for ADL. 3=Patient will improve strength/tolerance for activity to enable patient to perform ADL's. OT Snf Goals Snf Goals Eating (FIM): 7 Eating (QC): 6 Groomin Oral Hygiene (QC): 6 Bathing(FIM): 6 Bathing Location: L Arm, R Arm, L Upper Leg, R Upper Leg, L Lower Leg (including foot), R Lower Leg (including foot), Chest, Abdomen, Buttocks, Perineal Area Shower/Bathe Self (QC): 6 Upper Body Dressing(FIM): 6 Upper Body Dressing (QC): 6 Lower Body Dressing(FIM): 6 Lower Body Dressing (QC): 6 On/Off Footwear (QC): 6 Toileting(FIM): 6 Toileting Hygiene (QC): 6 Transfers (B,C,W/C) (FIM): 6 Toilet/Commode Transfer(FIM): 6 Toilet/Commode Transfer (QC): 6 Shower Transfer(FIM): 6 1=Demonstrate adherence to instructed precautions during ADL tasks. 2=Patient will verbalize/demonstrate understanding of assistive devices/modifications for ADL. 3=Patient will improve strength/tolerance for activity to enable patient to perform ADL's. OT Education/Plan Problem List/Assessment Assessment: Decreased UE Strength, Impaired Funct Balance, Restricted Funct UE ROM pt presents with functional limitations affecting areas of ADLS/ functional transfers. pt protocol for R shoulder can be found in chart. pt would benefit from OT services to increase independence with ADLS/ functional transfers and for safe transition to home. Discharge Recommendations Plan/Recommendations: Continue POC Treatment Plan/Plan of Care Patient would benefit from OT for education, treatment and training to promote independence in ADL's, mobility, safety and/or upper extremity function for ADL's. Plan of Care: ADL Retraining, Caregiver Training, Concurrent Therapy, Functional Mobility, Group Exercise/Act as Ind, Orthotic Fitting/Training, UE Funct Exercise/Act Treatment Duration: Oct 09, 2018 Frequency: At least 5 of 7 days/Wk (IRF) Estimated Hrs Per Day: 1.5 hours per day (60-90 minutes per day) Agreement: Yes Rehab Potential: Fair Time/GCodes Start Time: 07:00 Stop Time: 08:30 Total Time Billed (hr/min): 90 Billed Treatment Time 1 visit-ADL 4 (60 min) EX 2 (30 min) PAZ SHIPMAN Sep 26, 2018 07:31
[2018-09-26] MEDS: ENOXAPARIN 40 MG/0.4 ML (LOVENOX) SYR SC SCH (08:20)
[2018-09-26] MEDS: FAMOTIDINE 20 MG (PEPCID) TABLET PO SCH (08:20)
--- NOTE | 2018-09-26 08:33 | PM&R Progress Note ---
Subjective HPI/CC On Admission Date Seen by Provider: Sep 26, 2018 Time Seen by Provider: 08:45 CC: Right shoulder replacement with severe limitation of activities with debility HPI: This is an 88yoWM clinic patient of Dr Pimentel who presents to IRF after an uncomplicated right shoulder replacement by Dr Tobar at [facility] Tuesday but required IRF stay due to advanced age and frailty requiring 2 person assist in addition to left knee fusion due to replacements that have failed x 2 in the past further limiting his ability to ambulate and take care of himself at home. Patient finally arrived at 700pm last night and has settled in and doing well. BM this morning after laxatives given at [facility]. Pain is well controlled currently. Dr Pimentel has been notified of the consultation for his PCP needs. Right sling will stay in place during activity. His is at home in frail health also. I have reviewed his home meds and restarted all. PLOF was independent with ADL's. Patient seen for evaluation of chronic hypertension as well as new onset thrombocytopenia mild after the above. He is still on prophylactic Lovenox reporting no bleeding problems. He states that he has felt well in the shoulder pain is been under good control. He's had no evidence for bright red blood per rectum or melena in his appetite is back to normal. He had some postop constipation as well as urinary retention requiring short-term catheter placement. Catheter was removed before discharge and he reports urination is been smaller volume but he does feel as though he is emptying. His usual nocturia is 1 here in the hospital he reports nocturia 2 it is been darker in color without dysuria he's not aware of any change in odor and denies flank pain chills or fever. Subjective/Events-last exam Pt is doing well Out of bed already working with physical therapy No pain issues Left leg improved edema No redness in the left leg No pain is reported that is not managed with Tylenol Will discuss disposition at group conference tomorrow Conferred with RN. Reviewed therapy notes. Review of Systems Musculoskeletal: arm pain, leg pain Objective Exam Vital Signs Vital Signs Date Time Temp Pulse Resp B/P (MAP) Pulse Ox O2 Delivery O2 Flow Rate FiO2 09/26/18 19:59 Room Air 09/26/18 15:22 97.0 68 14 122/74 (90) 97 Capillary Refill : Less Than 3 Seconds General Appearance: No Apparent Distress, WD/WN, Chronically ill, Thin HEENT: PERRL/EOMI, TMs Normal, Normal ENT Inspection, Pharynx Normal, Moist Mucous Membranes Neck: Full Range of Motion, Normal Inspection, Non Tender, Supple Respiratory: Chest Non Tender, Lungs Clear, Normal Breath Sounds, No Accessory Muscle Use, No Respiratory Distress Cardiovascular: Regular Rate, Rhythm, No Gallop, No JVD, No Murmur Gastrointestinal: Normal Bowel Sounds, No Organomegaly, No Pulsatile Mass, Non Tender, Soft Back: Normal Inspection, No CVA Tenderness, No Vertebral Tenderness Extremity: Normal Capillary Refill, Normal Inspection, Normal Range of Motion (except right shoulder and chronic fusion left knee), Non Tender, No Calf Tenderness, Pedal Edema (ERIKA hose intact) Neurologic/Psychiatric: Alert, Oriented x3, No Motor/Sensory Deficits, Normal Mood/Affect Skin: Normal Color, Warm/Dry, Other (subtle erythema left leg appears venous stasis dermatitis) Lymphatic: No Adenopathy Results/Procedures Lab Patient resulted labs reviewed. FIM Transfers Therapy Code Descriptions/Definitions Functional [place] Measure: 0=Not Assessed/NA 4=Minimal Assistance 1=Total Assistance 5=Supervision or Setup 2=Maximal Assistance 6=Modified [place] 3=Moderate Assistance 7=Complete [place] Therapy Quality Codes: 6 Independent with activity with or without an assistive device 5 Patient requires set up or clean up by helper. Patient completes activity by themselves 4 Supervision or touching assist (CGA). [place] provide cues , steadying assist 3 The helper provides less than half the effort to complete the activity 2 The helper provides more than half the effort to complete the activity 1 Dependent. The helper does all the effort to complete an activity 7 Patient refused to complete or attempt activity 9 The patient did not perform the activity before the current illness or injury 88 Not attempted due to Medical conditions or safety concerns Transfers (B, C, W/C) (FIM): 4 Scootin Rollin Roll Left to Right (QC): 4 Supine to/from Sit: 5 Sit to/from Stand: 4 Sit to Lying (QC): 5 Sit to Stand (QC): 3 Chair/Rvk-zb-Hvkdz Xfer(QC): 2 Bed to/from Chair: 4 Car Transfer (QC): 2 Gait Training Does the Patient Walk?: Yes Gait (FIM): 4 Distance (FIM): 2=287-21 ft Distance: 150'x2 Walk 10 feet (QC): 4 Walk 50 ft with 2 Turns(QC): 4 Walk 150 ft (QC): 4 Walking 10ft/uneven surface-QC: 3 Gait Level of Assist: 4 Gait Persons Needed: 1 Gait Assistive Device: Cane Large Base Quad Wheelchair Training Does the Pt Use a Wheelchair?: No Mental Status/Objective Comprehension: 7 Expression: 7 Social Interaction: 7 Problem Solvin Memory: 7 ADL-Treatment Feedin (Pt does demonstrate ability to open packages though requests assist with difficult items. Uses regular utensils to eat.) Eating (QC): 5 Groomin (Sitting at sink, pt completes by self.) Oral Hygiene (QC): 6 Bathin (After set up for sponge bath, pt completes by self.) Bathing Location: L Arm, R Arm, L Upper Leg, R Upper Leg, L Lower Leg (including foot), R Lower Leg (including foot), Chest, Abdomen, Buttocks, Perineal Area Shower/Bathe Self (QC): 5 Upper Extremity Dressin (After set up, pt completes by self. Assist to don brace. Pt able to doff by self.) Upper Body Dressing (QC): 5 Lower Extremity Dressin (Using AE, pt able to complete donning/doffing clothing over feet then up LE's. Assist to tie shoes and CGA to hike pants over hips.) Lower Body Dressing (QC): 3 On/Off Footwear (QC): 3 (Assist to tie shoes. Don/doff by self using AE.) Toiletin Toileting Hygiene (QC): 3 Toilet/Commode Transfer: 4 Toilet Transfer (QC): 3 Shower: 4 Assessment/Plan Assessment and Plan Assess & Plan/Chief Complaint Assessment: s/p right shoulder replacement uncomplicated POD # 20 at [facility] Post op urinary retention requiring Ferrell cath but now resolved since cath removed Chronic left knee fusion HTN Allergic rhinitis Anemia Hypothyroidism Neuropathy BPH GERD Anemia Hyponatremia Low albumin Left leg subtle redness with h/o cellulitis in the past Edema wearing ERIKA's Plan: Pain control IRF protocols Fall risk PCP consulted and input is appreciated BM regimen Lovenox PPx to be maintained until DC and ambulatory Monitor BP and abide by parameters Monitor sodium level, 131 on recheck Work on transfers since it is much improved today with 1 person assist ERIKA wallace intact Monitor left leg (1) Status post replacement of right shoulder joint (2) Constipation (3) Urinary retention (4) Anemia (5) Hypothyroidism (6) GERD (gastroesophageal reflux disease) (7) Allergic rhinitis (8) Hypertension (9) BPH (benign prostatic hyperplasia) (10) Limitation of joint motion of left knee (11) Hyponatremia (12) Serum albumin decreased RICO LANCE DO Sep 26, 2018 08:33
--- NOTE | 2018-09-26 09:26 | Physical Therapy Daily Note ---
PT Daily Note-Current Subjective Patient in recliner pre tx, agrees to PT, has no complaints of pain at rest. Appearance Patient in recliner post tx with nurse call, phone, tray, all needs met. Mental Status Patient Orientation: Person, Place, Situation, Normal For Age arm brace Transfers Therapy Code Descriptions/Definitions Functional [place] Measure: 0=Not Assessed/NA 4=Minimal Assistance 1=Total Assistance 5=Supervision or Setup 2=Maximal Assistance 6=Modified [place] 3=Moderate Assistance 7=Complete [place] Therapy Quality Codes: 6 Independent with activity with or without an assistive device 5 Patient requires set up or clean up by helper. Patient completes activity by themselves 4 Supervision or touching assist (CGA). [place] provide cues , steadying assist 3 The helper provides less than half the effort to complete the activity 2 The helper provides more than half the effort to complete the activity 1 Dependent. The helper does all the effort to complete an activity 7 Patient refused to complete or attempt activity 9 The patient did not perform the activity before the current illness or injury 88 Not attempted due to Medical conditions or safety concerns Transfers (B, C, W/C) (FIM): 4 Sit to/from Stand: 4 Bed to/from Chair: 4 Min assist to stand from lower surfaces Weight Bearing Right Lower Extremity: Right Weight Bearing/Tolerated Left Lower Extremity: Left Weight Bearing/Tolerated total shoulder protocol on right side Gait Training Gait (FIM): 4 Distance: 150'x2 Gait Level of Assist: 4 Gait Persons Needed: 1 Gait Assistive Device: Cane Large Base Quad Min assist for balance, short steps, poor foot clearance Exercises sit to stand from elevated surface 3 sets of 10, LAQ alternating for 5 min with 2# ankle weights NuStep Minutes: 15 NuStep Workload: 5 Treatments ambulation, LE strengthening, transfers Assessment Current Status: Fair Progress slow improvement with ambulation and strength PT Short Term Goals Short Term Goals Time Frame: September 18, 2018 Transfers (B,C,W/C) (FIM): 4 Gait (FIM): 2 Gait Distance Comment: 100' Gait Level of Assist: 4 Gait Assistive Device: Handheld Assist PT Group Home Goals Ornamental Plasterer Helper Goals PT Ornamental Plasterer Helper Goals Time Frame: Oct 02, 2018 Transfers (B,C,W/C) (FIM): 5 Sit to Lying (QC): 6 Lying-Sitting on Side/Bed(QC): 6 Sit to Stand (QC): 4 Rollin Roll Left to Right (QC): 6 Chair/Yts-lh-Rjafv Xfer(QC): 4 Car Transfer (QC): 4 Gait (FIM): 4 Distance: 150' Walk 10 feet (QC): 4 Walk 10ft-Uneven Surface(QC): 4 Walk 50ft with 2 Turns (QC): 4 Walk 150 ft (QC): 4 Gait Level of Assist: 4 (CGA) Gait Assistive Device: Handheld Assist Stairs (FIM): 1 # of Steps: 1 1 Step (curb) (QC): 3 Stairs Level Of Assist: 4 PT Plan Problem List Problem List: Activity Tolerance, Functional Strength, Safety, Balance, Gait, Transfer, Bed Mobility, ROM Treatment/Plan Treatment Plan: Continue Plan of Care Treatment Plan: Bed Mobility, Concurrent Therapy, Education, Functional Activity Joel, Functional Strength, Group Therapy, Gait, Safety, Therapeutic Exercise, Transfers Treatment Duration: Oct 02, 2018 Frequency: At least 5 of 7 days/Wk (IRF) Estimated Hrs Per Day: 1.5 hours per day Patient and/or Family Agrees t: Yes Safety Risks/Education Patient Education: Gait Training, Transfer Techniques, Correct Positioning, Safety Issues Teaching Recipient: Patient Teaching Methods: Demonstration, Discussion Response to Teaching: Reinforcement Needed Time/GCodes Time In: 829 Time Out: 929 Total Billed Treatment Time: 60 Total Billed Treatment 1 visit EX 30' GT 30' NAGA JACOBS PT Sep 26, 2018 09:26
--- NOTE | 2018-09-26 13:25 | Physical Therapy Daily Note ---
PT Daily Note-Current Subjective Patient in recliner pre tx, agrees to PT, has no complaints of pain. Appearance Patient in recliner post tx with nurse call, phone, tray, all needs met, family in the room. Mental Status Patient Orientation: Person, Place, Situation, Normal For Age arm brace Transfers Therapy Code Descriptions/Definitions Functional [place] Measure: 0=Not Assessed/NA 4=Minimal Assistance 1=Total Assistance 5=Supervision or Setup 2=Maximal Assistance 6=Modified [place] 3=Moderate Assistance 7=Complete [place] Therapy Quality Codes: 6 Independent with activity with or without an assistive device 5 Patient requires set up or clean up by helper. Patient completes activity by themselves 4 Supervision or touching assist (CGA). [place] provide cues , steadying assist 3 The helper provides less than half the effort to complete the activity 2 The helper provides more than half the effort to complete the activity 1 Dependent. The helper does all the effort to complete an activity 7 Patient refused to complete or attempt activity 9 The patient did not perform the activity before the current illness or injury 88 Not attempted due to Medical conditions or safety concerns Transfers (B, C, W/C) (FIM): 4 Sit to/from Stand: 4 Bed to/from Chair: 4 Min assist to stand from lower surfaces. Weight Bearing Right Lower Extremity: Right Weight Bearing/Tolerated Left Lower Extremity: Left Weight Bearing/Tolerated total shoulder protocol on right side Gait Training Gait (FIM): 4 Distance: 150'x2 Gait Level of Assist: 4 Gait Persons Needed: 1 Gait Assistive Device: Cane Large Base Quad Exercises Standing: Heel/toe raises, 3 way Ex=Flex, Abd, Ext, Marching, Mini squats Standing Reps: 15 Treatments LE exercise, ambulation Assessment Current Status: Fair Progress improving strength PT Short Term Goals Short Term Goals Time Frame: September 18, 2018 Transfers (B,C,W/C) (FIM): 4 Gait (FIM): 2 Gait Distance Comment: 100' Gait Level of Assist: 4 Gait Assistive Device: Handheld Assist PT Structural Shop Helper Goals Nursing Home Goals PT Structural Shop Helper Goals Time Frame: Oct 02, 2018 Transfers (B,C,W/C) (FIM): 5 Sit to Lying (QC): 6 Lying-Sitting on Side/Bed(QC): 6 Sit to Stand (QC): 4 Rollin Roll Left to Right (QC): 6 Chair/Pkp-bz-Kyznk Xfer(QC): 4 Car Transfer (QC): 4 Gait (FIM): 4 Distance: 150' Walk 10 feet (QC): 4 Walk 10ft-Uneven Surface(QC): 4 Walk 50ft with 2 Turns (QC): 4 Walk 150 ft (QC): 4 Gait Level of Assist: 4 (CGA) Gait Assistive Device: Handheld Assist Stairs (FIM): 1 # of Steps: 1 1 Step (curb) (QC): 3 Stairs Level Of Assist: 4 PT Plan Problem List Problem List: Activity Tolerance, Functional Strength, Safety, Balance, Gait, Transfer, Bed Mobility, ROM Treatment/Plan Treatment Plan: Continue Plan of Care Treatment Plan: Bed Mobility, Concurrent Therapy, Education, Functional Activity Joel, Functional Strength, Group Therapy, Gait, Safety, Therapeutic Exercise, Transfers Treatment Duration: Oct 02, 2018 Frequency: At least 5 of 7 days/Wk (IRF) Estimated Hrs Per Day: 1.5 hours per day Patient and/or Family Agrees t: Yes Safety Risks/Education Patient Education: Gait Training, Transfer Techniques, Correct Positioning, Safety Issues Teaching Recipient: Patient Teaching Methods: Demonstration, Discussion Response to Teaching: Reinforcement Needed Time/GCodes Time In: 1300 Time Out: 1330 Total Billed Treatment Time: 30 Total Billed Treatment 1 visit EX 15' GT 15' NAGA JACOBS PT Sep 26, 2018 13:25
[2018-09-26 15:22] VITALS: BP 122/74
[2018-09-26] MEDS: ASCORBIC ACID (VIT C) 500 MG TABLET PO SCH (17:35)
[2018-09-26] MEDS: GABAPENTIN 100 MG (NEURONTIN) CAP PO SCH (19:50)
[2018-09-26] MEDS: FLUTICASONE NASAL SPRAY (FLONASE) 16 GM BTL NS SCH (19:50)
[2018-09-26] MEDS: TAMSULOSIN 0.4 MG (FLOMAX) CAP PO SCH (19:50)
[2018-09-26] MEDS: SENNA W/DOCUSATE (SENOKOT S) TABLET PO SCH (19:54)
[2018-09-27 06:00] VITALS: BP 124/60
[2018-09-27] MEDS: CALCIUM PO SCH (06:34)
[2018-09-27] MEDS: LEVOTHYROXINE 125 MCG (LEVOTHROID) TABLET PO SCH (06:34)
[2018-09-27] MEDS: ZINC PO SCH (06:34)
[2018-09-27] MEDS: MAGNESIUM PO SCH (06:34)
[2018-09-27] MEDS: MULTIVIT W/MINERALS TAB (THERAGRAN M) PO SCH (06:35)
--- NOTE | 2018-09-27 07:27 | Occupational Ther Daily Note ---
OT Current Status-Daily Note Subjective Pt alert, lying in bed. Pt agrees to therapy. No c/o pain at this time. Redness on bilateral big toes noted, start of blister on L big toe. Nrsg notified and Mepilex applied to areas. Mental Status/Objective Patient Orientation: Person, Place, Time, Situation Therapy Code Descriptions/Definitions Functional [place] Measure: 0=Not Assessed/NA 4=Minimal Assistance 1=Total Assistance 5=Supervision or Setup 2=Maximal Assistance 6=Modified [place] 3=Moderate Assistance 7=Complete [place] ADL-Treatment Pt declines shower today, completes sponge bath at sink. After therapy, pt sitting in recliner with call light/phone in reach. All needs met in room. Therapy Code Descriptions/Definitions Functional [place] Measure: 0=Not Assessed/NA 4=Minimal Assistance 1=Total Assistance 5=Supervision or Setup 2=Maximal Assistance 6=Modified [place] 3=Moderate Assistance 7=Complete [place] Therapy Quality Codes: 6 Independent with activity with or without an assistive device 5 Patient requires set up or clean up by helper. Patient completes activity by themselves 4 Supervision or touching assist (CGA). [place] provide cues , steadying assist 3 The helper provides less than half the effort to complete the activity 2 The helper provides more than half the effort to complete the activity 1 Dependent. The helper does all the effort to complete an activity 7 Patient refused to complete or attempt activity 9 The patient did not perform the activity before the current illness or injury 88 Not attempted due to Medical conditions or safety concerns Eating (FIM): 5 (Pt uses scissors at home to open packages, has difficulty here with manipulating to open. Uses regular utensils to eat.) Eating (QC): 5 Grooming (FIM): 6 (Pt completes sitting at sink.) Oral Hygiene (QC): 6 Bathing (FIM): 6 (Sitting at sink, pt completes by self. Leans side to side to cleanse buttocks/иван area.) Shower/Bathe Self (QC): 6 Upper Body (FIM): 5 (After set up, pt completes by self. Assist to don brace.) Upper Body Dressing (QC): 5 Lower Body Dressing (FIM): 4 (After set up, pt completes dressing with AE. CGA in standing while pt hikes pants over hips. Assist to don/doff ERIKA hose and tie shoes. Uses risk control officer to don/doff shoes.) Lower Body Dressing (QC): 3 On/Off Footwear (QC): 3 Toileting (FIM): 4 (CGA to manipulate clothing. Cleanses self on toilet.) Toileting Hygiene (QC): 4 Toilet/Commode Transfer (FIM): 4 (Min A, uses elevated surface, w/c and grabbar.) Toilet Transfer (QC): 3 OT Short Term Goals Short Term Goals Eating(FIM): 5 Grooming(FIM): 5 Bathing(FIM): 5 Bathing Location: L Arm, R Arm, L Upper Leg, R Upper Leg, L Lower Leg (including foot), R Lower Leg (including foot), Chest, Abdomen, Buttocks, Perineal Area Upper Body Dressing(FIM): 5 Lower Body Dressing(FIM): 5 Toileting(FIM): 5 Transfers (B,C,W/C) (FIM): 4 Toilet/Commode Transfer(FIM): 5 Shower Transfer(FIM): 5 (5) Additional Short Term Goals: 1-Demonstrate ADL Tasks, 2-Verbalize Understanding, 3-ImproveStrength/Joel 1=Demonstrate adherence to instructed precautions during ADL tasks. 2=Patient will verbalize/demonstrate understanding of assistive devices/modifications for ADL. 3=Patient will improve strength/tolerance for activity to enable patient to perform ADL's. OT Soccer Coach Goals Jail Goals Eating (FIM): 7 Eating (QC): 6 Groomin Oral Hygiene (QC): 6 Bathing(FIM): 6 Bathing Location: L Arm, R Arm, L Upper Leg, R Upper Leg, L Lower Leg (including foot), R Lower Leg (including foot), Chest, Abdomen, Buttocks, Perineal Area Shower/Bathe Self (QC): 6 Upper Body Dressing(FIM): 6 Upper Body Dressing (QC): 6 Lower Body Dressing(FIM): 6 Lower Body Dressing (QC): 6 On/Off Footwear (QC): 6 Toileting(FIM): 6 Toileting Hygiene (QC): 6 Transfers (B,C,W/C) (FIM): 6 Toilet/Commode Transfer(FIM): 6 Toilet/Commode Transfer (QC): 6 Shower Transfer(FIM): 6 1=Demonstrate adherence to instructed precautions during ADL tasks. 2=Patient will verbalize/demonstrate understanding of assistive d evices/modifications for ADL. 3=Patient will improve strength/tolerance for activity to enable patient to perform ADL's. OT Education/Plan Problem List/Assessment Assessment: Impaired Funct Balance, Impaired Self-Care Skills, Restricted Funct UE ROM pt presents with functional limitations affecting areas of ADLS/ functional transfers. pt protocol for R shoulder can be found in chart. pt would benefit from OT services to increase independence with ADLS/ functional transfers and for safe transition to home. Discharge Recommendations Plan/Recommendations: Continue POC Treatment Plan/Plan of Care Patient would benefit from OT for education, treatment and training to promote independence in ADL's, mobility, safety and/or upper extremity function for ADL's. Plan of Care: ADL Retraining, Caregiver Training, Concurrent Therapy, Functional Mobility, Group Exercise/Act as Ind, Orthotic Fitting/Training, UE Funct Exercise/Act Treatment Duration: Oct 09, 2018 Frequency: At least 5 of 7 days/Wk (IRF) Estimated Hrs Per Day: 1.5 hours per day (60-90 minutes per day) Agreement: Yes Rehab Potential: Fair Time/GCodes Start Time: 07:00 Stop Time: 08:15 Total Time Billed (hr/min): 75 Billed Treatment Time 1 visit-ADL 5 (75 min) PAZ SHIPMAN Sep 27, 2018 07:27
--- NOTE | 2018-09-27 08:00 | NUR ---
EB MULLEN NOTED RED AREAS ON BILATERAL GREAT TOES. PATIENT STATES "TOES HIT THE BOTTOM OF BED FRAME WHEN LYING IN BED". MEPILEX APPLIED ON BOTH TOES. REDNESS AND SWELLING IMPROVED IN LOWER LEGS.
[2018-09-27] MEDS: FAMOTIDINE 20 MG (PEPCID) TABLET PO SCH (08:03)
[2018-09-27] MEDS: ENOXAPARIN 40 MG/0.4 ML (LOVENOX) SYR SC SCH (08:04)
--- NOTE | 2018-09-27 08:13 | PM&R Progress Note ---
Subjective HPI/CC On Admission Date Seen by Provider: Sep 27, 2018 Time Seen by Provider: 08:30 CC: Right shoulder replacement with severe limitation of activities with debility HPI: This is an 88yoWM clinic patient of Dr Pimentel who presents to IRF after an uncomplicated right shoulder replacement by Dr Tobar at [facility] Tuesday but required IRF stay due to advanced age and frailty requiring 2 person assist in addition to left knee fusion due to replacements that have failed x 2 in the past further limiting his ability to ambulate and take care of himself at home. Patient finally arrived at 700pm last night and has settled in and doing well. BM this morning after laxatives given at [facility]. Pain is well controlled currently. Dr Pimentel has been notified of the consultation for his PCP needs. Right sling will stay in place during activity. His is at home in frail health also. I have reviewed his home meds and restarted all. PLOF was independent with ADL's. Patient seen for evaluation of chronic hypertension as well as new onset thrombocytopenia mild after the above. He is still on prophylactic Lovenox reporting no bleeding problems. He states that he has felt well in the shoulder pain is been under good control. He's had no evidence for bright red blood per rectum or melena in his appetite is back to normal. He had some postop constipation as well as urinary retention requiring short-term catheter placement. Catheter was removed before discharge and he reports urination is been smaller volume but he does feel as though he is emptying. His usual nocturia is 1 here in the hospital he reports nocturia 2 it is been darker in color without dysuria he's not aware of any change in odor and denies flank pain chills or fever. Subjective/Events-last exam Redness and edema of the legs are improved BP is doing good without medications Bowels are moving Pain is well controlled on Tylenol DC sometime next week to optimize transfers and Daypass will be offered Periarea buttock not as red and healing well Has caregiver at home Conferred with RN. Reviewed therapy notes. Review of Systems General: Fatigue Musculoskeletal: arm pain, leg pain Objective Exam Vital Signs Vital Signs Date Time Temp Pulse Resp B/P (MAP) Pulse Ox O2 Delivery O2 Flow Rate FiO2 09/27/18 20:00 Room Air 09/27/18 17:12 98.7 74 18 152/76 (101) 97 Capillary Refill : Less Than 3 Seconds General Appearance: No Apparent Distress, WD/WN, Chronically ill, Thin HEENT: PERRL/EOMI, TMs Normal, Normal ENT Inspection, Pharynx Normal, Moist Mucous Membranes Neck: Full Range of Motion, Normal Inspection, Non Tender, Supple Respiratory: Chest Non Tender, Lungs Clear, Normal Breath Sounds, No Accessory Muscle Use, No Respiratory Distress Cardiovascular: Regular Rate, Rhythm, No Gallop, No JVD, No Murmur Gastrointestinal: Normal Bowel Sounds, No Organomegaly, No Pulsatile Mass, Non Tender, Soft Back: Normal Inspection, No CVA Tenderness, No Vertebral Tenderness Extremity: Normal Capillary Refill, Normal Inspection, Normal Range of Motion (except right shoulder and chronic fusion left knee), Non Tender, No Calf Tenderness, Pedal Edema (ERIKA hose intact) Neurologic/Psychiatric: Alert, Oriented x3, No Motor/Sensory Deficits, Normal Mood/Affect Skin: Normal Color, Warm/Dry, Other (subtle erythema left leg appears venous stasis dermatitis) Lymphatic: No Adenopathy Results/Procedures Lab Patient resulted labs reviewed. FIM Transfers Therapy Code Descriptions/Definitions Functional [place] Measure: 0=Not Assessed/NA 4=Minimal Assistance 1=Total Assistance 5=Supervision or Setup 2=Maximal Assistance 6=Modified [place] 3=Moderate Assistance 7=Complete [place] Therapy Quality Codes: 6 Independent with activity with or without an assistive device 5 Patient requires set up or clean up by helper. Patient completes activity by themselves 4 Supervision or touching assist (CGA). [place] provide cues , steadying ass ist 3 The helper provides less than half the effort to complete the activity 2 The helper provides more than half the effort to complete the activity 1 Dependent. The helper does all the effort to complete an activity 7 Patient refused to complete or attempt activity 9 The patient did not perform the activity before the current illness or injury 88 Not attempted due to Medical conditions or safety concerns Transfers (B, C, W/C) (FIM): 4 Scootin Rollin Roll Left to Right (QC): 4 Supine to/from Sit: 5 Sit to/from Stand: 4 Sit to Lying (QC): 5 Sit to Stand (QC): 3 Chair/Ojg-gd-Jwszs Xfer(QC): 2 Bed to/from Chair: 4 Car Transfer (QC): 2 Gait Training Does the Patient Walk?: Yes Gait (FIM): 4 Distance (FIM): 9=829-21 ft Distance: 150'x2 Walk 10 feet (QC): 4 Walk 50 ft with 2 Turns(QC): 4 Walk 150 ft (QC): 4 Walking 10ft/uneven surface-QC: 3 Gait Level of Assist: 4 Gait Persons Needed: 1 Gait Assistive Device: Cane Large Base Quad Wheelchair Training Does the Pt Use a Wheelchair?: No Mental Status/Objective Comprehension: 7 Expression: 7 Social Interaction: 7 Problem Solvin Memory: 7 ADL-Treatment Feedin (Pt does demonstrate ability to open packages though requests assist with difficult items. Uses regular utensils to eat.) Eating (QC): 5 Groomin (Sitting at sink, pt completes by self.) Oral Hygiene (QC): 6 Bathin (After set up for sponge bath, pt completes by self.) Bathing Location: L Arm, R Arm, L Upper Leg, R Upper Leg, L Lower Leg (including foot), R Lower Leg (including foot), Chest, Abdomen, Buttocks, Perineal Area Shower/Bathe Self (QC): 5 Upper Extremity Dressin (After set up, pt completes by self. Assist to don brace. Pt able to doff by self.) Upper Body Dressing (QC): 5 Lower Extremity Dressin (Using AE, pt able to complete donning/doffing clothing over feet then up LE's. Assist to tie shoes and CGA to hike pants over hips.) Lower Body Dressing (QC): 3 On/Off Footwear (QC): 3 (Assist to tie shoes. Don/doff by self using AE.) Toiletin (Using grabbar and BSC, pt able to hike pants down over hips and complete hygiene. Assit to hike pants up over hips.) Toileting Hygiene (QC): 3 Toilet/Commode Transfer: 4 (Min A using grabbar, quadcane and BSC.) Toilet Transfer (QC): 3 Shower: 4 Assessment/Plan Assessment and Plan Assess & Plan/Chief Complaint Assessment: s/p right shoulder replacement uncomplicated POD # 21 at [facility] Post op urinary retention requiring Ferrell cath but now resolved since cath removed Chronic left knee fusion HTN Allergic rhinitis Anemia Hypothyroidism Neuropathy BPH GERD Anemia Hyponatremia Low albumin Left leg subtle redness with h/o cellulitis in the past Edema wearing ERIKA's Plan: Pain control IRF protocols Fall risk PCP consulted and input is appreciated BM regimen Lovenox PPx to be maintained until DC and ambulatory Monitor BP and abide by parameters Monitor sodium level, 131 on recheck Work on transfers since it is much improved today with 1 person assist ERIKA hose intact Monitor left leg Day pass? DC sometime next week (1) Status post replacement of right shoulder joint (2) Constipation (3) Urinary retention (4) Anemia (5) Hypothyroidism (6) GERD (gastroesophageal reflux disease) (7) Allergic rhinitis (8) Hypertension (9) BPH (benign prostatic hyperplasia) (10) Limitation of joint motion of left knee (11) Hyponatremia (12) Serum albumin decreased RICO LANCE DO Sep 27, 2018 08:13
--- NOTE | 2018-09-27 10:12 | Physical Therapy Daily Note ---
PT Daily Note-Current Subjective Pt. feels he is making good progress, wants to look in to a ramp to be built for the 3 inch rise he will have to manuever to get in out his home. Pt. wants to go home end of week Pain Location: No Pain Reported Mental Status Patient Orientation: Normal For Age Attachments: Other-See Comments (DANA franco) Transfers Therapy Code Descriptions/Definitions Functional [place] Measure: 0=Not Assessed/NA 4=Minimal Assistance 1=Total Assistance 5=Supervision or Setup 2=Maximal Assistance 6=Modified [place] 3=Moderate Assistance 7=Complete [place] Therapy Quality Codes: 6 Independent with activity with or without an assistive device 5 Patient requires set up or clean up by helper. Patient completes activity by themselves 4 Supervision or touching assist (CGA). [place] provide cues , steadying assist 3 The helper provides less than half the effort to complete the activity 2 The helper provides more than half the effort to complete the activity 1 Dependent. The helper does all the effort to complete an activity 7 Patient refused to complete or attempt activity 9 The patient did not perform the activity before the current illness or injury 88 Not attempted due to Medical conditions or safety concerns Transfers (B, C, W/C) (FIM): 5 (with seat height proper) Scootin Rollin Supine to/from Sit: 6 Sit to/from Stand: 6 Bed to/from Chair: 5 focused on sit to stand TRFs from w/c to recliner and w/c to bed this date. with seat height of [facility] raised to proper height pt sit to stand superv only, all sup to sit Mod I Weight Bearing Right Lower Extremity: Right Weight Bearing/Tolerated Left Lower Extremity: Left Weight Bearing/Tolerated total shoulder protocol on right side Gait Training Does the Patient Walk?: Yes Gait (FIM): 2 Distance (FIM): 8=639-66 ft (75x2, 40) Gait Level of Assist: 4 Gait Persons Needed: 1 Gait Assistive Device: Cane Large Base Quad pts. gait improved balance and control. pt. hopes to be able to use a platform device after a while Wheelchair Training Does the Pt Use a Wheelchair?: Yes Wheelchair (FIM): 5 Wheelchair Distance: 3=150 ft (x2) Wheelchair Level of Assist: 5 (instruction for tight turns to prep for TRF pos ition) Type of Wheelchair: Manual Exercises Supine Ex: Quad Set, Heel Slides, Short Arc Quads, Scooting, Straight leg raise, Hip abd/add Supine Reps: 12 Assessment Current Status: Good Progress good progress all phases of Rx PT Short Term Goals Short Term Goals Time Frame: September 18, 2018 Transfers (B,C,W/C) (FIM): 4 Gait (FIM): 2 Gait Distance Comment: 100' Gait Level of Assist: 4 Gait Assistive Device: Handheld Assist PT Senior Care Goals Senior Care Goals PT Health And Wellness Manager Goals Time Frame: Oct 02, 2018 Transfers (B,C,W/C) (FIM): 5 Sit to Lying (QC): 6 Lying-Sitting on Side/Bed(QC): 6 Sit to Stand (QC): 4 Rollin Roll Left to Right (QC): 6 Chair/Jvz-kj-Bwtqc Xfer(QC): 4 Car Transfer (QC): 4 Gait (FIM): 4 Distance: 150' Walk 10 feet (QC): 4 Walk 10ft-Uneven Surface(QC): 4 Walk 50ft with 2 Turns (QC): 4 Walk 150 ft (QC): 4 Gait Level of Assist: 4 (CGA) Gait Assistive Device: Handheld Assist Stairs (FIM): 1 # of Steps: 1 1 Step (curb) (QC): 3 Stairs Level Of Assist: 4 PT Plan Treatment/Plan Treatment Plan: Continue Plan of Care Treatment Plan: Bed Mobility, Concurrent Therapy, Education, Functional Activity Joel, Functional Strength, Group Therapy, Gait, Safety, Therapeutic Exercise, Transfers Treatment Duration: Oct 02, 2018 Frequency: At least 5 of 7 days/Wk (IRF) Estimated Hrs Per Day: 1.5 hours per day Patient and/or Family Agrees t: Yes Safety Risks/Education Patient Education: Gait Training, Transfer Techniques, Correct Positioning, W/C Management, Disease Process, Safety Issues Teaching Recipient: Patient Teaching Methods: Demonstration, Discussion Response to Teaching: Verbalize Understanding, Return Demonstration, Reinforcement Needed Time/GCodes Time In: 900 Time Out: 1000 Total Billed Treatment Time: 60 Total Billed Treatment 1,whc15m,GT15m,FA30m G Codes Necessary: LATASHA Coyle IN HOME CAREGIVER Sep 27, 2018 10:12
--- NOTE | 2018-09-27 14:14 | NUR ---
RISK SPECIALIST met with patient and to review team conference summary. As patient is progressing well and completing most therapy activities with contact-guard assistance, team has recommended patient complete a day pass over the weekend to trial home visit and navigation. Patient spouse are agreeable to this if they're able to secure a family member for assistance. Patient mentions the need to attend follow up with Dr. Tobar at [facility] on October 03 at 10 a.m. During team conference, team had recommended reevaluating progress on Tuesday to determine discharge date. In order for patient to keep appointment with Dr. Tobar, patient spouse request discharge on Tuesday. RISK SPECIALIST informed Dr. Francis and therapy of this request. Patient requests RISK SPECIALIST assistance with ordering a roll in shower chair.
--- NOTE | 2018-09-27 14:38 | Therapy Group Daily Note ---
Therapy Daily Group Note Patient Education Topic Home Safety Exercises LE Seated Exercise, UE Exercise Session Ratio (pt:therapist): 3:1 Goal of Session: Home Safety Strategies, UE/LE Strengthing Goal Met for this Session: Yes Pt Benefit of Group: Contributions to Others, F/U Use of Strategies @Home, Increased Functional Safety, Increased Functional Strength, Improved Cognition, Recognition of Peers, Socialization Other/Notes Pt transported via w/c to OT/PT group. Group consisted of introductions (name, place born, unsafe home situations), socialization, seated UE/LE exercises, home safety education and home safety category activity. Pt introduced self appropriately and actively listened to peers. Pt verbalized understanding by name strategies for unsafe situations and how to prevent unsafe situations in the home. Pt able to assist others with coming up with ideas and strategies for home safety. Completed UE/LE seated exercises within pts precautions for R UE. After therapy, pt sitting EOB with call light/phone in reach. All needs met in room. Start Time: 13:00 Stop Time: 14:15 Total Billed Treatment Time: 75 Total Billed Treatment 1-GRP PAZ SHIPMAN Sep 27, 2018 14:38
--- NOTE | 2018-09-27 15:25 | NUR ---
Assumed care of patient. Report rec'd from DENNISE Giron.
[2018-09-27 17:12] VITALS: BP 152/76
[2018-09-27] MEDS: ASCORBIC ACID (VIT C) 500 MG TABLET PO SCH (17:39)
[2018-09-27] MEDS: GABAPENTIN 100 MG (NEURONTIN) CAP PO SCH (20:07)
[2018-09-27] MEDS: FLUTICASONE NASAL SPRAY (FLONASE) 16 GM BTL NS SCH (20:07)
[2018-09-27] MEDS: TAMSULOSIN 0.4 MG (FLOMAX) CAP PO SCH (20:07)
[2018-09-27] MEDS: SENNA W/DOCUSATE (SENOKOT S) TABLET PO SCH (20:07)
[2018-09-28 04:28] VITALS: BP 111/63
[2018-09-28] MEDS: MULTIVIT W/MINERALS TAB (THERAGRAN M) PO SCH (05:23)
[2018-09-28] MEDS: CALCIUM PO SCH (05:24)
[2018-09-28] MEDS: MAGNESIUM PO SCH (05:24)
[2018-09-28] MEDS: ZINC PO SCH (05:24)
[2018-09-28] MEDS: LEVOTHYROXINE 125 MCG (LEVOTHROID) TABLET PO SCH (05:24)
--- NOTE | 2018-09-28 07:45 | Occupational Ther Daily Note ---
OT Current Status-Daily Note Subjective Pt alert, lying in bed. Pt agrees to therapy. No c/o pain. Edema significantly decreased from beginning of ARU stay. Mental Status/Objective Patient Orientation: Person, Place, Time, Situation Therapy Code Descriptions/Definitions Functional [place] Measure: 0=Not Assessed/NA 4=Minimal Assistance 1=Total Assistance 5=Supervision or Setup 2=Maximal Assistance 6=Modified [place] 3=Moderate Assistance 7=Complete [place] ADL-Treatment Pt agrees to shower today. Supine to EOB mod I. Ambulated to toilet with quadcane and transferred onto toilet using quadcane and BSC, min A. Cleansed self in sitting and CGA to manipulate clothing. Ambulated to shower and transferred with quadcane using shower seat and grabbars. Completed bathing by self using shower seat, grabbar and hand held shower. Transferred out of shower to w/c then completed grooming at sink in sitting, mod I. Pt donned/doffed upper body clothing by self after set up. Due to time constraints, assist given to complete lower body dressing. After therapy, pt sitting in recliner with call light/phone in reach. All needs met in room. Therapy Code Descriptions/Definitions Functional [place] Measure: 0=Not Assessed/NA 4=Minimal Assistance 1=Total Assistance 5=Supervision or Setup 2=Maximal Assistance 6=Modified [place] 3=Moderate Assistance 7=Complete [place] Therapy Quality Codes: 6 Independent with activity with or without an assistive device 5 Patient requires set up or clean up by helper. Patient completes activity by themselves 4 Supervision or touching assist (CGA). [place] provide cues , steadying assist 3 The helper provides less than half the effort to complete the activity 2 The helper provides more than half the effort to complete the activity 1 Dependent. The helper does all the effort to complete an activity 7 Patient refused to complete or attempt activity 9 The patient did not perform the activity before the current illness or injury 88 Not attempted due to Medical conditions or safety concerns Grooming (FIM): 6 Oral Hygiene (QC): 6 Bathing (FIM): 5 Shower/Bathe Self (QC): 5 Upper Body (FIM): 5 Upper Body Dressing (QC): 5 Toileting (FIM): 4 Toileting Hygiene (QC): 4 Transfers (B, C, W/C) (FIM): 4 Toilet/Commode Transfer (FIM): 4 Toilet Transfer (QC): 3 Shower Transfer(FIM): 4 OT Short Term Goals Short Term Goals Eating(FIM): 5 Grooming(FIM): 5 Bathing(FIM): 5 Bathing Location: L Arm, R Arm, L Upper Leg, R Upper Leg, L Lower Leg (including foot), R Lower Leg (including foot), Chest, Abdomen, Buttocks, Perineal Area Upper Body Dressing(FIM): 5 Lower Body Dressing(FIM): 5 Toileting(FIM): 5 Transfers (B,C,W/C) (FIM): 4 Toilet/Commode Transfer(FIM): 5 Shower Transfer(FIM): 5 (5) Additional Short Term Goals: 1-Demonstrate ADL Tasks, 2-Verbalize Understanding, 3-ImproveStrength/Joel 1=Demonstrate adherence to instructed precautions during ADL tasks. 2=Patient will verbalize/demonstrate understanding of assistive devices/modifications for ADL. 3=Patient will improve strength/tolerance for activity to enable patient to perform ADL's. OT Manager Advertising Goals Penitentiary Goals Eating (FIM): 7 Eating (QC): 6 Groomin Oral Hygiene (QC): 6 Bathing(FIM): 6 Bathing Location: L Arm, R Arm, L Upper Leg, R Upper Leg, L Lower Leg (including foot), R Lower Leg (including foot), Chest, Abdomen, Buttocks, Perineal Area Shower/Bathe Self (QC): 6 Upper Body Dressing(FIM): 6 Upper Body Dressing (QC): 6 Lower Body Dressing(FIM): 6 Lower Body Dressing (QC): 6 On/Off Footwear (QC): 6 Toileting(FIM): 6 Toileting Hygiene (QC): 6 Transfers (B,C,W/C) (FIM): 6 Toilet/Commode Transfer(FIM): 6 Toilet/Commode Transfer (QC): 6 Shower Transfer(FIM): 6 1=Demonstrate adherence to instructed precautions during ADL tasks. 2=Patient will verbalize/demonstrate understanding of assistive d evices/modifications for ADL. 3=Patient will improve strength/tolerance for activity to enable patient to perform ADL's. OT Education/Plan Problem List/Assessment Assessment: Impaired Funct Balance, Impaired Self-Care Skills, Restricted Funct UE ROM pt presents with functional limitations affecting areas of ADLS/ functional transfers. pt protocol for R shoulder can be found in chart. pt would benefit from OT services to increase independence with ADLS/ functional transfers and for safe transition to home. Discharge Recommendations Plan/Recommendations: Continue POC Treatment Plan/Plan of Care Patient would benefit from OT for education, treatment and training to promote independence in ADL's, mobility, safety and/or upper extremity function for ADL's. Plan of Care: ADL Retraining, Caregiver Training, Concurrent Therapy, Functional Mobility, Group Exercise/Act as Ind, Orthotic Fitting/Training, UE Funct Exercise/Act Treatment Duration: Oct 09, 2018 Frequency: At least 5 of 7 days/Wk (IRF) Estimated Hrs Per Day: 1.5 hours per day (60-90 minutes per day) Agreement: Yes Rehab Potential: Fair Time/GCodes Start Time: 06:45 Stop Time: 08:00 Total Time Billed (hr/min): 75 Billed Treatment Time 1 visit-ADL 5 (75 min) PAZ SHIPMAN Sep 28, 2018 07:45
--- NOTE | 2018-09-28 08:57 | Physical Therapy Daily Note ---
PT Daily Note-Current Subjective Patient in recliner pre tx, agrees to PT, has no complaints of pain at rest. Appearance Patient in recliner post tx with nurse call, phone, tray, all needs met. Mental Status Patient Orientation: Person, Place, Situation shoulder brace Transfers Therapy Code Descriptions/Definitions Functional [place] Measure: 0=Not Assessed/NA 4=Minimal Assistance 1=Total Assistance 5=Supervision or Setup 2=Maximal Assistance 6=Modified [place] 3=Moderate Assistance 7=Complete [place] Therapy Quality Codes: 6 Independent with activity with or without an assistive device 5 Patient requires set up or clean up by helper. Patient completes activity by themselves 4 Supervision or touching assist (CGA). [place] provide cues , steadying assist 3 The helper provides less than half the effort to complete the activity 2 The helper provides more than half the effort to complete the activity 1 Dependent. The helper does all the effort to complete an activity 7 Patient refused to complete or attempt activity 9 The patient did not perform the activity before the current illness or injury 88 Not attempted due to Medical conditions or safety concerns Transfers (B, C, W/C) (FIM): 4 Sit to/from Stand: 4 Bed to/from Chair: 4 min assist to stand from lower surfaces, CGA with transfers, occasional cues for safety Weight Bearing Right Lower Extremity: Right Weight Bearing/Tolerated Left Lower Extremity: Left Weight Bearing/Tolerated total shoulder protocol on right side Gait Training Gait (FIM): 4 Distance: 150', 100'x3 Gait Level of Assist: 4 Gait Persons Needed: 1 Gait Assistive Device: Cane Large Base Quad CGA, some unsteadiness but no assist needed to maintain balance, slow, short steps with poor foot clearance Stair Training Stair Training: Handrails/: 1 handrail Stairs (FIM): 2 #of Steps: 4 1 Step (curb) (QC): 3 4 Steps (QC): 3 Stairs: Pattern: Step to Level of Assist: 4 Min assist to maintain balance, cues for foot placement. Exercises LAQ alternating for 5 min with 2# ankle weights NuStep Minutes: 15 NuStep Workload: 4 Treatments transfers, ambulation, LE strengthening, stair training Assessment Current Status: Fair Progress Patient was able to perform stair today but needs min assist. PT Short Term Goals Short Term Goals Time Frame: September 18, 2018 Transfers (B,C,W/C) (FIM): 4 Gait (FIM): 2 Gait Distance Comment: 100' Gait Level of Assist: 4 Gait Assistive Device: Handheld Assist PT Senior Care Goals Senior Care Goals PT Toll Transmission Worker Goals Time Frame: Oct 02, 2018 Transfers (B,C,W/C) (FIM): 5 Sit to Lying (QC): 6 Lying-Sitting on Side/Bed(QC): 6 Sit to Stand (QC): 4 Rollin Roll Left to Right (QC): 6 Chair/Crl-jv-Pqzbe Xfer(QC): 4 Car Transfer (QC): 4 Gait (FIM): 4 Distance: 150' Walk 10 feet (QC): 4 Walk 10ft-Uneven Surface(QC): 4 Walk 50ft with 2 Turns (QC): 4 Walk 150 ft (QC): 4 Gait Level of Assist: 4 (CGA) Gait Assistive Device: Handheld Assist Stairs (FIM): 1 # of Steps: 1 1 Step (curb) (QC): 3 Stairs Level Of Assist: 4 PT Plan Problem List Problem List: Activity Tolerance, Functional Strength, Safety, Balance, Gait, Transfer, Bed Mobility, ROM Treatment/Plan Treatment Plan: Continue Plan of Care Treatment Plan: Bed Mobility, Concurrent Therapy, Education, Functional Activity Joel, Functional Strength, Group Therapy, Gait, Safety, Therapeutic Exercise, Transfers Treatment Duration: Oct 02, 2018 Frequency: At least 5 of 7 days/Wk (IRF) Estimated Hrs Per Day: 1.5 hours per day Patient and/or Family Agrees t: Yes Safety Risks/Education Patient Education: Gait Training, Transfer Techniques, Steps, Correct Position ing, Safety Issues Teaching Recipient: Patient Teaching Methods: Demonstration, Discussion Response to Teaching: Reinforcement Needed Time/GCodes Time In: 0800 Time Out: 0900 Total Billed Treatment Time: 60 Total Billed Treatment 1 visit GT 30' FA 10' EX 20' NAGA JACOBS PT Sep 28, 2018 08:57
[2018-09-28] MEDS: FAMOTIDINE 20 MG (PEPCID) TABLET PO SCH (09:25)
[2018-09-28] MEDS: ENOXAPARIN 40 MG/0.4 ML (LOVENOX) SYR SC SCH (09:27)
--- NOTE | 2018-09-28 10:53 | PM&R Progress Note ---
Subjective HPI/CC On Admission Date Seen by Provider: Sep 28, 2018 Time Seen by Provider: 08:30 CC: Right shoulder replacement with severe limitation of activities with debility HPI: This is an 88yoWM clinic patient of Dr Pimentel who presents to IRF after an uncomplicated right shoulder replacement by Dr Tobar at [facility] Tuesday but required IRF stay due to advanced age and frailty requiring 2 person assist in addition to left knee fusion due to replacements that have failed x 2 in the past further limiting his ability to ambulate and take care of himself at home. Patient finally arrived at 700pm last night and has settled in and doing well. BM this morning after laxatives given at [facility]. Pain is well controlled currently. Dr Pimentel has been notified of the consultation for his PCP needs. Right sling will stay in place during activity. His is at home in frail health also. I have reviewed his home meds and restarted all. PLOF was independent with ADL's. Patient seen for evaluation of chronic hypertension as well as new onset thrombocytopenia mild after the above. He is still on prophylactic Lovenox reporting no bleeding problems. He states that he has felt well in the shoulder pain is been under good control. He's had no evidence for bright red blood per rectum or melena in his appetite is back to normal. He had some postop constipation as well as urinary retention requiring short-term catheter placement. Catheter was removed before discharge and he reports urination is been smaller volume but he does feel as though he is emptying. His usual nocturia is 1 here in the hospital he reports nocturia 2 it is been darker in color without dysuria he's not aware of any change in odor and denies flank pain chills or fever. Subjective/Events-last exam Redness and edema of the legs are improved and he has no issues currently and is wearing his ERIKA's BP is doing good without medications so he will continue that monitoring at home at [place] Bowels are moving well with rare meds given Pain is well controlled on Tylenol DC sometime next week to optimize transfers and Daypass will be Tuesday Periarea buttock not as red and healing well Has caregiver at home that can work additional hours Conferred with RN. Reviewed therapy notes. Review of Systems General: Fatigue Musculoskeletal: arm pain, leg pain Objective Exam Vital Signs Vital Signs Date Time Temp Pulse Resp B/P (MAP) Pulse Ox O2 Delivery O2 Flow Rate FiO2 09/28/18 09:00 Room Air 09/28/18 04:28 98.2 71 16 111/63 (79) 96 Capillary Refill : Less Than 3 Seconds General Appearance: No Apparent Distress, WD/WN, Chronically ill, Thin HEENT: PERRL/EOMI, TMs Normal, Normal ENT Inspection, Pharynx Normal, Moist Mucous Membranes Neck: Full Range of Motion, Normal Inspection, Non Tender, Supple Respiratory: Chest Non Tender, Lungs Clear, Normal Breath Sounds, No Accessory Muscle Use, No Respiratory Distress Cardiovascular: Regular Rate, Rhythm, No Gallop, No JVD, No Murmur Gastrointestinal: Normal Bowel Sounds, No Organomegaly, No Pulsatile Mass, Non Tender, Soft Back: Normal Inspection, No CVA Tenderness, No Vertebral Tenderness Extremity: Normal Capillary Refill, Normal Inspection, Normal Range of Motion (except right shoulder and chronic fusion left knee), Non Tender, No Calf Tenderness, Pedal Edema (ERIKA hose intact) Neurologic/Psychiatric: Alert, Oriented x3, No Motor/Sensory Deficits, Normal Mood/Affect Skin: Normal Color, Warm/Dry, Other (subtle erythema left leg appears venous stasis dermatitis) Lymphatic: No Adenopathy Results/Procedures Lab Patient resulted labs reviewed. FIM Transfers Therapy Code Descriptions/Definitions Functional [place] Measure: 0=Not Assessed/NA 4=Minimal Assistance 1=Total Assistance 5=Supervision or Setup 2=Maximal Assistance 6=Modified [place] 3=Moderate Assistance 7=Complete [place] Therapy Quality Codes: 6 Independent with activity with or without an assistive device 5 Patient requires set up or clean up by helper. Patient completes activity by themselves 4 Supervision or touching assist (CGA). Zamora provide cues , steadying assist 3 The helper provides less than half the effort to complete the activity 2 The helper provides more than half the effort to complete the activity 1 Dependent. The helper does all the effort to complete an activity 7 Patient refused to complete or attempt activity 9 The patient did not perform the activity before the current illness or injury 88 Not attempted due to Medical conditions or safety concerns Transfers (B, C, W/C) (FIM): 4 Scootin Rollin Roll Left to Right (QC): 4 Supine to/from Sit: 6 Sit to/from Stand: 4 Sit to Lying (QC): 5 Sit to Stand (QC): 3 Chair/Qxe-ru-Smywy Xfer(QC): 2 Bed to/from Chair: 4 Car Transfer (QC): 2 Gait Training Does the Patient Walk?: Yes Gait (FIM): 4 Distance (FIM): 8=520-43 ft (75x2, 40) Distance: 150', 100'x3 Walk 10 feet (QC): 4 Walk 50 ft with 2 Turns(QC): 4 Walk 150 ft (QC): 4 Walking 10ft/uneven surface-QC: 3 Gait Level of Assist: 4 Gait Persons Needed: 1 Gait Assistive Device: Cane Large Base Quad Wheelchair Training Does the Pt Use a Wheelchair?: Yes Wheelchair (FIM): 5 Wheelchair Distance: 3=150 ft (x2) Wheelchair Level of Assist: 5 (instruction for tight turns to prep for TRF position) Type of Wheelchair: Manual Stair Training Stair Training: Handrails/: 1 handrail Stairs (FIM): 2 #of Steps: 4 1 Step (curb) (QC): 3 4 Steps (QC): 3 Stairs: Pattern: Step to Level of Assist: 4 Mental Status/Objective Comprehension: 7 Expression: 7 Social Interaction: 7 Problem Solvin Memory: 7 ADL-Treatment Feedin (Pt uses scissors at home to open packages, has difficulty here with manipulating to open. Uses regular utensils to eat.) Eating (QC): 5 Groomin (Pt completes sitting at sink.) Oral Hygiene (QC): 6 Bathin (Sitting at sink, pt completes by self. Leans side to side to cleanse buttocks/иван area.) Bathing Location: L Arm, R Arm, L Upper Leg, R Upper Leg, L Lower Leg (including foot), R Lower Leg (including foot), Chest, Abdomen, Buttocks, Perineal Area Shower/Bathe Self (QC): 6 Upper Extremity Dressin (After set up, pt completes by self. Assist to don brace.) Upper Body Dressing (QC): 5 Lower Extremity Dressin (After set up, pt completes dressing with AE. CGA in standing while pt hikes pants over hips. Assist to don/doff ERIKA hose and tie shoes. Uses material damage adjuster to don/doff shoes.) Lower Body Dressing (QC): 3 On/Off Footwear (QC): 3 Toiletin (CGA to manipulate clothing. Cleanses self on toilet.) Toileting Hygiene (QC): 4 Toilet/Commode Transfer: 4 (Min A, uses elevated surface, w/c and grabbar.) Toilet Transfer (QC): 3 Shower: 4 Assessment/Plan Assessment and Plan Assess & Plan/Chief Complaint Assessment: s/p right shoulder replacement uncomplicated POD # 22 at [facility] Post op urinary retention requiring Ferrell cath but now resolved since cath removed Chronic left knee fusion HTN Allergic rhinitis Anemia Hypothyroidism Neuropathy BPH GERD Anemia Hyponatremia Low albumin Left leg subtle redness with h/o cellulitis in the past Edema wearing ERIKA's Plan: Pain control IRF protocols Fall risk PCP consulted and input is appreciated BM regimen Lovenox PPx to be maintained until DC and ambulatory Monitor BP and abide by parameters Monitor sodium level, 131 on recheck Work on transfers since it is much improved today with 1 person assist ERIKA hose intact Monitor left leg Day pass Tuesday DC sometime next week (1) Status post replacement of right shoulder joint (2) Constipation (3) Urinary retention (4) Anemia (5) Hypothyroidism (6) GERD (gastroesophageal reflux disease) (7) Allergic rhinitis (8) Hypertension (9) BPH (benign prostatic hyperplasia) (10) Limitation of joint motion of left knee (11) Hyponatremia (12) Serum albumin decreased RICO LANCE DO Sep 28, 2018 10:53
--- NOTE | 2018-09-28 15:20 | Therapy Group Daily Note ---
Therapy Daily Group Note Patient Education Topic Other List Below (memory tips and suggestions) Exercises Sit to/from Stand (with focus on hand placement on assistive device and sequencing with murdock bag toss to challenge balance) Session Ratio (pt:therapist): 3:1 Goal of Session: Education on ARU Expectations, Memory Strategies Educate and inform patient of memory strategy techniques for taking home medications, keeping appointments and remembering where a car is parked. Goal Met for this Session: Yes Pt Benefit of Group: Contributions to Others, Socialization Actively participated with interaction/socilization with others Other/Notes Pt participated in group introductions and recall of favorite summer activities. His favorite summer activity is fishing. He then actively engaged in providing ideas and suggestions and how to remember to take her medications and when to take them. He participated in sit to stand training with cues for correct sequencing to stand up and tossed a murdock bag to challenge her balance in standing. Group concluded with a game of "memory" with matching pictures requiring him to participate and actively participate. Pt was able to make 2 matches. Pt was engaged and seemed to enjoy group. Pt returned to room after group and sat up in his chair with needs met. Start Time: 13:00 Stop Time: 14:15 Total Billed Treatment Time: 75 Total Billed Treatment 1 visit GRP 75 min GIULIA SADLER PT Sep 28, 2018 15:20 PAZ PRUITT PT Oct 02, 2018 11:31
[2018-09-28 16:44] VITALS: BP 136/76
[2018-09-28] MEDS: ASCORBIC ACID (VIT C) 500 MG TABLET PO SCH (18:16)
[2018-09-28] MEDS: SENNA W/DOCUSATE (SENOKOT S) TABLET PO SCH (20:31)
[2018-09-28] MEDS: TAMSULOSIN 0.4 MG (FLOMAX) CAP PO SCH (20:33)
[2018-09-28] MEDS: GABAPENTIN 100 MG (NEURONTIN) CAP PO SCH (20:33)
[2018-09-28] MEDS: FLUTICASONE NASAL SPRAY (FLONASE) 16 GM BTL NS SCH (20:33)
[2018-09-29 05:08] VITALS: BP 134/78
[2018-09-29] MEDS: LEVOTHYROXINE 125 MCG (LEVOTHROID) TABLET PO SCH (05:58)
[2018-09-29] MEDS: MULTIVIT W/MINERALS TAB (THERAGRAN M) PO SCH (05:58)
[2018-09-29] MEDS: ZINC PO SCH (05:59)
[2018-09-29] MEDS: MAGNESIUM PO SCH (05:59)
[2018-09-29] MEDS: CALCIUM PO SCH (05:59)
--- NOTE | 2018-09-29 07:45 | Occupational Ther Daily Note ---
OT Current Status-Daily Note Subjective Pt alert, lying in bed. Pt agrees to therapy. No c/o pain at this time. Blister noted on L big toe and redness on R big toe, reported to nrsg, Mepilex pad applied to areas. Mental Status/Objective Patient Orientation: Person, Place, Time, Situation Therapy Code Descriptions/Definitions Functional [place] Measure: 0=Not Assessed/NA 4=Minimal Assistance 1=Total Assistance 5=Supervision or Setup 2=Maximal Assistance 6=Modified [place] 3=Moderate Assistance 7=Complete [place] ADL-Treatment Pt declines shower. Completes sponge bath sitting at sink. Pt stated that he was able to open packages though with some difficulty this morning. Supine to EOB with bedrails, mod I. With surface elevated, sit to stand CGA. Ambulated to toilet using quadcane, CGA. Toilet transfer using quadcane, BSC and grabbar with min A. Pt completed clothing manipulation with CGA and cleansed self on toilet. Pt transferred from BSC to w/c with min A. Completed sponge bath by self, leans side to side to cleanse buttocks. After set up, pt able to don shirt by self. Using AE pt able to don lower body clothing, CGA in standing while pt hiked pants over hips. Assist to tie shoes and don/doff ERIKA hose. Assist to don brace. After therapy, pt sitting in recliner with call light/phone in reach. All needs met in room. Therapy Code Descriptions/Definitions Functional [place] Measure: 0=Not Assessed/NA 4=Minimal Assistance 1=Total Assistance 5=Supervision or Setup 2=Maximal Assistance 6=Modified [place] 3=Moderate Assistance 7=Complete [place] Therapy Quality Codes: 6 Independent with activity with or without an assistive device 5 Patient requires set up or clean up by helper. Patient completes activity by themselves 4 Supervision or touching assist (CGA). Plush provide cues , steadying assist 3 The helper provides less than half the effort to complete the activity 2 The helper provides more than half the effort to complete the activity 1 Dependent. The helper does all the effort to complete an activity 7 Patient refused to complete or attempt activity 9 The patient did not perform the activity before the current illness or injury 88 Not attempted due to Medical conditions or safety concerns Grooming (FIM): 6 Oral Hygiene (QC): 6 Bathing (FIM): 6 Shower/Bathe Self (QC): 6 Upper Body (FIM): 5 Upper Body Dressing (QC): 5 Lower Body Dressing (FIM): 4 Lower Body Dressing (QC): 3 On/Off Footwear (QC): 3 Toileting (FIM): 4 Toileting Hygiene (QC): 4 Transfers (B, C, W/C) (FIM): 4 Toilet/Commode Transfer (FIM): 4 Toilet Transfer (QC): 3 OT Short Term Goals Short Term Goals Eating(FIM): 5 Grooming(FIM): 5 Bathing(FIM): 5 Bathing Location: L Arm, R Arm, L Upper Leg, R Upper Leg, L Lower Leg (including foot), R Lower Leg (including foot), Chest, Abdomen, Buttocks, Perineal Area Upper Body Dressing(FIM): 5 Lower Body Dressing(FIM): 5 Toileting(FIM): 5 Transfers (B,C,W/C) (FIM): 4 Toilet/Commode Transfer(FIM): 5 Shower Transfer(FIM): 5 (5) Additional Short Term Goals: 1-Demonstrate ADL Tasks, 2-Verbalize Understanding, 3-ImproveStrength/Joel 1=Demonstrate adherence to instructed precautions during ADL tasks. 2=Patient will verbalize/demonstrate understanding of assistive devices/modifications for ADL. 3=Patient will improve strength/tolerance for activity to enable patient to perform ADL's. OT Facility Supervisor Goals Facility Supervisor Goals Eating (FIM): 7 Eating (QC): 6 Groomin Oral Hygiene (QC): 6 Bathing(FIM): 6 Bathing Location: L Arm, R Arm, L Upper Leg, R Upper Leg, L Lower Leg (including foot), R Lower Leg (including foot), Chest, Abdomen, Buttocks, Perineal Area Shower/Bathe Self (QC): 6 Upper Body Dressing(FIM): 6 Upper Body Dressing (QC): 6 Lower Body Dressing(FIM): 6 Lower Body Dressing (QC): 6 On/Off Footwear (QC): 6 Toileting(FIM): 6 Toileting Hygiene (QC): 6 Transfers (B,C,W/C) (FIM): 6 Toilet/Commode Transfer(FIM): 6 Toilet/Commode Transfer (QC): 6 Shower Transfer(FIM): 6 1=Demonstrate adherence to instructed precautions during ADL tasks. 2=Patient will verbalize/demonstrate understanding of assistive devices/modifications for ADL. 3=Patient will improve strength/tolerance for activity to enable patient to perform ADL's. OT Education/Plan Problem List/Assessment Assessment: Decreased UE Strength, Impaired Funct Balance, Impaired Self-Care Skills, Restricted Funct UE ROM pt presents with functional limitations affecting areas of ADLS/ functional transfers. pt protocol for R shoulder can be found in chart. pt would benefit from OT services to increase independence with ADLS/ functional transfers and for safe transition to home. Discharge Recommendations Plan/Recommendations: Continue POC Treatment Plan/Plan of Care Patient would benefit from OT for education, treatment and training to promote independence in ADL's, mobility, safety and/or upper extremity function for ADL's. Plan of Care: ADL Retraining, Caregiver Training, Concurrent Therapy, Functional Mobility, Group Exercise/Act as Ind, Orthotic Fitting/Training, UE Funct Exercise/Act Treatment Duration: Oct 09, 2018 Frequency: At least 5 of 7 days/Wk (IRF) Estimated Hrs Per Day: 1.5 hours per day (60-90 minutes per day) Agreement: Yes Rehab Potential: Fair Time/GCodes Start Time: 07:00 Stop Time: 08:30 Total Time Billed (hr/min): 90 Billed Treatment Time 1 visit-ADL 6 (90 min) PAZ SHIPMAN Sep 29, 2018 07:45
--- NOTE | 2018-09-29 08:00 | NUR ---
STATES COUGH HARDLY BOTHERING HIM NOW. NORMALLY ALLERGENS "ON THE FARM" BOTHER HIM AND HE HAS A CHRONIC COUGH. BENEATH RIGHT ELBOW STILL TIGHT WITH SWELLING, BUT IMPROVED. LOOKING FORWARD TO DAY PASS TOMORROW.
[2018-09-29] MEDS: FAMOTIDINE 20 MG (PEPCID) TABLET PO SCH (08:06)
[2018-09-29] MEDS: ENOXAPARIN 40 MG/0.4 ML (LOVENOX) SYR SC SCH (08:08)
--- NOTE | 2018-09-29 09:07 | PM&R Progress Note ---
Subjective HPI/CC On Admission Date Seen by Provider: Sep 29, 2018 Time Seen by Provider: 08:45 CC: Right shoulder replacement with severe limitation of activities with debility HPI: This is an 88yoWM clinic patient of Dr Pimentel who presents to IRF after an uncomplicated right shoulder replacement by Dr Tobar at [facility] Tuesday but required IRF stay due to advanced age and frailty requiring 2 person assist in addition to left knee fusion due to replacements that have failed x 2 in the past further limiting his ability to ambulate and take care of himself at home. Patient finally arrived at 700pm last night and has settled in and doing well. BM this morning after laxatives given at [facility] [place]. Pain is well controlled currently. Dr Pimentel has been notified of the consultation for his PCP needs. Right sling will stay in place during activity. His is at home in frail health also. I have reviewed his home meds and restarted all. PLOF was independent with ADL's. Patient seen for evaluation of chronic hypertension as well as new onset thrombocytopenia mild after the above. He is still on prophylactic Lovenox reporting no bleeding problems. He states that he has felt well in the shoulder pain is been under good control. He's had no evidence for bright red blood per rectum or melena in his appetite is back to normal. He had some postop constipation as well as urinary retention requiring short-term catheter placement. Catheter was removed before discharge and he reports urination is been smaller volume but he does feel as though he is emptying. His usual nocturia is 1 here in the hospital he reports nocturia 2 it is been darker in color without dysuria he's not aware of any change in odor and denies flank pain chills or fever. Subjective/Events-last exam Redness and edema of the legs are no longer an issue BP is doing good without medications so he will continue that monitoring at home at [place] Bowels are moving Pain is well controlled on Tylenol and does not require any narcs DC sometime next week to optimize transfers and Daypass will be Tuesday and he is looking forward to this Periarea buttock not as red and healing well doubt much will need to be done wit h that at home at [place] Has caregiver at home that can work additional hours so that will be helpful Conferred with RN. Reviewed therapy notes. Objective Exam Vital Signs Vital Signs Date Time Temp Pulse Resp B/P (MAP) Pulse Ox O2 Delivery O2 Flow Rate FiO2 09/29/18 17:01 98.4 81 18 158/84 (108) 96 Room Air Capillary Refill : Less Than 3 Seconds General Appearance: No Apparent Distress, WD/WN, Chronically ill, Thin HEENT: PERRL/EOMI, TMs Normal, Normal ENT Inspection, Pharynx Normal, Moist Mucous Membranes Neck: Full Range of Motion, Normal Inspection, Non Tender, Supple Respiratory: Chest Non Tender, Lungs Clear, Normal Breath Sounds, No Accessory Muscle Use, No Respiratory Distress Cardiovascular: Regular Rate, Rhythm, No Gallop, No JVD, No Murmur Gastrointestinal: Normal Bowel Sounds, No Organomegaly, No Pulsatile Mass, Non Tender, Soft Back: Normal Inspection, No CVA Tenderness, No Vertebral Tenderness Extremity: Normal Capillary Refill, Normal Inspection, Normal Range of Motion (except right shoulder and chronic fusion left knee), Non Tender, No Calf Tenderness, Pedal Edema (ERIKA hose intact) Neurologic/Psychiatric: Alert, Oriented x3, No Motor/Sensory Deficits, Normal Mood/Affect Skin: Normal Color, Warm/Dry, Other (subtle erythema left leg appears venous stasis dermatitis) Lymphatic: No Adenopathy Results/Procedures Lab Patient resulted labs reviewed. FIM Transfers Therapy Code Descriptions/Definitions Functional [place] Measure: 0=Not Assessed/NA 4=Minimal Assistance 1=Total Assistance 5=Supervision or Setup 2=Maximal Assistance 6=Modified [place] 3=Moderate Assistance 7=Complete [place] Therapy Quality Codes: 6 Independent with activity with or without an assistive device 5 Patient requires set up or clean up by helper. Patient completes activity by themselves 4 Supervision or touching assist (CGA). [place] provide cues , steadying assist 3 The helper provides less than half the effort to complete the activity 2 The helper provides more than half the effort to complete the activity 1 Dependent. The helper does all the effort to complete an activity 7 Patient refused to complete or attempt activity 9 The patient did not perform the activity before the current illness or injury 88 Not attempted due to Medical conditions or safety concerns Transfers (B, C, W/C) (FIM): 4 Scootin Rollin Roll Left to Right (QC): 4 Supine to/from Sit: 6 Sit to/from Stand: 4 Sit to Lying (QC): 5 Sit to Stand (QC): 3 Chair/Jbq-qq-Nwysv Xfer(QC): 2 Bed to/from Chair: 4 Car Transfer (QC): 2 Gait Training Does the Patient Walk?: Yes Gait (FIM): 4 Distance (FIM): 9=699-46 ft (75x2, 40) Distance: 150', 100'x3 Walk 10 feet (QC): 4 Walk 50 ft with 2 Turns(QC): 4 Walk 150 ft (QC): 4 Walking 10ft/uneven surface-QC: 3 Gait Level of Assist: 4 Gait Persons Needed: 1 Gait Assistive Device: Cane Large Base Quad Wheelchair Training Does the Pt Use a Wheelchair?: Yes Wheelchair (FIM): 5 Wheelchair Distance: 3=150 ft (x2) Wheelchair Level of Assist: 5 (instruction for tight turns to prep for TRF position) Type of Wheelchair: Manual Stair Training Stair Training: Handrails/: 1 handrail Stairs (FIM): 2 #of Steps: 4 1 Step (curb) (QC): 3 4 Steps (QC): 3 Stairs: Pattern: Step to Level of Assist: 4 Mental Status/Objective Comprehension: 7 Expression: 7 Social Interaction: 7 Problem Solvin Memory: 7 ADL-Treatment Feedin (Pt uses scissors at home to open packages, has difficulty here with manipulating to open. Uses regular utensils to eat.) Eating (QC): 5 Groomin Oral Hygiene (QC): 6 Bathin Bathing Location: L Arm, R Arm, L Upper Leg, R Upper Leg, L Lower Leg (including foot), R Lower Leg (including foot), Chest, Abdomen, Buttocks, Perineal Area Shower/Bathe Self (QC): 6 Upper Extremity Dressin Upper Body Dressing (QC): 5 Lower Extremity Dressin Lower Body Dressing (QC): 3 On/Off Footwear (QC): 3 Toiletin Toileting Hygiene (QC): 4 Toilet/Commode Transfer: 4 Toilet Transfer (QC): 3 Shower: 4 Assessment/Plan Assessment and Plan Assess & Plan/Chief Complaint Assessment: s/p right shoulder replacement uncomplicated POD # 23 at [facility] Post op urinary retention requiring Ferrell cath but now resolved since cath removed Chronic left knee fusion HTN Allergic rhinitis Anemia Hypothyroidism Neuropathy BPH GERD Anemia Hyponatremia Low albumin Left leg subtle redness with h/o cellulitis in the past Edema wearing ERIKA's Plan: Pain control IRF protocols Fall risk PCP consulted and input is appreciated BM regimen Lovenox PPx to be maintained until DC and ambulatory Monitor BP and abide by parameters Monitor sodium level, 131 on recheck Work on transfers since it is much improved today with 1 person assist ERIKA hose intact Monitor left leg Day pass Tuesday DC sometime next week (1) Status post replacement of right shoulder joint (2) Constipation (3) Urinary retention (4) Anemia (5) Hypothyroidism (6) GERD (gastroesophageal reflux disease) (7) Allergic rhinitis (8) Hypertension (9) BPH (benign prostatic hyperplasia) (10) Limitation of joint motion of left knee (11) Hyponatremia (12) Serum albumin decreased RICO LANCE DO Sep 29, 2018 09:07
--- NOTE | 2018-09-29 09:27 | Physical Therapy Daily Note ---
PT Daily Note-Current Subjective Patient in recliner pre tx, agrees to PT, has no complaints of pain. Appearance Patient in recliner post tx with nurse call, phone, tray, all needs met. Mental Status Patient Orientation: Person, Place, Situation, Normal For Age arm brace Transfers Therapy Code Descriptions/Definitions Functional [place] Measure: 0=Not Assessed/NA 4=Minimal Assistance 1=Total Assistance 5=Supervision or Setup 2=Maximal Assistance 6=Modified [place] 3=Moderate Assistance 7=Complete [place] Therapy Quality Codes: 6 Independent with activity with or without an assistive device 5 Patient requires set up or clean up by helper. Patient completes activity by themselves 4 Supervision or touching assist (CGA). [place] provide cues , steadying assist 3 The helper provides less than half the effort to complete the activity 2 The helper provides more than half the effort to complete the activity 1 Dependent. The helper does all the effort to complete an activity 7 Patient refused to complete or attempt activity 9 The patient did not perform the activity before the current illness or injury 88 Not attempted due to Medical conditions or safety concerns Transfers (B, C, W/C) (FIM): 4 Scootin Rollin Supine to/from Sit: 6 Sit to/from Stand: 4 Bed to/from Chair: 4 Weight Bearing Right Lower Extremity: Right Weight Bearing/Tolerated Left Lower Extremity: Left Weight Bearing/Tolerated total shoulder protocol on right side Gait Training Gait (FIM): 4 Distance: 150'x2 Gait Level of Assist: 4 Gait Persons Needed: 1 Gait Assistive Device: Cane Large Base Quad CGA, some unsteadiness but no LOB, slow ambulation, poor foot clearance on the right side. Exercises Supine Ex: Ankle pumps, Quad Set, Glut sets, Heel Slides, Short Arc Quads, Straight leg raise, Hip abd/add Supine Reps: 20 NuStep Minutes: 15 NuStep Workload: 4 Treatments bed mobility and transfers, ambulation, LE exercise Assessment Current Status: Fair Progress slowly improving balance during ambulation PT Short Term Goals Short Term Goals Time Frame: September 18, 2018 Transfers (B,C,W/C) (FIM): 4 Gait (FIM): 2 Gait Distance Comment: 100' Gait Level of Assist: 4 Gait Assistive Device: Handheld Assist PT Rat Trapper Goals Rat Trapper Goals PT Detention Goals Time Frame: Oct 02, 2018 Transfers (B,C,W/C) (FIM): 5 Sit to Lying (QC): 6 Lying-Sitting on Side/Bed(QC): 6 Sit to Stand (QC): 4 Rollin Roll Left to Right (QC): 6 Chair/Hfv-si-Crqdo Xfer(QC): 4 Car Transfer (QC): 4 Gait (FIM): 4 Distance: 150' Walk 10 feet (QC): 4 Walk 10ft-Uneven Surface(QC): 4 Walk 50ft with 2 Turns (QC): 4 Walk 150 ft (QC): 4 Gait Level of Assist: 4 (CGA) Gait Assistive Device: Handheld Assist Stairs (FIM): 1 # of Steps: 1 1 Step (curb) (QC): 3 Stairs Level Of Assist: 4 PT Plan Problem List Problem List: Activity Tolerance, Functional Strength, Safety, Balance, Gait, Transfer, Bed Mobility, ROM Treatment/Plan Treatment Plan: Continue Plan of Care Treatment Plan: Bed Mobility, Concurrent Therapy, Education, Functional Activ ity Joel, Functional Strength, Group Therapy, Gait, Safety, Therapeutic Exercise, Transfers Treatment Duration: Oct 02, 2018 Frequency: At least 5 of 7 days/Wk (IRF) Estimated Hrs Per Day: 1.5 hours per day Patient and/or Family Agrees t: Yes Safety Risks/Education Patient Education: Gait Training, Transfer Techniques, Correct Positioning, Safety Issues Teaching Recipient: Patient Teaching Methods: Demonstration, Discussion Response to Teaching: Reinforcement Needed Time/GCodes Time In: 829 Time Out: 929 Total Billed Treatment Time: 60 Total Billed Treatment 1 visit EX 30' FA 10' GT 20' NAGA JACOBS PT Sep 29, 2018 09:27
--- NOTE | 2018-09-29 11:02 | Physical Therapy Daily Note ---
PT Daily Note-Current Subjective Patient in recliner pre tx, agrees to PT, no complaints of pain at rest. Appearance Patient in recliner post tx with nurse call, phone, tray, all needs met. Mental Status Patient Orientation: Person, Place, Situation, Normal For Age arm brace Transfers Therapy Code Descriptions/Definitions Functional [place] Measure: 0=Not Assessed/NA 4=Minimal Assistance 1=Total Assistance 5=Supervision or Setup 2=Maximal Assistance 6=Modified [place] 3=Moderate Assistance 7=Complete [place] Therapy Quality Codes: 6 Independent with activity with or without an assistive device 5 Patient requires set up or clean up by helper. Patient completes activity by themselves 4 Supervision or touching assist (CGA). [place] provide cues , steadying assist 3 The helper provides less than half the effort to complete the activity 2 The helper provides more than half the effort to complete the activity 1 Dependent. The helper does all the effort to complete an activity 7 Patient refused to complete or attempt activity 9 The patient did not perform the activity before the current illness or injury 88 Not attempted due to Medical conditions or safety concerns Sit to/from Stand: 4 Bed to/from Chair: 4 Min assist to stand from lower surfaces. Weight Bearing Right Lower Extremity: Right Weight Bearing/Tolerated Left Lower Extremity: Left Weight Bearing/Tolerated total shoulder protocol on right side Gait Training Gait (FIM): 4 Distance: 150'x2 Gait Level of Assist: 4 Gait Persons Needed: 1 Gait Assistive Device: Cane Large Base Quad CGA, again no LOB but occasional unsteadiness but he is able to self-correct Exercises Standing: Heel/toe raises, 3 way Ex=Flex, Abd, Ext (not ext), Marching, Mini squats Standing Reps: 15 Treatments transfers, ambulation, LE exercise Assessment Current Status: Fair Progress improving ambulation PT Short Term Goals Short Term Goals Time Frame: September 18, 2018 Transfers (B,C,W/C) (FIM): 4 Gait (FIM): 2 Gait Distance Comment: 100' Gait Level of Assist: 4 Gait Assistive Device: Handheld Assist PT Builder Operator Goals Longterm Goals PT Builder Operator Goals Time Frame: Oct 02, 2018 Transfers (B,C,W/C) (FIM): 5 Sit to Lying (QC): 6 Lying-Sitting on Side/Bed(QC): 6 Sit to Stand (QC): 4 Rollin Roll Left to Right (QC): 6 Chair/Ywu-zn-Ppafb Xfer(QC): 4 Car Transfer (QC): 4 Gait (FIM): 4 Distance: 150' Walk 10 feet (QC): 4 Walk 10ft-Uneven Surface(QC): 4 Walk 50ft with 2 Turns (QC): 4 Walk 150 ft (QC): 4 Gait Level of Assist: 4 (CGA) Gait Assistive Device: Handheld Assist Stairs (FIM): 1 # of Steps: 1 1 Step (curb) (QC): 3 Stairs Level Of Assist: 4 PT Plan Problem List Problem List: Activity Tolerance, Functional Strength, Safety, Balance, Gait, Transfer, Bed Mobility, ROM Treatment/Plan Treatment Plan: Continue Plan of Care Treatment Plan: Bed Mobility, Concurrent Therapy, Education, Functional Activity Joel, Functional Strength, Group Therapy, Gait, Safety, Therapeutic Exercise, Transfers Treatment Duration: Oct 02, 2018 Frequency: At least 5 of 7 days/Wk (IRF) Estimated Hrs Per Day: 1.5 hours per day Patient and/or Family Agrees t: Yes Safety Risks/Education Patient Education: Gait Training, Transfer Techniques, Correct Positioning, Safety Issues Teaching Recipient: Patient Teaching Methods: Demonstration, Discussion Response to Teaching: Reinforcement Needed Time/GCodes Time In: 1030 Time Out: 1100 Total Billed Treatment Time: 30 Total Billed Treatment 1 visit EX 15' GT 15' NAGA JACOBS PT Sep 29, 2018 11:02
[2018-09-29 17:01] VITALS: BP 158/84
[2018-09-29] MEDS: ASCORBIC ACID (VIT C) 500 MG TABLET PO SCH (17:39)
[2018-09-29] MEDS: GABAPENTIN 100 MG (NEURONTIN) CAP PO SCH (20:07)
[2018-09-29] MEDS: SENNA W/DOCUSATE (SENOKOT S) TABLET PO SCH (20:07)
[2018-09-29] MEDS: FLUTICASONE NASAL SPRAY (FLONASE) 16 GM BTL NS SCH (20:07)
[2018-09-29] MEDS: TAMSULOSIN 0.4 MG (FLOMAX) CAP PO SCH (20:07)
[2018-09-30 06:01] VITALS: BP 123/77
[2018-09-30] MEDS: MULTIVIT W/MINERALS TAB (THERAGRAN M) PO SCH (06:48)
[2018-09-30] MEDS: LEVOTHYROXINE 125 MCG (LEVOTHROID) TABLET PO SCH (06:48)
[2018-09-30] MEDS: ZINC PO SCH (06:49)
[2018-09-30] MEDS: MAGNESIUM PO SCH (06:49)
[2018-09-30] MEDS: CALCIUM PO SCH (06:49)
[2018-09-30] MEDS: FAMOTIDINE 20 MG (PEPCID) TABLET PO SCH (08:42)
[2018-09-30] MEDS: ENOXAPARIN 40 MG/0.4 ML (LOVENOX) SYR SC SCH (08:42)
--- NOTE | 2018-09-30 09:30 | Physical Therapy Daily Note ---
PT Daily Note-Current Subjective Pt reports doing good today. Agreeable to PT session. States going home on day pass today and is excited about it. States is going home for good on Tuesday. Appearance Pt sitting in recliner upon arrival, awake and alert, on phone with family. At end of session, sitting up in recliner with call light, phone and bedside table within reach Mental Status Patient Orientation: Person, Place, Time, Eyes Open r shoulder immobilizer Transfers Therapy Code Descriptions/Definitions Functional [place] Measure: 0=Not Assessed/NA 4=Minimal Assistance 1=Total Assistance 5=Supervision or Setup 2=Maximal Assistance 6=Modified [place] 3=Moderate Assistance 7=Complete [place] Therapy Quality Codes: 6 Independent with activity with or without an assistive device 5 Patient requires set up or clean up by helper. Patient completes activity by themselves 4 Supervision or touching assist (CGA). [place] provide cues , steadying assist 3 The helper provides less than half the effort to complete the activity 2 The helper provides more than half the effort to complete the activity 1 Dependent. The helper does all the effort to complete an activity 7 Patient refused to complete or attempt activity 9 The patient did not perform the activity before the current illness or injury 88 Not attempted due to Medical conditions or safety concerns Transfers (B, C, W/C) (FIM): 4 Sit to/from Stand: 4 good hand placement with RUFINO CORTEZ in immobilizer, requires elevated recliner to stand with CGA Weight Bearing Right Lower Extremity: Right Weight Bearing/Tolerated Left Lower Extremity: Left Weight Bearing/Tolerated total shoulder protocol on right side Gait Training Does the Patient Walk?: Yes Gait (FIM): 4 Distance (FIM): 3=150 ft Distance: 300 Gait Level of Assist: 4 (CGA, min A required x1 episode to steady and regain balance) Gait Assistive Device: Cane Large Base Quad Treatments transfer, safety, gait, functional mobility, balance, education Assessment Current Status: Good Progress PT Short Term Goals Short Term Goals Time Frame: September 18, 2018 Transfers (B,C,W/C) (FIM): 4 Gait (FIM): 2 Gait Distance Comment: 100' Gait Level of Assist: 4 Gait Assistive Device: Handheld Assist PT Mechanic Field Service Goals Snf Goals PT Snf Goals Time Frame: Oct 02, 2018 Transfers (B,C,W/C) (FIM): 5 Sit to Lying (QC): 6 Lying-Sitting on Side/Bed(QC): 6 Sit to Stand (QC): 4 Rollin Roll Left to Right (QC): 6 Chair/Avg-xz-Kwkzm Xfer(QC): 4 Car Transfer (QC): 4 Gait (FIM): 4 Distance: 150' Walk 10 feet (QC): 4 Walk 10ft-Uneven Surface(QC): 4 Walk 50ft with 2 Turns (QC): 4 Walk 150 ft (QC): 4 Gait Level of Assist: 4 (CGA) Gait Assistive Device: Handheld Assist Stairs (FIM): 1 # of Steps: 1 1 Step (curb) (QC): 3 Stairs Level Of Assist: 4 PT Plan Treatment/Plan Treatment Plan: Continue Plan of Care Treatment Plan: Bed Mobility, Concurrent Therapy, Education, Functional Activity Joel, Functional Strength, Group Therapy, Gait, Safety, Therapeutic Exercise, Transfers Treatment Duration: Oct 02, 2018 Frequency: At least 5 of 7 days/Wk (IRF) Estimated Hrs Per Day: 1.5 hours per day Patient and/or Family Agrees t: Yes Safety Risks/Education Patient Education: Gait Training, Transfer Techniques, Reviewed Precautions, Safety Issues Teaching Recipient: Patient Teaching Methods: Discussion Response to Teaching: Verbalize Understanding, Return Demonstration Time/GCodes Time In: 926 Time Out: 942 Total Billed Treatment Time: 16 Total Billed Treatment 1 visit, GT x1 unit FRANCISCO TRINH PTA Sep 30, 2018 09:30
--- NOTE | 2018-09-30 12:19 | PM&R Progress Note ---
Subjective HPI/CC On Admission Date Seen by Provider: Sep 30, 2018 Time Seen by Provider: 10:00 CC: Right shoulder replacement with severe limitation of activities with debility HPI: This is an 88yoWM clinic patient of Dr Pimentel who presents to IRF after an uncomplicated right shoulder replacement by Dr Tobar at [facility] Tuesday but required IRF stay due to advanced age and frailty requiring 2 person assist in addition to left knee fusion due to replacements that have failed x 2 in the past further limiting his ability to ambulate and take care of himself at home. Patient finally arrived at 700pm last night and has settled in and doing well. BM this morning after laxatives given at [facility]. Pain is well controlled currently. Dr Pimentel has been notified of the consultation for his PCP needs. Right sling will stay in place during activity. His is at home in frail health also. I have reviewed his home meds and restarted all. PLOF was independent with ADL's. Patient seen for evaluation of chronic hypertension as well as new onset thrombocytopenia mild after the above. He is still on prophylactic Lovenox reporting no bleeding problems. He states that he has felt well in the shoulder pain is been under good control. He's had no evidence for bright red blood per rectum or melena in his appetite is back to normal. He had some postop constipation as well as urinary retention requiring short-term catheter placement. Catheter was removed before discharge and he reports urination is been smaller volume but he does feel as though he is emptying. His usual nocturia is 1 here in the hospital he reports nocturia 2 it is been darker in color without dysuria he's not aware of any change in odor and denies flank pain chills or fever. Subjective/Events-last exam Patient doing very well today Looking forward to going on his day past today at noon We'll work on evaluating any other needs he needs to work on prior to discharge while he is at home Family training with occurred yesterday Bowels are moving Lower extremity edema is resolved with ERIKA wallace No further issues with subtle redness of the left leg Checked meds and labs Conferred with rehab director therapy notes Review of Systems Musculoskeletal: arm pain, leg pain Objective Exam Vital Signs Vital Signs Date Time Temp Pulse Resp B/P (MAP) Pulse Ox O2 Delivery O2 Flow Rate FiO2 09/30/18 09:00 Room Air 09/30/18 06:01 98.2 80 18 123/77 (92) 96 Capillary Refill : Less Than 3 Seconds General Appearance: No Apparent Distress, WD/WN, Chronically ill, Thin HEENT: PERRL/EOMI, TMs Normal, Normal ENT Inspection, Pharynx Normal, Moist Mucous Membranes Neck: Full Range of Motion, Normal Inspection, Non Tender, Supple Respiratory: Chest Non Tender, Lungs Clear, Normal Breath Sounds, No Accessory Muscle Use, No Respiratory Distress Cardiovascular: Regular Rate, Rhythm, No Gallop, No JVD, No Murmur Gastrointestinal: Normal Bowel Sounds, No Organomegaly, No Pulsatile Mass, Non Tender, Soft Back: Normal Inspection, No CVA Tenderness, No Vertebral Tenderness Extremity: Normal Capillary Refill, Normal Inspection, Normal Range of Motion (except right shoulder and chronic fusion left knee), Non Tender, No Calf T enderness, Pedal Edema (ERIKA hose intact) Neurologic/Psychiatric: Alert, Oriented x3, No Motor/Sensory Deficits, Normal Mood/Affect Skin: Normal Color, Warm/Dry, Other (subtle erythema left leg appears venous stasis dermatitis) Lymphatic: No Adenopathy Results/Procedures Lab Patient resulted labs reviewed. FIM Transfers Therapy Code Descriptions/Definitions Functional [place] Measure: 0=Not Assessed/NA 4=Minimal Assistance 1=Total Assistance 5=Supervision or Setup 2=Maximal Assistance 6=Modified [place] 3=Moderate Assistance 7=Complete [place] Therapy Quality Codes: 6 Independent with activity with or without an assistive device 5 Patient requires set up or clean up by helper. Patient completes activity by themselves 4 Supervision or touching assist (CGA). [place] provide cues , steadying assist 3 The helper provides less than half the effort to complete the activity 2 The helper provides more than half the effort to complete the activity 1 Dependent. The helper does all the effort to complete an activity 7 Patient refused to complete or attempt activity 9 The patient did not perform the activity before the current illness or injury 88 Not attempted due to Medical conditions or safety concerns Transfers (B, C, W/C) (FIM): 4 Scootin Rollin Roll Left to Right (QC): 4 Supine to/from Sit: 6 Sit to/from Stand: 4 Sit to Lying (QC): 5 Sit to Stand (QC): 3 Chair/Muo-tw-Extgn Xfer(QC): 2 Bed to/from Chair: 4 Car Transfer (QC): 2 Gait Training Does the Patient Walk?: Yes Gait (FIM): 4 Distance (FIM): 3=150 ft Distance: 300 Walk 10 feet (QC): 4 Walk 50 ft with 2 Turns(QC): 4 Walk 150 ft (QC): 4 Walking 10ft/uneven surface-QC: 3 Gait Level of Assist: 4 Gait Persons Needed: 1 Gait Assistive Device: Cane Large Base Quad Wheelchair Training Does the Pt Use a Wheelchair?: Yes Wheelchair (FIM): 5 Wheelchair Distance: 3=150 ft (x2) Wheelchair Level of Assist: 5 (instruction for tight turns to prep for TRF p osition) Type of Wheelchair: Manual Stair Training Stair Training: Handrails/: 1 handrail Stairs (FIM): 2 #of Steps: 4 1 Step (curb) (QC): 3 4 Steps (QC): 3 Stairs: Pattern: Step to Level of Assist: 4 Mental Status/Objective Comprehension: 7 Expression: 7 Social Interaction: 7 Problem Solvin Memory: 7 ADL-Treatment Feedin (Pt uses scissors at home to open packages, has difficulty here with manipulating to open. Uses regular utensils to eat.) Eating (QC): 5 Groomin Oral Hygiene (QC): 6 Bathin Bathing Location: L Arm, R Arm, L Upper Leg, R Upper Leg, L Lower Leg (including foot), R Lower Leg (including foot), Chest, Abdomen, Buttocks, Perineal Area Shower/Bathe Self (QC): 6 Upper Extremity Dressin Upper Body Dressing (QC): 5 Lower Extremity Dressin Lower Body Dressing (QC): 3 On/Off Footwear (QC): 3 Toiletin Toileting Hygiene (QC): 4 Toilet/Commode Transfer: 4 Toilet Transfer (QC): 3 Shower: 4 Assessment/Plan Assessment and Plan Assess & Plan/Chief Complaint Assessment: s/p right shoulder replacement uncomplicated POD # 24 at [facility] Post op urinary retention requiring Ferrell cath but now resolved since cath removed Chronic left knee fusion HTN Allergic rhinitis Anemia Hypothyroidism Neuropathy BPH GERD Anemia Hyponatremia Low albumin Left leg subtle redness with h/o cellulitis in the past Edema wearing ERIKA's Plan: Pain control IRF protocols Fall risk PCP consulted and input is appreciated BM regimen Lovenox PPx to be maintained until DC and ambulatory Monitor BP and abide by parameters Monitor sodium level, 131 on recheck Work on transfers since it is much improved today with 1 person assist ERIKA wallace intact Monitor left leg Day pass today DC sometime next week (1) Status post replacement of right shoulder joint (2) Constipation (3) Urinary retention (4) Anemia (5) Hypothyroidism (6) GERD (gastroesophageal reflux disease) (7) Allergic rhinitis (8) Hypertension (9) BPH (benign prostatic hyperplasia) (10) Limitation of joint motion of left knee (11) Hyponatremia (12) Serum albumin decreased RICO LANCE DO Sep 30, 2018 12:19
--- NOTE | 2018-09-30 15:30 | NUR ---
Pt returned from day pass. Pt and pts stated they had no difficulty and a pleasant visit. Assisted to bedside chair. Call light in reach. at side.
[2018-09-30 15:50] VITALS: BP 103/67
[2018-09-30] MEDS: ASCORBIC ACID (VIT C) 500 MG TABLET PO SCH (18:14)
[2018-09-30] MEDS: FLUTICASONE NASAL SPRAY (FLONASE) 16 GM BTL NS SCH (20:02)
[2018-09-30] MEDS: GABAPENTIN 100 MG (NEURONTIN) CAP PO SCH (20:02)
[2018-09-30] MEDS: TAMSULOSIN 0.4 MG (FLOMAX) CAP PO SCH (20:02)
[2018-09-30] MEDS: SENNA W/DOCUSATE (SENOKOT S) TABLET PO SCH (20:02)
[2018-10-01 05:49] VITALS: BP 96/60
[2018-10-01] MEDS: ZINC PO SCH (06:54)
[2018-10-01] MEDS: MULTIVIT W/MINERALS TAB (THERAGRAN M) PO SCH (06:54)
[2018-10-01] MEDS: LEVOTHYROXINE 125 MCG (LEVOTHROID) TABLET PO SCH (06:54)
[2018-10-01] MEDS: CALCIUM PO SCH (06:54)
[2018-10-01] MEDS: MAGNESIUM PO SCH (06:54)
[2018-10-01] MEDS: ENOXAPARIN 40 MG/0.4 ML (LOVENOX) SYR SC SCH (08:12)
[2018-10-01] MEDS: FAMOTIDINE 20 MG (PEPCID) TABLET PO SCH (08:12)
--- NOTE | 2018-10-01 10:49 | PM&R Progress Note ---
Subjective HPI/CC On Admission Date Seen by Provider: Oct 01, 2018 Time Seen by Provider: 10:30 CC: Right shoulder replacement with severe limitation of activities with debility HPI: This is an 88yoWM clinic patient of Dr Pimentel who presents to IRF after an uncomplicated right shoulder replacement by Dr Tobar at [facility] Tuesday but required IRF stay due to advanced age and frailty requiring 2 person assist in addition to left knee fusion due to replacements that have failed x 2 in the past further limiting his ability to ambulate and take care of himself at home. Patient finally arrived at 700pm last night and has settled in and doing well. BM this morning after laxatives given at [facility]. Pain is well controlled currently. Dr Pimentel has been notified of the consultation for his PCP needs. Right sling will stay in place during activity. His is at home in frail health also. I have reviewed his home meds and restarted all. PLOF was independent with ADL's. Patient seen for evaluation of chronic hypertension as well as new onset thrombocytopenia mild after the above. He is still on prophylactic Lovenox reporting no bleeding problems. He states that he has felt well in the shoulder pain is been under good control. He's had no evidence for bright red blood per rectum or melena in his appetite is back to normal. He had some postop constipation as well as urinary retention requiring short-term catheter placement. Catheter was removed before discharge and he reports urination is been smaller volume but he does feel as though he is emptying. His usual nocturia is 1 here in the hospital he reports nocturia 2 it is been darker in color without dysuria he's not aware of any change in odor and denies flank pain chills or fever. Subjective/Events-last exam Patient had a great day at home yesterday during his day pass The only thing he needs is another bar beside his toilet to navigate that better but otherwise his lift chair worked great and everything else was just fine Had no falls while at home Family was thrilled that he could visit home for a few hours Denied any significant increased pain or any issues while he was at his house Check meds and labs No edema increase in the leg since his day pass Breathing well We will check labs in the morning prior to upcoming discharge plans Checked meds and labs Conferred with plastic battery assembler therapy notes Review of Systems General: Fatigue Musculoskeletal: arm pain, leg pain Objective Exam Vital Signs Vital Signs Date Time Temp Pulse Resp B/P (MAP) Pulse Ox O2 Delivery O2 Flow Rate FiO2 10/01/18 15:21 97.7 90 16 107/68 (81) 98 Room Air Capillary Refill : Less Than 3 Seconds General Appearance: No Apparent Distress, WD/WN, Chronically ill, Thin HEENT: PERRL/EOMI, TMs Normal, Normal ENT Inspection, Pharynx Normal, Moist Mucous Membranes Neck: Full Range of Motion, Normal Inspection, Non Tender, Supple Respiratory: Chest Non Tender, Lungs Clear, Normal Breath Sounds, No Accessory Muscle Use, No Respiratory Distress Cardiovascular: Regular Rate, Rhythm, No Gallop, No JVD, No Murmur Gastrointestinal: Normal Bowel Sounds, No Organomegaly, No Pulsatile Mass, Non Tender, Soft Back: Normal Inspection, No CVA Tenderness, No Vertebral Tenderness Extremity: Normal Capillary Refill, Normal Inspection, Normal Range of Motion ( except right shoulder and chronic fusion left knee), Non Tender, No Calf Tenderness, Pedal Edema (ERIKA hose intact) Neurologic/Psychiatric: Alert, Oriented x3, No Motor/Sensory Deficits, Normal Mood/Affect Skin: Normal Color, Warm/Dry, Other (subtle erythema left leg appears venous stasis dermatitis) Lymphatic: No Adenopathy Results/Procedures Lab Patient resulted labs reviewed. FIM Transfers Therapy Code Descriptions/Definitions Functional [place] Measure: 0=Not Assessed/NA 4=Minimal Assistance 1=Total Assistance 5=Supervision or Setup 2=Maximal Assistance 6=Modified [place] 3=Moderate Assistance 7=Complete [place] Therapy Quality Codes: 6 Independent with activity with or without an assistive device 5 Patient requires set up or clean up by helper. Patient completes activity by themselves 4 Supervision or touching assist (CGA). [place] provide cues , steadying assist 3 The helper provides less than half the effort to complete the activity 2 The helper provides more than half the effort to complete the activity 1 Dependent. The helper does all the effort to complete an activity 7 Patient refused to complete or attempt activity 9 The patient did not perform the activity before the current illness or injury 88 Not attempted due to Medical conditions or safety concerns Transfers (B, C, W/C) (FIM): 4 Scootin Rollin Roll Left to Right (QC): 4 Supine to/from Sit: 6 Sit to/from Stand: 4 Sit to Lying (QC): 5 Sit to Stand (QC): 3 Chair/Rme-hp-Dlnox Xfer(QC): 2 Bed to/from Chair: 4 Car Transfer (QC): 2 Gait Training Does the Patient Walk?: Yes Gait (FIM): 4 Distance (FIM): 3=150 ft Distance: 300 Walk 10 feet (QC): 4 Walk 50 ft with 2 Turns(QC): 4 Walk 150 ft (QC): 4 Walking 10ft/uneven surface-QC: 3 Gait Level of Assist: 4 Gait Persons Needed: 1 Gait Assistive Device: Cane Large Base Quad Wheelchair Training Does the Pt Use a Wheelchair?: Yes Wheelchair (FIM): 5 Wheelchair Distance: 3=150 ft (x2) Wheelchair Level of Assist: 5 (instruction for tight turns to prep for TRF position) Type of Wheelchair: Manual Stair Training Stair Training: Handrails/: 1 handrail Stairs (FIM): 2 #of Steps: 4 1 Step (curb) (QC): 3 4 Steps (QC): 3 Stairs: Pattern: Step to Level of Assist: 4 Mental Status/Objective Comprehension: 7 Expression: 7 Social Interaction: 7 Problem Solvin Memory: 7 ADL-Treatment Feedin (Pt uses scissors at home to open packages, has difficulty here with manipulating to open. Uses regular utensils to eat.) Eating (QC): 5 Groomin Oral Hygiene (QC): 6 Bathin Bathing Location: L Arm, R Arm, L Upper Leg, R Upper Leg, L Lower Leg (including foot), R Lower Leg (including foot), Chest, Abdomen, Buttocks, Perineal Area Shower/Bathe Self (QC): 6 Upper Extremity Dressin Upper Body Dressing (QC): 5 Lower Extremity Dressin Lower Body Dressing (QC): 3 On/Off Footwear (QC): 3 Toiletin Toileting Hygiene (QC): 4 Toilet/Commode Transfer: 4 Toilet Transfer (QC): 3 Shower: 4 Assessment/Plan Assessment and Plan Assess & Plan/Chief Complaint Assessment: s/p right shoulder replacement uncomplicated POD # 25 at [facility] Post op urinary retention requiring Ferrell cath but now resolved since cath removed Chronic left knee fusion HTN Allergic rhinitis Anemia Hypothyroidism Neuropathy BPH GERD Anemia Hyponatremia Low albumin Left leg subtle redness with h/o cellulitis in the past Edema wearing ERIKA's Plan: Pain control IRF protocols Fall risk PCP consulted and input is appreciated BM regimen Lovenox PPx to be maintained until DC and ambulatory Monitor BP and abide by parameters Monitor sodium level, 131 on recheck Work on transfers since it is much improved today with 1 person assist ERIKA hose intact Monitor left leg Day pass yesterday went very well DC sometime this week (1) Status post replacement of right shoulder joint (2) Constipation (3) Urinary retention (4) Anemia (5) Hypothyroidism (6) GERD (gastroesophageal reflux disease) (7) Allergic rhinitis (8) Hypertension (9) BPH (benign prostatic hyperplasia) (10) Limitation of joint motion of left knee (11) Hyponatremia (12) Serum albumin decreased RICO LANCE DO Oct 01, 2018 10:49
[2018-10-01 15:21] VITALS: BP 107/68
[2018-10-01] MEDS: ASCORBIC ACID (VIT C) 500 MG TABLET PO SCH (18:01)
[2018-10-01] MEDS: FLUTICASONE NASAL SPRAY (FLONASE) 16 GM BTL NS SCH (20:25)
[2018-10-01] MEDS: TAMSULOSIN 0.4 MG (FLOMAX) CAP PO SCH (20:25)
[2018-10-01] MEDS: GABAPENTIN 100 MG (NEURONTIN) CAP PO SCH (20:25)
[2018-10-01] MEDS: SENNA W/DOCUSATE (SENOKOT S) TABLET PO SCH (20:25)
[2018-10-02 05:10] VITALS: BP 110/66
[2018-10-02] MEDS: LEVOTHYROXINE 125 MCG (LEVOTHROID) TABLET PO SCH (05:40)
[2018-10-02] MEDS: CALCIUM PO SCH (05:40)
[2018-10-02] MEDS: MAGNESIUM PO SCH (05:40)
[2018-10-02] MEDS: ZINC PO SCH (05:40)
[2018-10-02] MEDS: MULTIVIT W/MINERALS TAB (THERAGRAN M) PO SCH (05:40)
[2018-10-02 06:12] LABS: BASOPHILS % (AUTO) 1 % (0-10); EOSINOPHILS # (AUTO) 0.2 10^3/uL (0.0-0.3); EOSINOPHILS % (AUTO) 5 % (0-10); HEMATOCRIT 35 % (40-54); HEMOGLOBIN 11.5 G/DL (13.3-17.7); LYMPHOCYTES # (AUTO) 1.1 X 10^3 (1.0-4.0); LYMPHOCYTES % (AUTO) 30 % (12-44); MEAN CORPUSCULAR HEMOGLOBIN 31 PG (25-34); MEAN CORPUSCULAR HGB CONC 33 G/DL (32-36); MEAN CORPUSCULAR VOLUME 96 FL (80-99); MEAN PLATELET VOLUME 8.2 FL (7.4-10.4); MONOCYTES # (AUTO) 0.6 X 10^3 (0.0-1.0); MONOCYTES % (AUTO) 16 % (0-12); NEUTROPHILS # (AUTO) 1.8 X 10^3 (1.8-7.8); NEUTROPHILS % (AUTO) 48 % (42-75); PLATELET COUNT 260 10^3/uL (130-400); RED CELL DISTRIBUTION WIDTH 14.7 % (10.0-14.5); WHITE BLOOD COUNT 3.7 10^3/uL (4.3-11.0)
[2018-10-02 06:31] LABS: ALANINE AMINOTRANSFERASE 24 U/L (0-55); ALBUMIN 3.1 GM/DL (3.2-4.5); ALKALINE PHOSPHATASE 126 U/L (40-136); BILIRUBIN,TOTAL 0.4 MG/DL (0.1-1.0); BUN/CREATININE RATIO 12; CARBON DIOXIDE 25 MMOL/L (21-32); CHLORIDE 99 MMOL/L (98-107); CREATININE SERUM 0.74 MG/DL (0.60-1.30); GFR ESTIMATED > 60; GLUCOSE 106 MG/DL (70-105); POTASSIUM 4.2 MMOL/L (3.6-5.0); SODIUM 133 MMOL/L (135-145); TOTAL PROTEIN 5.3 GM/DL (6.4-8.2)
--- NOTE | 2018-10-02 07:56 | Occupational Ther Daily Note ---
OT Current Status-Daily Note Subjective Pt alert, sitting up in bed. Pt agrees to therapy. No c/o pain. Mental Status/Objective Patient Orientation: Person, Place, Time, Situation Therapy Code Descriptions/Definitions Functional [place] Measure: 0=Not Assessed/NA 4=Minimal Assistance 1=Total Assistance 5=Supervision or Setup 2=Maximal Assistance 6=Modified [place] 3=Moderate Assistance 7=Complete [place] ADL-Treatment Therapy Code Descriptions/Definitions Functional [place] Measure: 0=Not Assessed/NA 4=Minimal Assistance 1=Total Assistance 5=Supervision or Setup 2=Maximal Assistance 6=Modified [place] 3=Moderate Assistance 7=Complete [place] Therapy Quality Codes: 6 Independent with activity with or without an assistive device 5 Patient requires set up or clean up by helper. Patient completes activity by themselves 4 Supervision or touching assist (CGA). [place] provide cues , steadying assist 3 The helper provides less than half the effort to complete the activity 2 The helper provides more than half the effort to complete the activity 1 Dependent. The helper does all the effort to complete an activity 7 Patient refused to complete or attempt activity 9 The patient did not perform the activity before the current illness or injury 88 Not attempted due to Medical conditions or safety concerns Eating (FIM): 7 (Pt completes own set up and uses regular utensils to eat.) Eating (QC): 6 Grooming (FIM): 6 (Sitting at sink, pt completes by self.) Oral Hygiene (QC): 6 Bathing (FIM): 6 (Using shower seat, hand held shower, long handle sponge and grabbars pt able to complete by self.) Bathing Location: L Arm, R Arm, L Upper Leg, R Upper Leg, L Lower Leg (including foot), R Lower Leg (including foot), Chest, Abdomen, Buttocks, Perineal Area Shower/Bathe Self (QC): 6 Upper Body (FIM): 5 (After set up, pt completes by self.) Upper Body Dressing (QC): 5 Lower Body Dressing (FIM): 4 (Using acid correction hand, sock aide and dressing stick pt completes with CGA in standing while hiking own pants. Assist to tie shoes.) Lower Body Dressing (QC): 4 On/Off Footwear (QC): 4 (Assist with ERIKA hose) Toileting (FIM): 4 (Assist in standing to hike pants over hips. Sitting to cleanse self.) Toileting Hygiene (QC): 4 Transfers (B, C, W/C) (FIM): 4 (Using elevated surface, pt is min A to CGA.) Toilet/Commode Transfer (FIM): 4 (Using elevated toilet seat (BSC), grabbars and quadcane pt is min A.) Toilet Transfer (QC): 3 Shower Transfer(FIM): 4 (Using elevated seat (shower chair), grabbars and quadcane/wc pt is able to complete with min A.) Pt takes increased time to complete tasks. Pt to discharge tomorrow to home with family support. Pt is looking at renting rolling shower chair and w/c. Has grabbars, quadcane at home. Will need dressing stick, sock aide and acid correction hand for dressing at home. After therapy, pt sitting in recliner with call light/phone in reach all needs met in room. OT Short Term Goals Short Term Goals Eating(FIM): 5 Grooming(FIM): 5 Bathing(FIM): 5 Bathing Location: L Arm, R Arm, L Upper Leg, R Upper Leg, L Lower Leg (including foot), R Lower Leg (including foot), Chest, Abdomen, Buttocks, Perineal Area Upper Body Dressing(FIM): 5 Lower Body Dressing(FIM): 5 Toileting(FIM): 5 Transfers (B,C,W/C) (FIM): 4 Toilet/Commode Transfer(FIM): 5 Shower Transfer(FIM): 5 (5) Additional Short Term Goals: 1-Demonstrate ADL Tasks, 2-Verbalize Understanding, 3-ImproveStrength/Joel 1=Demonstrate adherence to instructed precautions during ADL tasks. 2=Patient will verbalize/demonstrate understanding of assistive devices/modifications for ADL. 3=Patient will improve strength/tolerance for activity to enable patient to perform ADL's. OT Night Court Magistrate Goals Night Court Magistrate Goals Eating (FIM): 7 (met-10/02/18) Eating (QC): 6 (met-10/02/18) Groomin (met-10/02/18) Oral Hygiene (QC): 6 (met-10/02/18) Bathing(FIM): 6 Bathing Location: L Arm, R Arm, L Upper Leg, R Upper Leg, L Lower Leg (including foot), R Lower Leg (including foot), Chest, Abdomen, Buttocks, Perineal Area Shower/Bathe Self (QC): 6 (met-10/02/18) Upper Body Dressing(FIM): 6 (not met) Upper Body Dressing (QC): 6 (not met) Lower Body Dressing(FIM): 6 (not met) Lower Body Dressing (QC): 6 (not met) On/Off Footwear (QC): 6 (not met) Toileting(FIM): 6 (not met) Toileting Hygiene (QC): 6 (not met) Transfers (B,C,W/C) (FIM): 6 (not met) Toilet/Commode Transfer(FIM): 6 (not met) Toilet/Commode Transfer (QC): 6 (not met) Shower Transfer(FIM): 6 (not met) 1=Demonstrate adherence to instructed precautions during ADL tasks. 2=Patient will verbalize/demonstrate understanding of assistive devices/modifications for ADL. 3=Patient will improve strength/tolerance for activity to enable patient to perform ADL's. OT Education/Plan Problem List/Assessment Assessment: Impaired Funct Balance, Impaired Self-Care Skills, Restricted Funct UE ROM pt presents with functional limitations affecting areas of ADLS/ functional transfers. pt protocol for R shoulder can be found in chart. pt would benefit from OT services to increase independence with ADLS/ functional transfers and for safe transition to home. Discharge Recommendations Plan/Recommendations: Continue POC Treatment Plan/Plan of Care Patient would benefit from OT for education, treatment and training to promote independence in ADL's, mobility, safety and/or upper extremity function for ADL's. Plan of Care: ADL Retraining, Caregiver Training, Concurrent Therapy, Functional Mobility, Group Exercise/Act as Ind, Orthotic Fitting/Training, UE Funct Exercise/Act Treatment Duration: Oct 09, 2018 Frequency: At least 5 of 7 days/Wk (IRF) Estimated Hrs Per Day: 1.5 hours per day (60-90 minutes per day) Agreement: Yes Rehab Potential: Fair Time/GCodes Start Time: 07:00 Stop Time: 08:30 Total Time Billed (hr/min): 90 Billed Treatment Time 1 visit-ADL 6 (90 min) PAZ SHIPMAN Oct 02, 2018 07:56
[2018-10-02] MEDS: ENOXAPARIN 40 MG/0.4 ML (LOVENOX) SYR SC SCH (08:18)
[2018-10-02] MEDS: FAMOTIDINE 20 MG (PEPCID) TABLET PO SCH (08:18)
[2018-10-02] MEDS ORDERED: HYDR-3812 PO (09:09)
--- NOTE | 2018-10-02 09:13 | D/C HH Face to Face Order ---
D/C Face to Face Orders Instructions for Patient Via [facility], Patient Instructions/FollowUp: Dr Pimentel in 1 week Physician to follow Patient: Dr Quincy Pimentel Discharge Diet for Home: No Restrictions Patient Problems: Right shoulder replacement Left fused knee HTN Goals for Patient: Return to independent living Patient Data-Allergies,Ht & Wt Patient Allergies: Coded Allergies: ciprofloxacin (Verified Allergy, Severe, HALLUCINATIONS. , 06/15/15) Cephalosporins (Verified Adverse Reaction, Severe, RASH, DYSPNEA, 11/16/11) Pentazocine Lactate (Unverified Adverse Reaction, Intermediate, PSYCH, 11/16/11) atorvastatin calcium (Unverified Adverse Reaction, Mild, MUSCLE SPASMS, 11/16/11) Uncoded Allergies: HYDROCARBON (Adverse Reaction, Intermediate, RASH, 11/16/11) Height (Feet): 5 Height (Inches): 7.00 Weight (Pounds): 164 Weight (Ounces): 10.0 Home Health Need/Face to Face Date of Face to Face: Oct 02, 2018 Clinical Findings: Generalized weakness and fatigue, Instability, Muscle weakn ess, Pain with ambulation, Unsteady gait I have seen Pt [id number]: Yes Discharged To: Home Diagnosis/Conditions: Right shoulder replacement Left fused knee HTN Patient is Homebound due to: [place] fall risk due to instabilty, Muscle weakness, Pain w/ambulation Homebound Status Due to the above stated illness, injury or surgical procedure (medical condition or diagnosis) and associated clinical findings, the patient is homebound because of his/her inability to leave home except with aid of a supportive device and/or person AND leaving the home requires a considerable and taxing effort or is medically contraindicated. Pt req the following assistanc: Walker Home Health Nursing Orders Home Health Services Order: Nursing Services, Range Operator-Evaluate & Treat, Physical Therapy-Evaluate & Treat Certify Stmt I certify that this patient is under my care and that I, a nurse practitioner or a physician; a licensed sales assistant working with me, had a face to face encounter that - meets the physician face to face encounter requirements with this patient as dated. RICO LANCE DO Oct 02, 2018 09:13
--- NOTE | 2018-10-02 09:27 | PM&R Progress Note ---
Subjective HPI/CC On Admission Date Seen by Provider: Oct 02, 2018 Time Seen by Provider: 09:00 CC: Right shoulder replacement with severe limitation of activities with debility HPI: This is an 88yoWM clinic patient of Dr Pimentel who presents to IRF after an uncomplicated right shoulder replacement by Dr Tobar at [facility] Tuesday but required IRF stay due to advanced age and frailty requiring 2 person assist in addition to left knee fusion due to replacements that have failed x 2 in the past further limiting his ability to ambulate and take care of himself at home. Patient finally arrived at 700pm last night and has settled in and doing well. BM this morning after laxatives given at [facility]. Pain is well controlled currently. Dr Pimentel has been notified of the consultation for his PCP needs. Right sling will stay in place during activity. His is at home in frail health also. I have reviewed his home meds and restarted all. PLOF was independent with ADL's. Patient seen for evaluation of chronic hypertension as well as new onset thrombocytopenia mild after the above. He is still on prophylactic Lovenox reporting no bleeding problems. He states that he has felt well in the shoulder pain is been under good control. He's had no evidence for bright red blood per rectum or melena in his appetite is back to normal. He had some postop constipation as well as urinary retention requiring short-term catheter placement. Catheter was removed before discharge and he reports urination is been smaller volume but he does feel as though he is emptying. His usual nocturia is 1 here in the hospital he reports nocturia 2 it is been darker in color without dysuria he's not aware of any change in odor and denies flank pain chills or fever. Subjective/Events-last exam Patient had a great day at home Tuesday during the Day Pass Wheelchair order placed along with cushion Fall prevention will continue to be stressed with HH PT/OT Check meds and labs No edema and wearing ERIKA's Labs from this morning are stable Checked meds and labs Conferred with diamond die polisher therapy notes Review of Systems Musculoskeletal: arm pain, leg pain Objective Exam Vital Signs Vital Signs Date Time Temp Pulse Resp B/P (MAP) Pulse Ox O2 Delivery O2 Flow Rate FiO2 10/02/18 05:10 97.1 77 16 110/66 (81) 95 Room Air Capillary Refill : Less Than 3 Seconds General Appearance: No Apparent Distress, WD/WN, Chronically ill, Thin HEENT: PERRL/EOMI, TMs Normal, Normal ENT Inspection, Pharynx Normal, Moist Mucous Membranes Neck: Full Range of Motion, Normal Inspection, Non Tender, Supple Respiratory: Chest Non Tender, Lungs Clear, Normal Breath Sounds, No Accessory Muscle Use, No Respiratory Distress Cardiovascular: Regular Rate, Rhythm, No Gallop, No JVD, No Murmur Gastrointestinal: Normal Bowel Sounds, No Organomegaly, No Pulsatile Mass, Non Tender, Soft Back: Normal Inspection, No CVA Tenderness, No Vertebral Tenderness Extremity: Normal Capillary Refill, Normal Inspection, Normal Range of Motion (except right shoulder and chronic fusion left knee), Non Tender, No Calf Tenderness, Pedal Edema (ERIKA hose intact) Neurologic/Psychiatric: Alert, Oriented x3, No Motor/Sensory Deficits, Normal Mood/Affect Skin: Normal Color, Warm/Dry, Other (subtle erythema left leg appears venous stasis dermatitis) Lymphatic: No Adenopathy Results/Procedures Lab Laboratory Tests 10/02/18 05:39 Patient resulted labs reviewed. FIM Transfers Therapy Code Descriptions/Definitions Functional [place] Measure: 0=Not Assessed/NA 4=Minimal Assistance 1=Total Assistance 5=Supervision or Setup 2=Maximal Assistance 6=Modified [place] 3=Moderate Assistance 7=Complete [place] Therapy Quality Codes: 6 Independent with activity with or without an assistive device 5 Patient requires set up or clean up by helper. Patient completes activity by themselves 4 Supervision or touching assist (CGA). [place] provide cues , steadying assist 3 The helper provides less than half the effort to complete the activity 2 The helper provides more than half the effort to complete the activity 1 Dependent. The helper does all the effort to complete an activity 7 Patient refused to complete or attempt activity 9 The patient did not perform the activity before the current illness or injury 88 Not attempted due to Medical conditions or safety concerns Transfers (B, C, W/C) (FIM): 4 (Using elevated surface, pt is min A to CGA.) Scootin Rollin Roll Left to Right (QC): 4 Supine to/from Sit: 6 Sit to/from Stand: 4 Sit to Lying (QC): 5 Sit to Stand (QC): 3 Chair/Yjj-eo-Nzkyf Xfer(QC): 2 Bed to/from Chair: 4 Car Transfer (QC): 2 Gait Training Does the Patient Walk?: Yes Gait (FIM): 4 Distance (FIM): 3=150 ft Distance: 300 Walk 10 feet (QC): 4 Walk 50 ft with 2 Turns(QC): 4 Walk 150 ft (QC): 4 Walking 10ft/uneven surface-QC: 3 Gait Level of Assist: 4 Gait Persons Needed: 1 Gait Assistive Device: Cane Large Base Quad Wheelchair Training Does the Pt Use a Wheelchair?: Yes Wheelchair (FIM): 5 Wheelchair Distance: 3=150 ft (x2) Wheelchair Level of Assist: 5 (instruction for tight turns to prep for TRF position) Type of Wheelchair: Manual Stair Training Stair Training: Handrails/: 1 handrail Stairs (FIM): 2 #of Steps: 4 1 Step (curb) (QC): 3 4 Steps (QC): 3 Stairs: Pattern: Step to Level of Assist: 4 Mental Status/Objective Comprehension: 7 Expression: 7 Social Interaction: 7 Problem Solvin Memory: 7 ADL-Treatment Feedin (Pt completes own set up and uses regular utensils to eat.) Eating (QC): 6 Groomin (Sitting at sink, pt completes by self.) Oral Hygiene (QC): 6 Bathin (Using shower seat, hand held shower, long handle sponge and grabbars pt able to complete by self.) Bathing Location: L Arm, R Arm, L Upper Leg, R Upper Leg, L Lower Leg (including foot), R Lower Leg (including foot), Chest, Abdomen, Buttocks, Perineal Area Shower/Bathe Self (QC): 6 Upper Extremity Dressin (After set up, pt completes by self.) Upper Body Dressing (QC): 5 Lower Extremity Dressin (Using inspector balance bridge, sock aide and dressing stick pt completes with CGA in standing while hiking own pants. Assist to tie shoes.) Lower Body Dressing (QC): 4 On/Off Footwear (QC): 4 (Assist with ERIKA hose) Toiletin (Assist in standing to hike pants over hips. Sitting to cleanse self.) Toileting Hygiene (QC): 4 Toilet/Commode Transfer: 4 (Using elevated toilet seat (BSC), grabbars and quadcane pt is min A.) Toilet Transfer (QC): 3 Shower: 4 (Using elevated seat (shower chair), grabbars and quadcane/wc pt is able to complete with min A.) Assessment/Plan Assessment and Plan Assess & Plan/Chief Complaint Assessment: s/p right shoulder replacement uncomplicated POD # 26 at [facility] Post op urinary retention requiring Ferrell cath but now resolved since cath removed Chronic left knee fusion HTN Allergic rhinitis Anemia Hypothyroidism Neuropathy BPH GERD Anemia Hyponatremia Low albumin Left leg subtle redness with h/o cellulitis in the past Edema wearing ERIKA's Plan: Pain control IRF protocols Fall risk PCP consulted and input is appreciated BM regimen Lovenox PPx to be maintained until DC and ambulatory Monitor BP and abide by parameters Monitor sodium level, 131 on recheck Work on transfers since it is much improved today with 1 person assist ERIKA hose intact Monitor left leg Day pass Sat went well DC tomorrow by 0800 (1) Status post replacement of right shoulder joint (2) Constipation (3) Urinary retention (4) Anemia (5) Hypothyroidism (6) GERD (gastroesophageal reflux disease) (7) Allergic rhinitis (8) Hypertension (9) BPH (benign prostatic hyperplasia) (10) Limitation of joint motion of left knee (11) Hyponatremia (12) Serum albumin decreased RICO LANCE DO Oct 02, 2018 09:26
--- NOTE | 2018-10-02 10:00 | Physical Therapy Daily Note ---
PT Daily Note-Current Subjective Pt. feels very confident that he can manage at home sukumar with his families help. "Its only a matter of balance you know" Pain Location: No Pain Reported Mental Status Patient Orientation: Normal For Age Attachments: Other-See Comments (abd/ sling) Transfers Therapy Code Descriptions/Definitions Functional [place] Measure: 0=Not Assessed/NA 4=Minimal Assistance 1=Total Assistance 5=Supervision or Setup 2=Maximal Assistance 6=Modified [place] 3=Moderate Assistance 7=Complete [place] Therapy Quality Codes: 6 Independent with activity with or without an assistive device 5 Patient requires set up or clean up by helper. Patient completes activity by themselves 4 Supervision or touching assist (CGA). [place] provide cues , steadying assist 3 The helper provides less than half the effort to complete the activity 2 The helper provides more than half the effort to complete the activity 1 Dependent. The helper does all the effort to complete an activity 7 Patient refused to complete or attempt activity 9 The patient did not perform the activity before the current illness or injury 88 Not attempted due to Medical conditions or safety concerns Transfers (B, C, W/C) (FIM): 4 Scootin Rollin Roll Left to Right (QC): 6 Supine to/from Sit: 6 Sit to/from Stand: 4 (needs min to CGA for sit to stand , has to experiment with hrights and levels of seat for optimum sit to stand ) Sit to Lying (QC): 6 Sit to Stand (QC): 6 Chair/Gbu-ls-Ctpvn Xfer(QC): 4 Bed to/from Chair: 4 Car Transfer (QC): 5 Weight Bearing Right Lower Extremity: Right Weight Bearing/Tolerated Left Lower Extremity: Left Weight Bearing/Tolerated total shoulder protocol on right side Gait Training Does the Patient Walk?: Yes Gait (FIM): 2 (3) Distance (FIM): 3=150 ft (150,75x2) Walk 10 feet (QC): 4 Walk 50 ft with 2 Turns(QC): 4 Walk 150 ft (QC): 4 Walking 10ft/uneven surface-QC: 4 Gait Level of Assist: 4 Gait Persons Needed: 1 Gait Assistive Device: Cane Large Base Quad some assist to steady , min assist Wheelchair Training Does the Pt Use a Wheelchair?: Yes Wheelchair (FIM): 2 Wheelchair Distance: 6=380-02 ft ([id number]) Wheelchair Level of Assist: 4 Wheel 50 ft with 2 turns (QC): 4 Type of Wheelchair: Manual min to mod assist to manuever chair in to a good place for TRF and turns in to doorways. Stair Training Stair Training: Handrails/: uses cane Stairs (FIM): 2 #of Steps: 2 1 Step (curb) (QC): 3 Stairs: Pattern: Step to Level of Assist: 3 mod assist to steady and slight to lift up Balance Special Test Comments unsafe to attempt picking object up from floor Exercises Supine Ex: Ankle pumps, Rolling, Straight leg raise, Hip abd/add Supine Reps: 12 Seated Therapy Exercises: Sit to stand Seated Reps: 12 Treatments much work on TRFs SPT w/c to toilet, pt. advised to pull pants down in sitting in w/c and SPT and sit for urination as standing without holding on to rail puts him at risk Assessment Current Status: Good Progress has good family support PT Short Term Goals Short Term Goals Time Frame: September 18, 2018 Transfers (B,C,W/C) (FIM): 4 Gait (FIM): 2 Gait Distance Comment: 100' Gait Level of Assist: 4 Gait Assistive Device: Handheld Assist PT Machine Sewer Goals Machine Sewer Goals PT Machine Sewer Goals Time Frame: Oct 02, 2018 Transfers (B,C,W/C) (FIM): 5 Sit to Lying (QC): 6 Lying-Sitting on Side/Bed(QC): 6 Sit to Stand (QC): 4 Rollin Roll Left to Right (QC): 6 Chair/Kgp-uc-Gfoyv Xfer(QC): 4 Car Transfer (QC): 4 Gait (FIM): 4 Distance: 150' Walk 10 feet (QC): 4 Walk 10ft-Uneven Surface(QC): 4 Walk 50ft with 2 Turns (QC): 4 Walk 150 ft (QC): 4 Gait Level of Assist: 4 (CGA) Gait Assistive Device: Handheld Assist Stairs (FIM): 1 # of Steps: 1 1 Step (curb) (QC): 3 Stairs Level Of Assist: 4 PT Plan Treatment/Plan Treatment Plan: Continue Plan of Care Treatment Plan: Bed Mobility, Concurrent Therapy, Education, Functional Activity Joel, Functional Strength, Group Therapy, Gait, Safety, Therapeutic Exercise, Transfers Treatment Duration: Oct 02, 2018 Frequency: At least 5 of 7 days/Wk (IRF) Estimated Hrs Per Day: 1.5 hours per day Patient and/or Family Agrees t: Yes Safety Risks/Education Patient Education: Gait Training, Transfer Techniques, Steps, Correct Positioning, Disease Process, Safety Issues Teaching Recipient: Patient Teaching Methods: Demonstration, Discussion Response to Teaching: Verbalize Understanding, Return Demonstration, Reinforcement Needed Time/GCodes Time In: 900 Time Out: 1000 Total Billed Treatment Time: 60 Total Billed Treatment 1,FA20,GT15,EX10,whc15 G Codes Necessary: LATASHA Coyle TIP BANDER Oct 02, 2018 10:00
--- NOTE | 2018-10-02 13:05 | Physical Therapy Daily Note ---
PT Daily Note-Current Subjective Pt. asleep in w/c , agrees to Rx when awakened. States he feels he is ready for home. Pain Location: No Pain Reported Mental Status Patient Orientation: Normal For Age Attachments: Other-See Comments (abd splint immoblizer sling right arm) Transfers Therapy Code Descriptions/Definitions Functional [place] Measure: 0=Not Assessed/NA 4=Minimal Assistance 1=Total Assistance 5=Supervision or Setup 2=Maximal Assistance 6=Modified [place] 3=Moderate Assistance 7=Complete [place] Therapy Quality Codes: 6 Independent with activity with or without an assistive device 5 Patient requires set up or clean up by helper. Patient completes activity by themselves 4 Supervision or touching assist (CGA). [place] provide cues , steadying assist 3 The helper provides less than half the effort to complete the activity 2 The helper provides more than half the effort to complete the activity 1 Dependent. The helper does all the effort to complete an activity 7 Patient refused to complete or attempt activity 9 The patient did not perform the activity before the current illness or injury 88 Not attempted due to Medical conditions or safety concerns practiced 7 sit to stands from w/c, seat height raised significantly to accommodate height for ease of sit to stand. 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 Pts. with significant medical history herself will be pts. sole assist at home therefore pt. is instructed by this STUCCO APPLICATOR to limit gait until PT is there for home care. Then perhaps after the immobilizer is discontinued and he is able to steady himself better with a FWW which he was use to prior to this admit he can resume indep gait in a safer situation. Until then it is recommended that pt. use w/c at home for mobility unless she has stable assist Wheelchair Training needs instruction & guidance for turns sukumar approaching another surface Exercises Supine Ex: Ankle pumps, Quad Set, Rolling, Glut sets, Heel Slides, Short Arc Quads, Scooting, Straight leg raise, Hip abd/add Supine Reps: 12 Assessment Current Status: Good Progress PT Short Term Goals Short Term Goals Time Frame: September 18, 2018 Transfers (B,C,W/C) (FIM): 4 Gait (FIM): 2 Gait Distance Comment: 100' Gait Level of Assist: 4 Gait Assistive Device: Handheld Assist PT Data Processing Equipment Repairer Goals Alf Goals PT Data Processing Equipment Repairer Goals Time Frame: Oct 02, 2018 Transfers (B,C,W/C) (FIM): 5 Sit to Lying (QC): 6 Lying-Sitting on Side/Bed(QC): 6 Sit to Stand (QC): 4 Rollin Roll Left to Right (QC): 6 Chair/Kgf-me-Nttwd Xfer(QC): 4 Car Transfer (QC): 4 Gait (FIM): 4 Distance: 150' Walk 10 feet (QC): 4 Walk 10ft-Uneven Surface(QC): 4 Walk 50ft with 2 Turns (QC): 4 Walk 150 ft (QC): 4 Gait Level of Assist: 4 (CGA) Gait Assistive Device: Handheld Assist Stairs (FIM): 1 # of Steps: 1 1 Step (curb) (QC): 3 Stairs Level Of Assist: 4 PT Plan Treatment/Plan Treatment Plan: Continue Plan of Care Treatment Plan: Bed Mobility, Concurrent Therapy, Education, Functional Activity Joel, Functional Strength, Group Therapy, Gait, Safety, Therapeutic Exercise, Transfers Treatment Duration: Oct 02, 2018 Frequency: At least 5 of 7 days/Wk (IRF) Estimated Hrs Per Day: 1.5 hours per day Patient and/or Family Agrees t: Yes Safety Risks/Education Patient Education: Gait Training, Transfer Techniques, Correct Positioning, W/C Management, Safety Issues Teaching Recipient: Patient Teaching Methods: Demonstration, Discussion Response to Teaching: Verbalize Understanding, Return Demonstration, Reinforcement Needed Time/GCodes Time In: 1230 Time Out: 1300 Total Billed Treatment Time: 30 Total Billed Treatment 1,GT15m,EX15m G Codes Necessary: LATASHA Coyle STUCCO APPLICATOR Oct 02, 2018 13:04
[2018-10-02] MEDS: ASCORBIC ACID (VIT C) 500 MG TABLET PO SCH (18:05)
[2018-10-02 18:22] VITALS: BP 130/79
[2018-10-02] MEDS: TAMSULOSIN 0.4 MG (FLOMAX) CAP PO SCH (21:26)
[2018-10-02] MEDS: GABAPENTIN 100 MG (NEURONTIN) CAP PO SCH (21:26)
[2018-10-02] MEDS: FLUTICASONE NASAL SPRAY (FLONASE) 16 GM BTL NS SCH (21:27)
[2018-10-02] MEDS: SENNA W/DOCUSATE (SENOKOT S) TABLET PO SCH (21:27)
[2018-10-03 05:04] VITALS: BP 113/62
[2018-10-03] MEDS: CALCIUM PO SCH (06:28)
[2018-10-03] MEDS: MULTIVIT W/MINERALS TAB (THERAGRAN M) PO SCH (06:28)
[2018-10-03] MEDS: MAGNESIUM PO SCH (06:28)
[2018-10-03] MEDS: LEVOTHYROXINE 125 MCG (LEVOTHROID) TABLET PO SCH (06:28)
[2018-10-03] MEDS: ZINC PO SCH (06:28)
[2018-10-03] MEDS: FAMOTIDINE 20 MG (PEPCID) TABLET PO SCH (08:11)
--- NOTE | 2018-10-03 08:40 | NUR ---
Patient discharged from facility via wheelchair to private vehicle. Accompanied by and grandson. Discharge instructions reviewed and explained. No questions from patient or family at this time. Personal belongings and printed prescription sent with patient.
--- NOTE | 2018-10-03 08:47 | Discharge Summary ---
Diagnosis/Chief Complaint Date of Admission September 10, 2018 at 18:50 Date of Discharge Discharge Date: Oct 03, 2018 Discharge Time: 0800 Discharge Diagnosis Assessment: s/p right shoulder replacement uncomplicated POD # 27 at [facility] Post op urinary retention requiring Ferrell cath but now resolved since cath removed Chronic left knee fusion HTN Allergic rhinitis Anemia Hypothyroidism Neuropathy BPH GERD Anemia Hyponatremia Low albumin Left leg subtle redness with h/o cellulitis in the past Edema wearing ERIAK's Plan: Pain control IRF protocols Fall risk PCP consulted and input is appreciated BM regimen Lovenox PPx to be maintained until DC and ambulatory Monitor BP and abide by parameters Monitor sodium level, 131 on recheck Work on transfers since it is much improved today with 1 person assist ERIKA hose intact Monitor left leg Day pass Sat went well DC tomorrow by 0800 (1) Status post replacement of right shoulder joint (2) Constipation (3) Urinary retention (4) Anemia (5) Hypothyroidism (6) GERD (gastroesophageal reflux disease) (7) Allergic rhinitis (8) Hypertension (9) BPH (benign prostatic hyperplasia) (10) 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 , 06/15/15) Cephalosporins (Verified Adverse Reaction, Severe, RASH, DYSPNEA, 11/16/11) Pentazocine Lactate (Unverified Adverse Reaction, Intermediate, PSYCH, 11/16/11) atorvastatin calcium (Unverified Adverse Reaction, Mild, MUSCLE SPASMS, 11/16/11) Uncoded Allergies: HYDROCARBON (Adverse Reaction, Intermediate, RASH, 11/16/11) Vitals & I&Os Vital Signs Date Time Temp Pulse Resp B/P (MAP) Pulse Ox O2 Delivery O2 Flow Rate FiO2 10/03/18 05:04 98.0 70 113/62 (79) 18 Room Air 10/02/18 18:22 18 General Appearance: Alert, Oriented X3, Cooperative Respiratory: Clear to Auscultation, Normal Air Movement Cardiovascular: Regular Rate, Normal S1, Normal S2 Neuro: Normal Speech, Strength at 5/5 X4 Ext (except right arm in sling) Psych/Mental Status: Mental Status NL, Mood NL Hospital Course Was the Problem List Reviewed?: Yes Hospital course; Pt had a very lengthy hospital course at inpatient rehab for a full 24 days after he was transferred to [facility] inpatient rehab following right total shoulder replacement by Dr. Tobar at [facility]. He had an uncomplicated hospital course there but required Lovenox for DVT prophylaxis until discharge when he was fully ambulating. Dr. Pimentel was consulted his PCP who set parameters for blood pressure medication. Severe constipation postoper atively was managed with multiple medications and succeeded in returning back to his normal routine. He participated in all PT and OT required intense two person transfers due to the left knee fusion chronically and the right shoulder replacement that required sling maintained and pt was able to slowly recover enough to be able to walk with a quad cane and be able to maintain his i ndependent activities of daily living. Labs were monitored sodium level that was 130 returned back to near normal at 133 on the weekly checks and there was no evidence of any abnormality on the lab that required any intensive modification. Overall, he was deemed stable for discharge with home health and pt was agreeable for discharge along with his and had wonderful recovery of his function in order to return home to near prior level of function. Labs (last 24 hrs) Laboratory Tests 09/11/18 04:35: White Blood Count 5.5, Red Blood Count 3.15L, Hemoglobin 10.1L, Hematocrit 29L, Mean Corpuscular Volume 92, Mean Corpuscular Hemoglobin 32, Mean Corpuscular Hemoglobin Concent 35, Red Cell Distribution Width 12.8, Platelet Count 124L, Mean Platelet Volume 9.6, Neutrophils (%) (Auto) 63, Lymphocytes (%) (Auto) 17, Monocytes (%) (Auto) 16H, Eosinophils (%) (Auto) 4, Basophils (%) (Auto) 0, Neutrophils # (Auto) 3.5, Lymphocytes # (Auto) 0.9L, Monocytes # (Auto) 0.9, Eosinophils # (Auto) 0.2, Basophils # (Auto) 0.0, Sodium Level 134L, Potassium Level 4.0, Chloride Level 101, Carbon Dioxide Level 25, Anion Gap 8, Blood Urea Nitrogen 14, Creatinine 0.71, Estimat Glomerular Filtration Rate > 60, BUN/Creatinine Ratio 20, Glucose Level 131H, Calcium Level 8.6, Corrected Calcium 9.6, Total Bilirubin 0.9, Aspartate Amino Transf (AST/SGOT) 38H, Alanine Aminotransferase (ALT/SGPT) 37, Alkaline Phosphatase 88, Total Protein 4.7L, Albumin 2.7L 09/13/18 06:00: Urine Color YELLOW, Urine Clarity CLEAR, Urine pH 6.5, Urine Specific Rotan 1.010L, Urine Protein NEGATIVE, Urine Glucose (UA) NEGATIVE, Urine Ketones NEGATIVE, Urine Nitrite NEGATIVE, Urine Bilirubin NEGATIVE, Urine Urobilinogen NORMAL, Urine Leukocyte Esterase NEGATIVE, Urine RBC (Auto) NEGATIVE, Urine RBC NONE, Urine WBC NONE, Urine Squamous Epithelial Cells 0-2, Urine Crystals NONE, Urine Bacteria NEGATIVE, Urine Casts NONE, Urine Mucus SMALLH, Urine Culture Indicated NO 09/13/18 07:01: White Blood Count 5.4, Red Blood Count 3.42L, Hemoglobin 10.9L, Hematocrit 32L, Mean Corpuscular Volume 93, Mean Corpuscular Hemoglobin 32, Mean Corpuscular Hemoglobin Concent 34, Red Cell Distribution Width 12.8, Platelet Count 182, Mean Platelet Volume 8.8, Neutrophils (%) (Auto) 65, Lymphocytes (%) (Auto) 15, Monocytes (%) (Auto) 15H, Eosinophils (%) (Auto) 5, Basophils (%) (Auto) 0, Neutrophils # (Auto) 3.5, Lymphocytes # (Auto) 0.8L, Monocytes # (Auto) 0.8, Eosinophils # (Auto) 0.3, Basophils # (Auto) 0.0, Neutrophils % (Manual) 63, Lymphocytes % (Manual) 14, Monocytes % (Manual) 15, Eosinophils % (Manual) 7, Basophils % (Manual) 1, Elliptocytes SLIGHT 09/17/18 05:47: White Blood Count 4.2L, Red Blood Count 2.98L, Hemoglobin 9.4L, Hematocrit 28L, Mean Corpuscular Volume 94, Mean Corpuscular Hemoglobin 32, Mean Corpuscular Hemoglobin Concent 34, Red Cell Distribution Width 13.0, Platelet Count 285, Mean Platelet Volume 8.2, Neutrophils (%) (Auto) 59, Lymphocytes (%) (Auto) 22, Monocytes (%) (Auto) 13H, Eosinophils (%) (Auto) 6, Basophils (%) (Auto) 1, Neutrophils # (Auto) 2.5, Lymphocytes # (Auto) 0.9L, Monocytes # (Auto) 0.6, Eosinophils # (Auto) 0.2, Basophils # (Auto) 0.0, Sodium Level 130L, Potassium Level 4.4, Chloride Level 98, Carbon Dioxide Level 26, Anion Gap 6, Blood Urea N itrogen 10, Creatinine 0.68, Estimat Glomerular Filtration Rate > 60, BUN/Creatinine Ratio 15, Glucose Level 101, Calcium Level 8.5, Corrected Calcium 9.5, Total Bilirubin 0.8, Aspartate Amino Transf (AST/SGOT) 32, Alanine Aminotransferase (ALT/SGPT) 49, Alkaline Phosphatase 102, Total Protein 5.0L, Albumin 2.8L 09/21/18 08:43: Sodium Level 131L, Potassium Level 4.3, Chloride Level 97L, Carbon Dioxide Level 26, Anion Gap 8, Blood Urea Nitrogen 9, Creatinine 0.73, Estimat Glomerular Filtration Rate > 60, BUN/Creatinine Ratio 12, Glucose Level 138H, Calcium Level 9.2 09/25/18 05:08: Sodium Level 132L, Potassium Level 4.4, Chloride Level 101, Carbon Dioxide Level 25, Anion Gap 6, Blood Urea Nitrogen 13, Creatinine 0.74, Estimat Glomerular Filtration Rate > 60, BUN/Creatinine Ratio 18, Glucose Level 112H, Calcium Level 8.6, White Blood Count 3.8L, Red Blood Count 3.26L, Hemoglobin 10.3L, Hematocrit 31L, Mean Corpuscular Volume 94, Mean Corpuscular Hemoglobin 32, Mean Corpuscular Hemoglobin Concent 34, Red Cell Distribution Width 13.7, Platelet Count 380, Mean Platelet Volume 7.9, Neutrophils (%) (Auto) 52, Lymphocytes (%) (Auto) 28, Monocytes (%) (Auto) 16H, Eosinophils (%) (Auto) 4, Basophils (%) (Auto) 1, Neutrophils # (Auto) 1.9, Lymphocytes # (Auto) 1.0, Monocytes # (Auto) 0.6, Eosinophils # (Auto) 0.1, Basophils # (Auto) 0.0, Corrected Calcium 9.6, Total Bilirubin 0.5, Aspartate Amino Transf (AST/SGOT) 22, Alanine Aminotransferase (ALT/SGPT) 29, Alkaline Phosphatase 128, Total Protein 4.8L, Albumin 2.8L 10/02/18 05:39: Sodium Level 133L, Potassium Level 4.2, Chloride Level 99, Carbon Dioxide Level 25, Anion Gap 9, Blood Urea Nitrogen 9, Creatinine 0.74, Estimat Glomerular Filtration Rate > 60, BUN/Creatinine Ratio 12, Glucose Level 106H, Calcium Level 9.0, White Blood Count 3.7L, Red Blood Count 3.68L, Hemoglobin 11.5L, Hematocrit 35L, Mean Corpuscular Volume 96, Mean Corpuscular Hemoglobin 31, Mean Corpuscular Hemoglobin Concent 33, Red Cell Distribution Width 14.7H, Platelet Count 260, Mean Platelet Volume 8.2, Neutrophils (%) (Auto) 48, Lymphocytes (%) (Auto) 30, Monocytes (%) (Auto) 16H, Eosinophils (%) (Auto) 5, Basophils (%) (Auto) 1, Neutrophils # (Auto) 1.8, Lymphocytes # (Auto) 1.1, Monocytes # (Auto) 0.6, Eosinophils # (Auto) 0.2, Basophils # (Auto) 0.0, Corrected Calcium 9.7, Total Bilirubin 0.4, Aspartate Amino Transf (AST/SGOT) 18, Alanine A minotransferase (ALT/SGPT) 24, Alkaline Phosphatase 126, Total Protein 5.3L, Albumin 3.1L Pending Labs Laboratory Tests 09/11/18 04:35: White Blood Count 5.5, Red Blood Count 3.15, Hemoglobin 10.1, Hematocrit 29, Mean Corpuscular Volume 92, Mean Corpuscular Hemoglobin 32, Mean Corpuscular Hemoglobin Concent 35, Red Cell Distribution Width 12.8, Platelet Count 124, Mean Platelet Volume 9.6, Neutrophils (%) (Auto) 63, Lymphocytes (%) (Auto) 17, Monocytes (%) (Auto) 16, Eosinophils (%) (Auto) 4, Basophils (%) (Auto) 0, Neutrophils # (Auto) 3.5, Lymphocytes # (Auto) 0.9, Monocytes # (Auto) 0.9, Eosinophils # (Auto) 0.2, Basophils # (Auto) 0.0, Sodium Level 134, Potassium Level 4.0, Chloride Level 101, Carbon Dioxide Level 25, Anion Gap 8, Blood Urea Nitrogen 14, Creatinine 0.71, Estimat Glomerular Filtration Rate > 60, BUN/Creatinine Ratio 20, Glucose Level 131, Calcium Level 8.6, Corrected Calcium 9.6, Total Bilirubin 0.9, Aspartate Amino Transf (AST/SGOT) 38, Alanine Aminotransferase (ALT/SGPT) 37, Alkaline Phosphatase 88, Total Protein 4.7, Albumin 2.7 09/13/18 06:00: Urine Color YELLOW, Urine Clarity CLEAR, Urine pH 6.5, Urine Specific Rotan 1.010, Urine Protein NEGATIVE, Urine Glucose (UA) NEGATIVE, Urine Ketones NEGATIVE, Urine Nitrite NEGATIVE, Urine Bilirubin NEGATIVE, Urine Urobilinogen NORMAL, Urine Leukocyte Esterase NEGATIVE, Urine RBC (Auto) NEGATIVE, Urine RBC NONE, Urine WBC NONE, Urine Squamous Epithelial Cells 0-2, Urine Crystals NONE, Urine Bacteria NEGATIVE, Urine Casts NONE, Urine Mucus SMALL, Urine Culture Indicated NO 09/13/18 07:01: White Blood Count 5.4, Red Blood Count 3.42, Hemoglobin 10.9, Hematocrit 32, Mean Corpuscular Volume 93, Mean Corpuscular Hemoglobin 32, Mean Corpuscular Hemoglobin Concent 34, Red Cell Distribution Width 12.8, Platelet Count 182, Mean Platelet Volume 8.8, Neutrophils (%) (Auto) 65, Lymphocytes (%) (Auto) 15, Monocytes (%) (Auto) 15, Eosinophils (%) (Auto) 5, Basophils (%) (Auto) 0, Neutrophils # (Auto) 3.5, Lymphocytes # (Auto) 0.8, Monocytes # (Auto) 0.8, Eosinophils # (Auto) 0.3, Basophils # (Auto) 0.0, Neutrophils % (Manual) 63, Lymphocytes % (Manual) 14, Monocytes % (Manual) 15, Eosinophils % (Manual) 7, Basophils % (Manual) 1, Elliptocytes SLIGHT 09/17/18 05:47: White Blood Count 4.2, Red Blood Count 2.98, Hemoglobin 9.4, Hematocrit 28, Mean Corpuscular Volume 94, Mean Corpuscular Hemoglobin 32, Mean Corpuscular He moglobin Concent 34, Red Cell Distribution Width 13.0, Platelet Count 285, Mean Platelet Volume 8.2, Neutrophils (%) (Auto) 59, Lymphocytes (%) (Auto) 22, Monocytes (%) (Auto) 13, Eosinophils (%) (Auto) 6, Basophils (%) (Auto) 1, Neutrophils # (Auto) 2.5, Lymphocytes # (Auto) 0.9, Monocytes # (Auto) 0.6, Eosinophils # (Auto) 0.2, Basophils # (Auto) 0.0, Sodium Level 130, Potassium Level 4.4, Chloride Level 98, Carbon Dioxide Level 26, Anion Gap 6, Blood Urea Nitrogen 10, Creatinine 0.68, Estimat Glomerular Filtration Rate > 60, BUN/Creatinine Ratio 15, Glucose Level 101, Calcium Level 8.5, Corrected Calcium 9.5, Total Bilirubin 0.8, Aspartate Amino Transf (AST/SGOT) 32, Alanine Aminotransferase (ALT/SGPT) 49, Alkaline Phosphatase 102, Total Protein 5.0, Albumin 2.8 09/21/18 08:43: Sodium Level 131, Potassium Level 4.3, Chloride Level 97, Carbon Dioxide Level 26, Anion Gap 8, Blood Urea Nitrogen 9, Creatinine 0.73, Estimat Glomerular Filtration Rate > 60, BUN/Creatinine Ratio 12, Glucose Level 138, Calcium Level 9.2 09/25/18 05:08: Sodium Level 132, Potassium Level 4.4, Chloride Level 101, Carbon Dioxide Level 25, Anion Gap 6, Blood Urea Nitrogen 13, Creatinine 0.74, Estimat Glomerular Filtration Rate > 60, BUN/Creatinine Ratio 18, Glucose Level 112, Calcium Level 8.6, White Blood Count 3.8, Red Blood Count 3.26, Hemoglobin 10.3, Hematocrit 31, Mean Corpuscular Volume 94, Mean Corpuscular Hemoglobin 32, Mean Corpuscular Hemoglobin Concent 34, Red Cell Distribution Width 13.7, Platelet Count 380, Mean Platelet Volume 7.9, Neutrophils (%) (Auto) 52, Lymphocytes (%) (Auto) 28, Monocytes (%) (Auto) 16, Eosinophils (%) (Auto) 4, Basophils (%) (Auto) 1, Neutrophils # (Auto) 1.9, Lymphocytes # (Auto) 1.0, Monocytes # (Auto) 0.6, Eosinophils # (Auto) 0.1, Basophils # (Auto) 0.0, Corrected Calcium 9.6, Total Bilirubin 0.5, Aspartate Amino Transf (AST/SGOT) 22, Alanine Aminotransferase (ALT/SGPT) 29, Alkaline Phosphatase 128, Total Protein 4.8, Albumin 2.8 10/02/18 05:39: Sodium Level 133, Potassium Level 4.2, Chloride Level 99, Carbon Dioxide Level 25, Anion Gap 9, Blood Urea Nitrogen 9, Creatinine 0.74, Estimat Glomerular Filtration Rate > 60, BUN/Creatinine Ratio 12, Glucose Level 106, Calcium Level 9.0, White Blood Count 3.7, Red Blood Count 3.68, Hemoglobin 11.5, Hematocrit 35, Mean Corpuscular Volume 96, Mean Corpuscular Hemoglobin 31, Mean Corpuscular Hemoglobin Concent 33, Red Cell Distribution Width 14.7, Platelet Count 260, Mean Platelet Volume 8.2, Neutrophils (%) (Auto) 48, Lymphocytes (%) (Auto) 30, Monocytes (%) (Auto) 16, Eosinophils (%) (Auto) 5, Basophils (%) (Auto) 1, Neut rophils # (Auto) 1.8, Lymphocytes # (Auto) 1.1, Monocytes # (Auto) 0.6, Eosinophils # (Auto) 0.2, Basophils # (Auto) 0.0, Corrected Calcium 9.7, Total Bilirubin 0.4, Aspartate Amino Transf (AST/SGOT) 18, Alanine Aminotransferase (ALT/SGPT) 24, Alkaline Phosphatase 126, Total Protein 5.3, Albumin 3.1 Discharge Home Medications: Active Scripts Active Hydrocodone-Acetamin 5-325 mg (Hydrocodone/Acetaminophen) 1 Each Tablet 1-2 Tab PO Q6H PRN Reported Baclofen 10 Mg Tablet 10 Mg PO DAILY PRN ONLY TAKES WHEN TAKING LONG CAR TRIP Irbesartan 150 Mg Tablet 150 Mg PO HS Ftryeon-Ppetmrekg-Nhur Tablet (Calcium Carb/Mag Ox/Zinc Sulf) 1 Each Tablet 1 Tab PO DAILY Fluticasone Propionate 16 Gm Arverne.susp 2 Sprays NS HS Biotin 1,000 Mcg Tablet 1,000 Mcg PO DAILY Acetaminophen Extra Strength (Acetaminophen) 500 Mg Tablet 500-1,000 Mg PO Q6H PRN Gabapentin 100 Mg Capsule 200 Mg PO HS Levothyroxine Sodium 125 Mcg Tablet 125 Mcg PO DAILY Diltiazem HCl 60 Mg Tablet 60 Mg PO DAILY Centrum Silver Men Tablet (Multivit-Min/FA/Lycopen/Lutein) 1 Each Tablet 1 Tab PO DAILY Vitamin C (Ascorbic Acid) 1,000 Mg Tablet 1,000 Mg PO 1800 Senokot-S Tablet (Sennosides/Docusate Sodium) 1 Each Tablet 1 Tab PO BID Flomax (Tamsulosin HCl) 0.4 Mg Cap 0.4 Mg PO HS Acid Metal Hardener (RANITIDINE) (Ranitidine HCl) 150 Mg Tablet 150 Mg PO BID Instructions to patient/family Please see electronic discharge instructions given to patient. 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
--- NOTE | 2018-10-03 11:22 | NUR ---
DRIVER COURIER met with patient to review necessary items prior to scheduled discharge of tomorrow. Patient inquires about a wheelchair order. DRIVER COURIER obtained order for wheelchair and cushion and sent to [facility] with request of delivery today. DRIVER COURIER also assisted patient in locating a roll in shower chair, which igor will order from [employer] with scheduled delivery for 10/04. Following review of [facility] providers, patient selected [facility] for PT/OT services. DRIVER COURIER sent referral and notified Amparo, material coordinator. Amparo states they can accept for services. Patient is eager to return home, as his home visit over the weekend went well. He expresses no additional concerns at this time. Please see discharge summary for further information. Addendum: 10/03/18 at 1129 by GLORIA MESA SS Previous note was from 10/02. On 10/03-DRIVER COURIER requested Rosaura BOWDEN to have patient sign IMM. IMM filed in chart.
--- NOTE | 2018-10-03 14:43 | Therapy Team Discharge Summary ---
Therapy Discharge Summary Discharge Recommendations Date of Discharge Oct 03, 2018 at 08:40 Therapy D/C Recommendations: Home w/ Family Support, Retirement (TCU/NH) Physical Therapy Patient came to rehab after a total shoulder. Upon evaluation patient performed bed mobility with SBA, supine <-> sit with min assist, sit <-> stand with mod assist, transfers with mod assist, car transfer max assist, ambulated 70' with CLINICAL SUPPORT MANAGER and min assist (including 50' with at least 2 turns of 90 degrees and 10' over an uneven surface), no stairs at that time. Patient has been performing bed mobility and transfer training, balance and endurance training, functional strengthening, stair training, gait training, and education. Patient has made fair progress and has met his terminal computer operator goals for steps and transfers. Now, patient performs bed mobility with mod I, supine <-> sit with mod I, sit <-> stand with CGA, transfers with CGA, car transfer with SBA, ambulates 150' with a quad cane with min assist (including 50' with at least 2 turns of 90 degrees and 10' over an uneven surface), and can go up and down 2 steps using a quad cane with min assist. Patient has discharged from this facility today and will be discharged from PT at this time. Occupational Therapy Impaired Funct Balance, Impaired Self-Care Skills, Restricted Funct UE ROM PT Senior Care Goals Medical Billing Clerk Goals PT Senior Care Goals Time Frame: Oct 02, 2018 Transfers (B,C,W/C) (FIM): 5 Roll Left to Right (QC): 6 Sit to Lying (QC): 6 Lying-Sitting on Side/Bed(QC): 6 Sit to Stand (QC): 4 Chair/Qrt-qt-Muycp Xfer(QC): 4 Car Transfer (QC): 4 Gait (FIM): 4 Distance: 150' Walk 10 feet (QC): 4 Walk 10ft-Uneven Surface(QC): 4 Walk 50ft with 2 Turns (QC): 4 Walk 150 ft (QC): 4 Gait Level of Assist: 4 (CGA) Gait Assistive Device: Handheld Assist Stairs (FIM): 1 # of Steps: 1 1 Step (curb) (QC): 3 Stairs Level Of Assist: 4 OT Senior Care Goals Medical Billing Clerk Goals Eating (FIM): 7 (met-10/02/18) Eating (QC): 6 (met-10/02/18) Oral Hygiene (QC): 6 (met-10/02/18) Grooming(FIM): 6 (met-10/02/18) Bathing(FIM): 6 Bathing Location: L Arm, R Arm, L Upper Leg, R Upper Leg, L Lower Leg (including foot), R Lower Leg (including foot), Chest, Abdomen, Buttocks, Perineal Area Shower/Bathe Self (QC): 6 (met-10/02/18) Upper Body Dressing(FIM): 6 (not met) Upper Body Dressing (QC): 6 (not met) Lower Body Dressing(FIM): 6 (not met) Lower Body Dressing (QC): 6 (not met) On/Off Footwear (QC): 6 (not met) Toileting(FIM): 6 (not met) Toileting Hygiene (QC): 6 (not met) Transfers (B,C,W/C) (FIM): 6 (not met) Toilet/Commode Transfer(FIM): 6 (not met) Toilet/Commode Transfer (QC): 6 (not met) Shower Transfer(FIM): 6 (not met) 1=Demonstrate adherence to instructed precautions during ADL tasks. 2=Patient will verbalize/demonstrate understanding of assistive devices/modifications for ADL. 3=Patient will improve strength/tolerance for activity to enable patient to perform ADL's. NAGA JACOBS PT Oct 03, 2018 14:43
--- NOTE | 2018-10-03 15:18 | Therapy Team Discharge Summary ---
Therapy Discharge Summary Discharge Recommendations Date of Discharge Oct 03, 2018 at 08:40 Therapy D/C Recommendations: Home w/ Family Support, Retirement (TCU/NH) Occupational Therapy OT has worked on increase independence with ADLs/ functional transfers, UE ROM/ strength, use of AE/DME education, increasing activity tolerance/ endurance, and overall safety witn functional tasks in sittingand standing. Pt requires increased timing to complete all tasks. Pt discharge home with family support. pt currently has grabbars, quadcane at home. D/C equipment recommendation: dressing stick, sock aide and assistant distribution manager for dressing at home. currently pt is able to perform: eating independently, Grooming and bathing MOD I, UB dressing with setup/ supervision, LB dressing, toileting, and shower transfers with MIN A, and toilet transfers with MOD A. Impaired Funct Balance, Impaired Self-Care Skills, Restricted Funct UE ROM PT Intermediate Goals Intermediate Goals PT Intermediate Goals Time Frame: Oct 02, 2018 Transfers (B,C,W/C) (FIM): 5 Roll Left to Right (QC): 6 Sit to Lying (QC): 6 Lying-Sitting on Side/Bed(QC): 6 Sit to Stand (QC): 4 Chair/Ejq-ug-Vhixg Xfer(QC): 4 Car Transfer (QC): 4 Gait (FIM): 4 Distance: 150' Walk 10 feet (QC): 4 Walk 10ft-Uneven Surface(QC): 4 Walk 50ft with 2 Turns (QC): 4 Walk 150 ft (QC): 4 Gait Level of Assist: 4 (CGA) Gait Assistive Device: Handheld Assist Stairs (FIM): 1 # of Steps: 1 1 Step (curb) (QC): 3 Stairs Level Of Assist: 4 OT Intermediate Goals Intermediate Goals Eating (FIM): 7 (met-10/02/18) Eating (QC): 6 (met-10/02/18) Oral Hygiene (QC): 6 (met-10/02/18) Grooming(FIM): 6 (met-10/02/18) Bathing(FIM): 6 Bathing Location: L Arm, R Arm, L Upper Leg, R Upper Leg, L Lower Leg (includ ing foot), R Lower Leg (including foot), Chest, Abdomen, Buttocks, Perineal Area Shower/Bathe Self (QC): 6 (met-10/02/18) Upper Body Dressing(FIM): 6 (not met) Upper Body Dressing (QC): 6 (not met) Lower Body Dressing(FIM): 6 (not met) Lower Body Dressing (QC): 6 (not met) On/Off Footwear (QC): 6 (not met) Toileting(FIM): 6 (not met) Toileting Hygiene (QC): 6 (not met) Transfers (B,C,W/C) (FIM): 6 (not met) Toilet/Commode Transfer(FIM): 6 (not met) Toilet/Commode Transfer (QC): 6 (not met) Shower Transfer(FIM): 6 (not met) 1=Demonstrate adherence to instructed precautions during ADL tasks. 2=Patient will verbalize/demonstrate understanding of assistive devices/modifications for ADL. 3=Patient will improve strength/tolerance for activity to enable patient to perform ADL's. JETHRO POLLACK OT Oct 03, 2018 15:18
--- NOTE | 2018-10-04 17:53 | NUR ---
FLONASE SPRAY AND BOTTLE OF CALCIUM, MAGNESIUM AND ZINC WAS LEFT AT NURSE'S STATION. GENI, , NOTIFIED AND SHE IS TO PICK THEM UP TOMORROW.
== END 2018-10-03 08:40 | disposition home health service (06) | DRG 560 ==
LOC: 4TH 09-14 13:20
PROVIDERS: ADMIT Internal Medicine; ATTEND Internal Medicine
DX: Z47.1 Aftercare following joint replacement surgery (principal); Z96.611 Presence of right artificial shoulder joint; R54 Age-related physical debility; Z98.1 Arthrodesis status; E87.1 Hypo-osmolality and hyponatremia; K59.00 Constipation, unspecified; I10 Essential (primary) hypertension; J30.9 Allergic rhinitis, unspecified; D64.9 Anemia, unspecified; E03.9 Hypothyroidism, unspecified; G62.9 Polyneuropathy, unspecified; D69.6 Thrombocytopenia, unspecified; N40.0 Benign prostatic hyperplasia without lower urinary tract symptoms; R35.0 Frequency of micturition; R35.1 Nocturia; I87.2 Venous insufficiency (chronic) (peripheral); K21.9 Gastro-esophageal reflux disease without esophagitis; M19.91 Primary osteoarthritis, unspecified site; M54.9 Dorsalgia, unspecified; R53.81 Other malaise
CPT/HCPCS: 36415; 80048; 80053; 81000; 85007; 85025; 85027

== ENCOUNTER 2019-01-11 14:16 | Outpatient (RCR) | payer MEDICARE ==
[~2019-01-11 14:16] MED LIST changes: +ACET-168 PO; +ASCO10006 PO; +Biotin PO; +CALC-927 PO; +DILT60TA PO; +FLUT16SP22 NS; +GABA-486 PO; +HYDR-3812 PO; +IRBE150T26 PO; +LEVO125T6 PO; +MULT-1061 PO; +NFBIOT1000 PO; +SENN-40 PO
== END 2019-01-23 | disposition home or self-care (01) ==
PROVIDERS: ATTEND Orthopaedic Surgery
DX: Z47.1 Aftercare following joint replacement surgery (principal); Z96.611 Presence of right artificial shoulder joint

== ENCOUNTER 2019-02-07 13:37 | Outpatient (RCR) | payer MEDICARE | END 2019-04-05 11:28 | disposition home or self-care (01) | PROVIDERS: ATTEND Orthopaedic Surgery | DX: Z47.1 Aftercare following joint replacement surgery (principal); Z96.611 Presence of right artificial shoulder joint; R29.898 Other symptoms and signs involving the musculoskeletal system ==

== ENCOUNTER → 2020-05-08 | Outpatient (CLI) | payer MEDICARE ==
[~2020-05-08] MED LIST changes: +ACHD5005 PO; +ASCO100024 PO; -ASCO10006 PO; -HYDR-3812 PO; +IRBE150T23 PO; -IRBE150T26 PO; -TAMS0.4C98 PO; +TMSL.4C PO
== END ==
LOC: LABNPT 06:33
PROVIDERS: ATTEND Internal Medicine
DX: Z20.822 Contact with and (suspected) exposure to COVID-19 (principal)
CPT/HCPCS: 87635